=== PATIENT | female | born 1960 | race Caucasian/White ===

== ENCOUNTER 2018-09-01 21:00 | Inpatient (IN) | payer MEDICARE, OTHER ==
[~2018-09-01] VITALS: Ht 160 cm; Wt 72.0 kg
[2018-09-01 21:45] LABS: Basophils # (auto) 0.1 uL; Basophils % (auto) 0.9 % (0.0-2.0); Eosinophils # (auto) 0.1 uL; Eosinophils % (auto) 0.6 % (0.0-7.0); Hematocrit 43.8 % (36.0-46.0); Hemoglobin 14.9 g/dL (12.2-16.2); Monocytes # (auto) 0.6 uL; Nucleated Red Blood Cells % 0.1 %
[2018-09-01] MEDS ORDERED: LORazepam 2MG/ML-1ML VIAL IV ONE (21:45)
[2018-09-01 21:48] LABS: Lymphocytes # (auto) 3.3 uL; Lymphocytes % (auto) 34.6 % (10.0-50.0); Mean Corpuscular Hemoglobin 34.5 pg (28.0-32.0); Mean Corpuscular Volume 101.6 fL (80.0-100.0); Monocytes % (auto) 6.4 % (0.0-12.0); Neutrophils # (auto) 5.5 uL; Neutrophils % (auto) 57.5 % (37.0-80.0); Platelet Count (auto) 270 10^3/uL (140-450); Red Blood Cells 4.31 10^6/uL (4.0-5.20); Red Cell Distribution Width 14.1 % (11.8-14.3); White Blood Cell 9.6 10^3/uL (4.4-10.8)
[2018-09-01 22:31] LABS: Anion Gap 12 (5-15); Blood Urea Nitrogen 28 mg/dL (7-18); Calcium 9.9 mg/dL (8.5-10.1); Carbon Dioxide 22 mmol/L (21-32); Chloride 106 mmol/L (98-107); Glucose 101 mg/dL (74-106); Magnesium 2.2 mg/dL (1.6-2.6); Potassium 3.6 mmol/L (3.5-5.1); Sodium 140 mmol/L (136-145)
[2018-09-01 22:39] LABS: Alanine Aminotransferase 15 U/L (13-56); Alkaline Phosphatase 51 U/L (45-117); Aspartate Aminotransferase 20 U/L (15-37); BUN/Creatinine Ratio 14.2; Bilirubin, Total 0.6 mg/dL (0.2-1.0); Blood Alcohol < 3.0 mg/dL (0-5); GFR African American 33 mL/min; GFR Non-African American 28 mL/min; Total Protein 7.9 g/dL (6.4-8.2)
[2018-09-01 23:55] LABS: Urine Bacteria MANY /hpf (None Seen); Urine Blood Negative /uL (Negative); Urine Hyaline Cast MOD /lpf (0 - 2); Urine Mucus FEW (None Seen); Urine Specific Gravity 1.023 (1.001-1.035); Urine WBC 11 /hpf (0 - 5)
[2018-09-02 00:22] LABS: Alcohol, Urine < 3.0 mg/dL (0-5); Amphetamine Screen, Urine NEGATIVE (NEGATIVE); Barbiturate Scree,Urine NEGATIVE (NEGATIVE); Benzodiazephine Screen, Urine NEGATIVE (NEGATIVE); Cannabinoid Screen, Urine NEGATIVE (NEGATIVE); Cocaine Screen, Urine NEGATIVE (NEGATIVE); Opiate Scree,Urine POSITIVE (NEGATIVE); Phencyclidine Screen, Urine NEGATIVE (NEGATIVE)
[2018-09-02 00:31] LABS: Lactic Acid w/Reflex 2.7 mmol/L (0.4-2.0)
[2018-09-02] MEDS ORDERED: cefTRIAXone 1GM/50ML D5W 50 ML IV ONE (02:30)
[2018-09-02] MEDS ORDERED: VANCOMYCIN 1GM/250ML 250 ML IV ONE (02:30)
[2018-09-02] MEDS ORDERED: SODIUM CHLORIDE 0.9% 1,000 ML IV ONE ×2 (02:45)
[2018-09-02] MEDS ORDERED: ONDANSETRON HCL 4 MG/2 ML VIAL IV ONE ×2 (03:00→05:15)
[2018-09-02] MEDS ORDERED: MORPHINE SULFATE 4 MG/ML SYR/VIAL IV ONE (03:00)
[2018-09-02] MEDS ORDERED: HYDROcodone-ACET 5/325MG TAB PO ONE (04:30)
[2018-09-02] MEDS ORDERED: ONDANSETRON HCL 4 MG/2 ML VIAL ONE (05:05)
[2018-09-02] MEDS ORDERED: DOCUSATE SOD 100 MG CAP PO PRN (06:45)
[2018-09-02] MEDS ORDERED: TEMAZEPAM 15 MG CAP PO PRN (06:45)
[2018-09-02] MEDS ORDERED: ACETAMINOPHEN 500 MG TAB PO PRN (06:45)
[2018-09-02] MEDS ORDERED: ONDANSETRON HCL 4 MG/2 ML VIAL IV PRN (06:45)
[2018-09-02 08:21] LABS: Anion Gap 11 (5-15); BUN/Creatinine Ratio 15.7; Blood Urea Nitrogen 26 mg/dL (7-18); Carbon Dioxide 21 mmol/L (21-32); Chloride 109 mmol/L (98-107); GFR African American 41 mL/min; GFR Non-African American 34 mL/min; Glucose 106 mg/dL (74-106); Potassium 4.3 mmol/L (3.5-5.1); Sodium 141 mmol/L (136-145)
[2018-09-02 08:22] LABS: Basophils # (auto) 0.1 uL; Basophils % (auto) 0.8 % (0.0-2.0); Eosinophils # (auto) 0 uL; Eosinophils % (auto) 0.1 % (0.0-7.0); Hemoglobin 13.9 g/dL (12.2-16.2); Lymphocytes % (auto) 21.7 % (10.0-50.0); Monocytes # (auto) 0.7 uL; Nucleated Red Blood Cells % 0.1 %
[2018-09-02 08:24] LABS: Hematocrit 41.2 % (36.0-46.0); Mean Corpuscular Hemoglobin 34.4 pg (28.0-32.0); Mean Corpuscular Hgb Conc. 33.7 g/dL (32.0-36.0); Mean Corpuscular Volume 102.1 fL (80.0-100.0); Monocytes % (auto) 7.5 % (0.0-12.0); Neutrophils # (auto) 6.5 uL; Neutrophils % (auto) 69.9 % (37.0-80.0); Platelet Count (auto) 194 10^3/uL (140-450); Red Blood Cells 4.03 10^6/uL (4.0-5.20); Red Cell Distribution Width 14.2 % (11.8-14.3); White Blood Cell 9.3 10^3/uL (4.4-10.8)
[2018-09-02 09:48] LABS: Cholesterol 222 mg/dL (< 200); Triglycerides 161 mg/dL (< 150)
[2018-09-02 09:50] LABS: HDL Cholesterol 63 mg/dL (40-59); LDL Cholesterol 148 mg/dL (< 100)
[2018-09-02] MEDS: cefTRIAXone 1GM/50ML D5W 50 ML IV SCH (09:59)
[2018-09-02] MEDS: PANTOPRAZOLE 40 MG TAB PO SCH (09:59)
[2018-09-02] MEDS: ASPirin-EC 81 mg tab PO SCH (10:07)
[2018-09-02] MEDS ORDERED: LORazepam 2MG/ML-1ML VIAL IM ONE (11:00)
--- NOTE | 2018-09-02 11:45 | NUR ---
MS admit from ER JACOB WATTS admitted to Telemetry unit after SBAR received. Patient oriented to Tiffani Butler, primary RN, unit, room, bed, and unit policies regarding patient care and visiting hour. Patient placed on bedside oxygen, weighed by bedscale and encouraged to call if they need something. All questions and concerns addressed, patient verbalized understanding. Note:
[2018-09-02 12:00] VITALS: BP 128/71
[2018-09-02] MEDS ORDERED: LORazepam 2MG/ML-1ML VIAL IV PRN (12:15)
[2018-09-02 13:00] VITALS: BP 128/71
--- NOTE | 2018-09-02 16:00 | NUR ---
DAUGHTER AT BEDSIDE. BROUGHT IN PATIENT'S HOME MEDICATIONS. MED REC COMPLETED.
[2018-09-02 16:36] VITALS: BP 123/79
[2018-09-02] MEDS ORDERED: SERT-274 PO (17:00)
[2018-09-02] MEDS ORDERED: OMEP20TA PO (17:00)
[2018-09-02] MEDS ORDERED: SIMV-13 PO (17:00)
[2018-09-02] MEDS ORDERED: DOCU250C3 PO (17:00)
[2018-09-02] MEDS ORDERED: OMEG500C PO (17:00)
[2018-09-02] MEDS ORDERED: HYDR-4683 PO (17:00)
[2018-09-02] MEDS ORDERED: CYCL5TAB PO (17:00)
[2018-09-02] MEDS ORDERED: CHOL200029 PO (17:00)
[2018-09-02] MEDS ORDERED: LORA-622 PO (17:00)
[2018-09-02] MEDS ORDERED: MAGN400C4 PO (17:00)
[2018-09-02] MEDS ORDERED: ASPI81CH59 PO (17:00)
--- NOTE | 2018-09-02 17:00 | NUR ---
PT NOTES RE: HOME MEDICATOIN UPON INTERVIEWING THE PT RE: HER HOME MEDICATIONS, THE PT INFORMED ME THAT SHE TAKES 3 TABLETS OF NORCO 10/325 AT NIGHT ALONG WITH ZOLOFT TO HELP HER FALL ASLEEP. SHE SAID THAT THAT'S THE ONLY THING THAT HELPS WITH PAIN AND HELPS HER SLEEP. PT IS INSISTING THAT SHE HAS TO TAKE THEM HERE THE WAY SHE TAKES THEM AT HOME. I INFORMED THE PATIENT ABOUT THE NORCO ORDER WE HAVE FOR HER AND SHE WAS NOT HAPPY ABOUT IT. SHE DOESN'T LIKE THE IDEA OF TAKING 2 TABLETS OF NORCO 5/325 EVERY 4 HOURS NEEDED. SHE STATED THAT IT DOESN'T DO ANYTHING FOR HER. I ALSO INFORMED HER THAT SHE SHOULD NOT BE TAKING HER MEDICATION THAT WAY UNLESS HER MD PRESCRIBED IT. SHE PROCEEDED TO INFORM ME THAT SHE TAKES HER HOME MEDICATIONS DIFFERENTLY THAN WHAT SHE WAS TOLD AND THAT SHE HAD ALREADY TOLD HER PCP ABOUT IT, SO IT SHOULD BE OK FOR US TO GIVE IT TO HER HOW SHE TAKES THEM. I INFORMED THE PT THAT SHE HAS TO DISCUSS THIS WITH THE HOSPITALIST TOMORROW. DAUGHTER IS AT BEDSIDE WHO WAS IN AGREEMENT WITH ME. PT'S DAUGHTER IS INSTRUCTED TO TAKE PT'S MEDICATIONS HOME WITH HER, EXCEPT FOR HER KIDNEY TRANSPLANT MEDICATIONS WHICH SHE HAVE AT BEDSIDE. PT WILL TURN IT IN TO THE PHARMACY TOMORROW AFTER SHE SPEAK TO THE MD.
[2018-09-02] MEDS ORDERED: AZAT50TA6 PO (17:22)
[2018-09-02] MEDS ORDERED: TACR1CAP4 PO ×2 (17:22)
[2018-09-02] MEDS ORDERED: PRE5T PO (17:24)
--- NOTE | 2018-09-02 17:30 | NUR ---
PT TAKES METOPROLOL AT HOME BUT UNABLE TO PROVIDE DOSE. DAUGHTER WILL BRING IT TOMORROW.
--- NOTE | 2018-09-02 19:45 | NUR ---
OPENING NOTE REPORT RECEIVED FROM DAY SHIFT RN PATIENT IS A/OX4 RESTING IN BED. DAUGHTER IS AT BEDSIDE. PHYSICAL ASSESSMENT DONE-SEE INTERVENTIONS. POC DISCUSSED, PENDING PROCEDURES ALSO DISCUSSED. PATIENTS DAUGHTER HAS HOME MEDICATIONS AT BEDSIDE. EDUCATED PATIENT AND PATIENTS DAUGHTER THAT SHE MUST TAKE THEM HOME OR I HAVE TO SEND THEM TO THE PHARMACY. PATIENT STATES DAUGHTER WILL BE TAKING HER MEDICATIONS HOME. NO S/S OF DISTRESS AT THIS TIME. SAFETY PRECAUTIONS IN PLACE. WILL MONITOR Q1H PRN THROUGHOUT SHIFT, CALL LIGHT WITHIN REACH.
[2018-09-02 22:00] VITALS: BP 109/68
[2018-09-02] MEDS: ATORVASTATIN 20 MG TAB PO SCH (22:00)
[2018-09-02] MEDS ORDERED: ATORVASTATIN 20 MG TAB PO SCH (22:00)
[2018-09-02] MEDS: HYDROcodone-ACET 5/325MG TAB PO PRN (22:08)
[2018-09-03 05:00] VITALS: BP 118/72
--- NOTE | 2018-09-03 06:56 | NUR ---
CLOSING PATIENT IS SLEEPING AT THIS TIME. NO VISIBLE S/S OF DISTRESS NOTED CALL LIGHT WITHIN REACH WILL ENDORSE CARE TO AM SHIFT RN
--- NOTE | 2018-09-03 07:30 | NUR ---
Opening Shift Note Assumed care of patient, awake and alert. No S/S of distress/SOB or pain. Instructed on POC and to call for assist PRN, will continue to monitor for changes Q1hr and PRN.
[2018-09-03 08:00] VITALS: BP 93/55
--- NOTE | 2018-09-03 10:00 | NUR ---
HOME MEDICATION LIST REVIEWED WITH THE PATIENT. CORRECTIONS MADE.
[2018-09-03] MEDS: cefTRIAXone 1GM/50ML D5W 50 ML IV SCH (10:35)
[2018-09-03] MEDS: ASPirin-EC 81 mg tab PO SCH (10:35)
[2018-09-03] MEDS: PANTOPRAZOLE 40 MG TAB PO SCH (10:35)
[2018-09-03 12:00] VITALS: BP 117/72
[2018-09-03 17:00] VITALS: BP 116/99
--- NOTE | 2018-09-03 17:00 | NUR ---
PATIENT WANTED TO SPEAK TO SERGEY THE CHARGE NURSE. THE PATIENT EXPRESSED HER CONCERN THAT SHE HAS SOME MRI'S THAT WERE SUPPOSED TO BE COMPLETED TOMORROW. THE PATIENT WAS CONCERNED THAT THEY WOULDN'T GET DONE. THE PATIENT WANTED TO KNOW IF THERE WAS ANYTHING THAT WE COULD DO. WE INFORMED THE PATIENT THAT IT IS UP TO HER DOCTOR THAT SHE IS ASSIGNED TO HERE TO MAKE ORDERS CONCERNING HER CARE. PATIENT VERBALIZED UNDERSTANDING AND WE ENCOURAGED HER TO BRING UP HER ISSUES WITH DR. HOLLIDAY WHEN HE ROUNDS TOMORROW.
--- NOTE | 2018-09-03 19:12 | NUR ---
AT BEDSIDE AT BEDSIDE EXPLAINING POC WITH PATIENT AND PATIENTS DAUGHTER.
--- NOTE | 2018-09-03 19:30 | NUR ---
OPENING NOTE REPORT RECEIVED FROM DAY SHIFT RN. PATIENT IS A/OX4 SITTING UP IN BED. PATIENTS DAUGHTER AT BEDSIDE. PATIENT UPSET AND STATES SHE HAS NOT HAD HER ANTI REJECTION MEDICATIONS FOR TODAY. PATIENTS DAUGHTER ALSO VISIBLY UPSET STATING, "WE TOLD THE NURSE YESTERDAY ALL OF HER MEDICATIONS, WHY AREN'T THEY GIVING THEM TO HER. SHE CAN LOSE HER KIDNEY!". EXPLAINED TO PATIENT AND PATIENTS DAUGHTER THAT HER HOME MEDICATIONS ARE SCHEDULED FOR TONIGHT AT 2200 INCLUDING HER TWO ANTI REJECTION MEDICATIONS. DISCUSSED ALL NIGHT ORDERED MEDICATIONS WITH PATIENT. PATIENT STILL UPSET AND STATES, "WELL I TAKE 15 MEDICATIONS AT NIGHT. THOSE AREN'T 15". EDUCATED PATIENT THAT WE HAVE A COMPLETE MED REC OF HER LISTED HOME MEDICATIONS AND THAT WHAT WE HAVE ORDERED FOR TONIGHT IS WHAT IS LISTED IN HER MED REC. PATIENT STATES, "WELL WHO IS THE DOCTOR THAT ORDERED IT LIKE THIS? I NEED TO KNOW WHO I AM GOING TO HAVE TO FRENCH". EDUCATED PATIENT THAT SHE WILL BE GETTING HER ANTI REJECTION MEDICATIONS TONIGHT. THIS RN THOROUGHLY EXPLAINED ALL ORDERED MEDICATIONS INCLUDING THEIR USES/SIDE EFFECTS. ALL QUESTIONS ANSWERED. POC FOR TONIGHT DISCUSSED. WILL MONITOR Q1H PRN THROUGHOUT SHIFT.
[2018-09-03] MEDS: ATORVASTATIN 20 MG TAB PO SCH (21:54)
[2018-09-03] MEDS: TACROLIMUS 1 MG CAP PO SCH (21:55)
[2018-09-03] MEDS: MAGNESIUM OXIDE 400 MG TAB PO SCH (21:55)
[2018-09-03] MEDS ORDERED: azaTHIOprine 50 MG TAB PO SCH (22:00)
[2018-09-03] MEDS ORDERED: SERTRALINE HCL 50 MG TAB PO SCH (22:00)
[2018-09-03] MEDS: HYDROcodone-ACET 5/325MG TAB PO PRN (22:06)
[2018-09-03 22:20] VITALS: BP 118/65
[2018-09-04] MEDS: HYDROcodone-ACET 5/325MG TAB PO PRN (03:51)
[2018-09-04] MEDS ORDERED: METO25TA5 PO (05:28)
[2018-09-04] MEDS ORDERED: RALO60TA13 PO (05:28)
--- NOTE | 2018-09-04 05:29 | NUR ---
UPDATED MED REC PATIENT REMEMBERED TWO MORE MEDICATIONS THAT SHE TAKES AT HOME.
[2018-09-04 05:37] VITALS: BP 147/86
--- NOTE | 2018-09-04 06:47 | NUR ---
CLOSING PATIENT SLEEPING. NO S/S OF DISTRESS. CALL LIGHT WITHIN REACH WILL ENDORSE CARE TO AM SHIFT RN
[2018-09-04 08:41] VITALS: BP 94/61
[2018-09-04] MEDS: MAGNESIUM OXIDE 400 MG TAB PO SCH (09:03)
[2018-09-04] MEDS: PANTOPRAZOLE 40 MG TAB PO SCH (09:03)
[2018-09-04] MEDS: cefTRIAXone 1GM/50ML D5W 50 ML IV SCH (09:03)
[2018-09-04] MEDS: TACROLIMUS 1 MG CAP PO SCH (09:04)
[2018-09-04] MEDS: ASPirin-EC 81 mg tab PO SCH (09:05)
[2018-09-04] MEDS ORDERED: predniSONE 5 MG TAB PO SCH (10:00)
[2018-09-04] MEDS ORDERED: azaTHIOprine 50 MG TAB PO SCH ×2 (10:00)
[2018-09-04 12:42] VITALS: BP 117/74
[2018-09-04 14:45] VITALS: BP 117/74
--- NOTE | 2018-09-04 16:30 | NUR ---
Discharge instructions given as ordered. Encourage to follow up with PMD as instructed. Pt given Elizabeth teo / [facility] rep information given. All questions and concerns addressed. Patient verbalized understanding. Medication reconciliation form completed and copy given to patient. No home medications held in Pharmacy, and no needed vaccines to be given. IV removed with catheter intact, pressure dressing applied.
--- NOTE | 2018-09-04 16:50 | NUR ---
Report given to Michelle/ RN, pt waiting for his family to pick her up.
--- NOTE | 2018-09-04 18:05 | NUR ---
DISCHARGE NOTE Discharge instructions given as ordered. Encourage to follow up with PMD as instructed. All questions and concerns addressed. Patient verbalized understanding. Medication reconciliation form completed and copy given to patient. Home medications held in Pharmacy returned to patient. IV removed with catheter intact, pressure dressing applied. Telemetry unit returned to ICU. Patient taken to vehicle via wheelchair with all personal belongings, accompanied by staff and family member. No distress noted at time of departure.
== END 2018-09-04 18:10 | disposition home or self-care (01) | DRG 871 ==
LOC: ER 21:02 → OVERFLOW 21:03 → WEST WING 09-02 14:54
PROVIDERS: ADMIT Nurse Practitioner Family; ATTEND Family Medicine
DX: A41.9 Sepsis, unspecified organism (principal); G93.41 Metabolic encephalopathy; N39.0 Urinary tract infection, site not specified; G45.9 Transient cerebral ischemic attack, unspecified; Z94.0 Kidney transplant status; Z79.82 Long term (current) use of aspirin; Z79.899 Other long term (current) drug therapy; Z88.8 Allergy status to other drugs, medicaments and biological substances; E78.00 Pure hypercholesterolemia, unspecified; F41.1 Generalized anxiety disorder; F44.9 Dissociative and conversion disorder, unspecified; I11.9 Hypertensive heart disease without heart failure
CPT/HCPCS: 36415; 70450; 70551; 71045; 80048; 80053; 80061; 80307; 80320; 81001; 83605; 83735; 84484; 85025; 87040; 87086; 93005; 93306; 93886; 96361; 96365; 96368; 96375; G0378; J0696; J2405; J7507

== ENCOUNTER 2020-09-24 10:14 | Inpatient (IN) | payer OTHER, MEDICARE ==
[~2020-09-24] VITALS: Ht 160 cm; Wt 77.8 kg
[~2020-09-24 10:14] MED LIST: ASPI81CH59 PO; AZAT50TA6 PO; CHOL200029 PO; CYCL5TAB PO; DOCU250C4 PO; HYDR-4833 PO; LORA-622 PO; MAGN400C4 PO; METO25TA5 PO; OMEG500C PO; OMEP20TA PO; PRE5T PO; RALO60TA13 PO; SERT50TA19 PO; SIMV-13 PO; TACR1CAP4 PO
[2020-09-24] MEDS ORDERED: SODIUM CHLORIDE 0.9% 1,000 ML IV ONE (10:30)
[2020-09-24] MEDS ORDERED: MORPHINE SULFATE 4 MG/ML SYR/VIAL IV ONE (10:30)
[2020-09-24] MEDS ORDERED: ONDANSETRON HCL 4 MG/2 ML VIAL IV ONE (10:30)
[2020-09-24 10:59] LABS: Basophils # (auto) 0.1 10 ^3/uL (0-0.2); Eosinophils # (auto) 0 10 ^3/uL (0-0.8); Hemoglobin 12.6 g/dL (12.2-16.2)
[2020-09-24 11:02] LABS: Basophils % (auto) 1.1 % (0.0-2.0); Hematocrit 36.7 % (36.0-46.0); Lymphocytes # (auto) 1.4 10 ^3/uL (0.4-5.4); Lymphocytes % (auto) 11.9 % (10.0-50.0); Mean Corpuscular Hemoglobin 32.7 pg (28.0-32.0); Mean Corpuscular Hgb Conc. 34.2 g/dL (32.0-36.0); Mean Corpuscular Volume 95.7 fL (80.0-100.0); Monocytes # (auto) 0.6 10 ^3/uL (0-1.3); Monocytes % (auto) 4.6 % (0.0-12.0); Neutrophils # (auto) 9.9 10 ^3/uL (1.6-8.6); Neutrophils % (auto) 82.4 % (37.0-80.0); Red Blood Cells 3.84 10^6/uL (4.0-5.20)
[2020-09-24 11:13] LABS: Albumin 3.4 g/dL (3.4-5.0); Anion Gap 13 (5-15); Blood Urea Nitrogen 48 mg/dL (7-18); Calcium 9.5 mg/dL (8.5-10.1); Carbon Dioxide 17 mmol/L (21-32); Chloride 110 mmol/L (98-107); Glucose 147 mg/dL (74-106); Potassium 3.8 mmol/L (3.5-5.1); Sodium 140 mmol/L (136-145)
[2020-09-24 11:22] LABS: Alanine Aminotransferase 15 U/L (13-56); Alkaline Phosphatase 111 U/L (45-117); Aspartate Aminotransferase 19 U/L (15-37); BUN/Creatinine Ratio 18.8; Bilirubin, Total 0.7 mg/dL (0.2-1.0); GFR African American 25 mL/min; GFR Non-African American 20 mL/min; Lipase 7474 U/L (73-393)
[2020-09-24 14:13] LABS: Urine Bacteria NONE SEEN /hpf (None Seen); Urine Blood TRACE /uL (Negative); Urine Hyaline Cast FEW /lpf (0 - 2); Urine Mucus FEW (None Seen); Urine Specific Gravity 1.026 (1.001-1.035); Urine WBC 2 /hpf (0 - 5)
[2020-09-24] MEDS ORDERED: metroNIDAZOLE 500MG/100ML 100 ML IV ONE (14:15)
[2020-09-24] MEDS ORDERED: cefTRIAXone 1GM/50ML D5W 50 ML IV ONE (14:15)
[2020-09-24] MEDS ORDERED: LABETALOL HCL 5 MG/ML 4ML SYRINGE IV PRN ×3 (14:45→15:15)
[2020-09-24] MEDS ORDERED: METOPROLOL TARTRATE 50 MG TAB PO ONE (14:45)
[2020-09-24] MEDS ORDERED: NITROGLYCERIN 0.4 MG SL TAB SL PRN (14:45)
[2020-09-24] MEDS ORDERED: PANTOPRAZOLE 40 MG/10 ML VIAL INJ IV ONE (15:15)
[2020-09-24] MEDS: MORPHINE SULF INJ 2 MG/ML SYRINGE 1ML IV PRN ×2 (15:41→19:33)
[2020-09-24] MEDS: SODIUM CHLORIDE 0.9% 1,000 ML IV SCH ×2 (16:05→21:55)
[2020-09-24] MEDS ORDERED: methylPREDNISolone SOD SUCC 40 MG/ML VL IV ONE (17:15)
[2020-09-24] MEDS ORDERED: DOCUSATE SODIUM 250 MG PO SCH (17:15)
[2020-09-24] MEDS: SERTRALINE HCL 50 MG TAB PO SCH (18:16)
[2020-09-24] MEDS: PIPERACILLIN-TAZOB 2.25GM 50 ML IV SCH (18:16)
[2020-09-24] MEDS: TACROLIMUS 1 MG CAP PO SCH (18:49)
[2020-09-24] MEDS: ONDANSETRON HCL 4 MG/2 ML VIAL IV PRN (19:33)
[2020-09-24] MEDS: METOPROLOL TARTRATE 25 MG TAB PO SCH (22:00)
[2020-09-24] MEDS ORDERED: METOPROLOL TARTRATE 50 MG TAB PO SCH (22:00)
[2020-09-24] MEDS: MAGNESIUM OXIDE 420 MG PO SCH (22:00)
[2020-09-24 22:20] VITALS: BP 155/93
[2020-09-24] MEDS: ATORVASTATIN 20 MG TAB PO SCH (22:28)
[2020-09-24] MEDS: metroNIDAZOLE 500MG/100ML 100 ML IV SCH (22:29)
[2020-09-24 23:00] VITALS: BP 155/93
[2020-09-25] MEDS: PIPERACILLIN-TAZOB 2.25GM 50 ML IV SCH ×2 (00:14→06:00)
[2020-09-25] MEDS: ONDANSETRON HCL 4 MG/2 ML VIAL IV PRN ×5 (00:32→21:25)
[2020-09-25] MEDS: MORPHINE SULF INJ 2 MG/ML SYRINGE 1ML IV PRN ×5 (00:33→21:26)
[2020-09-25] MEDS: SODIUM CHLORIDE 0.9% 1,000 ML IV SCH (05:00)
[2020-09-25 05:25] VITALS: BP 130/70
[2020-09-25] MEDS: metroNIDAZOLE 500MG/100ML 100 ML IV SCH (06:00)
[2020-09-25 06:42] LABS: Basophils # (auto) 0 10 ^3/uL (0-0.2); Basophils % (auto) 0.3 % (0.0-2.0); Eosinophils # (auto) 0 10 ^3/uL (0-0.8); Monocytes # (auto) 0.5 10 ^3/uL (0-1.3); Red Cell Distribution Width 15.6 % (11.8-14.3)
[2020-09-25 06:47] LABS: Hematocrit 33.2 % (36.0-46.0); Hemoglobin 11.5 g/dL (12.2-16.2); Lymphocytes # (auto) 1.2 10 ^3/uL (0.4-5.4); Lymphocytes % (auto) 10.5 % (10.0-50.0); Mean Corpuscular Hemoglobin 33.5 pg (28.0-32.0); Mean Corpuscular Hgb Conc. 34.6 g/dL (32.0-36.0); Mean Corpuscular Volume 96.8 fL (80.0-100.0); Monocytes % (auto) 4.4 % (0.0-12.0); Neutrophils # (auto) 9.9 10 ^3/uL (1.6-8.6); Neutrophils % (auto) 84.8 % (37.0-80.0); Red Blood Cells 3.43 10^6/uL (4.0-5.20); White Blood Cell 11.7 10^3/uL (4.4-10.8)
[2020-09-25 06:55] LABS: Potassium 4.6 mmol/L (3.5-5.1)
[2020-09-25 06:59] LABS: Albumin 3.2 g/dL (3.4-5.0); BUN/Creatinine Ratio 18.7; Calcium 9.2 mg/dL (8.5-10.1); Magnesium 2.1 mg/dL (1.6-2.6)
[2020-09-25] MEDS: TACROLIMUS 1 MG CAP PO SCH ×2 (07:00→18:27)
[2020-09-25 07:12] LABS: Bilirubin, Total 0.6 mg/dL (0.2-1.0); Total Protein 7.2 g/dL (6.4-8.2)
[2020-09-25 08:00] VITALS: BP 146/99
[2020-09-25] MEDS ORDERED: cefTRIAXone 1GM/50ML D5W 50 ML IV SCH (09:00)
[2020-09-25 09:16] VITALS: BP 146/99
[2020-09-25] MEDS: MAGNESIUM OXIDE 420 MG PO SCH ×2 (10:00→21:58)
[2020-09-25] MEDS: PANTOPRAZOLE 40 MG/10 ML VIAL INJ IV SCH (10:15)
[2020-09-25] MEDS: methylPREDNISolone SOD SUCC 40 MG/ML VL IV SCH ×2 (10:15→21:58)
[2020-09-25] MEDS: azaTHIOprine 50 MG TAB PO SCH (10:16)
[2020-09-25] MEDS: METOPROLOL TARTRATE 25 MG TAB PO SCH ×2 (10:16→21:59)
[2020-09-25] MEDS: LORATADINE 10 MG TAB PO SCH (10:16)
[2020-09-25] MEDS ORDERED: LACTATED RINGER'S 1,000 ML IV SCH (11:15)
[2020-09-25] MEDS ORDERED: MEROPENEM 500MG IVPB 50 ML IV SCH (12:15)
[2020-09-25 13:00] VITALS: BP 142/86
[2020-09-25] MEDS: MEROPENEM 500MG IVPB 50 ML IV SCH (15:31)
[2020-09-25] MEDS ORDERED: KETOROLAC TROMETH 30 MG/ML 1ML VIAL IV ONE (16:00)
[2020-09-25 17:00] VITALS: BP 144/91
[2020-09-25] MEDS ORDERED: TPN PER PHARMACY 0 ML IV SCH (17:00)
[2020-09-25] MEDS: SERTRALINE HCL 50 MG TAB PO SCH (18:27)
[2020-09-25 18:41] LABS: INR 1.1 (0.9-1.15)
[2020-09-25] MEDS ORDERED: DEXTROSE (50%) 50ML SYRG IV SCH (19:15)
[2020-09-25] MEDS: LACTATED RINGER'S 1,000 ML IV SCH (21:55)
[2020-09-25] MEDS: ATORVASTATIN 20 MG TAB PO SCH (21:59)
[2020-09-25] MEDS ORDERED: MEROPENEM 1GM IVPB 100 ML IV SCH (22:00)
[2020-09-25] MEDS: AMINO ACID INFUSION IN D10W 1,000 ML IV NR (22:40)
[2020-09-25] MEDS: InsuLIN REG 1unit/0.01ml Soln (100units/ml) SC SCH (23:52)
[2020-09-25] MEDS: ACCU-CHEK COMFORT CURVE STRIP VI SCH (23:53)
[2020-09-26] VITALS (7 sets, daily range): BP systolic 135–160; BP diastolic 85–98
[2020-09-26] MEDS: ONDANSETRON HCL 4 MG/2 ML VIAL IV PRN ×4 (01:35→15:26)
[2020-09-26] MEDS: MORPHINE SULF INJ 2 MG/ML SYRINGE 1ML IV PRN ×6 (01:37→20:57)
[2020-09-26] MEDS: MEROPENEM 500MG IVPB 50 ML IV SCH ×2 (03:00→14:17)
[2020-09-26 05:22] LABS: Basophils # (auto) 0 10 ^3/uL (0-0.2); Eosinophils # (auto) 0 10 ^3/uL (0-0.8); Hemoglobin 11.1 g/dL (12.2-16.2); Lymphocytes # (auto) 0.9 10 ^3/uL (0.4-5.4); Monocytes # (auto) 0.2 10 ^3/uL (0-1.3); White Blood Cell 10.3 10^3/uL (4.4-10.8)
[2020-09-26 05:25] LABS: Hematocrit 32.8 % (36.0-46.0); Lymphocytes % (auto) 8.6 % (10.0-50.0); Mean Corpuscular Hemoglobin 33.3 pg (28.0-32.0); Mean Corpuscular Hgb Conc. 33.7 g/dL (32.0-36.0); Mean Corpuscular Volume 98.9 fL (80.0-100.0); Monocytes % (auto) 2.2 % (0.0-12.0); Neutrophils # (auto) 9.2 10 ^3/uL (1.6-8.6); Neutrophils % (auto) 89.2 % (37.0-80.0); Red Blood Cells 3.32 10^6/uL (4.0-5.20); Red Cell Distribution Width 16.4 % (11.8-14.3)
[2020-09-26 05:42] LABS: Potassium 4.8 mmol/L (3.5-5.1)
[2020-09-26 05:53] LABS: Albumin 2.8 g/dL (3.4-5.0); BUN/Creatinine Ratio 21.3; Bilirubin, Total 0.4 mg/dL (0.2-1.0); Magnesium 2.1 mg/dL (1.6-2.6); Phosphorus 3.3 mg/dL (2.5-4.90); Pre Albumin 17.1 mg/dL (20.0-40.0); Total Protein 7.2 g/dL (6.4-8.2)
[2020-09-26] MEDS: ACCU-CHEK COMFORT CURVE STRIP VI SCH ×3 (07:00→17:51)
[2020-09-26] MEDS: TACROLIMUS 1 MG CAP PO SCH ×2 (07:00→17:51)
[2020-09-26] MEDS: InsuLIN REG 1unit/0.01ml Soln (100units/ml) SC SCH ×3 (07:36→17:52)
[2020-09-26] MEDS: MAGNESIUM OXIDE 420 MG PO SCH ×2 (10:00→21:53)
[2020-09-26] MEDS: LORATADINE 10 MG TAB PO SCH (10:00)
[2020-09-26] MEDS: methylPREDNISolone SOD SUCC 40 MG/ML VL IV SCH ×2 (10:21→22:18)
[2020-09-26] MEDS: PANTOPRAZOLE 40 MG/10 ML VIAL INJ IV SCH (10:21)
[2020-09-26] MEDS: METOPROLOL TARTRATE 25 MG TAB PO SCH ×4 (11:07→22:18)
[2020-09-26] MEDS: azaTHIOprine 50 MG TAB PO SCH (11:07)
[2020-09-26] MEDS: LACTATED RINGER'S 1,000 ML IV SCH (12:40)
[2020-09-26] MEDS: SODIUM CHLORIDE 0.9% 1,000 ML IV SCH (17:28)
[2020-09-26] MEDS: ONDANSETRON HCL 4 MG/2 ML VIAL IV SCH (17:51)
[2020-09-26] MEDS: SERTRALINE HCL 50 MG TAB PO SCH (17:51)
[2020-09-26] MEDS: AMINO ACID INFUSION IN D10W 1,000 ML IV NR ×2 (19:49→20:35)
[2020-09-26] MEDS ORDERED: LIDOCAINE 1% (LOCAL ANESTH.) PF 5ml SDV ID PRN (20:15)
[2020-09-26] MEDS: SODIUM CHLOR 0.9% PF (SALINE LOCK) 10ML VIAL/SYR IV SCH (21:45)
[2020-09-26] MEDS: ATORVASTATIN 20 MG TAB PO SCH (22:00)
[2020-09-27] MEDS: ACCU-CHEK COMFORT CURVE STRIP VI SCH ×4 (00:04→17:57)
[2020-09-27] MEDS: ONDANSETRON HCL 4 MG/2 ML VIAL IV SCH ×7 (00:04→18:36)
[2020-09-27] MEDS: MORPHINE SULF INJ 2 MG/ML SYRINGE 1ML IV PRN ×8 (00:04→22:48)
[2020-09-27] MEDS: SODIUM CHLORIDE 0.9% 1,000 ML IV SCH ×4 (03:13→16:17)
[2020-09-27] MEDS: MEROPENEM 500MG IVPB 50 ML IV SCH ×2 (03:13→15:35)
[2020-09-27 05:00] VITALS: BP 143/99
[2020-09-27 05:25] LABS: Albumin 2.7 g/dL (3.4-5.0); Calcium 8.6 mg/dL (8.5-10.1); Magnesium 2.2 mg/dL (1.6-2.6); Potassium 4.8 mmol/L (3.5-5.1)
[2020-09-27 05:30] LABS: BUN/Creatinine Ratio 24.4; Bilirubin, Total 0.4 mg/dL (0.2-1.0); Phosphorus 3.4 mg/dL (2.5-4.90); Total Protein 6.7 g/dL (6.4-8.2)
[2020-09-27] MEDS: InsuLIN REG 1unit/0.01ml Soln (100units/ml) SC SCH ×4 (06:00→17:57)
[2020-09-27] MEDS: TACROLIMUS 1 MG CAP PO SCH ×2 (06:26→18:36)
[2020-09-27 09:00] VITALS: BP 153/94
[2020-09-27] MEDS: METOPROLOL TARTRATE 25 MG TAB PO SCH ×4 (09:33→22:47)
[2020-09-27] MEDS: methylPREDNISolone SOD SUCC 40 MG/ML VL IV SCH ×2 (09:33→22:45)
[2020-09-27] MEDS: SODIUM CHLOR 0.9% PF (SALINE LOCK) 10ML VIAL/SYR IV SCH ×2 (09:34→21:27)
[2020-09-27] MEDS: PANTOPRAZOLE 40 MG/10 ML VIAL INJ IV SCH (09:34)
[2020-09-27] MEDS: LORATADINE 10 MG TAB PO SCH (09:35)
[2020-09-27] MEDS: azaTHIOprine 50 MG TAB PO SCH (09:36)
[2020-09-27] MEDS: MAGNESIUM OXIDE 420 MG PO SCH ×2 (09:36→21:28)
[2020-09-27 13:00] VITALS: BP 123/71
[2020-09-27] MEDS ORDERED: TIZA4TAB9 PO ×3 (16:54)
[2020-09-27 17:00] VITALS: BP 146/92
[2020-09-27] MEDS ORDERED: MAGN400T40 PO (18:09)
[2020-09-27] MEDS: SERTRALINE HCL 50 MG TAB PO SCH (18:37)
[2020-09-27] MEDS: AMINO ACID INFUSION IN D10W 1,000 ML IV NR ×2 (19:49→20:00)
[2020-09-27] MEDS ORDERED: PREG50CA PO (21:48)
[2020-09-27] MEDS ORDERED: CYAN100056 PO (21:48)
[2020-09-27] MEDS ORDERED: TIZA2CAP7 PO (21:48)
[2020-09-27] MEDS ORDERED: TRAZ50TA2 PO (21:48)
[2020-09-27 22:00] VITALS: BP 149/86
[2020-09-27] MEDS: ATORVASTATIN 20 MG TAB PO SCH (22:00)
[2020-09-28] VITALS (8 sets, daily range): BP systolic 118–151; BP diastolic 68–95
[2020-09-28] MEDS: ONDANSETRON HCL 4 MG/2 ML VIAL IV SCH ×7 (00:19→20:01)
[2020-09-28] MEDS: MORPHINE SULF INJ 2 MG/ML SYRINGE 1ML IV PRN ×6 (01:48→23:11)
[2020-09-28] MEDS: MEROPENEM 500MG IVPB 50 ML IV SCH ×2 (03:18→15:48)
[2020-09-28 05:06] LABS: Basophils # (auto) 0 10 ^3/uL (0-0.2); Basophils % (auto) 0.3 % (0.0-2.0); Eosinophils # (auto) 0 10 ^3/uL (0-0.8); Hemoglobin 10.4 g/dL (12.2-16.2); Lymphocytes # (auto) 0.7 10 ^3/uL (0.4-5.4); Lymphocytes % (auto) 9.1 % (10.0-50.0); Mean Corpuscular Hemoglobin 33.3 pg (28.0-32.0); Mean Corpuscular Hgb Conc. 33.4 g/dL (32.0-36.0); Mean Corpuscular Volume 99.7 fL (80.0-100.0); Monocytes # (auto) 0.3 10 ^3/uL (0-1.3); Monocytes % (auto) 4.3 % (0.0-12.0); Neutrophils # (auto) 6.9 10 ^3/uL (1.6-8.6); Neutrophils % (auto) 86.3 % (37.0-80.0); Nucleated Red Blood Cells % 0.1 %; Red Blood Cells 3.11 10^6/uL (4.0-5.20); Red Cell Distribution Width 15.4 % (11.8-14.3)
[2020-09-28 05:41] LABS: Albumin 2.7 g/dL (3.4-5.0); Calcium 8.4 mg/dL (8.5-10.1); Magnesium 2.1 mg/dL (1.6-2.6)
[2020-09-28 05:45] LABS: BUN/Creatinine Ratio 27.7; Bilirubin, Total 0.6 mg/dL (0.2-1.0); Phosphorus 3.9 mg/dL (2.5-4.90); Total Protein 6.6 g/dL (6.4-8.2)
[2020-09-28] MEDS: InsuLIN REG 1unit/0.01ml Soln (100units/ml) SC SCH ×2 (06:00)
[2020-09-28] MEDS: TACROLIMUS 1 MG CAP PO SCH ×2 (06:29→17:51)
[2020-09-28] MEDS: ACCU-CHEK COMFORT CURVE STRIP VI SCH ×2 (06:30)
[2020-09-28] MEDS: SODIUM CHLORIDE 0.9% 1,000 ML IV SCH ×2 (07:47→16:45)
[2020-09-28] MEDS: SODIUM CHLOR 0.9% PF (SALINE LOCK) 10ML VIAL/SYR IV SCH ×2 (09:08→21:45)
[2020-09-28] MEDS: PANTOPRAZOLE 40 MG/10 ML VIAL INJ IV SCH (09:08)
[2020-09-28] MEDS: METOPROLOL TARTRATE 25 MG TAB PO SCH ×4 (09:09→21:48)
[2020-09-28] MEDS: LORATADINE 10 MG TAB PO SCH (09:09)
[2020-09-28] MEDS: methylPREDNISolone SOD SUCC 40 MG/ML VL IV SCH ×2 (09:09→21:45)
[2020-09-28] MEDS ORDERED: FUROSEMIDE 20 MG/2 ML VIAL IV ONE (09:30)
[2020-09-28] MEDS: azaTHIOprine 50 MG TAB PO SCH (13:35)
[2020-09-28] MEDS: MAGNESIUM OXIDE 400 MG TAB PO SCH ×2 (15:48→21:49)
[2020-09-28] MEDS: SERTRALINE HCL 50 MG TAB PO SCH (17:50)
[2020-09-28] MEDS: AMINO ACID INFUSION IN D10W 1,000 ML IV NR (20:02)
[2020-09-28] MEDS: ATORVASTATIN 20 MG TAB PO SCH (21:49)
[2020-09-29] MEDS: SODIUM CHLORIDE 0.9% 1,000 ML IV SCH ×4 (00:45→23:52)
[2020-09-29] MEDS: ONDANSETRON HCL 4 MG/2 ML VIAL IV SCH ×8 (00:46→23:48)
[2020-09-29] MEDS: MORPHINE SULF INJ 2 MG/ML SYRINGE 1ML IV PRN ×5 (03:15→21:47)
[2020-09-29] MEDS: MEROPENEM 500MG IVPB 50 ML IV SCH ×2 (03:16→16:58)
[2020-09-29 05:15] VITALS: BP 135/82
[2020-09-29] MEDS: TACROLIMUS 1 MG CAP PO SCH ×2 (06:13→18:41)
[2020-09-29 08:30] VITALS: BP 144/92
[2020-09-29 09:00] VITALS: BP 144/92
[2020-09-29] MEDS: PANTOPRAZOLE 40 MG/10 ML VIAL INJ IV SCH (10:45)
[2020-09-29] MEDS: LORATADINE 10 MG TAB PO SCH (10:46)
[2020-09-29] MEDS: methylPREDNISolone SOD SUCC 40 MG/ML VL IV SCH ×2 (10:46→21:48)
[2020-09-29] MEDS: MAGNESIUM OXIDE 400 MG TAB PO SCH ×2 (10:46→21:53)
[2020-09-29] MEDS: SODIUM CHLOR 0.9% PF (SALINE LOCK) 10ML VIAL/SYR IV SCH ×2 (10:46→21:48)
[2020-09-29] MEDS: azaTHIOprine 50 MG TAB PO SCH (10:48)
[2020-09-29] MEDS: METOPROLOL TARTRATE 25 MG TAB PO SCH ×2 (10:48→21:51)
[2020-09-29] MEDS ORDERED: TPN PER PHARMACY 0 ML IV SCH (11:00)
[2020-09-29 13:00] VITALS: BP 132/78
[2020-09-29 13:38] LABS: Albumin 2.6 g/dL (3.4-5.0); Calcium 8.5 mg/dL (8.5-10.1); Magnesium 2.2 mg/dL (1.6-2.6); Potassium 4.7 mmol/L (3.5-5.1)
[2020-09-29 13:42] LABS: BUN/Creatinine Ratio 29.7; Bilirubin, Total 0.7 mg/dL (0.2-1.0); Phosphorus 4.2 mg/dL (2.5-4.90); Total Protein 6.4 g/dL (6.4-8.2)
[2020-09-29 17:00] VITALS: BP 111/65
[2020-09-29] MEDS: SERTRALINE HCL 50 MG TAB PO SCH (18:40)
[2020-09-29] MEDS ORDERED: AMINO ACID INFUSION IN D10W 1,000 ML IV NR (20:00)
[2020-09-29] MEDS: ATORVASTATIN 20 MG TAB PO SCH (21:52)
[2020-09-29 22:11] VITALS: BP 131/76
[2020-09-29] MEDS: ACCU-CHEK COMFORT CURVE STRIP VI SCH (23:51)
[2020-09-29] MEDS: InsuLIN REG 1unit/0.01ml Soln (100units/ml) SC SCH (23:57)
[2020-09-30] MEDS ORDERED: DEXTROSE (50%) 50ML SYRG IV SCH
[2020-09-30] MEDS: ONDANSETRON HCL 4 MG/2 ML VIAL IV SCH ×6 (02:43→18:01)
[2020-09-30] MEDS: MEROPENEM 500MG IVPB 50 ML IV SCH ×2 (02:43→14:35)
[2020-09-30] MEDS: MORPHINE SULF INJ 2 MG/ML SYRINGE 1ML IV PRN ×2 (02:44→22:20)
[2020-09-30 05:23] VITALS: BP 123/79
[2020-09-30] MEDS: InsuLIN REG 1unit/0.01ml Soln (100units/ml) SC SCH ×3 (06:00→18:12)
[2020-09-30] MEDS: ACCU-CHEK COMFORT CURVE STRIP VI SCH ×3 (06:15→18:04)
[2020-09-30] MEDS: TACROLIMUS 1 MG CAP PO SCH ×2 (06:25→18:01)
[2020-09-30 07:22] LABS: Albumin 2.4 g/dL (3.4-5.0); Magnesium 2.3 mg/dL (1.6-2.6); Potassium 4.8 mmol/L (3.5-5.1)
[2020-09-30 07:25] LABS: BUN/Creatinine Ratio 33.5; Bilirubin, Total 0.6 mg/dL (0.2-1.0); Phosphorus 3.6 mg/dL (2.5-4.90); Total Protein 5.9 g/dL (6.4-8.2)
[2020-09-30 08:00] VITALS: BP 108/73
[2020-09-30 08:49] VITALS: BP 108/72
[2020-09-30] MEDS: PANTOPRAZOLE 40 MG/10 ML VIAL INJ IV SCH (09:28)
[2020-09-30] MEDS: SODIUM CHLOR 0.9% PF (SALINE LOCK) 10ML VIAL/SYR IV SCH ×2 (09:29→22:13)
[2020-09-30] MEDS: methylPREDNISolone SOD SUCC 40 MG/ML VL IV SCH ×2 (09:29→22:13)
[2020-09-30] MEDS: LORATADINE 10 MG TAB PO SCH (09:29)
[2020-09-30] MEDS: METOPROLOL TARTRATE 25 MG TAB PO SCH ×3 (09:30→22:14)
[2020-09-30] MEDS: MAGNESIUM OXIDE 400 MG TAB PO SCH ×2 (09:30→22:00)
[2020-09-30] MEDS: azaTHIOprine 50 MG TAB PO SCH (09:37)
[2020-09-30 13:00] VITALS: BP 132/79
[2020-09-30] MEDS: SODIUM CHLORIDE 0.9% 1,000 ML IV SCH (13:25)
[2020-09-30 16:47] VITALS: BP 104/54
[2020-09-30] MEDS: SERTRALINE HCL 50 MG TAB PO SCH (18:01)
[2020-09-30] MEDS ORDERED: TPN PER PHARMACY IV NR ×9 (20:00)
[2020-09-30 22:00] VITALS: BP 155/88
[2020-09-30] MEDS: ATORVASTATIN 20 MG TAB PO SCH (22:00)
[2020-10-01] MEDS: ONDANSETRON HCL 4 MG/2 ML VIAL IV SCH ×8 (00:12→18:34)
[2020-10-01] MEDS: ACCU-CHEK COMFORT CURVE STRIP VI SCH ×4 (00:12→18:00)
[2020-10-01] MEDS: MORPHINE SULF INJ 2 MG/ML SYRINGE 1ML IV PRN ×5 (02:36→18:35)
[2020-10-01] MEDS: MEROPENEM 500MG IVPB 50 ML IV SCH (03:00)
[2020-10-01] MEDS: SODIUM CHLORIDE 0.9% 1,000 ML IV SCH ×2 (03:00→15:46)
[2020-10-01 05:00] VITALS: BP 167/110
[2020-10-01] MEDS: LABETALOL HCL 5 MG/ML 4ML SYRINGE IV PRN ×2 (05:06→10:06)
[2020-10-01] MEDS: InsuLIN REG 1unit/0.01ml Soln (100units/ml) SC SCH ×4 (05:35→18:00)
[2020-10-01] MEDS: TACROLIMUS 1 MG CAP PO SCH ×2 (06:21→18:00)
[2020-10-01 09:00] VITALS: BP 157/90
[2020-10-01 09:34] LABS: Albumin 2.5 g/dL (3.4-5.0); Calcium 8.3 mg/dL (8.5-10.1); Magnesium 2.3 mg/dL (1.6-2.6); Potassium 4.1 mmol/L (3.5-5.1)
[2020-10-01 09:44] LABS: Bilirubin, Total 0.8 mg/dL (0.2-1.0); Phosphorus 2.1 mg/dL (2.5-4.90); Total Protein 6.2 g/dL (6.4-8.2)
[2020-10-01] MEDS: METOPROLOL TARTRATE 25 MG TAB PO SCH (10:00)
[2020-10-01] MEDS: MAGNESIUM OXIDE 400 MG TAB PO SCH (10:00)
[2020-10-01] MEDS: azaTHIOprine 50 MG TAB PO SCH (10:00)
[2020-10-01] MEDS: LORATADINE 10 MG TAB PO SCH (10:00)
[2020-10-01] MEDS: PANTOPRAZOLE 40 MG/10 ML VIAL INJ IV SCH (10:06)
[2020-10-01] MEDS: methylPREDNISolone SOD SUCC 40 MG/ML VL IV SCH (10:06)
[2020-10-01] MEDS: SODIUM CHLOR 0.9% PF (SALINE LOCK) 10ML VIAL/SYR IV SCH (10:07)
[2020-10-01] MEDS ORDERED: SODIUM PHOSPHATES 20 MEQ in SODIUM CHL 0.9% 100 ML IV ONE (11:30)
[2020-10-01] MEDS ORDERED: MEROPENEM 1GM IVPB 100 ML IV SCH (12:00)
[2020-10-01 13:00] VITALS: BP 156/92
[2020-10-01 16:54] VITALS: BP 154/87
[2020-10-01] MEDS: SERTRALINE HCL 50 MG TAB PO SCH (18:00)
[2020-10-01] MEDS ORDERED: AMINO ACID INFUSION IN D10W 1,000 ML IV NR (20:00)
== END 2020-10-01 19:18 | disposition short-term general hospital (02) | DRG 871 ==
LOC: ER 10:14 → EDBD 10:14 → EDUNIT# 10:14 → TELE 14:34 → TELE-EAST 21:35 → TELE-CENTR 09-25 18:36
PROVIDERS: ADMIT Internal Medicine; ATTEND Internal Medicine
PROC: 02HV33Z Insertion of Infusion Device into Superior Vena Cava, Percutaneous Approach (ICD-10-PCS; principal; 2020-09-26)
DX: A41.9 Sepsis, unspecified organism (principal); K85.90 Acute pancreatitis without necrosis or infection, unspecified; N17.9 Acute kidney failure, unspecified; K86.1 Other chronic pancreatitis; Z94.0 Kidney transplant status; K86.2 Cyst of pancreas; E86.9 Volume depletion, unspecified; K44.9 Diaphragmatic hernia without obstruction or gangrene; K57.90 Diverticulosis of intestine, part unspecified, without perforation or abscess without bleeding; K76.0 Fatty (change of) liver, not elsewhere classified; K76.89 Other specified diseases of liver; N18.32 Chronic kidney disease, stage 3b; F41.8 Other specified anxiety disorders; I12.9 Hypertensive chronic kidney disease with stage 1 through stage 4 chronic kidney disease, or unspecified chronic kidney disease; E11.22 Type 2 diabetes mellitus with diabetic chronic kidney disease; Z20.822 Contact with and (suspected) exposure to COVID-19; E87.5 Hyperkalemia; Z80.1 Family history of malignant neoplasm of trachea, bronchus and lung; Z82.49 Family history of ischemic heart disease and other diseases of the circulatory system; Z83.3 Family history of diabetes mellitus; Z83.79 Family history of other diseases of the digestive system
CPT/HCPCS: 36415; 36569; 71045; 74176; 80053; 80320; 81001; 82040; 82150; 82962; 83036; 83605; 83690; 83735; 84100; 84478; 84484; 85025; 85610; 85730; 86301; 87040; 87426; 93005; 96361; 96365; 96368; 96375; 96376; C9113; G0378; J0696; J1815; J1885; J2185; J2405; J2543; J3490; J7507

== ENCOUNTER 2022-02-13 06:55 | Inpatient (IN) | payer OTHER ==
[~2022-02-13] VITALS: Ht 167.6 cm; Wt 70.9 kg
[~2022-02-13 06:55] MED LIST changes: +CYAN100056 PO; +CYCL-837 PO; -CYCL5TAB PO; -MAGN400C4 PO; +MAGN400T40 PO; +PREG50CA PO; +TIZA2CAP7 PO; +TIZA4TAB9 PO; +TRAZ50TA2 PO
[2022-02-13] MEDS ORDERED: SODIUM CHLORIDE 0.9% 1,000 ML IV ONE (07:30)
[2022-02-13] MEDS ORDERED: CLINDAMYCIN 600MG IV 50 ML IV ONE (07:45)
[2022-02-13] MEDS ORDERED: PANTOPRAZOLE 80 MG in SODIUM CHL 0.9% 100 ML IV ONE (07:45)
[2022-02-13] MEDS ORDERED: cefTRIAXone 1GM/50ML D5W 50 ML IV ONE (07:45)
[2022-02-13 08:19] LABS: Basophils # (auto) 0 10 ^3/uL (0-0.2); Basophils % (auto) 0.3 % (0.0-2.0); Eosinophils # (auto) 0 10 ^3/uL (0-0.8); Hematocrit 44.5 % (36.0-46.0); Hemoglobin 14.3 g/dL (12.2-16.2); Lymphocytes # (auto) 1.3 10 ^3/uL (0.4-5.4); Lymphocytes % (auto) 10.2 % (10.0-50.0); Mean Corpuscular Hemoglobin 30.4 pg (28.0-32.0); Mean Corpuscular Hgb Conc. 32.2 g/dL (32.0-36.0); Mean Corpuscular Volume 94.5 fL (80.0-100.0); Monocytes # (auto) 0.9 10 ^3/uL (0-1.3); Monocytes % (auto) 7.1 % (0.0-12.0); Neutrophils # (auto) 10.4 10 ^3/uL (1.6-8.6); Neutrophils % (auto) 82.4 % (37.0-80.0); Red Blood Cells 4.71 10^6/uL (4.0-5.20); Red Cell Distribution Width 15.3 % (11.8-14.3); White Blood Cell 12.6 10^3/uL (4.4-10.8)
[2022-02-13 08:32] LABS: Albumin 4.6 g/dL (3.4-5.0); Calcium 9.6 mg/dL (8.5-10.1); Potassium 4.9 mmol/L (3.5-5.1)
[2022-02-13 08:35] LABS: Bilirubin, Total 1.3 mg/dL (0.2-1.0); Total Protein 8.4 g/dL (6.4-8.2)
[2022-02-13 08:58] LABS: INR 1.04 (0.9-1.15); Partial Thromboplastin Time 25.6 sec (24.6-33.4)
[2022-02-13 11:55] LABS: Urine Bacteria MANY /hpf (None Seen); Urine Blood 2+ /uL (Negative); Urine Specific Gravity 1.021 (1.001-1.035); Urine WBC 22 /hpf (0 - 5)
[2022-02-13] MEDS ORDERED: MORPHINE SULFATE INJ 2 MG/ml SYRG IV PRN (16:15)
[2022-02-13 17:18] LABS: Alcohol, Urine < 3.0 mg/dL (0-10); Amphetamine Screen, Urine NEGATIVE (NEGATIVE); Barbiturate Scree,Urine NEGATIVE (NEGATIVE); Benzodiazephine Screen, Urine NEGATIVE (NEGATIVE); Cannabinoid Screen, Urine NEGATIVE (NEGATIVE); Cocaine Screen, Urine NEGATIVE (NEGATIVE); Opiate Scree,Urine NEGATIVE (NEGATIVE); Phencyclidine Screen, Urine NEGATIVE (NEGATIVE)
[2022-02-13 17:34] LABS: Cholesterol 217 mg/dL (< 200); HDL Cholesterol 47 mg/dL (40-59); LDL Cholesterol 154 mg/dL (< 100); Triglycerides 228 mg/dL (< 150)
[2022-02-13] MEDS: LACTATED RINGER'S 1,000 ML IV SCH ×2 (17:43→19:56)
[2022-02-13] MEDS: SERTRALINE HCL 50 MG TAB PO SCH (18:00)
[2022-02-13 18:51] LABS: Hemoglobin 13.8 g/dL (12.2-16.2)
[2022-02-13] MEDS: ONDANSETRON HCL 4 MG/2 ML VIAL IV PRN (18:52)
[2022-02-13] MEDS ORDERED: dilTIAZem 25 MG/5 ML VIAL IV ONE (21:00)
[2022-02-13] MEDS ORDERED: ATORVASTATIN 20 MG TAB PO SCH (22:00)
[2022-02-13] MEDS: METOPROLOL TARTRATE 25 MG TAB PO SCH (22:00)
[2022-02-13] MEDS: traZODone HCL 50 MG TAB PO SCH (22:41)
[2022-02-13] MEDS: metroNIDAZOLE 500MG/100ML 100 ML IV SCH (22:41)
[2022-02-13] MEDS ORDERED: LABETALOL HCL 5 MG/ML 4ML SYRINGE IV ONE (23:45)
[2022-02-14] MEDS: ONDANSETRON HCL 4 MG/2 ML VIAL IV PRN ×2 (01:05→21:19)
[2022-02-14 01:25] LABS: Hematocrit 43.5 % (36.0-46.0); Hemoglobin 13.7 g/dL (12.2-16.2)
[2022-02-14 05:43] LABS: Basophils # (auto) 0.1 10 ^3/uL (0-0.2); Basophils % (auto) 0.5 % (0.0-2.0); Eosinophils # (auto) 0 10 ^3/uL (0-0.8); Hematocrit 39.8 % (36.0-46.0); Hemoglobin 12.8 g/dL (12.2-16.2); Lymphocytes # (auto) 1.4 10 ^3/uL (0.4-5.4); Lymphocytes % (auto) 10.9 % (10.0-50.0); Mean Corpuscular Hemoglobin 30.3 pg (28.0-32.0); Mean Corpuscular Hgb Conc. 32.2 g/dL (32.0-36.0); Mean Corpuscular Volume 94.3 fL (80.0-100.0); Monocytes # (auto) 0.9 10 ^3/uL (0-1.3); Monocytes % (auto) 7.2 % (0.0-12.0); Neutrophils # (auto) 10.7 10 ^3/uL (1.6-8.6); Neutrophils % (auto) 81.4 % (37.0-80.0); Nucleated Red Blood Cells % 0.1 %; Red Blood Cells 4.23 10^6/uL (4.0-5.20); Red Cell Distribution Width 15.4 % (11.8-14.3); White Blood Cell 13.2 10^3/uL (4.4-10.8)
[2022-02-14 05:46] LABS: Albumin 3.6 g/dL (3.4-5.0); Calcium 9.3 mg/dL (8.5-10.1); Potassium 4.4 mmol/L (3.5-5.1)
[2022-02-14 05:51] LABS: BUN/Creatinine Ratio 25.8; Bilirubin, Total 0.8 mg/dL (0.2-1.0); Total Protein 7.4 g/dL (6.4-8.2)
[2022-02-14] MEDS: metroNIDAZOLE 500MG/100ML 100 ML IV SCH ×3 (06:42→23:53)
[2022-02-14] MEDS: TACROLIMUS 1 MG CAP PO SCH (07:21)
[2022-02-14] MEDS: cefTRIAXone 1GM/50ML D5W 50 ML IV SCH (08:58)
[2022-02-14] MEDS: RALOXIFENE HCL 60 MG TAB PO SCH (10:00)
[2022-02-14] MEDS: azaTHIOprine 50 MG TAB PO SCH (10:12)
[2022-02-14] MEDS: PREGABALIN 25 MG CAP PO SCH (10:13)
[2022-02-14] MEDS: METOPROLOL TARTRATE 25 MG TAB PO SCH ×2 (10:16→21:20)
[2022-02-14] MEDS ORDERED: LORazepam 2MG/ML-1ML VIAL IV PRN (11:00)
[2022-02-14 12:30] VITALS: BP 155/106
[2022-02-14] MEDS ORDERED: methylPREDNISolone SOD SUCC 40 MG/ML VL IV ONE (12:30)
[2022-02-14] MEDS ORDERED: hydrALAZINE HCL 20 MG/ML VL IV PRN (12:30)
[2022-02-14] MEDS ORDERED: PANTOPRAZOLE 40 MG/10 ML VIAL INJ IV ONE (12:30)
[2022-02-14] MEDS: SOD CHL 0.45% 1,000 ML IV SCH ×2 (13:20→22:30)
[2022-02-14 13:41] LABS: Hemoglobin 13.3 g/dL (12.2-16.2)
[2022-02-14 15:36] VITALS: BP 155/106
[2022-02-14 17:00] VITALS: BP 168/101
[2022-02-14] MEDS: SERTRALINE HCL 50 MG TAB PO SCH (18:07)
[2022-02-14 21:10] LABS: Hematocrit 39.7 % (36.0-46.0); Hemoglobin 13.3 g/dL (12.2-16.2)
[2022-02-14 22:00] VITALS: BP 171/101
[2022-02-14] MEDS: NITROGLYCERIN 0.4 MG SL TAB SL PRN ×2 (23:14→23:19)
[2022-02-14] MEDS: ATORVASTATIN 20 MG TAB PO SCH (23:52)
[2022-02-14] MEDS: traZODone HCL 50 MG TAB PO SCH (23:52)
[2022-02-15] MEDS: ONDANSETRON HCL 4 MG/2 ML VIAL IV PRN (04:30)
[2022-02-15 05:00] VITALS: BP 157/85
[2022-02-15 05:35] LABS: Basophils # (auto) 0.2 10 ^3/uL (0-0.2); Basophils % (auto) 1.6 % (0.0-2.0); Eosinophils # (auto) 0 10 ^3/uL (0-0.8); Eosinophils % (auto) 0.2 % (0.0-7.0); Hematocrit 39.5 % (36.0-46.0); Hemoglobin 13.1 g/dL (12.2-16.2); Lymphocytes # (auto) 1.4 10 ^3/uL (0.4-5.4); Lymphocytes % (auto) 13.6 % (10.0-50.0); Mean Corpuscular Hemoglobin 31.9 pg (28.0-32.0); Mean Corpuscular Hgb Conc. 33.2 g/dL (32.0-36.0); Mean Corpuscular Volume 96.1 fL (80.0-100.0); Monocytes # (auto) 0.7 10 ^3/uL (0-1.3); Monocytes % (auto) 6.7 % (0.0-12.0); Neutrophils # (auto) 7.8 10 ^3/uL (1.6-8.6); Neutrophils % (auto) 77.9 % (37.0-80.0); Nucleated Red Blood Cells % 0.1 %; Red Blood Cells 4.12 10^6/uL (4.0-5.20); Red Cell Distribution Width 14.8 % (11.8-14.3)
[2022-02-15 05:57] LABS: BUN/Creatinine Ratio 30.9; Calcium 8.9 mg/dL (8.5-10.1); Potassium 4.8 mmol/L (3.5-5.1)
[2022-02-15] MEDS: metroNIDAZOLE 500MG/100ML 100 ML IV SCH ×2 (06:11→14:00)
[2022-02-15 08:00] VITALS: BP 97/68
[2022-02-15] MEDS: SOD CHL 0.45% 1,000 ML IV SCH ×2 (08:30→18:30)
[2022-02-15] MEDS: cefTRIAXone 1GM/50ML D5W 50 ML IV SCH (09:00)
[2022-02-15] MEDS: METOPROLOL TARTRATE 25 MG TAB PO SCH ×3 (10:00→20:42)
[2022-02-15] MEDS ORDERED: methylPREDNISolone SOD SUCC 40 MG/ML VL IV SCH (10:00)
[2022-02-15] MEDS: PANTOPRAZOLE 40 MG/10 ML VIAL INJ IV SCH (10:00)
[2022-02-15] MEDS: PREGABALIN 25 MG CAP PO SCH ×2 (10:34→10:40)
[2022-02-15] MEDS: RALOXIFENE HCL 60 MG TAB PO SCH (10:35)
[2022-02-15] MEDS: TACROLIMUS 1 MG CAP PO SCH (10:36)
[2022-02-15] MEDS: azaTHIOprine 50 MG TAB PO SCH (10:37)
[2022-02-15] MEDS: HYDROcodone-ACET 5/325MG TAB PO PRN ×2 (11:21→20:42)
[2022-02-15 12:30] VITALS: BP 145/80
[2022-02-15 17:00] VITALS: BP 151/98
[2022-02-15] MEDS: SERTRALINE HCL 50 MG TAB PO SCH (18:45)
[2022-02-15 20:19] VITALS: BP 146/86
[2022-02-15] MEDS ORDERED: ONDANSETRON ODT 4 MG TAB PO ONE (20:30)
[2022-02-15] MEDS: ATORVASTATIN 20 MG TAB PO SCH (20:41)
[2022-02-15] MEDS: traZODone HCL 50 MG TAB PO SCH (20:42)
[2022-02-15] MEDS: metroNIDAZOLE 500 MG TAB PO SCH (20:42)
[2022-02-16] MEDS: ONDANSETRON HCL 4 MG/2 ML VIAL IV PRN ×4 (03:22→21:45)
[2022-02-16] MEDS: HYDROcodone-ACET 5/325MG TAB PO PRN ×3 (04:45→21:33)
[2022-02-16 05:00] VITALS: BP 147/88
[2022-02-16] MEDS: metroNIDAZOLE 500 MG TAB PO SCH ×3 (06:00→21:33)
[2022-02-16 07:02] LABS: Basophils # (auto) 0 10 ^3/uL (0-0.2); Basophils % (auto) 0.4 % (0.0-2.0); Eosinophils # (auto) 0.1 10 ^3/uL (0-0.8); Eosinophils % (auto) 0.8 % (0.0-7.0); Hematocrit 39.9 % (36.0-46.0); Lymphocytes # (auto) 1.6 10 ^3/uL (0.4-5.4); Lymphocytes % (auto) 21.5 % (10.0-50.0); Mean Corpuscular Hgb Conc. 32.5 g/dL (32.0-36.0); Mean Corpuscular Volume 95.3 fL (80.0-100.0); Monocytes # (auto) 0.6 10 ^3/uL (0-1.3); Monocytes % (auto) 7.6 % (0.0-12.0); Neutrophils # (auto) 5.3 10 ^3/uL (1.6-8.6); Neutrophils % (auto) 69.7 % (37.0-80.0); Nucleated Red Blood Cells % 0.1 %; Red Blood Cells 4.19 10^6/uL (4.0-5.20); Red Cell Distribution Width 14.6 % (11.8-14.3); White Blood Cell 7.6 10^3/uL (4.4-10.8)
[2022-02-16 07:10] LABS: BUN/Creatinine Ratio 31.1; Calcium 8.6 mg/dL (8.5-10.1); Potassium 4.5 mmol/L (3.5-5.1)
[2022-02-16] MEDS: TACROLIMUS 1 MG CAP PO SCH (07:33)
[2022-02-16] MEDS: cefTRIAXone 1GM/50ML D5W 50 ML IV SCH (08:35)
[2022-02-16 09:00] VITALS: BP 166/89
[2022-02-16] MEDS: PANTOPRAZOLE 40 MG/10 ML VIAL INJ IV SCH (09:42)
[2022-02-16] MEDS: predniSONE 5 MG TAB PO SCH (09:43)
[2022-02-16] MEDS: RALOXIFENE HCL 60 MG TAB PO SCH (09:44)
[2022-02-16] MEDS: azaTHIOprine 50 MG TAB PO SCH (09:44)
[2022-02-16] MEDS: PREGABALIN 25 MG CAP PO SCH (09:45)
[2022-02-16] MEDS: SOD CHL 0.45% 1,000 ML IV SCH ×2 (09:51→14:30)
[2022-02-16] MEDS: METOPROLOL TARTRATE 25 MG TAB PO SCH ×2 (09:51→21:34)
[2022-02-16 13:00] VITALS: BP 139/77
[2022-02-16] MEDS ORDERED: GLYCOPYRROLATE 0.2 MG/ML 1ML VIAL ONE (14:05)
[2022-02-16] MEDS ORDERED: PROPOFOL 10 MG/ML 20 ML IV ONE (14:05)
[2022-02-16] MEDS ORDERED: LIDOCAINE 2% (LOCAL ANESTH.) PF 5ml SDV ONE (14:05)
[2022-02-16 17:00] VITALS: BP 164/89
[2022-02-16] MEDS: SUCRALFATE 1 GM/10 ML ORAL SUSP PO SCH ×4 (17:00→21:50)
[2022-02-16] MEDS: SERTRALINE HCL 50 MG TAB PO SCH (17:43)
[2022-02-16] MEDS: PANTOPRAZOLE 40 MG TAB PO SCH (21:33)
[2022-02-16] MEDS: traZODone HCL 50 MG TAB PO SCH (21:34)
[2022-02-16] MEDS: ATORVASTATIN 20 MG TAB PO SCH (21:34)
[2022-02-17] MEDS: SOD CHL 0.45% 1,000 ML IV SCH ×3 (00:30→20:30)
[2022-02-17] MEDS: HYDROcodone-ACET 5/325MG TAB PO PRN ×4 (04:53→21:46)
[2022-02-17 05:00] VITALS: BP 106/60
[2022-02-17] MEDS: metroNIDAZOLE 500 MG TAB PO SCH (06:00)
[2022-02-17] MEDS: SUCRALFATE 1 GM/10 ML ORAL SUSP PO SCH ×5 (06:03→21:50)
[2022-02-17] MEDS: TACROLIMUS 1 MG CAP PO SCH (06:15)
[2022-02-17 07:53] LABS: BUN/Creatinine Ratio 28.8; Calcium 8.5 mg/dL (8.5-10.1); Potassium 4.5 mmol/L (3.5-5.1)
[2022-02-17] MEDS: cefTRIAXone 1GM/50ML D5W 50 ML IV SCH (08:16)
[2022-02-17 08:49] VITALS: BP 128/68
[2022-02-17] MEDS: azaTHIOprine 50 MG TAB PO SCH (08:51)
[2022-02-17] MEDS: PANTOPRAZOLE 40 MG TAB PO SCH ×2 (08:52→21:46)
[2022-02-17] MEDS: PREGABALIN 25 MG CAP PO SCH ×2 (08:52→10:00)
[2022-02-17] MEDS: predniSONE 5 MG TAB PO SCH (08:52)
[2022-02-17] MEDS: METOPROLOL TARTRATE 25 MG TAB PO SCH ×2 (08:53→22:00)
[2022-02-17] MEDS: RALOXIFENE HCL 60 MG TAB PO SCH ×2 (08:54→10:00)
[2022-02-17] MEDS: ONDANSETRON HCL 4 MG/2 ML VIAL IV PRN ×3 (11:08→21:00)
[2022-02-17 13:00] VITALS: BP 151/77
[2022-02-17 17:00] VITALS: BP 136/80
[2022-02-17] MEDS: SERTRALINE HCL 50 MG TAB PO SCH (17:26)
[2022-02-17] MEDS: ATORVASTATIN 20 MG TAB PO SCH (21:46)
[2022-02-17] MEDS: traZODone HCL 50 MG TAB PO SCH (21:46)
[2022-02-17 22:00] VITALS: BP 160/77
[2022-02-18] MEDS: ONDANSETRON HCL 4 MG/2 ML VIAL IV PRN ×2 (01:04→16:29)
[2022-02-18 04:30] VITALS: BP 150/86
[2022-02-18] MEDS: SOD CHL 0.45% 1,000 ML IV SCH (06:07)
[2022-02-18] MEDS: HYDROcodone-ACET 5/325MG TAB PO PRN (06:15)
[2022-02-18] MEDS: SUCRALFATE 1 GM/10 ML ORAL SUSP PO SCH ×2 (06:16→11:30)
[2022-02-18] MEDS: TACROLIMUS 1 MG CAP PO SCH (06:16)
[2022-02-18 07:30] VITALS: BP 158/75
[2022-02-18 08:17] LABS: Calcium 8.6 mg/dL (8.5-10.1); Potassium 4.1 mmol/L (3.5-5.1)
[2022-02-18 08:20] LABS: BUN/Creatinine Ratio 27.1
[2022-02-18] MEDS: cefTRIAXone 1GM/50ML D5W 50 ML IV SCH (09:03)
[2022-02-18] MEDS: azaTHIOprine 50 MG TAB PO SCH (09:05)
[2022-02-18] MEDS: PREGABALIN 25 MG CAP PO SCH ×2 (09:06→09:25)
[2022-02-18] MEDS: METOPROLOL TARTRATE 25 MG TAB PO SCH (09:06)
[2022-02-18] MEDS: PANTOPRAZOLE 40 MG TAB PO SCH (09:07)
[2022-02-18] MEDS: RALOXIFENE HCL 60 MG TAB PO SCH (09:24)
[2022-02-18] MEDS ORDERED: predniSONE 5 MG TAB PO SCH (10:00)
[2022-02-18 13:00] VITALS: BP 95/63
[2022-02-18] MEDS ORDERED: SUCR1TAB22 PO (13:00)
[2022-02-18] MEDS ORDERED: OMEP-434 PO (13:00)
[2022-02-18] MEDS ORDERED: LEVO500T31 PO (13:00)
[2022-02-18 16:22] VITALS: BP 77/49
== END 2022-02-18 17:40 | disposition home or self-care (01) | DRG 380 ==
LOC: EDBD 06:55 → ER 07:04 → TELE 16:16 → TELE-WESTW 02-14 11:35
PROVIDERS: ADMIT Registered Nurse; ATTEND Internal Medicine
PROC: 0DB68ZX Excision of Stomach, Via Natural or Artificial Opening Endoscopic, Diagnostic (ICD-10-PCS; 2022-02-16)
PROC: 0DB38ZX Excision of Lower Esophagus, Via Natural or Artificial Opening Endoscopic, Diagnostic (ICD-10-PCS; 2022-02-16)
PROC: 0DB98ZX Excision of Duodenum, Via Natural or Artificial Opening Endoscopic, Diagnostic (ICD-10-PCS; principal; 2022-02-16 13:51)
DX: K22.11 Ulcer of esophagus with bleeding (principal); G92.8 Other toxic encephalopathy; N17.0 Acute kidney failure with tubular necrosis; N18.6 End stage renal disease; I21.A1 Myocardial infarction type 2; K86.1 Other chronic pancreatitis; N39.0 Urinary tract infection, site not specified; T86.19 Other complication of kidney transplant; I13.2 Hypertensive heart and chronic kidney disease with heart failure and with stage 5 chronic kidney disease, or end stage renal disease; E87.3 Alkalosis; E87.0 Hyperosmolality and hypernatremia; K29.91 Gastroduodenitis, unspecified, with bleeding; K29.71 Gastritis, unspecified, with bleeding; E78.5 Hyperlipidemia, unspecified; E86.9 Volume depletion, unspecified; I08.0 Rheumatic disorders of both mitral and aortic valves; I48.91 Unspecified atrial fibrillation; K44.9 Diaphragmatic hernia without obstruction or gangrene; Y83.0 Surgical operation with transplant of whole organ as the cause of abnormal reaction of the patient, or of later complication, without mention of misadventure at the time of the procedure; M10.9 Gout, unspecified; I50.9 Heart failure, unspecified; J45.909 Unspecified asthma, uncomplicated; K31.3 Pylorospasm, not elsewhere classified; Z80.1 Family history of malignant neoplasm of trachea, bronchus and lung; Z80.8 Family history of malignant neoplasm of other organs or systems; Z82.49 Family history of ischemic heart disease and other diseases of the circulatory system; Z83.3 Family history of diabetes mellitus; Z88.8 Allergy status to other drugs, medicaments and biological substances; Z83.79 Family history of other diseases of the digestive system; Z99.2 Dependence on renal dialysis
CPT/HCPCS: 36415; 36600; 70450; 70551; 71045; 74176; 80048; 80053; 80061; 80197; 80307; 81001; 82140; 82270; 82805; 82962; 83036; 83605; 83690; 84443; 84484; 85014; 85018; 85025; 85610; 85730; 86850; 86900; 86901; 87040; 87426; 93005; 93306; 93886; 95819; 96365; 96366; 96367; 96368; 96375; 97110; 97116; 97163; 97530; 99291; C9113; G0378; J0696; J2001; J2405; J2704; J3490; J7507; Q0162

== ENCOUNTER 2022-02-23 01:35 | Inpatient (IN) | payer OTHER ==
[~2022-02-23] VITALS: Ht 165.1 cm; Wt 82.0 kg
[~2022-02-23 01:35] MED LIST changes: +LEVO500T31 PO; +OMEP-434 PO; +SUCR1TAB22 PO
[2022-02-23 04:31] LABS: Basophils # (auto) 0.1 10 ^3/uL (0-0.2); Basophils % (auto) 0.8 % (0.0-2.0); Eosinophils # (auto) 0 10 ^3/uL (0-0.8); Eosinophils % (auto) 0.1 % (0.0-7.0); Hematocrit 41.7 % (36.0-46.0); Hemoglobin 14.5 g/dL (12.2-16.2); Lymphocytes # (auto) 1.2 10 ^3/uL (0.4-5.4); Lymphocytes % (auto) 13.5 % (10.0-50.0); Mean Corpuscular Hemoglobin 32.1 pg (28.0-32.0); Mean Corpuscular Hgb Conc. 34.8 g/dL (32.0-36.0); Mean Corpuscular Volume 92.1 fL (80.0-100.0); Monocytes # (auto) 0.3 10 ^3/uL (0-1.3); Monocytes % (auto) 3.7 % (0.0-12.0); Neutrophils # (auto) 7.5 10 ^3/uL (1.6-8.6); Neutrophils % (auto) 81.9 % (37.0-80.0); Nucleated Red Blood Cells % 0.1 %; Red Blood Cells 4.53 10^6/uL (4.0-5.20); Red Cell Distribution Width 14.3 % (11.8-14.3); White Blood Cell 9.2 10^3/uL (4.4-10.8)
[2022-02-23 04:46] LABS: Alanine Aminotransferase 18 U/L (13-56); Albumin 4.3 g/dL (3.4-5.0); Amylase 180 U/L (25-115); Anion Gap 16 (5-15); Aspartate Aminotransferase 21 U/L (15-37); BUN/Creatinine Ratio 18.1; Blood Urea Nitrogen 48 mg/dL (7-18); Calcium 10.3 mg/dL (8.5-10.1); Carbon Dioxide 13 mmol/L (21-32); Chloride 111 mmol/L (98-107); GFR African American 23 mL/min; GFR Non-African American 19 mL/min; Glucose 151 mg/dL (74-106); Lipase 695 U/L (73-393); Magnesium 2.1 mg/dL (1.6-2.6); Potassium 3.6 mmol/L (3.5-5.1); Sodium 140 mmol/L (136-145)
[2022-02-23 04:50] LABS: Alkaline Phosphatase 86 U/L (45-117); Bilirubin, Total 0.7 mg/dL (0.2-1.0); INR 0.97 (0.9-1.15); Partial Thromboplastin Time 24.1 sec (24.6-33.4); Total Protein 7.7 g/dL (6.4-8.2)
[2022-02-23 04:54] LABS: Blood Alcohol < 3.0 mg/dL (0-5)
[2022-02-23] MEDS ORDERED: ONDANSETRON HCL 4 MG/2 ML VIAL IV ONE ×2 (05:30→05:45)
[2022-02-23] MEDS ORDERED: HEPARIN SODIUM (PORCINE) 5000 UNITS/ML 1ML VIAL IV ONE (05:30)
[2022-02-23] MEDS ORDERED: MORPHINE SULFATE 4 MG/ML SYR/VIAL IV ONE ×2 (05:30→05:45)
[2022-02-23] MEDS ORDERED: HEPARIN DRIP/D5W 100UNITS/ML 250 ML IV SCH ×2 (05:30→10:00)
[2022-02-23] MEDS ORDERED: MORPHINE SULFATE 4 MG/ML SYR/VIAL IV PRN ×2 (05:45→09:15)
[2022-02-23] MEDS ORDERED: NITROGLYCERIN 0.4 MG SL TAB SL PRN (05:45)
[2022-02-23] MEDS ORDERED: LORazepam 0.5 MG TAB PO PRN (05:45)
[2022-02-23] MEDS ORDERED: LACTATED RINGER'S 1,000 ML IV ONE (05:45)
[2022-02-23] MEDS ORDERED: ACETAMINOPHEN 325 MG TAB PO PRN (05:45)
[2022-02-23] MEDS: SODIUM CHLORIDE 0.9% 1,000 ML IV SCH ×3 (05:45→11:11)
[2022-02-23] MEDS ORDERED: ZOLPIDEM TARTRATE 5 MG TAB PO PRN (05:45)
[2022-02-23] MEDS ORDERED: HYDROcodone-ACET 5/325MG TAB PO PRN (06:00)
[2022-02-23] MEDS ORDERED: TACROLIMUS 1 MG CAP PO SCH (07:00)
[2022-02-23 07:29] LABS: Basophils # (auto) 0.1 10 ^3/uL (0-0.2); Basophils % (auto) 0.7 % (0.0-2.0); Eosinophils # (auto) 0 10 ^3/uL (0-0.8); Hematocrit 42.4 % (36.0-46.0); Hemoglobin 14.2 g/dL (12.2-16.2); Lymphocytes # (auto) 1.2 10 ^3/uL (0.4-5.4); Lymphocytes % (auto) 9.9 % (10.0-50.0); Mean Corpuscular Hgb Conc. 33.5 g/dL (32.0-36.0); Mean Corpuscular Volume 95.4 fL (80.0-100.0); Monocytes # (auto) 0.4 10 ^3/uL (0-1.3); Monocytes % (auto) 3.5 % (0.0-12.0); Neutrophils % (auto) 85.9 % (37.0-80.0); Nucleated Red Blood Cells % 0.2 %; Red Blood Cells 4.45 10^6/uL (4.0-5.20); Red Cell Distribution Width 14.5 % (11.8-14.3); White Blood Cell 11.7 10^3/uL (4.4-10.8)
[2022-02-23 08:09] LABS: INR 1.05 (0.9-1.15)
[2022-02-23 08:39] LABS: Partial Thromboplastin Time > 139.0 sec (24.6-33.4)
[2022-02-23] MEDS ORDERED: ASPirin 81 mg TAB PO SCH (10:00)
[2022-02-23] MEDS ORDERED: LORATADINE 10 MG TAB PO SCH (10:00)
[2022-02-23] MEDS ORDERED: PANTOPRAZOLE 40 MG TAB PO SCH (10:00)
[2022-02-23] MEDS ORDERED: ENOXAPARIN SOD 80 MG/0.8ML SYRINGE SC SCH (10:00)
[2022-02-23] MEDS ORDERED: CLOPIDOGREL BISULFATE 75 MG TAB PO SCH (10:00)
[2022-02-23] MEDS ORDERED: PREGABALIN 25 MG CAP PO SCH (10:00)
[2022-02-23] MEDS ORDERED: METOPROLOL TARTRATE 25 MG TAB PO SCH (10:00)
[2022-02-23] MEDS ORDERED: DOCUSATE SOD 100 MG CAP PO SCH ×2 (10:00→18:00)
[2022-02-23] MEDS: ONDANSETRON HCL 4 MG/2 ML VIAL IV PRN ×2 (13:21→17:40)
[2022-02-23] MEDS ORDERED: FAMOTIDINE (10MG/ML) 2ML VL IV ONE (14:30)
[2022-02-23 17:02] VITALS: BP 121/78
[2022-02-23] MEDS ORDERED: traZODone HCL 50 MG TAB PO SCH (18:00)
[2022-02-23] MEDS ORDERED: SERTRALINE HCL 50 MG TAB PO SCH (18:00)
[2022-02-23] MEDS ORDERED: ATORVASTATIN 20 MG TAB PO SCH (22:00)
== END 2022-02-23 18:11 | disposition home or self-care (01) | DRG 391 ==
LOC: ER 01:35 → EDBD 01:35 → TELE 05:44
PROVIDERS: ADMIT Hospitalist; ATTEND Student in an Organized Health Care Education/Training Program
DX: K31.84 Gastroparesis (principal); I21.A1 Myocardial infarction type 2; I13.0 Hypertensive heart and chronic kidney disease with heart failure and stage 1 through stage 4 chronic kidney disease, or unspecified chronic kidney disease; N17.9 Acute kidney failure, unspecified; Z94.0 Kidney transplant status; K86.1 Other chronic pancreatitis; K44.9 Diaphragmatic hernia without obstruction or gangrene; Z20.822 Contact with and (suspected) exposure to COVID-19; K21.9 Gastro-esophageal reflux disease without esophagitis; I50.9 Heart failure, unspecified; I35.0 Nonrheumatic aortic (valve) stenosis; I48.91 Unspecified atrial fibrillation; N18.9 Chronic kidney disease, unspecified; Z80.1 Family history of malignant neoplasm of trachea, bronchus and lung; Z80.8 Family history of malignant neoplasm of other organs or systems; Z82.49 Family history of ischemic heart disease and other diseases of the circulatory system; Z83.79 Family history of other diseases of the digestive system; Z88.8 Allergy status to other drugs, medicaments and biological substances; Z90.49 Acquired absence of other specified parts of digestive tract
CPT/HCPCS: 36415; 71045; 74176; 80053; 80320; 82150; 83690; 83735; 84484; 85025; 85610; 85730; 87426; 93005; 96365; 96366; 96375; 96376; 99291; G0378; J2405; J3490; J7507

== ENCOUNTER 2022-10-20 23:00 | Inpatient (IN) | payer OTHER ==
[~2022-10-20] VITALS: Ht 170.2 cm; Wt 63.9 kg
[~2022-10-20 23:00] MED LIST changes: +DOCU250C12 PO; -DOCU250C4 PO; -RALO60TA13 PO; +RALO60TA14 PO; +SERT-206 PO; -SERT50TA19 PO; -SIMV-13 PO; +SIMV40TA18 PO; +TRAZ-227 PO; -TRAZ50TA2 PO
[2022-10-21 00:30] VITALS: PULSE 105; RESP 26; O2SAT 95
[2022-10-21] MEDS ORDERED: ONDANSETRON HCL 4 MG/2 ML VIAL IV ONE (00:45)
[2022-10-21] MEDS ORDERED: MORPHINE SULFATE 4 MG/ML SYR/VIAL IV ONE (00:45)
[2022-10-21 01:20] LABS: Alanine Aminotransferase 12 U/L (7-40); Albumin 5.1 g/dL (3.2-4.8); Alkaline Phosphatase 106 U/L (46-116); Anion Gap 12.9 (5-15); Aspartate Aminotransferase 22 U/L (13-40); BUN/Creatinine Ratio 16.4 (10.0-20.0); Bilirubin, Total 1.3 mg/dL (0.2-1.0); Blood Urea Nitrogen 35 mg/dL (9-23); Carbon Dioxide 17.1 mmol/L (20-30); Chloride 110 mmol/L (98-107); Glucose 147 mg/dL (74-106); Lipase 61 U/L (12-53); Sodium 140 mmol/L (136-145); Total Protein 8.4 g/dL (5.7-8.2)
[2022-10-21 01:23] LABS: Potassium 5.8 mmol/L (3.5-5.1)
[2022-10-21 01:31] LABS: Basophils # (auto) 0 10 ^3/uL (0-0.2); Basophils % (auto) 0.4 % (0.0-2.0); Eosinophils # (auto) 0 10 ^3/uL (0-0.8); Hemoglobin 12.7 g/dL (12.2-16.2); Lymphocytes # (auto) 0.9 10 ^3/uL (0.4-5.4); Lymphocytes % (auto) 9.7 % (10.0-50.0); Mean Corpuscular Hemoglobin 29.5 pg (28.0-32.0); Mean Corpuscular Hgb Conc. 32.5 g/dL (32.0-36.0); Mean Corpuscular Volume 90.6 fL (80.0-100.0); Monocytes # (auto) 0.2 10 ^3/uL (0-1.3); Monocytes % (auto) 2.1 % (0.0-12.0); Neutrophils % (auto) 87.8 % (37.0-80.0); Nucleated Red Blood Cells % 0.1 %; Red Blood Cells 4.31 10^6/uL (4.0-5.20); Red Cell Distribution Width 14.6 % (11.8-14.3); White Blood Cell 9.1 10^3/uL (4.4-10.8)
[2022-10-21] MEDS ORDERED: SODIUM BICARBONATE 8.4 % INJ 50ML VIAL IV ONE (01:45)
[2022-10-21] MEDS ORDERED: CALCIUM GLUC 1,000mg/50ml-NS 50 ML IV ONE (01:45)
[2022-10-21] MEDS ORDERED: LACTATED RINGER'S 1,000 ML IV ONE (01:45)
[2022-10-21] MEDS ORDERED: InsuLIN REG 1unit/0.01ml Soln (100units/ml) IV ONE (01:45)
[2022-10-21] MEDS ORDERED: DEXTROSE (50%) 50ML SYRG IV ONE (01:45)
[2022-10-21 03:13] LABS: Platelet Estimate Adequate
[2022-10-21 03:14] LABS: Large Platelets FEW
[2022-10-21] MEDS ORDERED: hydrALAZINE HCL 20 MG/ML VL IV ONE (03:30)
[2022-10-21 04:49] LABS: Urine Bacteria NONE SEEN /hpf (None Seen); Urine Blood Negative /uL (Negative); Urine Clarity Clear (Clear); Urine Color Colorless (Yellow); Urine Protein, UAD 1+ (Negative); Urine Urobilinogen Normal (Negative); Urine WBC 1 /hpf (0 - 5); Urine pH 7.5 (5.0-8.0)
[2022-10-21] MEDS ORDERED: NITROGLYCERIN 0.4 MG SL TAB SL PRN (05:45)
[2022-10-21] MEDS ORDERED: DOCUSATE SOD 100 MG CAP PO PRN (05:45)
[2022-10-21] MEDS ORDERED: ACETAMINOPHEN 325 MG TAB PO PRN (05:45)
[2022-10-21] MEDS ORDERED: hydrALAZINE HCL 20 MG/ML VL IV PRN (05:45)
[2022-10-21] MEDS ORDERED: MORPHINE SULFATE INJ 2 MG/ml SYRG IV PRN (05:45)
[2022-10-21] MEDS: SODIUM CHLOR 0.9% PF (SALINE LOCK) 10ML VIAL/SYR IV SCH ×2 (06:55→14:16)
[2022-10-21 07:14] LABS: Basophils # (auto) 0 10 ^3/uL (0-0.2); Basophils % (auto) 0.2 % (0.0-2.0); Eosinophils # (auto) 0 10 ^3/uL (0-0.8); Hematocrit 37.4 % (36.0-46.0); Hemoglobin 12.1 g/dL (12.2-16.2); Lymphocytes # (auto) 0.9 10 ^3/uL (0.4-5.4); Lymphocytes % (auto) 10.2 % (10.0-50.0); Mean Corpuscular Hemoglobin 29.6 pg (28.0-32.0); Mean Corpuscular Hgb Conc. 32.2 g/dL (32.0-36.0); Mean Corpuscular Volume 91.9 fL (80.0-100.0); Monocytes # (auto) 0.3 10 ^3/uL (0-1.3); Monocytes % (auto) 3.7 % (0.0-12.0); Neutrophils # (auto) 7.5 10 ^3/uL (1.6-8.6); Neutrophils % (auto) 85.9 % (37.0-80.0); Nucleated Red Blood Cells % 0.1 %; Red Blood Cells 4.08 10^6/uL (4.0-5.20); Red Cell Distribution Width 14.5 % (11.8-14.3); White Blood Cell 8.7 10^3/uL (4.4-10.8)
[2022-10-21 07:48] LABS: Alanine Aminotransferase 11 U/L (7-40); Albumin 4.7 g/dL (3.2-4.8); Alkaline Phosphatase 95 U/L (46-116); Anion Gap 13.6 (5-15); Aspartate Aminotransferase 20 U/L (13-40); BUN/Creatinine Ratio 17.9 (10.0-20.0); Blood Urea Nitrogen 34 mg/dL (9-23); Calcium 9.8 mg/dL (8.5-10.1); Carbon Dioxide 18.4 mmol/L (20-30); Chloride 109 mmol/L (98-107); Glucose 143 mg/dL (74-106); Potassium 4.8 mmol/L (3.5-5.1); Sodium 141 mmol/L (136-145)
[2022-10-21 07:49] LABS: Bilirubin, Total 1.3 mg/dL (0.2-1.0); Total Protein 7.6 g/dL (5.7-8.2)
[2022-10-21 07:58] VITALS: PULSE 120; RESP 18; O2SAT 96
[2022-10-21] MEDS: METOPROLOL TARTRATE 25 MG TAB PO SCH (10:10)
[2022-10-21] MEDS: FAMOTIDINE (10MG/ML) 2ML VL IV SCH (10:10)
[2022-10-21] MEDS: ONDANSETRON HCL 4 MG/2 ML VIAL IV PRN ×2 (10:10→13:50)
[2022-10-21] MEDS: amLODIPine BESYLATE 5 MG TAB PO SCH (10:11)
[2022-10-21] MEDS: ASPirin 81 mg TAB PO SCH (10:11)
[2022-10-21] MEDS: SOD CHL 0.45% 1,000 ML IV SCH (12:41)
[2022-10-21] MEDS ORDERED: METOCLOPRAMIDE HCL 5MG/ml INJ 2ml VIAL IV PRN (13:00)
[2022-10-21] MEDS ORDERED: LABETALOL HCL 5 MG/ML 4ML SYRINGE IV PRN (13:00)
[2022-10-21] MEDS: HYDROcodone-ACET 5/325MG TAB PO PRN (13:45)
[2022-10-21] MEDS: metroNIDAZOLE 500MG/100ML 100 ML IV SCH (14:16)
[2022-10-21 15:42] LABS: Protein, Urine 89.7 mg/dL (0.0-11.9)
[2022-10-21 15:44] LABS: Creatinine, Urine 32.63 mg/dL (30.0-125.0)
[2022-10-21] MEDS: SERTRALINE HCL 50 MG TAB PO SCH (18:19)
[2022-10-21] MEDS: azaTHIOprine 50 MG TAB PO SCH (22:00)
[2022-10-22] MEDS: ONDANSETRON HCL 4 MG/2 ML VIAL IV PRN (01:00)
[2022-10-22] MEDS: METOPROLOL TARTRATE 25 MG TAB PO SCH ×3 (01:01→23:28)
[2022-10-22] MEDS: metroNIDAZOLE 500MG/100ML 100 ML IV SCH ×4 (01:01→22:00)
[2022-10-22] MEDS: HYDROcodone-ACET 5/325MG TAB PO PRN ×2 (01:01→17:21)
[2022-10-22] MEDS: ATORVASTATIN 20 MG TAB PO SCH ×2 (01:01→23:28)
[2022-10-22] MEDS: SODIUM CHLOR 0.9% PF (SALINE LOCK) 10ML VIAL/SYR IV SCH ×4 (01:02→22:00)
[2022-10-22] MEDS: SOD CHL 0.45% 1,000 ML IV SCH ×3 (01:02→18:00)
[2022-10-22 02:46] VITALS: PULSE 87; RESP 20; O2SAT 97
[2022-10-22 07:32] LABS: Basophils # (auto) 0 10 ^3/uL (0-0.2); Basophils % (auto) 0.2 % (0.0-2.0); Eosinophils # (auto) 0 10 ^3/uL (0-0.8); Hematocrit 36.8 % (36.0-46.0); Hemoglobin 11.8 g/dL (12.2-16.2); Lymphocytes # (auto) 1.5 10 ^3/uL (0.4-5.4); Lymphocytes % (auto) 10.1 % (10.0-50.0); Mean Corpuscular Hemoglobin 29.1 pg (28.0-32.0); Mean Corpuscular Hgb Conc. 31.9 g/dL (32.0-36.0); Mean Corpuscular Volume 91.1 fL (80.0-100.0); Monocytes # (auto) 0.6 10 ^3/uL (0-1.3); Monocytes % (auto) 4.3 % (0.0-12.0); Neutrophils # (auto) 12.7 10 ^3/uL (1.6-8.6); Neutrophils % (auto) 85.4 % (37.0-80.0); Red Blood Cells 4.04 10^6/uL (4.0-5.20); Red Cell Distribution Width 14.5 % (11.8-14.3); White Blood Cell 14.9 10^3/uL (4.4-10.8)
[2022-10-22 08:01] LABS: Albumin 4.5 g/dL (3.2-4.8); Alkaline Phosphatase 83 U/L (46-116); Anion Gap 11.7 (5-15); Aspartate Aminotransferase 16 U/L (13-40); BUN/Creatinine Ratio 12.4 (10.0-20.0); Blood Urea Nitrogen 23 mg/dL (9-23); Calcium 9.2 mg/dL (8.7-10.4); Carbon Dioxide 17.3 mmol/L (20-30); Chloride 106 mmol/L (98-107); Creatine Kinase IFCC 90 U/L (34-145); Glucose 120 mg/dL (74-106); Phosphorus 4.6 mg/dL (2.4-5.1); Potassium 4.1 mmol/L (3.5-5.1)
[2022-10-22 08:02] LABS: Total Protein 7.6 g/dL (5.7-8.2)
[2022-10-22 08:06] LABS: Alanine Aminotransferase < 9 U/L (7-40); Sodium 135 mmol/L (136-145)
[2022-10-22] MEDS: TACROLIMUS 1 MG CAP PO SCH (08:25)
[2022-10-22] MEDS ORDERED: azaTHIOprine 50 MG TAB PO ONE (08:30)
[2022-10-22 08:38] LABS: Uric Acid 7.9 mg/dL (3.1-7.8)
[2022-10-22 10:29] VITALS: PULSE 105; RESP 18; O2SAT 98
[2022-10-22] MEDS: cefTRIAXone 1GM/50ML D5W 50 ML IV SCH (11:08)
[2022-10-22] MEDS: FAMOTIDINE (10MG/ML) 2ML VL IV SCH (11:10)
[2022-10-22] MEDS: ASPirin 81 mg TAB PO SCH (11:12)
[2022-10-22] MEDS: amLODIPine BESYLATE 5 MG TAB PO SCH (11:13)
[2022-10-22] MEDS: predniSONE 5 MG TAB PO SCH (11:15)
[2022-10-22 13:00] VITALS: BP 145/89; PULSE 96; RESP 18; TEMP 97.5; O2SAT 95
[2022-10-22 17:00] VITALS: BP 147/91; PULSE 103; RESP 18; TEMP 97.3; O2SAT 96
[2022-10-22] MEDS: SERTRALINE HCL 50 MG TAB PO SCH (18:00)
[2022-10-22 20:00] VITALS: PULSE 81; RESP 17; O2SAT 0
[2022-10-22 22:00] VITALS: BP 147/84; PULSE 99; RESP 18; TEMP 98.5; O2SAT 99
[2022-10-22] MEDS: azaTHIOprine 50 MG TAB PO SCH (22:00)
[2022-10-23] MEDS: SOD CHL 0.45% 1,000 ML IV SCH ×2 (04:00→14:00)
[2022-10-23 05:00] VITALS: BP 166/103; PULSE 89; RESP 20; TEMP 98.9; O2SAT 98
[2022-10-23] MEDS: metroNIDAZOLE 500MG/100ML 100 ML IV SCH ×2 (06:00→14:25)
[2022-10-23] MEDS: SODIUM CHLOR 0.9% PF (SALINE LOCK) 10ML VIAL/SYR IV SCH ×2 (06:00→14:25)
[2022-10-23 08:00] VITALS: PULSE 93; PULSE 97; RESP 20; O2SAT 100
[2022-10-23 09:00] VITALS: BP 157/103; PULSE 99; RESP 20; TEMP 98; O2SAT 99
[2022-10-23] MEDS: cefTRIAXone 1GM/50ML D5W 50 ML IV SCH (09:55)
[2022-10-23] MEDS: FAMOTIDINE (10MG/ML) 2ML VL IV SCH (10:01)
[2022-10-23] MEDS: METOPROLOL TARTRATE 25 MG TAB PO SCH (10:01)
[2022-10-23] MEDS: predniSONE 5 MG TAB PO SCH (10:01)
[2022-10-23] MEDS: ASPirin 81 mg TAB PO SCH (10:01)
[2022-10-23] MEDS: SUCRALFATE 1 GM/10 ML ORAL SUSP PO SCH ×3 (10:02→17:00)
[2022-10-23] MEDS: amLODIPine BESYLATE 5 MG TAB PO SCH (10:02)
[2022-10-23 10:21] LABS: Calcium 9.6 mg/dL (8.5-10.1); Chloride 105 mmol/L (98-107); Potassium 3.6 mmol/L (3.5-5.1); Sodium 137 mmol/L (136-145)
[2022-10-23 10:22] LABS: Anion Gap 13.2 (5-15); Carbon Dioxide 18.8 mmol/L (20-30)
[2022-10-23 10:24] LABS: Basophils # (auto) 0 10 ^3/uL (0-0.2); Basophils % (auto) 0.4 % (0.0-2.0); Eosinophils # (auto) 0 10 ^3/uL (0-0.8); Eosinophils % (auto) 0.1 % (0.0-7.0); Hematocrit 38.2 % (36.0-46.0); Hemoglobin 12.5 g/dL (12.2-16.2); Lymphocytes # (auto) 1.4 10 ^3/uL (0.4-5.4); Lymphocytes % (auto) 12.3 % (10.0-50.0); Mean Corpuscular Hemoglobin 29.4 pg (28.0-32.0); Mean Corpuscular Hgb Conc. 32.8 g/dL (32.0-36.0); Mean Corpuscular Volume 89.5 fL (80.0-100.0); Monocytes # (auto) 0.9 10 ^3/uL (0-1.3); Monocytes % (auto) 7.8 % (0.0-12.0); Neutrophils # (auto) 8.8 10 ^3/uL (1.6-8.6); Neutrophils % (auto) 79.4 % (37.0-80.0); Nucleated Red Blood Cells % 0.1 %; Red Blood Cells 4.26 10^6/uL (4.0-5.20); Red Cell Distribution Width 14.2 % (11.8-14.3); White Blood Cell 11.1 10^3/uL (4.4-10.8)
[2022-10-23 10:27] LABS: BUN/Creatinine Ratio 17.2 (10.0-20.0); Blood Urea Nitrogen 32 mg/dL (9-23); Glucose 111 mg/dL (74-106)
[2022-10-23] MEDS: TACROLIMUS 1 MG CAP PO SCH (12:46)
[2022-10-23] MEDS: HYDROcodone-ACET 5/325MG TAB PO PRN (12:53)
[2022-10-23 13:09] VITALS: BP 150/99; PULSE 97; RESP 20; TEMP 98.5; O2SAT 98
[2022-10-23] MEDS ORDERED: AML5T PO (15:53)
[2022-10-23] MEDS ORDERED: MET500T PO (15:53)
[2022-10-23 16:43] VITALS: BP 148/91; PULSE 94; RESP 20; TEMP 98.8; O2SAT 97
[2022-10-23] MEDS: SERTRALINE HCL 50 MG TAB PO SCH (18:00)
== END 2022-10-23 19:25 | disposition left against medical advice (07) | DRG 698 ==
LOC: EDBD 23:00 → ER 23:04 → TELE 10-21 05:45 → TELE-CENTR 10-22 10:26 → TELE-E-ADS 10-22 11:37
PROVIDERS: ADMIT Nurse Practitioner Family; ATTEND Nurse Practitioner Acute Care
PROC: 05HB33Z Insertion of Infusion Device into Right Basilic Vein, Percutaneous Approach (ICD-10-PCS; principal; 2022-10-23)
PROC: B54MZZA Ultrasonography of Right Upper Extremity Veins, Guidance (ICD-10-PCS; 2022-10-23)
DX: T86.19 Other complication of kidney transplant (principal); G92.8 Other toxic encephalopathy; N17.0 Acute kidney failure with tubular necrosis; E87.20 Acidosis, unspecified; N39.0 Urinary tract infection, site not specified; I13.0 Hypertensive heart and chronic kidney disease with heart failure and stage 1 through stage 4 chronic kidney disease, or unspecified chronic kidney disease; I16.0 Hypertensive urgency; K52.9 Noninfective gastroenteritis and colitis, unspecified; E87.5 Hyperkalemia; E86.0 Dehydration; I50.9 Heart failure, unspecified; N18.32 Chronic kidney disease, stage 3b; Y83.0 Surgical operation with transplant of whole organ as the cause of abnormal reaction of the patient, or of later complication, without mention of misadventure at the time of the procedure; K21.9 Gastro-esophageal reflux disease without esophagitis; I48.91 Unspecified atrial fibrillation; Z80.1 Family history of malignant neoplasm of trachea, bronchus and lung; Z80.8 Family history of malignant neoplasm of other organs or systems; Z82.49 Family history of ischemic heart disease and other diseases of the circulatory system; Z83.3 Family history of diabetes mellitus; Z83.79 Family history of other diseases of the digestive system; Z90.49 Acquired absence of other specified parts of digestive tract; Z88.8 Allergy status to other drugs, medicaments and biological substances; Y92.89 Other specified places as the place of occurrence of the external cause
CPT/HCPCS: 36415; 74176; 76705; 80048; 80053; 80197; 81001; 82550; 82570; 83690; 84100; 84156; 84300; 84484; 84550; 85025; 87081; 87086; 96365; 96375; G0378; J0696; J1815; J2405; J3490; J7507

== ENCOUNTER 2023-02-01 16:39 | Inpatient (IN) | payer OTHER ==
[~2023-02-01] VITALS: Ht 170.2 cm; Wt 77.2 kg
[~2023-02-01 16:39] MED LIST changes: +AML5T PO; +MET500T PO
[2023-02-01 17:38] VITALS: PULSE 114; RESP 24; O2SAT 98
[2023-02-01] MEDS ORDERED: SODIUM CHLORIDE 0.9% 1,000 ML IVB ONE (18:00)
[2023-02-01] MEDS ORDERED: MORPHINE SULFATE 4 MG/ML SYR/VIAL IV ONE (18:00)
[2023-02-01] MEDS ORDERED: METOCLOPRAMIDE HCL 5MG/ml INJ 2ml VIAL IV ONE ×2 (18:00→21:00)
[2023-02-01] MEDS ORDERED: ONDANSETRON ODT 4 MG TAB PO ONE (20:30)
[2023-02-01] MEDS ORDERED: cloNIDine HCL 0.1 MG TAB PO ONE (20:30)
[2023-02-01] MEDS ORDERED: HYDROmorphone HCL 2 MG/ML VL/or syr IV ONE (21:00)
[2023-02-01 21:49] VITALS: PULSE 96; RESP 96; O2SAT 97
[2023-02-01 22:23] LABS: Basophils # (auto) 0 10 ^3/uL (0-0.2); Basophils % (auto) 0.7 % (0.0-2.0); Eosinophils # (auto) 0 10 ^3/uL (0-0.8); Hematocrit 32.1 % (36.0-46.0); Hemoglobin 10.3 g/dL (12.2-16.2); Lymphocytes # (auto) 0.3 10 ^3/uL (0.4-5.4); Lymphocytes % (auto) 9.7 % (10.0-50.0); Mean Corpuscular Hemoglobin 28.8 pg (28.0-32.0); Mean Corpuscular Hgb Conc. 32.1 g/dL (32.0-36.0); Mean Corpuscular Volume 89.9 fL (80.0-100.0); Monocytes # (auto) 0.3 10 ^3/uL (0-1.3); Monocytes % (auto) 7.7 % (0.0-12.0); Neutrophils # (auto) 2.9 10 ^3/uL (1.6-8.6); Neutrophils % (auto) 81.9 % (37.0-80.0); Nucleated Red Blood Cells % 0.1 %; Red Blood Cells 3.57 10^6/uL (4.0-5.20); Red Cell Distribution Width 16.5 % (11.8-14.3); White Blood Cell 3.5 10^3/uL (4.4-10.8)
[2023-02-01 22:41] LABS: Alanine Aminotransferase 10 U/L (7-40); Albumin 4.2 g/dL (3.2-4.8); Alkaline Phosphatase 72 U/L (46-116); Anion Gap 16 (5-15); Aspartate Aminotransferase 27 U/L (13-40); BUN/Creatinine Ratio 13.4 (10.0-20.0); Bilirubin, Total 0.4 mg/dL (0.2-1.0); Blood Urea Nitrogen 24 mg/dL (9-23); Calcium 8.1 mg/dL (8.7-10.4); Carbon Dioxide 18 mmol/L (20-30); Chloride 105 mmol/L (98-107); Glucose 113 mg/dL (74-106); Lipase 46 U/L (12-53); Magnesium 1.4 mg/dL (1.6-2.6); Potassium 3.7 mmol/L (3.5-5.1); Sodium 139 mmol/L (136-145)
[2023-02-01 22:42] LABS: Total Protein 6.9 g/dL (5.7-8.2)
[2023-02-01 22:46] LABS: INR 1.06 (0.9-1.15); Partial Thromboplastin Time 29.2 SEC (24.5-34.5); Prothrombin Time 11.1 sec (9.3-11.8)
[2023-02-02] VITALS (7 sets, daily range): BP systolic 127; BP diastolic 82; PULSE 98–119; RESP 16–18; TEMP 98.6; O2SAT 97–98
[2023-02-02 00:11] LABS: Urine Bacteria FEW /hpf (None Seen); Urine Blood 1+ /uL (Negative); Urine Clarity Clear (Clear); Urine Color Colorless (Yellow); Urine Protein, UAD 2+ (Negative); Urine Specific Gravity 1.012 (1.001-1.035); Urine Urobilinogen Normal (Negative); Urine WBC <1 /hpf (0 - 5)
[2023-02-02 00:48] LABS: Rapid Influenza A Negative (Negative); Rapid Influenza B Negative (Negative)
[2023-02-02 00:49] LABS: COVID19 ANTIGEN SOFIA FIA POSITIVE (NEGATIVE)
[2023-02-02 01:40] LABS: Basophils # (auto) 0 10 ^3/uL (0-0.2); Basophils % (auto) 0.4 % (0.0-2.0); Eosinophils # (auto) 0 10 ^3/uL (0-0.8); Hematocrit 26.7 % (36.0-46.0); Hemoglobin 8.8 g/dL (12.2-16.2); Lymphocytes # (auto) 0.4 10 ^3/uL (0.4-5.4); Lymphocytes % (auto) 12.9 % (10.0-50.0); Mean Corpuscular Hemoglobin 29.6 pg (28.0-32.0); Mean Corpuscular Volume 89.8 fL (80.0-100.0); Monocytes # (auto) 0.2 10 ^3/uL (0-1.3); Monocytes % (auto) 9.2 % (0.0-12.0); Neutrophils # (auto) 2.1 10 ^3/uL (1.6-8.6); Neutrophils % (auto) 77.5 % (37.0-80.0); Nucleated Red Blood Cells % 0.1 %; Red Blood Cells 2.97 10^6/uL (4.0-5.20); Red Cell Distribution Width 16.4 % (11.8-14.3); White Blood Cell 2.7 10^3/uL (4.4-10.8)
[2023-02-02] MEDS ORDERED: ASPirin 81 mg TAB PO ONE (01:45)
[2023-02-02] MEDS ORDERED: ASPirin 325 MG TAB PO ONE (01:45)
[2023-02-02 01:57] LABS: INR 1.08 (0.9-1.15); Partial Thromboplastin Time 30.6 SEC (24.5-34.5); Prothrombin Time 11.3 sec (9.3-11.8)
[2023-02-02] MEDS ORDERED: HEPARIN SODIUM (PORCINE) 5000 UNITS/ML 1ML VIAL IV ONE (02:00)
[2023-02-02] MEDS ORDERED: HEPARIN DRIP/D5W 100UNITS/ML 250 ML IV SCH (02:00)
[2023-02-02] MEDS ORDERED: hydrALAZINE HCL 20 MG/ML VL IV PRN (02:45)
[2023-02-02] MEDS ORDERED: MORPHINE SULFATE INJ 2 MG/ml SYRG IV PRN (03:00)
[2023-02-02] MEDS ORDERED: NITROGLYCERIN 0.4 MG SL TAB SL PRN (03:00)
[2023-02-02] MEDS ORDERED: ONDANSETRON HCL 4 MG/2 ML VIAL IV PRN (03:00)
[2023-02-02] MEDS ORDERED: ACETAMINOPHEN 325 MG TAB PO PRN (03:00)
[2023-02-02] MEDS ORDERED: ALBUTEROL SULF HFA 90MCG INH 200DOSE IN PRN (03:30)
[2023-02-02] MEDS: MAGNESIUM SULFATE 1GM/100ML 100 ML IV SCH ×2 (03:33→04:25)
[2023-02-02] MEDS: HYDROcodone-ACET 5/325MG TAB PO PRN ×3 (03:36→21:02)
[2023-02-02 03:55] LABS: Chloride 106 mmol/L (98-107); Potassium 4.4 mmol/L (3.5-5.1); Sodium 139 mmol/L (136-145)
[2023-02-02 03:56] LABS: Anion Gap 15 (5-15); Carbon Dioxide 18 mmol/L (20-30)
[2023-02-02 04:01] LABS: BUN/Creatinine Ratio 10.8 (10.0-20.0); Blood Urea Nitrogen 17 mg/dL (9-23); Glucose 98 mg/dL (74-106)
[2023-02-02] MEDS: ZINC SULFATE 220mg CAP or TAB PO SCH (09:11)
[2023-02-02] MEDS: CHOLECALCIFEROL (VITD3) 2,000 UNIT CAP/TAB PO SCH (09:15)
[2023-02-02] MEDS ORDERED: ASPirin 81 mg TAB PO SCH (10:00)
[2023-02-02] MEDS: amLODIPine BESYLATE 5 MG TAB PO SCH (10:01)
[2023-02-02] MEDS: METOPROLOL TARTRATE 25 MG TAB PO SCH ×2 (10:01→21:00)
[2023-02-02] MEDS ORDERED: CALCIUM GLUC 1,000mg/50ml-NS 50 ML IV ONE (10:15)
[2023-02-02] MEDS ORDERED: ENOXAPARIN SOD 40 MG/0.4 ML SYRINGE SC ONE (11:15)
[2023-02-02] MEDS ORDERED: predniSONE 5 MG TAB PO ONE (12:00)
[2023-02-02] MEDS ORDERED: PANTOPRAZOLE 40 MG TAB PO ONE (17:00)
[2023-02-02] MEDS ORDERED: TACROLIMUS 0.5 MG CAP PO SCH (18:00)
[2023-02-02] MEDS: SODIUM BICARBONATE 650 MG TAB PO SCH (20:47)
[2023-02-02] MEDS ORDERED: ATORVASTATIN 20 MG TAB PO SCH (22:00)
[2023-02-03] MEDS: HYDROcodone-ACET 5/325MG TAB PO PRN ×2 (01:11→06:32)
[2023-02-03 01:21] VITALS: BP 120/71; PULSE 88; RESP 18; TEMP 98.6; O2SAT 97
[2023-02-03 05:09] VITALS: BP 128/69; PULSE 68; RESP 18; TEMP 97.8; O2SAT 98
[2023-02-03] MEDS: TACROLIMUS 0.5 MG CAP PO SCH ×2 (06:31→09:06)
[2023-02-03 08:10] VITALS: O2SAT 97
[2023-02-03 09:00] VITALS: BP 138/75; PULSE 76; RESP 18; TEMP 98.1; O2SAT 97
[2023-02-03] MEDS: SODIUM BICARBONATE 650 MG TAB PO SCH (09:08)
[2023-02-03] MEDS: amLODIPine BESYLATE 5 MG TAB PO SCH (09:09)
[2023-02-03] MEDS: METOPROLOL TARTRATE 25 MG TAB PO SCH (09:09)
[2023-02-03] MEDS: ZINC SULFATE 220mg CAP or TAB PO SCH (09:09)
[2023-02-03] MEDS: CHOLECALCIFEROL (VITD3) 2,000 UNIT CAP/TAB PO SCH (09:10)
[2023-02-03] MEDS ORDERED: ASPirin 81 mg TAB PO SCH (10:00)
[2023-02-03] MEDS ORDERED: azaTHIOprine 50 MG TAB PO SCH ×2 (10:00)
[2023-02-03] MEDS ORDERED: PANTOPRAZOLE 40 MG TAB PO SCH (10:00)
[2023-02-03] MEDS ORDERED: predniSONE 5 MG TAB PO SCH (10:00)
[2023-02-03] MEDS ORDERED: ENOXAPARIN SOD 40 MG/0.4 ML SYRINGE SC SCH (10:00)
[2023-02-03 10:35] VITALS: O2SAT 98
[2023-02-03 12:00] VITALS: BP 139/80; PULSE 78; RESP 18; TEMP 98.4; O2SAT 96
== END 2023-02-03 12:20 | disposition home or self-care (01) | DRG 177 ==
LOC: ER 16:39 → EDBD 16:39 → TELE 02-02 03:07 → TELE-CENTR 02-02 08:51
PROVIDERS: ADMIT Internal Medicine; ATTEND Internal Medicine
DX: U07.1 COVID-19 (principal); I21.A1 Myocardial infarction type 2; E87.20 Acidosis, unspecified; I13.2 Hypertensive heart and chronic kidney disease with heart failure and with stage 5 chronic kidney disease, or end stage renal disease; T86.19 Other complication of kidney transplant; N17.9 Acute kidney failure, unspecified; D84.9 Immunodeficiency, unspecified; D68.69 Other thrombophilia; I50.9 Heart failure, unspecified; D64.9 Anemia, unspecified; E78.5 Hyperlipidemia, unspecified; I35.0 Nonrheumatic aortic (valve) stenosis; J45.909 Unspecified asthma, uncomplicated; N18.32 Chronic kidney disease, stage 3b; Y83.0 Surgical operation with transplant of whole organ as the cause of abnormal reaction of the patient, or of later complication, without mention of misadventure at the time of the procedure; A08.4 Viral intestinal infection, unspecified; I48.0 Paroxysmal atrial fibrillation; Z88.8 Allergy status to other drugs, medicaments and biological substances; Z80.1 Family history of malignant neoplasm of trachea, bronchus and lung; Z80.8 Family history of malignant neoplasm of other organs or systems; Z82.49 Family history of ischemic heart disease and other diseases of the circulatory system; Z83.3 Family history of diabetes mellitus; Z83.79 Family history of other diseases of the digestive system; Z99.2 Dependence on renal dialysis; Z90.49 Acquired absence of other specified parts of digestive tract
CPT/HCPCS: 36415; 71045; 80048; 80053; 81001; 83605; 83690; 83735; 83880; 84443; 84484; 85025; 85379; 85610; 85730; 86141; 87040; 87426; 87804; 93005; G0378; Q0162

== ENCOUNTER 2024-01-26 06:43 | Inpatient (IN) | payer OTHER ==
[2024-01-26] VITALS (7 sets, daily range): BP systolic 145–169; BP diastolic 71–115; PULSE 83–121; RESP 12–19; TEMP 97.5–98; O2SAT 96–98
[~2024-01-26] VITALS: Ht 162.6 cm; Wt 65.5 kg
[~2024-01-26 06:43] MED LIST changes: +AZAT50TA35 PO; -AZAT50TA6 PO; -SUCR1TAB22 PO; +SUCR1TAB31 PO
--- NOTE | 2024-01-26 07:15 | ED.PDOC ---
Altered Mental Status HPI Comments A 63 year old female presents to the ED with a chief complaint of altered mental status. Daughter states the patient has been altered, confused, hallucination and has not been able to sleep. Patient was taken to a hospital yesterday and was discharged, daughter does not know what hospital. Patient lives on her own and last known well is unknown. She experienced similar symptoms October 2023. Patient has a past medical history of CHF, HTN, Afib, frequent UTI's. No other symptoms or modifying factors present at this time. Time Seen by MD: 07:01 Primary Care Provider: Unknown Reviewed Notes: Medications, Allergies Allergies: Coded Allergies: Lisinopril (Verified Allergy, Unknown, 02/13/22) Home Meds Active Scripts Metronidazole (Metronidazole) 500 Mg Tab, 500 MG PO BID for 5 Days, #10 TAB Prov:LYNNETTE DALTON DO 10/23/22 Amlodipine Besylate (NORVASC TABLET) 5 Mg Tb, 5 MG PO DAILY for 30 Days, #30 TAB 11 Refills Prov:LYNNETTE DALTON DO 10/23/22 Omeprazole Magnesium (Omeprazole) 20 Mg Tab, 20 MG PO BID for 30 Days, #60 TAB Prov:BLANCA BELLO MD 02/18/22 Levofloxacin (Levaquin) 500 Mg Tab, 500 MG PO EOD for 7 Days, #7 TAB Prov:BLANCA BELLO MD 02/18/22 Sucralfate (CARAFATE) 1 Gm Tab, 1 GM PO QID for 30 Days, #120 TAB Prov:BLANCA BELLO MD 02/18/22 Reported Medications Pregabalin (Lyrica) 50 Mg Cap, 50 MG PO DAILY, CAP 09/27/20 Trazodone Hcl (Trazodone Hcl) 50 Mg Tab, 50 MG PO HS, MG 09/27/20 Cyanocobalamin (B-12) 1,000 Mcg Cap, 1000 MCG PO, CAP 09/27/20 Tizanidine Hydrochloride (TIZANIDINE HCL) 2 Mg Cap, 2.5 MG PO, CAP 09/27/20 Magnesium Oxide (MAGNESIUM OXIDE) 400 Mg Tab, 1 TAB PO BID, #60 TAB 5 Refills 09/27/20 Tizanidine Hydrochloride (Zanaflex) 4 Mg Tab, 0.5 TAB PO HS, #60 TAB 09/27/20 Metoprolol Tartrate (Metoprolol Tartrate) 25 Mg Tab, 1 TAB PO BID, #180 TAB 1 Refill 09/04/18 Raloxifene Hydrochloride (EVISTA TABLET) 60 Mg Tb, 1 TAB PO DAILY, #30 TAB 11 Refills 09/04/18 Prednisone (PREDNISONE) 5 Mg Tb, 5 MG PO DAILY 09/02/18 Azathioprine (Imuran) 50 Mg Tab, 3 TAB PO BEDTIME, #180 TAB 3 Refills 09/02/18 Tacrolimus (Tacrolimus) 1 Mg Cap, 3 MG PO QAM, CAP 09/02/18 Fish Oil (Fish Oil) 500 Mg Cap, 500 MG PO BID, CAP 09/02/18 Omeprazole (Gnp Omeprazole) 20 Mg Tab, 1 CAP PO BID, #90 TAB 1 Refill 09/02/18 Docusate Sodium (Docusate Sodium) 250 Mg Cap, 250 MG PO QHS, CAP 09/02/18 Cholecalciferol (VITAMIN D3) 2,000 Unit Chw, 2000 UNIT PO DAILY, CHW 09/02/18 Loratadine (Claritin) 10 Mg Tab, 1 TAB PO DAILY, #30 TAB 5 Refills 09/02/18 Aspirin (Aspirin Low Dose) 81 Mg Chw, 1 TAB PO DAILY, #30 TAB 3 Refills 09/02/18 Cyclobenzaprine Hcl (Cyclobenzaprine Hcl) 5 Mg Tab, 2 TAB PO QPM PRN for prn, #30 TAB 09/02/18 Hydrocodone-Acetaminophen ([place] 5/325MG) 1 Tab Tb, 1 TAB PO Q6HP PRN for pain, #90 TAB 09/02/18 Sertraline Hcl (Sertraline Hcl) 50 Mg Tab, 3 TAB PO QPM for depression, #30 TAB 5 Refills 09/02/18 Simvastatin (Simvastatin) 40 Mg Tab, 1 TAB PO QPM, #30 TAB 5 Refills 09/02/18 Information Source: Relative (Child) Mode of Arrival: Ambulatory Severity: Moderate Timing: Days Duration: Since onset Prehospital treatment: None Quality: Change in Behavior, Confusion Recent: Urinary Symptoms Past Medical History PAST MEDICAL HISTORY: AFIB, CHF, HTN, Liver, UTI'S Surgical History: Cholecystectomy, , Hernia Repair Surgical History (Other): Kidney trasnplant - 2012 HOOP CUTTER History: No Pertinent HOOP CUTTER History Family History Family History: Unknown Social History Smoker: Non-Smoker Alcohol: Denies ETOH Use Drugs: Denies Drug Use Lives In: Home Constitutional: denies: chills, diaphoresis, fatigue, fever, malaise, sweats, weakness, others EENTM: denies: blurred vision, double vision, ear bleeding, ear discharge, ear drainage, ear pain, ear ringing, eye pain, eye redness, hearing loss, mouth pain, mouth swelling, nasal discharge, nose bleeding, nose congestion, nose pain, photophobia, tearing, throat pain, throat swelling, voice changes, others Respiratory: denies: cough, hemoptysis, orthopnea, SOB at rest, shortness of breath, SOB with excertion, stridor, wheezing, others Cardiovascular: denies: chest pain, dizzy spells, diaphoresis, Dyspnea on exertion, edema, irregular heart beat, left arm pain, lightheadedness, palpitations, PND, syncope, others Gastrointestinal: denies: abdomen distended, abdominal pain, blood streaked bowels, constipated, diarrhea, dysphagia, difficulty swallowing, hematemesis, melena, nausea, poor appetite, poor fluid intake, rectal bleeding, rectal pain, vomiting, others Genitourinary: denies: abnormal vagina bleeding, burning, dyspareunia, dysuria, flank pain, frequency, hematuria, incontinence, pain, , vagina discharge, urgency, others Neurological: denies: dizziness, fainting, headache, left sided numbness, left sided weakness, numbness, paresthesia, pre-existing deficit, right sided numbness, right sided weakness, seizure, speech problems, tingling, tremors, we akness, others Musculoskeletal: denies: back pain, gout, joint pain, joint swelling, muscle pain, muscle stiffness, neck pain, others Integumetry: denies: bruises, change in color, change in hair/nails, dryness, laceration, lesions, lumps, rash, wounds, others Allergic/Immunocompromised: denies: Difficulty Healing, Frequent Infections, Hives, Itching, others Hematologic/Lymphatic: denies: anemia, blood clots, easy bleeding, easy bruising, swollen glands, others Endocrine: denies: excessive hunger, excessive sweating, excessive thirst, excessive urination, flushing, intolerance to cold, intolerance to heat, unexplained weight gain, unexplained weight loss, others Psychiatric: denies: anxiety, bipolar disorder, depression, hopeless, panic disorder, schizophrenia, sleepless, suicidal, others Unable to Obtain due to: Altered Mental Status All Other Systems: Reviewed and Negative Physical Exam General Appearance: Cachectic HEENT: Normal ENT Inspection, Pharynx Normal, TMs Normal Neck: Full Range of Motion, Non-Tender, Normal, Normal Inspection Respiratory: Chest Non-Tender, Lungs Clear, No Accessory Muscle Use, No Respi ratory Distress, Normal Breath Sounds Cardiovascular: No Edema, No JVD, No Murmur, No Gallop, Tachycardia Breast Exam: Deferred Gastrointestinal: No Organomegaly, Non Tender, No Pulsatile Mass, Normal Bowel Sounds, Soft Genitalia: Deferred Pelvic: Deferred Rectal: Deferred Extremities: No calf tenderness, Normal capillary refill, Normal inspection, Normal range of motion, Non-tender, No pedal edema Musculoskeletal : Apperance: Normal Neurologic: Alert, systems auditor II-XII nml as Tested, No Motor Deficits, Normal Affect, Normal Mood, No Sensory Deficits Cerebellar Function: Normal Reflexes: Normal Skin: Dry, Normal Color, Warm Lymphatic: No Adenopathy Was a procedure done? Was a procedure done?: No Differential Diagnosis (ALOC) Differential Diagnosis: Dehydration, DKA, Encephalopathy, Sepsis, Mass Lesion, SAH, Drug Overdose, ETOH Intoxication X-Ray, Labs, Meds, VS Vital Signs Date Time Temp Pulse Resp B/P (MAP) Pulse Ox O2 Delivery O2 Flow Rate FiO2 01/26/24 09:00 124 13 139/100 (113) 99 01/26/24 08:40 100.4 100.4 01/26/24 07:11 97.6 151 20 112/74 (87) 99 Lab Test 01/26/24 08:31 01/26/24 07:38 Range/Units Influenza Type A Antigen Negative Negative Influenza Type B Antigen Negative Negative SARS-CoV-2 Antigen (Rapid) Negative NEGATIVE White Blood Count 13.5 H 4.4-10.8 10^3/uL Red Blood Count 4.68 4.0-5.20 10^6/uL Hemoglobin 13.8 12.2-16.2 g/dL Hematocrit 41.7 36.0-46.0 % Mean Corpuscular Volume 89.1 80.0-100.0 fL Mean Corpuscular Hemoglobin 29.5 28.0-32.0 pg Mean Corpuscular Hemoglobin Concent 33.1 32.0-36.0 g/dL Red Cell Distribution Width 16.1 H 11.8-14.3 % Platelet Count 342 140-450 10^3/uL Mean Platelet Volume 8.2 6.9-10.8 fL Neutrophils (%) (Auto) 83.4 H 37.0-80.0 % Lymphocytes (%) (Auto) 10.0 10.0-50.0 % Monocytes (%) (Auto) 6.0 0.0-12.0 % Eosinophils (%) (Auto) 0.1 0.0-7.0 % Basophils (%) (Auto) 0.5 0.0-2.0 % Neutrophils # (Auto) 11.3 H 1.6-8.6 10 ^3/uL Lymphocytes # (Auto) 1.4 0.4-5.4 10 ^3/uL Monocytes # (Auto) 0.8 0-1.3 10 ^3/uL Eosinophils # (Auto) 0 0-0.8 10 ^3/uL Basophils # (Auto) 0.1 0-0.2 10 ^3/uL Nucleated Red Blood Cells 0.3 % Sodium Level 145 136-145 mmol/L Potassium Level 3.9 3.5-5.1 mmol/L Chloride Level 109 H 98-107 mmol/L Carbon Dioxide Level 13 L 20-31 mmol/L Anion Gap 23 H 5-15 Blood Urea Nitrogen 70 H 9-23 mg/dL Creatinine 3.85 H 0.550-1.02 mg/dL Glomerular Filtration Rate Calc 12 >90 mL/min BUN/Creatinine Ratio 18.2 10.0-20.0 Serum Glucose 144 H 74-106 mg/dL Lactic Acid Level 2.4 *H 0.4-2.0 mmol/L Calcium Level 10.7 H 8.7-10.4 mg/dL Total Bilirubin 0.9 0.2-1.0 mg/dL Aspartate Amino Transferase (AST) 16 13-40 U/L Alanine Aminotransferase (ALT) < 9 7-40 U/L Alkaline Phosphatase 83 46-116 U/L Troponin I High Sensitivity 227 *H </=34 ng/L B-Type Natriuretic Peptide 538.92 0-100 pg/mL Total Protein 8.4 H 5.7-8.2 g/dL Albumin 4.9 H 3.2-4.8 g/dL Current Medications Medications (Trade) Dose Ordered Sig/Srikanth Route Start Time Stop Time Status Last Admin Sodium Chloride 1,000 ml @ 1,000 mls/hr Q1H ONCE IV 01/26/24 07:15 01/26/24 08:14 DC 01/26/24 08:41 Ondansetron HCl (Zofran) 4 mg ONCE ONCE IV 01/26/24 07:15 01/26/24 07:23 DC 01/26/24 08:41 Sodium Chloride 1,000 ml @ 1,000 mls/hr Q1H ONCE IV 01/26/24 08:45 01/26/24 09:44 DC 01/26/24 08:42 Cefepime HCl 50 ml @ 50 mls/hr ONCE ONCE IV 01/26/24 08:45 01/26/24 09:44 DC 01/26/24 09:11 Vancomycin HCl 200 ml @ 200 mls/hr ONCE ONCE IV 01/26/24 08:45 01/26/24 09:44 DC 01/26/24 09:02 Acetaminophen (Ofirmev) 1,000 mg DAILY STAT IV 01/26/24 08:38 01/26/24 08:41 DC 01/26/24 08:44 Time of 1ST Reevaluation: 07:31 Reevaluation 1ST: Unchanged Patient Education/Counseling: Diagnosis, Treatment, Prognosis Family Education/Counseling: Diagnosis, Treatment, Prognosis Departure 1 Departure Time of Disposition: 09:57 (Patient is likely septic from a urinary tract infection. Tonight the patient's CBC and BNP. CBC concerning for infection. BNP with BRANDON. Patient with an elevated lactic. I I personally reviewed the [facility] x-ray which appears benign on my read. We will empirically cover patient with antibiotics. We will give patient 3 L of fluid to cover for her ideal body weight 30cc/kg of fluid bolus. Admit patient to the hospital for further workup.) Impression: Primary Impression: Sepsis Qualified Codes: A41.9 - Sepsis, unspecified organism; R65.20 - Severe sepsis without septic shock; N17.8 - Other acute kidney failure Additional Impression: Metabolic encephalopathy Disposition: 09 ADMITTED INPATIENT Admit to: Tele Condition: Guarded Critical Care Note Critical Care Time?: Yes Critical care comment: Metabolic encephalopathy and sepsis Authorized and Performed by: Arash Sunshine MD Total critical care time: Approximately 36 minutes Due to a high probability of clinically significant, life threatening deterioration, the patient required my highest level of preparedness to intervene emergently and I personally spent this critical care time directly and personally managing the patient. This critical care time included obtaining a history; examining the patient; pulse oximetry; ordering and review of studies; arranging urgent treatment with development of a management plan; evaluation of patient's response to treatment; frequent reassessment; and, discussions with other providers. This critical care time was performed to assess and manage the high probability of imminent, life-threatening deterioration that could result in multi-organ failure. It was exclusive of separately billable procedures and treating other patients and teaching time. Please see my other sections and the rest of the note for further information on patient assessment and treatment. Stability Stability form required: No I personally scribed for ARASH SUNSHINE MD ([email or web address]) on 01/26/24 at 07:15. Electronically submitted by Valery Elam ([email or web address]). ARASH SUNSHINE MD Jan 26, 2024 07:15
[2024-01-26 08:12] LABS: Basophils # (auto) 0.1 10 ^3/uL (0-0.2); Basophils % (auto) 0.5 % (0.0-2.0); Eosinophils # (auto) 0 10 ^3/uL (0-0.8); Eosinophils % (auto) 0.1 % (0.0-7.0); Hematocrit 41.7 % (36.0-46.0); Hemoglobin 13.8 g/dL (12.2-16.2); Lymphocytes # (auto) 1.4 10 ^3/uL (0.4-5.4); Mean Corpuscular Hemoglobin 29.5 pg (28.0-32.0); Mean Corpuscular Hgb Conc. 33.1 g/dL (32.0-36.0); Mean Corpuscular Volume 89.1 fL (80.0-100.0); Monocytes # (auto) 0.8 10 ^3/uL (0-1.3); Neutrophils # (auto) 11.3 10 ^3/uL (1.6-8.6); Neutrophils % (auto) 83.4 % (37.0-80.0); Nucleated Red Blood Cells % 0.3 %; Platelet Count (auto) 342 10^3/uL (140-450); Red Blood Cells 4.68 10^6/uL (4.0-5.20); Red Cell Distribution Width 16.1 % (11.8-14.3); White Blood Cell 13.5 10^3/uL (4.4-10.8)
[2024-01-26 08:20] LABS: Alkaline Phosphatase 83 U/L (46-116); Anion Gap 23 (5-15); Aspartate Aminotransferase 16 U/L (13-40); BUN/Creatinine Ratio 18.2 (10.0-20.0); Potassium 3.9 mmol/L (3.5-5.1); Sodium 145 mmol/L (136-145)
[2024-01-26 08:21] LABS: Bilirubin, Total 0.9 mg/dL (0.2-1.0)
[2024-01-26 08:33] LABS: Alanine Aminotransferase < 9 U/L (7-40); Albumin 4.9 g/dL (3.2-4.8); Blood Urea Nitrogen 70 mg/dL (9-23); Calcium 10.7 mg/dL (8.7-10.4); Carbon Dioxide 13 mmol/L (20-31); Chloride 109 mmol/L (98-107); Glucose 144 mg/dL (74-106); Total Protein 8.4 g/dL (5.7-8.2)
[2024-01-26] MEDS: SODIUM CHLORIDE 0.9% 1,000 ML IV ONE ×3 (08:41→10:20)
[2024-01-26] MEDS: ONDANSETRON HCL 4 MG/2 ML VIAL IV ONE (08:41)
[2024-01-26 08:42] LABS: Lactic Acid w/Reflex 2.4 mmol/L (0.4-2.0)
[2024-01-26] MEDS: ACETAMINOPHEN IV 1000 MG/100ML (10MG/ML) IV STA (08:44)
[2024-01-26] MEDS: VANCOMYCIN 1GM/200ML PREMIX 200 ML IV ONE (09:02)
--- NOTE | 2024-01-26 09:04 | DVH ---
CLINICAL INFORMATION: 63 years old, Female; altered mental status. TECHNIQUE: Single AP portable chest radiograph was obtained. COMPARISON: XY CHEST PORTABLE on DOS: 02/01/23, CHEST XRAY 1 VIEW on DOS: 02/23/22, CXR1 on DOS: 02/23 FINDINGS: Lungs: Atelectasis in the lung bases. No focal consolidation. Cardiac: Heart size is within normal limits. Pulmonary vasculature: Unremarkable. Mediastinum/thea: Unremarkable. Bones: No acute osseous abnormality identified. Other: Moderate hiatal hernia projecting over the retrocardiac region, similar to prior exams. IMPRESSION: 1. No evidence of acute disease in the chest. 2. Moderate hiatal hernia.
[2024-01-26] MEDS: CEFEPIME 2GM/50ML NS 50 ML IV ONE (09:11)
[2024-01-26 09:49] LABS: COVID19 ANTIGEN SOFIA FIA NEGATIVE (NEGATIVE)
[2024-01-26 09:50] LABS: Rapid Influenza A Negative (Negative); Rapid Influenza B Negative (Negative)
[2024-01-26 10:09] LABS: Urine Bacteria MANY /hpf (None Seen); Urine Blood 2+ /uL (Negative); Urine Budding Yeast OCCASIONAL /hpf (None Seen); Urine Hyaline Cast FEW /lpf (0 - 2); Urine Protein, UAD 2+ (Negative); Urine Specific Gravity 1.018 (1.001-1.035); Urine Urobilinogen Normal (Negative); Urine WBC 464 /hpf (0 - 5); Urine WBC Clumps PRESENT /hpf (None Seen); Urine pH 5.5 (5.0-9.0)
[2024-01-26 10:12] LABS: Urine Clarity Cloudy (Clear); Urine Color Light-Yellow (Yellow)
[2024-01-26] MEDS ORDERED: ONDANSETRON HCL 4 MG/2 ML VIAL IV PRN (11:15)
--- NOTE | 2024-01-26 11:30 | DVH ---
EXAM: CT HEAD WITHOUT CONTRAST HISTORY: ams COMPARISON: CT ABD PELVIS WO CONTRAST on DOS: 02/23/22, BRAIN HEAD WO CONTRAST on DOS: 02/14/22 TECHNIQUE: Axial images of the head were obtained and reformatted in coronal and sagittal planes. All CT scans at this medical facility are performed using dose modulation techniques as appropriate t o a performed exam including the following: Automated exposure control was utilized; adjustment of th e MA and/or KV according to patient size; and use of iterative reconstruction technique. CT Dose: CTDI volume is 51 mGy. Dose-length product is 827 mGy*cm FINDINGS: There is no evidence of acute intracranial hemorrhage, mass, mass effect midline shift. There is no h ydrocephalus or extra-axial fluid collection. Ida-white matter differentiation is maintained.. The visualized paranasal sinuses and mastoid air cells are clear. The calvarium is intact. IMPRESSION: 1. No acute intracranial process. HS:Y
--- NOTE | 2024-01-26 12:03 | DVHHP2 ---
History of Present Illness History of Present Illness A 63 year old female w pmhx CHF, HTN, Afib, frequent UTI's p/w CC of AMS. daughter concerned for patients wellness as she has been altered, confused, hallucination and has not been able to sleep. per ED interview: Daughter states the patient has been Patient was taken to a hospital yesterday and was discharged, daughter does not know what hospital. Patient lives on her own and last known well is unknown. did collateral with daughter bi over the phone which matched ED history. the prior hospital visit (dc from ED?) is consistent with what ED is told. daughter does endorse that the last time patient was A&O, she called her daughter and endorsed that she was out of her norco which she takes for ?restless leg and she has been out of it which has been causing insomnia. daughter denisse pathak is confused from lack of sleep. next day daughter went to check up on the patient and the pt was altered even more, resulting in this visit. Review of Systems Review of Systems unable to obtain, patient altered Allergies: Coded Allergies: Lisinopril (Verified Allergy, Unknown, 02/13/22) Medications Current Medications Medications Dose Ordered Sig/Srikanth Route Start Time Stop Time Status Last Admin Dose Admin Ondansetron HCl 4 mg Q4HP PRN IV 01/26/24 11:15 Enoxaparin Sodium 40 mg DAILY SC 01/27/24 10:00 UNV Cefepime HCl 50 ml @ 12.5 mls/hr DAILY IV 01/27/24 10:00 Exam Vital Signs Vital Signs Date Time Temp Pulse Resp B/P (MAP) Pulse Ox O2 Delivery O2 Flow Rate FiO2 01/26/24 10:41 121 19 98 Room Air* 0 21 01/26/24 10:22 99.5 168/96 (120) 99.5 Exam GEN: appears in mild distress. AOx1 to person/self only HEENT: NC/AT; MMM. CV: systolic murmur (likely from flow murmur from AV fistula) LUNGS: CTAB, no w/r/c. ABD: discomfort on abdomen palpation EXT: skin Warm, well perfused. no rashes. No clubbing, cyanosis, or edema. fistula left arm NEURO: AOx1 to person/self only. No focal deficits., moving all extremities. Labs/Xrays Labs Test 01/26/24 09:58 01/26/24 09:40 01/26/24 08:31 01/26/24 07:38 Range/Units Lactic Acid Level 2.0 0.4-2.0 mmol/L Urine Color Light-yellow Yellow Urine Clarity Cloudy H Clear Urine pH 5.5 5.0-9.0 Urine Specific [place] 1.018 1.001-1.035 Urine Protein 2+ H Negative Urine Ketones 1+ H Negative Urine Blood 2+ H Negative /uL Urine Nitrite Negative Negative Urine Bilirubin Negative Negative Urine Urobilinogen Normal Negative mg/dL Urine Leukocyte Esterase 3+ Negative /uL Urine RBC 16 0 - 4 /hpf Urine WBC 464 0 - 5 /hpf Urine WBC Clumps Present None Seen /hpf Urine Squamous Epithelial Cells Few <5 /hpf Urine Bacteria Many H None Seen /hpf Urine Hyaline Casts Few 0 - 2 /lpf Urine Yeast (Budding) Occasional None Seen /hpf Urine Glucose Normal Normal mg/dL Influenza Type A Antigen Negative Negative Influenza Type B Antigen Negative Negative SARS-CoV-2 Antigen (Rapid) Negative NEGATIVE White Blood Count 13.5 H 4.4-10.8 10^3/uL Red Blood Count 4.68 4.0-5.20 10^6/uL Hemoglobin 13.8 12.2-16.2 g/dL Hematocrit 41.7 36.0-46.0 % Mean Corpuscular Volume 89.1 80.0-100.0 fL Mean Corpuscular Hemoglobin 29.5 28.0-32.0 pg Mean Corpuscular Hemoglobin Concent 33.1 32.0-36.0 g/dL Red Cell Distribution Width 16.1 H 11.8-14.3 % Platelet Count 342 140-450 10^3/uL Mean Platelet Volume 8.2 6.9-10.8 fL Neutrophils (%) (Auto) 83.4 H 37.0-80.0 % Lymphocytes (%) (Auto) 10.0 10.0-50.0 % Monocytes (%) (Auto) 6.0 0.0-12.0 % Eosinophils (%) (Auto) 0.1 0.0-7.0 % Basophils (%) (Auto) 0.5 0.0-2.0 % Neutrophils # (Auto) 11.3 H 1.6-8.6 10 ^3/uL Lymphocytes # (Auto) 1.4 0.4-5.4 10 ^3/uL Monocytes # (Auto) 0.8 0-1.3 10 ^3/uL Eosinophils # (Auto) 0 0-0.8 10 ^3/uL Basophils # (Auto) 0.1 0-0.2 10 ^3/uL Nucleated Red Blood Cells 0.3 % Sodium Level 145 136-145 mmol/L Potassium Level 3.9 3.5-5.1 mmol/L Chloride Level 109 H 98-107 mmol/L Carbon Dioxide Level 13 L 20-31 mmol/L Anion Gap 23 H 5-15 Blood Urea Nitrogen 70 H 9-23 mg/dL Creatinine 3.85 H 0.550-1.02 mg/dL Glomerular Filtration Rate Calc 12 >90 mL/min BUN/Creatinine Ratio 18.2 10.0-20.0 Serum Glucose 144 H 74-106 mg/dL Calcium Level 10.7 H 8.7-10.4 mg/dL Total Bilirubin 0.9 0.2-1.0 mg/dL Aspartate Amino Transferase (AST) 16 13-40 U/L Alanine Aminotransferase (ALT) < 9 7-40 U/L Alkaline Phosphatase 83 46-116 U/L Troponin I High Sensitivity 227 *H </=34 ng/L B-Type Natriuretic Peptide 538.92 0-100 pg/mL Total Protein 8.4 H 5.7-8.2 g/dL Albumin 4.9 H 3.2-4.8 g/dL Assessment/Plan Assessment/Plan #Metabolic encephalopathy #Acute complicated cystitis #Urosepsis # Lactic acidosis #Leukocytosis #Neutrophilia - patient presented from home after daughter got concerned with patient's sympt oms and worsening mentation - UA concerning for UTI - CT head negative for acute findings - flu COVID negative - CT abdomen given patient has discomfort on abdominal palpation - pending - NPO as patient is altered - one-to-one sitter, fall precaution - Continue IV antibiotics cefepime - Lactic acidosis- resolving after 30 cc per kg fluids - pending ammonia, TSH, blood culture, urine culture #Troponinemia- likely type 2 NSTEMI. We will trend troponin #BRANDON on CKD #ESRD left fistula, status post renal transplant - worsening BRANDON with creatinine rising from 1s to3s. we will consult Nephrology. Past knows to not indicate that patient is on dialysis (no schedule found). Consult nephrology #Hypertension-we will use p.r.n. until patient can tolerate p.o., then start p .o. home meds #history with history of CHF. Diet NPO DVT prophylaxis Lovenox GI prophylaxis Protonix IV Med surge Plan discussed with: Other My Orders Orders - EUGENE ALBERT MD Procedure Category Date Status Time Admit ADMIT 01/26/24 Transmitted 11:10 Code Status CODE 01/26/24 Transmitted 11:10 Ondansetron Hcl PHA 01/26/24 In Process (Zofran) 11:15 Fall Risk Precautions DONN 01/26/[address] 11:10 Complete Blood Count LAB 01/27/24 Verified 04:00 Comprehensive LAB 01/27/24 Verified Metabolic Panel 04:00 Npo (Nothing By DIET 01/26/24 Transmitted Mouth) Diet Lunch Ct Ab Pel Wo Con-No CT 01/26/24 Logged Oral Or Iv 11:30 Cefepime 1gm/ 50ml PHA 01/27/24 In Process (Maxipime 1gm/50ml) 10:00 Drug Screen LAB 01/26/24 In Process 11:37 *Dr. [facility] CONS 01/26/24 Transmitted -[place] 11:38 Enoxaparin Sodium PHA 01/27/24 In Process (Lovenox) 10:00 Date of Service: Jan 26, 2024 Billing Provider: EUGENE ALBERT MD Common Visit Codes: [id number] INP/OBS CARE (HIGH) EUGENE ALBERT MD Jan 26, 2024 12:03
[2024-01-26 12:25] LABS: Anion Gap 17 (5-15)
[2024-01-26 12:26] LABS: Calcium 9.1 mg/dL (8.7-10.4)
[2024-01-26 12:30] LABS: BUN/Creatinine Ratio 18.8 (10.0-20.0)
[2024-01-26 12:35] LABS: Blood Urea Nitrogen 60 mg/dL (9-23); Carbon Dioxide 14 mmol/L (20-31); Chloride 116 mmol/L (98-107); Glucose 111 mg/dL (74-106); Sodium 147 mmol/L (136-145)
--- NOTE | 2024-01-26 12:54 | DVH ---
Exam: CT CT AB PEL WO CON-NO ORAL OR IV History: abd pain on exam Comparison Study: CT CT AB PEL WO CON-NO ORAL OR IV on DOS: 10/20/22, CT ABD PELVIS WO CONTRAST on DO S: 02/23/22, MBHL on DOS: 02/14/22 Technique: Multidetector spiral CT of the abdomen and pelvis was performed from lung bases to pubic symphysis. Imaging was performed without IV contrast. Axial, coronal and sagittal multiplanar reform ats were obtained from the axial data set by the technologist. Radiation dose : Abdomen/Pelvis: CTDIvol 8 mGy, DLP 414.39 mGy*cm. Findings: Evaluation of solid organs is limited due to lack of intravenous contrast use. Lung Bases: No acute or significant lung base finding. Normal heart size. No pleural or pericardial effusion. Liver: The liver is normal in size. No focal lesions. Gallbladder and biliary Tree: Gallbladder is surgically absent. Spleen: Unremarkable Pancreas: Coarse calcifications in the pancreas. Adrenal Glands: Unremarkable Kidneys: Atrophic [place] kidneys with bilateral renal cortical thinning. Right lower quadrant renal t ransplant. No hydronephrosis. Bladder: Bladder is decompressed with a Chávez catheter and cannot be adequately assessed. Bowel: Large hiatal hernia. Wall thickening of the duodenum and proximal jejunum. No evidence of obst ruction. Normal appendix is visualized in the right lower quadrant without findings of appendicitis. A duodenal diverticulum is noted. Ascites: Absent Lymphadenopathy: No mesenteric, retroperitoneal or periportal lymphadenopathy. Abdominal wall and Mesentery: Fat containing umbilical hernia. Vasculature: The visualized abdominal aorta is normal in size and caliber. Evaluation of abdominal a nd pelvic vessels is limited due to lack of intravenous contrast. Pelvic Organs: Unremarkable Musculoskeletal: Moderate to advanced degenerative changes in the lumbar spine. IMPRESSION: 1. [place] kidneys are atrophic. Coarse calcifications in the pancreas could be due to chronic pancrea titis. Large hiatal hernia. Fat containing umbilical hernia. 2. Wall thickening of the duodenum and proximal jejunum is nonspecific. Consider gastroenteritis. If concern persists, small-bowel follow-through could be performed for further evaluation. Radiation optimization: All CT scans at this facility use at least one of these dose optimization martha hniques: Automated exposure control mA and/or kV adjustment per patient size (includes targeted exams where dose is matched to clinical indication) or iterative reconstruction. HS:Y
[2024-01-26 13:03] LABS: Opiate Scree,Urine Neg (NEGATIVE)
[2024-01-26 13:10] LABS: Amphetamine Screen, Urine Neg (NEGATIVE); Barbiturate Scree,Urine Neg (NEGATIVE); Benzodiazephine Screen, Urine Neg (NEGATIVE); Cannabinoid Screen, Urine Neg (NEGATIVE); Cocaine Screen, Urine Neg (NEGATIVE); Phencyclidine Screen, Urine Neg (NEGATIVE)
[2024-01-26] MEDS ORDERED: LABETALOL HCL 20 MG/4 ML VL IV PRN (16:15)
[2024-01-26] MEDS: LABETALOL HCL 20 MG/4 ML VL IV ONE (16:58)
[2024-01-26] MEDS: LACTATED RINGER'S 1,000 ML IV SCH (19:00)
--- NOTE | 2024-01-26 19:00 | DVHINCON2 ---
Date of service: Jan 26, 2024 Reason for Consultation BRANDON History of Present Illness 63 years old female with past medical history of donor kidney transplant, hypertension, dyslipidemia, gout, CHF, aortic valve stenosis presented with chief complaints of Altered mental status, on my evaluation patient was altered in emergency room, unable to obtain HPI, patient does have left upper arm fistula however is not on dialysis Past Medical History As per HPI Past Surgical History Kidney transplant Allergies: Coded Allergies: Lisinopril (Verified Allergy, Unknown, 02/13/22) Home Meds Active Scripts Metronidazole (Metronidazole) 500 Mg Tab, 500 MG PO BID for 5 Days, #10 TAB Prov:LYNNETTE DALTON DO 10/23/22 Amlodipine Besylate (NORVASC TABLET) 5 Mg Tb, 5 MG PO DAILY for 30 Days, #30 TAB 11 Refills Prov:LYNNETTE DALTON DO 10/23/22 Omeprazole Magnesium (Omeprazole) 20 Mg Tab, 20 MG PO BID for 30 Days, #60 TAB Prov:BLANCA BELLO MD 02/18/22 Levofloxacin (Levaquin) 500 Mg Tab, 500 MG PO EOD for 7 Days, #7 TAB Prov:BLANCA BELLO MD 02/18/22 Sucralfate (CARAFATE) 1 Gm Tab, 1 GM PO QID for 30 Days, #120 TAB Prov:BLANCA BELLO MD 02/18/22 Reported Medications Pregabalin (Lyrica) 50 Mg Cap, 50 MG PO DAILY, CAP 09/27/20 Trazodone Hcl (Trazodone Hcl) 50 Mg Tab, 50 MG PO HS, MG 09/27/20 Cyanocobalamin (B-12) 1,000 Mcg Cap, 1000 MCG PO, CAP 09/27/20 Tizanidine Hydrochloride (TIZANIDINE HCL) 2 Mg Cap, 2.5 MG PO, CAP 09/27/20 Magnesium Oxide (MAGNESIUM OXIDE) 400 Mg Tab, 1 TAB PO BID, #60 TAB 5 Refills 09/27/20 Tizanidine Hydrochloride (Zanaflex) 4 Mg Tab, 0.5 TAB PO HS, #60 TAB 09/27/20 Metoprolol Tartrate (Metoprolol Tartrate) 25 Mg Tab, 1 TAB PO BID, #180 TAB 1 Refill 09/04/18 Raloxifene Hydrochloride (EVISTA TABLET) 60 Mg Tb, 1 TAB PO DAILY, #30 TAB 11 Refills 09/04/18 Prednisone (PREDNISONE) 5 Mg Tb, 5 MG PO DAILY 09/02/18 Azathioprine (Imuran) 50 Mg Tab, 3 TAB PO BEDTIME, #180 TAB 3 Refills 09/02/18 Tacrolimus (Tacrolimus) 1 Mg Cap, 3 MG PO QAM, CAP 09/02/18 Fish Oil (Fish Oil) 500 Mg Cap, 500 MG PO BID, CAP 09/02/18 Omeprazole (Gnp Omeprazole) 20 Mg Tab, 1 CAP PO BID, #90 TAB 1 Refill 09/02/18 Docusate Sodium (Docusate Sodium) 250 Mg Cap, 250 MG PO QHS, CAP 09/02/18 Cholecalciferol (VITAMIN D3) 2,000 Unit Chw, 2000 UNIT PO DAILY, CHW 09/02/18 Loratadine (Claritin) 10 Mg Tab, 1 TAB PO DAILY, #30 TAB 5 Refills 09/02/18 Aspirin (Aspirin Low Dose) 81 Mg Chw, 1 TAB PO DAILY, #30 TAB 3 Refills 09/02/18 Cyclobenzaprine Hcl (Cyclobenzaprine Hcl) 5 Mg Tab, 2 TAB PO QPM PRN for prn, #30 TAB 09/02/18 Hydrocodone-Acetaminophen ([place] 5/325MG) 1 Tab Tb, 1 TAB PO Q6HP PRN for pain, #90 TAB 09/02/18 Sertraline Hcl (Sertraline Hcl) 50 Mg Tab, 3 TAB PO QPM for depression, #30 TAB 5 Refills 09/02/18 Simvastatin (Simvastatin) 40 Mg Tab, 1 TAB PO QPM, #30 TAB 5 Refills 09/02/18 Current Medications Current Medications Medications (Trade) Dose Ordered Sig/Srikanth Route PRN Reason Start Time Stop Time Status Last Admin Enoxaparin Sodium (Lovenox) 30 mg DAILY SC 01/27/24 10:00 01/27/24 09:26 Cefepime HCl 50 ml @ 12.5 mls/hr DAILY IV 01/27/24 10:00 01/27/24 09:29 Labetalol HCl (Labetalol HCl) 10 mg Q2HPRN PRN IV SBP>170 01/26/24 16:15 Lactated Ringer's 1,000 ml @ 75 mls/hr [id number] IV 01/26/24 19:00 01/27/24 13:20 DC 01/27/24 08:12 Tacrolimus (Prograf) 3 mg QAM PO 01/27/24 07:00 01/27/24 08:10 Metoprolol Tartrate (Lopressor Tablet) 25 mg BID PO 01/27/24 13:00 01/27/24 13:34 Amlodipine Besylate (Norvasc Tablet) 5 mg DAILY PO 01/27/24 13:00 01/27/24 13:19 DC Aspirin 81 mg DAILY PO 01/27/24 13:00 01/27/24 13:34 Cholecalciferol (Vitamin D3 Tablet) 2,000 unit DAILY PO 01/28/24 10:00 Magnesium Oxide (Mag-Ox Tablet) 400 mg BID PO 01/27/24 13:00 01/27/24 13:34 Sertraline HCl (Zoloft) 50 mg QPM PO 01/27/24 20:00 Amlodipine Besylate (Norvasc Tablet) 10 mg DAILY PO 01/27/24 13:30 01/27/24 13:34 Lactated Ringer's 1,000 ml @ 50 mls/hr Q20H IV 01/27/24 13:30 01/27/24 13:36 Family History: Diabetes mellitus G8 FATHER FH: CHF (congestive heart failure) G8 FATHER G8 SISTER FH: celiac disease FH: dementia G8 MOTHER FH: heart attack G8 FATHER FH: lung cancer G8 FATHER FH: pneumonia G8 SISTER FH: skin cancer G8 MOTHER G8 SISTER Pleural effusion G8 BROTHER Psychiatric disorder G8 SISTER Review of Systems Unable to obtain H&P Exam Vital Signs/I&O Vital Sign Date Time Temp Pulse Resp B/P (MAP) Pulse Ox O2 Delivery O2 Flow Rate FiO2 01/27/24 13:34 151/74 01/27/24 13:34 65 01/27/24 12:44 98.1 19 96 98.1 01/27/24 08:00 Room Air* 0 21 l Intake and Output 01/26/24 01/27/24 19:00 07:00 Intake Total 3250 ml 0 ml Output Total 640 ml 700 ml Balance 2610 ml -700 ml Intake Oral 0 ml 0 ml IV Total 3250 ml Output Urine Total 640 ml 700 ml Physical Exam General-not in any distress HEENT-normocephalic, no icterus, no pallor, neck supple Respiratory-fair air entry bilateral, no rhonchi, no wheeze Odriwtqghlytyv-R0-H1 heard, Abdominal-soft, nontender, nondistended Musculoskeletal-no pedal edema, no calf tenderness Genitourinary-deferred Neuro-awake not alert or oriented Labs/Diagnostic Data Labs/Diagnostic Data Laboratory Tests Test 01/27/24 06:19 01/26/24 12:44 01/26/24 11:50 01/26/24 09:58 Range/Units White Blood Count 10.8 4.4-10.8 10^3/uL Red Blood Count 4.03 4.0-5.20 10^6/uL Hemoglobin 12.1 L 12.2-16.2 g/dL Hematocrit 37.0 # 36.0-46.0 % Mean Corpuscular Volume 91.9 80.0-100.0 fL Mean Corpuscular Hemoglobin 30.0 28.0-32.0 pg Mean Corpuscular Hemoglobin Concent 32.6 32.0-36.0 g/dL Red Cell Distribution Width 17.4 H 11.8-14.3 % Platelet Count 230 140-450 10^3/uL Mean Platelet Volume 8.2 6.9-10.8 fL Neutrophils (%) (Auto) 74.6 37.0-80.0 % Lymphocytes (%) (Auto) 15.6 10.0-50.0 % Monocytes (%) (Auto) 9.0 0.0-12.0 % Eosinophils (%) (Auto) 0.1 0.0-7.0 % Basophils (%) (Auto) 0.7 0.0-2.0 % Neutrophils # (Auto) 8.1 1.6-8.6 10 ^3/uL Lymphocytes # (Auto) 1.7 0.4-5.4 10 ^3/uL Monocytes # (Auto) 1.0 0-1.3 10 ^3/uL Eosinophils # (Auto) 0 0-0.8 10 ^3/uL Basophils # (Auto) 0.1 0-0.2 10 ^3/uL Nucleated Red Blood Cells 0.1 % Sodium Level 151 H 147 H 136-145 mmol/L Potassium Level 3.8 4.0 3.5-5.1 mmol/L Chloride Level 116 H 116 H 98-107 mmol/L Carbon Dioxide Level 17 L 14 L 20-31 mmol/L Anion Gap 18 H 17 H 5-15 Blood Urea Nitrogen 53 H 60 #H 9-23 mg/dL Creatinine 2.79 H 3.19 H 0.550-1.02 mg/dL Glomerular Filtration Rate Calc 18 16 >90 mL/min BUN/Creatinine Ratio 19.0 18.8 10.0-20.0 Serum Glucose 92 111 H 74-106 mg/dL Calcium Level 9.7 9.1 8.7-10.4 mg/dL Total Bilirubin 0.6 0.2-1.0 mg/dL Aspartate Amino Transferase (AST) 15 13-40 U/L Alanine Aminotransferase (ALT) < 9 7-40 U/L Alkaline Phosphatase 63 46-116 U/L Total Protein 6.9 5.7-8.2 g/dL Albumin 4.1 3.2-4.8 g/dL Ammonia < 10 L 11-32 umol/L Thyroid Stimulating Hormone (TSH) 0.15 L 0.55-4.78 uIU/mL Lactic Acid Level 2.0 0.4-2.0 mmol/L Test 01/26/24 09:40 01/26/24 08:31 01/26/24 07:38 Range/Units Urine Color Light-yellow Yellow Urine Clarity Cloudy H Clear Urine pH 5.5 5.0-9.0 Urine Specific [place] 1.018 1.001-1.035 Urine Protein 2+ H Negative Urine Ketones 1+ H Negative Urine Blood 2+ H Negative /uL Urine Nitrite Negative Negative Urine Bilirubin Negative Negative Urine Urobilinogen Normal Negative mg/dL Urine Leukocyte Esterase 3+ Negative /uL Urine RBC 16 0 - 4 /hpf Urine WBC 464 0 - 5 /hpf Urine WBC Clumps Present None Seen /hpf Urine Squamous Epithelial Cells Few <5 /hpf Urine Bacteria Many H None Seen /hpf Urine Hyaline Casts Few 0 - 2 /lpf Urine Yeast (Budding) Occasional None Seen /hpf Urine Glucose Normal Normal mg/dL Urine Opiates Screen Neg NEGATIVE Urine Fentanyl Screen Neg NEGATIVE Urine Barbiturates Screen Neg NEGATIVE Urine Phencyclidine Screen Neg NEGATIVE Urine Amphetamines Screen Neg NEGATIVE Urine Benzodiazepines Screen Neg NEGATIVE Urine Cocaine Screen Neg NEGATIVE Urine Cannabinoids Screen Neg NEGATIVE Influenza Type A Antigen Negative Negative Influenza Type B Antigen Negative Negative SARS-CoV-2 Antigen (Rapid) Negative NEGATIVE White Blood Count 13.5 H 4.4-10.8 10^3/uL Red Blood Count 4.68 4.0-5.20 10^6/uL Hemoglobin 13.8 12.2-16.2 g/dL Hematocrit 41.7 36.0-46.0 % Mean Corpuscular Volume 89.1 80.0-100.0 fL Mean Corpuscular Hemoglobin 29.5 28.0-32.0 pg Mean Corpuscular Hemoglobin Concent 33.1 32.0-36.0 g/dL Red Cell Distribution Width 16.1 H 11.8-14.3 % Platelet Count 342 140-450 10^3/uL Mean Platelet Volume 8.2 6.9-10.8 fL Neutrophils (%) (Auto) 83.4 H 37.0-80.0 % Lymphocytes (%) (Auto) 10.0 10.0-50.0 % Monocytes (%) (Auto) 6.0 0.0-12.0 % Eosinophils (%) (Auto) 0.1 0.0-7.0 % Basophils (%) (Auto) 0.5 0.0-2.0 % Neutrophils # (Auto) 11.3 H 1.6-8.6 10 ^3/uL Lymphocytes # (Auto) 1.4 0.4-5.4 10 ^3/uL Monocytes # (Auto) 0.8 0-1.3 10 ^3/uL Eosinophils # (Auto) 0 0-0.8 10 ^3/uL Basophils # (Auto) 0.1 0-0.2 10 ^3/uL Nucleated Red Blood Cells 0.3 % Sodium Level 145 136-145 mmol/L Potassium Level 3.9 3.5-5.1 mmol/L Chloride Level 109 H 98-107 mmol/L Carbon Dioxide Level 13 L 20-31 mmol/L Anion Gap 23 H 5-15 Blood Urea Nitrogen 70 H 9-23 mg/dL Creatinine 3.85 H 0.550-1.02 mg/dL Glomerular Filtration Rate Calc 12 >90 mL/min BUN/Creatinine Ratio 18.2 10.0-20.0 Serum Glucose 144 H 74-106 mg/dL Lactic Acid Level 2.4 *H 0.4-2.0 mmol/L Calcium Level 10.7 H 8.7-10.4 mg/dL Total Bilirubin 0.9 0.2-1.0 mg/dL Aspartate Amino Transferase (AST) 16 13-40 U/L Alanine Aminotransferase (ALT) < 9 7-40 U/L Alkaline Phosphatase 83 46-116 U/L Troponin I High Sensitivity 227 *H </=34 ng/L B-Type Natriuretic Peptide 538.92 0-100 pg/mL Total Protein 8.4 H 5.7-8.2 g/dL Albumin 4.9 H 3.2-4.8 g/dL Assessment Acute kidney injury hemodynamic mediated etiology on Chronic kidney disease IIIb in the setting of sepsis Severe sepsis Hypertension donor transplant on immunosuppression Status post left AV fistula Encephalopathy Recommendations Continue IV fluids Transplant kidney ultrasound Check Prograf trough level Obtain patient's transplant medications she takes at home and start home meds Urine cultures and urine workup We will follow patient has Chávez catheter Reviewed vital signs, lab work, imaging studies, medications, microbiology, other physician recommendations Total time spent 70 minutes More than 50% of the time spent providing direct bden-ug-flsy care . Thank you for allowing me to participate in the care of your patient. Plan discussed with: Patient, Other RALF BAXTER MD Jan 26, 2024 19:00
[2024-01-26] MEDS: SODIUM BICARB 8.4% 50Meq/50ml SYR Vial IV ONE (23:29)
--- NOTE | 2024-01-26 23:52 | DVH ---
INDICATION: Elevated creatinine TECHNIQUE: Multiple real-time sonographic images of the transplant kidney were obtained. Duplex Doppler evaluation including color Doppler and spectral/pulsed waveform analysis of the bilate ral renal arteries was performed. COMPARISON: None FINDINGS: The transplant kidney in the right lower quadrant measures 9.2 cm in length. The right renal echogen icity, contour and cortical thickness are within normal limits. No hydronephrosis or large masses/madison culi are seen. Right transplant renal artery peak systolic velocity, 18.2 cm/s (< 180 cm/s = normal). Right RI: 0.74 (< 0.75, normal) IMPRESSION: 1. Unremarkable right lower quadrant transplant kidney. No evidence of renal artery stenosis. No hydr onephrosis. *Katia Briones Techniques in Noninvasive Vascular Diagnosis 2001
[2024-01-27] VITALS (8 sets, daily range): BP systolic 135–167; BP diastolic 74–96; PULSE 63–120; RESP 18–19; TEMP 97.7–99.2; O2SAT 96–99
[2024-01-27 07:47] LABS: Basophils # (auto) 0.1 10 ^3/uL (0-0.2); Basophils % (auto) 0.7 % (0.0-2.0); Eosinophils # (auto) 0 10 ^3/uL (0-0.8); Eosinophils % (auto) 0.1 % (0.0-7.0); Hemoglobin 12.1 g/dL (12.2-16.2); Lymphocytes # (auto) 1.7 10 ^3/uL (0.4-5.4); Lymphocytes % (auto) 15.6 % (10.0-50.0); Mean Corpuscular Hgb Conc. 32.6 g/dL (32.0-36.0); Mean Corpuscular Volume 91.9 fL (80.0-100.0); Neutrophils # (auto) 8.1 10 ^3/uL (1.6-8.6); Neutrophils % (auto) 74.6 % (37.0-80.0); Nucleated Red Blood Cells % 0.1 %; Platelet Count (auto) 230 10^3/uL (140-450); Red Blood Cells 4.03 10^6/uL (4.0-5.20); Red Cell Distribution Width 17.4 % (11.8-14.3); White Blood Cell 10.8 10^3/uL (4.4-10.8)
[2024-01-27 08:06] LABS: Alkaline Phosphatase 63 U/L (46-116); Anion Gap 18 (5-15); Calcium 9.7 mg/dL (8.7-10.4); Glucose 92 mg/dL (74-106); Potassium 3.8 mmol/L (3.5-5.1)
[2024-01-27 08:07] LABS: Albumin 4.1 g/dL (3.2-4.8); Aspartate Aminotransferase 15 U/L (13-40); Bilirubin, Total 0.6 mg/dL (0.2-1.0); Total Protein 6.9 g/dL (5.7-8.2)
[2024-01-27] MEDS: TACROLIMUS 1 MG CAP PO SCH (08:10)
[2024-01-27 08:13] LABS: Alanine Aminotransferase < 9 U/L (7-40); Blood Urea Nitrogen 53 mg/dL (9-23); Carbon Dioxide 17 mmol/L (20-31); Chloride 116 mmol/L (98-107); Sodium 151 mmol/L (136-145)
[2024-01-27] MEDS: ENOXAPARIN SOD 30 MG/0.3 ML SYRINGE SC SCH (09:26)
[2024-01-27] MEDS: CEFEPIME 1GM/ 50ML 50 ML IV SCH (09:29)
[2024-01-27] MEDS ORDERED: amLODIPine BESYLATE 5 MG TAB PO SCH (13:00)
--- NOTE | 2024-01-27 13:09 | DVHPN2 ---
Reviewed: Care Plan, H&P, Labs, Medications, Previous Orders, Radiology Changes from previous H/P or p: No Changes Objective Vitals Vital Signs Date Time Temp Pulse Resp B/P (MAP) Pulse Ox O2 Delivery O2 Flow Rate FiO2 01/27/24 08:30 99.2 63 19 164/88 (113) 96 99.2 01/27/24 08:00 Room Air* 0 21 Intake/Output Intake and Output 01/27/24 07:00 Intake Total 3250 ml Output Total 1340 ml Balance 1910 ml Intake Oral 0 ml IV Total 3250 ml Output Urine Total 1340 ml Medications Current Medications Medications Dose Ordered Sig/Srikanth Route Start Time Stop Time Status Last Admin Dose Admin Ondansetron HCl 4 mg Q4HP PRN IV 01/26/24 11:15 Enoxaparin Sodium 30 mg DAILY SC 01/27/24 10:00 01/27/24 09:26 30 MG Cefepime HCl 50 ml @ 12.5 mls/hr DAILY IV 01/27/24 10:00 01/27/24 09:29 12.5 MLS/HR Labetalol HCl 10 mg Q2HPRN PRN IV 01/26/24 16:15 Lactated Ringer's 1,000 ml @ 75 mls/hr [id number] IV 01/26/24 19:00 01/27/24 08:12 75 MLS/HR Tacrolimus 3 mg QAM PO 01/27/24 07:00 01/27/24 08:10 3 MG Metoprolol Tartrate 25 mg BID PO 01/27/24 13:00 UNV Amlodipine Besylate 5 mg DAILY PO 01/27/24 13:00 UNV Aspirin 81 mg DAILY PO 01/27/24 13:00 UNV Cholecalciferol 2,000 unit DAILY PO 01/28/24 10:00 UNV Magnesium Oxide 400 mg BID PO 01/27/24 13:00 UNV Sertraline HCl 50 mg QPM PO 01/27/24 20:00 UNV Laboratory Results Laboratory Tests 01/27/24 06:19 Chemistry Test 01/27/24 06:19 Albumin 4.1 g/dL (3.2-4.8) Calcium Level 9.7 mg/dL (8.7-10.4) Total Protein 6.9 g/dL (5.7-8.2) LFT Test 01/27/24 06:19 Alanine Aminotransferase (ALT) < 9 U/L (7-40) Alkaline Phosphatase 63 U/L (46-116) Aspartate Amino Transferase (AST) 15 U/L (13-40) Total Bilirubin 0.6 mg/dL (0.2-1.0) Urinalysis Test 01/26/24 09:40 Urine Color Light-yellow (Yellow) Urine Clarity Cloudy (Clear) H Urine pH 5.5 (5.0-9.0) Urine Specific [place] 1.018 (1.001-1.035) Urine Protein 2+ (Negative) H Urine Ketones 1+ (Negative) H Urine Blood 2+ /uL (Negative) H Urine Nitrite Negative (Negative) Urine Bilirubin Negative (Negative) Urine Urobilinogen Normal mg/dL (Negative) Urine Leukocyte Esterase 3+ /uL (Negative) Urine RBC 16 /hpf (0 - 4) Urine WBC 464 /hpf (0 - 5) Urine WBC Clumps Present /hpf (None Seen) Urine Squamous Epithelial Cells Few /hpf (<5) Urine Bacteria Many /hpf (None Seen) H Urine Hyaline Casts Few /lpf (0 - 2) Urine Yeast (Budding) Occasional /hpf (None Urine Glucose Normal mg/dL (Normal) Microbiology Microbiology Date/Time Source Procedure Growth Status 01/26/24 12:00 Blood Blood Culture - Preliminary NO GROWTH AFTER 24 HOURS OF INCUBATION. Resulted 01/26/24 09:40 Voided Urine Urine Culture - Preliminary Resulted Labs and/or images reviewed: Labs reviewed by me, Image(s) reviewed by me Assessment/Plan Assessment/Plan Septic shock secondary to acute urinary tract infection Acute metabolic encephalopathy Acute complicated cystitis cefepime Leukocytosis BRANDON on CKD ESRD ,not on hemodialysis nephrology consult appreciated History of renal transplant recipient: Continue home medication tacrolimus Hypertension History of aortic stenosis Acute on chronic CHF exacerbation X-ray negative CT head negative Time Spent 65 minutes Patient is full code Advanced care planning time 20 minutes Plan discussed with: Patient Date of Service: Jan 27, 2024 Billing Provider: DINA HOLLIDAY MD Common Visit Codes: [id number] CARE 30-74 MIN DINA HOLLIDAY MD Jan 27, 2024 13:09
[2024-01-27] MEDS: amLODIPine BESYLATE 5 MG TAB PO SCH (13:34)
[2024-01-27] MEDS: MAGNESIUM OXIDE 400 MG TAB PO SCH (13:34)
[2024-01-27] MEDS: ASPirin 81 mg TAB PO SCH (13:34)
[2024-01-27] MEDS: METOPROLOL TARTRATE 25 MG TAB PO SCH (13:34)
[2024-01-27] MEDS: LACTATED RINGER'S 1,000 ML IV SCH (13:36)
--- NOTE | 2024-01-27 15:56 | DVHPN2 ---
Progress Note Date Seen: Jan 27, 2024 Medical Necessity Reason Pt with a Central, PICC or Fol: Yes Subjective Patient reports: No new complaints, Feels better (more awake) Review of Systems: Deferred Objective vital signs Vital Sign Date Time Temp Pulse Resp B/P (MAP) Pulse Ox O2 Delivery O2 Flow Rate FiO2 01/27/24 13:34 151/74 01/27/24 13:34 65 01/27/24 12:44 98.1 19 96 98.1 01/27/24 08:00 Room Air* 0 21 Total Intake and Output 01/26/24 01/26/24 01/27/24 15:00 23:00 07:00 Intake Total 3250 ml 0 ml 0 ml Output Total 490 ml 150 ml 700 ml Balance 2760 ml -150 ml -700 ml medications Current Medications Medications Dose Ordered Sig/Srikanth Route Start Time Stop Time Status Last Admin Dose Admin Ondansetron HCl 4 mg Q4HP PRN IV 01/26/24 11:15 Enoxaparin Sodium 30 mg DAILY SC 01/27/24 10:00 01/27/24 09:26 Cefepime HCl 50 ml @ 12.5 mls/hr DAILY IV 01/27/24 10:00 01/27/24 09:29 Labetalol HCl 10 mg Q2HPRN PRN IV 01/26/24 16:15 Tacrolimus 3 mg QAM PO 01/27/24 07:00 01/27/24 08:10 Metoprolol Tartrate 25 mg BID PO 01/27/24 13:00 01/27/24 13:34 Aspirin 81 mg DAILY PO 01/27/24 13:00 01/27/24 13:34 Cholecalciferol 2,000 unit DAILY PO 01/28/24 10:00 Magnesium Oxide 400 mg BID PO 01/27/24 13:00 01/27/24 13:34 Sertraline HCl 50 mg QPM PO 01/27/24 20:00 Amlodipine Besylate 10 mg DAILY PO 01/27/24 13:30 01/27/24 13:34 Lactated Ringer's 1,000 ml @ 50 mls/hr Q20H IV 01/27/24 13:30 01/27/24 13:36 Examination: GENERAL:Normal, HEENT:Normal, NECK:Normal, LUNGS:Normal, CVS:Normal, ABDOMEN:Normal, MSK:Normal, SKIN:Normal, NEURO:Normal, :Normal laboratory and microbiology Laboratory Tests 01/27/24 06:19 Test 01/27/24 06:19 Range/Units Serum Glucose 92 74-106 mg/dL Microbiology Date/Time Source Procedure Growth Status 01/26/24 12:00 Blood Blood Culture - Preliminary NO GROWTH AFTER 24 HOURS OF INCUBATION. 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 Status post left AV fistula Encephalopathy Recommendations Continue IV fluids--switch to LR Transplant kidney ultrasound noted Check Prograf trough level Obtain patient's transplant medications she takes at home and start home meds--notified RN twice--daughter and caregiver is not picking up phone Urine cultures and urine workup We will follow patient has Chávez catheter Plan discussed with: Patient My Orders My Orders Orders - RALF BAXTER MD Procedure Category Date Status Time Communication Order ORDERS 01/26/24 Transmitted 18:52 Tacrolimus (Fk506) LAB 01/27/24 In Process 04:00 Tacrolimus (Prograf) PHA 01/27/24 In Process 07:00 Renal Transplant US 01/26/24 Resulted 22:22 Communication Order ORDERS 01/27/24 Transmitted 12:43 Metoprolol Tartrate PHA 01/27/24 In Process Tablet (Lopressor Ta 13:00 Aspirin Tablet PHA 01/27/24 In Process 13:00 Cholecalciferol PHA 01/28/24 In Process Tablet (Vitamin D3 10:00 Magnesium Oxide PHA 01/27/24 In Process Tablet (Mag-Ox Tablet) 13:00 Sertraline Hcl PHA 01/27/24 In Process (Zoloft) 20:00 Amlodipine Tablet PHA 01/27/24 In Process (Norvasc Tablet) 13:30 Lactated Ringer's PHA 01/27/24 In Process 13:30 Renal DIET 01/27/24 Transmitted Standard(2gna,3gk,Lopho) Lunch Prednisone Tablet PHA 01/27/24 Logged 16:00 Prednisone Tablet PHA 01/28/24 Logged 10:00 RALF BAXTER MD Jan 27, 2024 15:56
[2024-01-27] MEDS: predniSONE 5 MG TAB PO ONE (16:38)
[2024-01-27] MEDS ORDERED: LANS30CA57 PO (17:03)
[2024-01-27] MEDS ORDERED: TACR1CAP19 PO (17:11)
[2024-01-27] MEDS: TACROLIMUS 0.5 MG CAP PO SCH (20:15)
[2024-01-27] MEDS: SERTRALINE HCL 50 MG TAB PO SCH (21:37)
[2024-01-28] VITALS (7 sets, daily range): BP systolic 119–167; BP diastolic 66–93; PULSE 79–101; RESP 17–20; TEMP 97–98.7; O2SAT 97–99
[2024-01-28] MEDS: predniSONE 5 MG TAB PO SCH (10:00)
[2024-01-28] MEDS: CHOLECALCIFEROL (VITD3) 1,000UNIT=25mCg TAB PO SCH (10:00)
--- NOTE | 2024-01-28 11:11 | DVHPN2 ---
Reviewed: Care Plan, H&P, Labs, Medications, Previous Orders, Radiology Changes from previous H/P or p: No Changes Objective Vitals Vital Signs Date Time Temp Pulse Resp B/P (MAP) Pulse Ox O2 Delivery O2 Flow Rate FiO2 01/28/24 05:00 98.0 87 18 139/76 (97) 99 98.0 01/27/24 20:00 Room Air* 0 21 Intake/Output Intake and Output 01/28/24 07:00 Intake Total 2343 ml Output Total 1150 ml Balance 1193 ml Intake Oral 1918 ml IV Total 425 ml Output Urine Total 1150 ml # Bowel Movements 1 Medications Current Medications Medications Dose Ordered Sig/Srikanth Route Start Time Stop Time Status Last Admin Dose Admin Ondansetron HCl 4 mg Q4HP PRN IV 01/26/24 11:15 Enoxaparin Sodium 30 mg DAILY SC 01/27/24 10:00 01/27/24 09:26 30 MG Cefepime HCl 50 ml @ 12.5 mls/hr DAILY IV 01/27/24 10:00 01/28/24 08:35 12.5 MLS/HR Labetalol HCl 10 mg Q2HPRN PRN IV 01/26/24 16:15 Tacrolimus 3 mg QAM PO 01/27/24 07:00 01/27/24 08:10 3 MG Metoprolol Tartrate 25 mg BID PO 01/27/24 13:00 01/27/24 21:37 25 MG Aspirin 81 mg DAILY PO 01/27/24 13:00 01/27/24 13:34 81 MG Cholecalciferol 2,000 unit DAILY PO 01/28/24 10:00 Magnesium Oxide 400 mg BID PO 01/27/24 13:00 01/27/24 21:37 400 MG Sertraline HCl 50 mg QPM PO 01/27/24 20:00 01/27/24 21:37 50 MG Amlodipine Besylate 10 mg DAILY PO 01/27/24 13:30 01/27/24 13:34 10 MG Lactated Ringer's 1,000 ml @ 50 mls/hr Q20H IV 01/27/24 13:30 01/27/24 13:36 50 MLS/HR Prednisone 5 mg DAILY PO 01/28/24 10:00 Tacrolimus 3 mg QPM PO 01/27/24 20:15 01/27/24 20:15 3 MG Laboratory Results Laboratory Tests 01/27/24 06:19 Urinalysis Test 01/26/24 09:40 Urine Color Light-yellow (Yellow) Urine Clarity Cloudy (Clear) H Urine pH 5.5 (5.0-9.0) Urine Specific [place] 1.018 (1.001-1.035) Urine Protein 2+ (Negative) H Urine Ketones 1+ (Negative) H Urine Blood 2+ /uL (Negative) H Urine Nitrite Negative (Negative) Urine Bilirubin Negative (Negative) Urine Urobilinogen Normal mg/dL (Negative) Urine Leukocyte Esterase 3+ /uL (Negative) Urine RBC 16 /hpf (0 - 4) Urine WBC 464 /hpf (0 - 5) Urine WBC Clumps Present /hpf (None Seen) Urine Squamous Epithelial Cells Few /hpf (<5) Urine Bacteria Many /hpf (None Seen) H Urine Hyaline Casts Few /lpf (0 - 2) Urine Yeast (Budding) Occasional /hpf (None Urine Glucose Normal mg/dL (Normal) Microbiology Microbiology Date/Time Source Procedure Growth Status 01/26/24 12:00 Blood Blood Culture - Preliminary NO GROWTH AFTER 24 HOURS OF INCUBATION. Resulted 01/26/24 09:40 Voided Urine Urine Culture - Final Escherichia coli Complete Labs and/or images reviewed: Labs reviewed by me, Image(s) reviewed by me Assessment/Plan Assessment/Plan Septic shock secondary to acute urinary tract infection Acute metabolic encephalopathy Acute complicated cystitis : Urine cultures growing E coli, stop cefepime, start Rocephin Acute Leukocytosis BRANDON on CKD ESRD ,not on hemodialysis nephrology consult appreciated History of renal transplant recipient: Continue home medication tacrolimus Hypertension History of aortic stenosis Acute on chronic CHF exacerbation X-ray negative CT head negative Time Spent 55 minutes Patient is full code No family member available on phone Plan discussed with: Patient Date of Service: Jan 28, 2024 Billing Provider: DINA HOLLIDAY MD Common Visit Codes: [id number] CARE 30-74 MIN DINA HOLLIDAY MD Jan 28, 2024 11:11
[2024-01-28] MEDS: cefTRIAXone 1GM/50ML D5W 50 ML IV ONE (11:15)
[2024-01-28] MEDS: azaTHIOprine 50 MG TAB PO SCH (12:45)
[2024-01-28 13:52] LABS: Potassium 3.8 mmol/L (3.5-5.1); Sodium 140 mmol/L (136-145)
[2024-01-28 13:53] LABS: Anion Gap 14 (5-15)
[2024-01-28 13:54] LABS: Calcium 9.5 mg/dL (8.7-10.4)
[2024-01-28 13:58] LABS: BUN/Creatinine Ratio 19.4 (10.0-20.0); Glucose 101 mg/dL (74-106)
[2024-01-28 14:00] LABS: Blood Urea Nitrogen 42 mg/dL (9-23); Carbon Dioxide 18 mmol/L (20-31); Chloride 108 mmol/L (98-107)
--- NOTE | 2024-01-28 16:29 | DVHPN2 ---
Progress Note Date Seen: Jan 28, 2024 Medical Necessity Reason Pt with a Central, PICC or Fol: Yes Subjective Patient reports: Other (pt is forgertful, per rn refused meds this AM and wants to sign out AMA) Review of Systems: HEENT:Normal, CVS:Normal, RESPIRATORY:Normal, GI:Normal, :Normal, MSK:Normal, NEURO:Normal Objective vital signs Vital Sign Date Time Temp Pulse Resp B/P (MAP) Pulse Ox O2 Delivery O2 Flow Rate FiO2 01/28/24 13:06 97 167/93 01/28/24 13:00 98.5 18 99 98.5 01/28/24 08:00 Room Air* 0 21 Total Intake and Output 01/27/24 01/27/24 01/28/24 15:00 23:00 07:00 Intake Total 425 ml 918 ml 1000 ml Output Total 550 ml 600 ml Balance 425 ml 368 ml 400 ml medications Current Medications Medications Dose Ordered Sig/Srikanth Route Start Time Stop Time Status Last Admin Dose Admin Ondansetron HCl 4 mg Q4HP PRN IV 01/26/24 11:15 Enoxaparin Sodium 30 mg DAILY SC 01/27/24 10:00 01/28/24 13:04 30 MG Labetalol HCl 10 mg Q2HPRN PRN IV 01/26/24 16:15 Tacrolimus 3 mg QAM PO 01/27/24 07:00 01/28/24 13:19 3 MG Metoprolol Tartrate 25 mg BID PO 01/27/24 13:00 01/28/24 13:06 25 MG Aspirin 81 mg DAILY PO 01/27/24 13:00 01/28/24 13:05 81 MG Cholecalciferol 2,000 unit DAILY PO 01/28/24 10:00 Magnesium Oxide 400 mg BID PO 01/27/24 13:00 01/28/24 13:05 400 MG Sertraline HCl 50 mg QPM PO 01/27/24 20:00 01/27/24 21:37 50 MG Amlodipine Besylate 10 mg DAILY PO 01/27/24 13:30 01/28/24 13:05 10 MG Lactated Ringer's 1,000 ml @ 50 mls/hr Q20H IV 01/27/24 13:30 01/28/24 09:30 50 MLS/HR Prednisone 5 mg DAILY PO 01/28/24 10:00 01/28/24 13:06 5 MG Ceftriaxone Sodium 50 ml @ 100 mls/hr DAILY@09 IV 01/29/24 09:00 Azathioprine 100 mg DAILY PO 01/28/24 12:45 Tacrolimus 3 mg QPM PO 01/28/24 18:00 Examination: GENERAL:Normal, HEENT:Normal, NECK:Normal, LUNGS:Normal, CVS:Normal, ABDOMEN:Normal, MSK:Normal, SKIN:Normal, NEURO:Abnormal (confused at times), :Normal laboratory and microbiology Laboratory Tests 01/28/24 13:30 01/27/24 06:19 Test 01/28/24 13:30 Range/Units Serum Glucose 101 74-106 mg/dL Microbiology Date/Time Source Procedure Growth Status 01/26/24 12:00 Blood Blood Culture - Preliminary NO GROWTH AFTER 48 HOURS OF INCUBATION. 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 Status post left AV fistula Encephalopathy Recommendations dc ivf //bp control Transplant kidney ultrasound noted Check Prograf trough level better renal function Plan discussed with: Patient My Orders My Orders Orders - RALF BAXTER MD Procedure Category Date Status Time Basic Metabolic Panel LAB 01/29/24 Verified 05:00 Basic Metabolic Panel LAB 01/30/24 Verified 05:00 Basic Metabolic Panel LAB 01/31/24 Verified 05:00 Basic Metabolic Panel LAB 02/01/24 Verified 05:00 Basic Metabolic Panel LAB 02/02/24 Verified 05:00 Basic Metabolic Panel LAB 02/03/24 Verified 05:00 Basic Metabolic Panel LAB 02/04/24 Verified 05:00 Azathioprine Tablet PHA 01/28/24 In Process (Imuran Tablet) 12:45 Tacrolimus (Prograf) PHA 01/28/24 In Process 18:00 RALF BAXTER MD Jan 28, 2024 16:29
[2024-01-28] MEDS: hydrALAZINE HCL 25 MG TAB PO SCH (17:18)
[2024-01-28] MEDS: TACROLIMUS 1 MG CAP PO SCH (17:19)
[2024-01-28] MEDS: PANTOPRAZOLE 40 MG TAB PO ONE (22:51)
[2024-01-28 23:23] LABS: Protein, Urine 103.4 mg/dL (1-14)
[2024-01-28 23:26] LABS: Creatinine, Urine 77.87 mg/dL (30.0-125.0)
[2024-01-29 01:00] VITALS: BP 120/67; PULSE 80; RESP 19; TEMP 97.9; O2SAT 98
[2024-01-29 06:54] LABS: Anion Gap 12 (5-15); Calcium 9.1 mg/dL (8.7-10.4); Potassium 3.5 mmol/L (3.5-5.1); Sodium 141 mmol/L (136-145)
[2024-01-29 06:59] LABS: BUN/Creatinine Ratio 19.1 (10.0-20.0)
[2024-01-29 07:00] LABS: Blood Urea Nitrogen 42 mg/dL (9-23); Carbon Dioxide 19 mmol/L (20-31); Chloride 110 mmol/L (98-107); Glucose 117 mg/dL (74-106)
[2024-01-29 08:00] VITALS: PULSE 80; RESP 16; O2SAT 98
[2024-01-29 08:54] VITALS: BP 90/48; PULSE 69; RESP 15; TEMP 98.1; O2SAT 98
[2024-01-29] MEDS: cefTRIAXone 1GM/50ML D5W 50 ML IV SCH (11:17)
[2024-01-29] MEDS ORDERED: LEVO500T91 PO (12:01)
--- NOTE | 2024-01-29 12:02 | DVHPN2 ---
Reviewed: Care Plan, H&P, Labs, Medications, Previous Orders, Radiology Changes from previous H/P or p: No Changes Objective Vitals Vital Signs Date Time Temp Pulse Resp B/P (MAP) Pulse Ox O2 Delivery O2 Flow Rate FiO2 01/29/24 10:00 90/48 01/29/24 10:00 69 01/29/24 08:54 98.1 15 98 98.1 01/28/24 20:00 Room Air* 0 21 Intake/Output Intake and Output 01/29/24 07:00 Intake Total 700 ml Output Total 601 ml Balance 99 ml Intake Oral 700 ml Output Urine Total 601 ml # Bowel Movements 1 Medications Current Medications Medications Dose Ordered Sig/Srikanth Route Start Time Stop Time Status Last Admin Dose Admin Ondansetron HCl 4 mg Q4HP PRN IV 01/26/24 11:15 Enoxaparin Sodium 30 mg DAILY SC 01/27/24 10:00 01/28/24 13:04 30 MG Labetalol HCl 10 mg Q2HPRN PRN IV 01/26/24 16:15 Tacrolimus 3 mg QAM PO 01/27/24 07:00 01/29/24 06:35 3 MG Metoprolol Tartrate 25 mg BID PO 01/27/24 13:00 01/28/24 21:47 25 MG Aspirin 81 mg DAILY PO 01/27/24 13:00 01/28/24 13:05 81 MG Cholecalciferol 2,000 unit DAILY PO 01/28/24 10:00 01/29/24 11:17 2,000 UNIT Magnesium Oxide 400 mg BID PO 01/27/24 13:00 01/29/24 11:17 400 MG Sertraline HCl 50 mg QPM PO 01/27/24 20:00 01/28/24 17:20 50 MG Amlodipine Besylate 10 mg DAILY PO 01/27/24 13:30 01/28/24 13:05 10 MG Prednisone 5 mg DAILY PO 01/28/24 10:00 01/28/24 13:06 5 MG Ceftriaxone Sodium 50 ml @ 100 mls/hr DAILY@09 IV 01/29/24 09:00 01/29/24 11:17 100 MLS/HR Azathioprine 100 mg DAILY PO 01/28/24 12:45 01/29/24 11:35 100 MG Tacrolimus 3 mg QPM PO 01/28/24 18:00 01/28/24 17:19 3 MG Hydralazine HCl 25 mg Q12HR PO 01/28/24 16:45 01/28/24 21:47 25 MG Laboratory Results Laboratory Tests 01/27/24 06:19 01/29/24 05:20 Chemistry Test 01/28/24 13:30 01/29/24 05:20 Calcium Level 9.5 mg/dL (8.7-10.4) 9.1 mg/dL (8.7-10.4) Urinalysis Test 01/26/24 09:40 01/28/24 22:48 Urine Color Light-yellow (Yellow) Urine Clarity Cloudy (Clear) H Urine pH 5.5 (5.0-9.0) Urine Specific [place] 1.018 (1.001-1.035) Urine Protein 2+ (Negative) H Urine Ketones 1+ (Negative) H Urine Blood 2+ /uL (Negative) H Urine Nitrite Negative (Negative) Urine Bilirubin Negative (Negative) Urine Urobilinogen Normal mg/dL (Negative) Urine Leukocyte Esterase 3+ /uL (Negative) Urine RBC 16 /hpf (0 - 4) Urine WBC 464 /hpf (0 - 5) Urine WBC Clumps Present /hpf (None Seen) Urine Squamous Epithelial Cells Few /hpf (<5) Urine Bacteria Many /hpf (None Seen) H Urine Hyaline Casts Few /lpf (0 - 2) Urine Yeast (Budding) Occasional /hpf (None Urine Glucose Normal mg/dL (Normal) Urine Creatinine 77.87 mg/dL (30.0-125.0) Urine Sodium 101 mmol/L (40-220) Urine Total Protein 103.4 mg/dL (1-14) H Microbiology Microbiology Date/Time Source Procedure Growth Status 01/26/24 12:00 Blood Blood Culture - Preliminary NO GROWTH AFTER 72 HOURS OF INCUBATION. Resulted 01/26/24 09:40 Voided Urine Urine Culture - Final Escherichia coli Complete Labs and/or images reviewed: Labs reviewed by me, Image(s) reviewed by me Assessment/Plan Assessment/Plan Septic shock secondary to acute urinary tract infection resolved Acute metabolic encephalopathy Acute complicated cystitis : Urine cultures growing E coli, treated with Rocephin Acute Leukocytosis BRANDON on CKD ESRD ,not on hemodialysis nephrology consult appreciated History of renal transplant recipient: Continue home medication tacrolimus Hypertension History of aortic stenosis Acute on chronic CHF exacerbation X-ray negative CT head negative Time Spent 55 minutes Patient is full code No family member available on phone Plan discussed with: Patient Date of Service: Jan 29, 2024 Billing Provider: DINA HOLLIDAY MD Common Visit Codes: [id number] INP/OBS CARE(HIGH) DINA HOLLIDAY MD Jan 29, 2024 12:02
--- NOTE | 2024-01-29 12:07 | DVHDS2 ---
Discharge Summary Date of Admission Jan 26, 2024 at 11:10 Date of Discharge: Jan 29, 2024 Admitting Diagnosis Altered mental status Wounds: None Labs/Diagnostic Data: Laboratory Results Test 01/29/24 05:20 01/28/24 22:48 01/27/24 06:19 01/26/24 12:44 Sodium Level 141 mmol/L (136-145) Potassium Level 3.5 mmol/L (3.5-5.1) Chloride Level 110 mmol/L (98-107) Carbon Dioxide Level 19 mmol/L (20-31) Anion Gap 12 (5-15) Blood Urea Nitrogen 42 mg/dL (9-23) Creatinine 2.20 mg/dL (0.550-1.02) Glomerular Filtration Rate Calc 24 mL/min (>90) BUN/Creatinine Ratio 19.1 (10.0-20.0) Serum Glucose 117 mg/dL (74-106) Calcium Level 9.1 mg/dL (8.7-10.4) Urine Creatinine 77.87 mg/dL (30.0-125.0) Urine Sodium 101 mmol/L (40-220) Urine Total Protein 103.4 mg/dL (1-14) White Blood Count 10.8 10^3/uL (4.4-10.8) Red Blood Count 4.03 10^6/uL (4.0-5.20) Hemoglobin 12.1 g/dL (12.2-16.2) Hematocrit 37.0 % (36.0-46.0) Mean Corpuscular Volume 91.9 fL (80.0-100.0) Mean Corpuscular Hemoglobin 30.0 pg (28.0-32.0) Mean Corpuscular Hemoglobin Concent 32.6 g/dL (32.0-36.0) Red Cell Distribution Width 17.4 % (11.8-14.3) Platelet Count 230 10^3/uL (140-450) Mean Platelet Volume 8.2 fL (6.9-10.8) Neutrophils (%) (Auto) 74.6 % (37.0-80.0) Lymphocytes (%) (Auto) 15.6 % (10.0-50.0) Monocytes (%) (Auto) 9.0 % (0.0-12.0) Eosinophils (%) (Auto) 0.1 % (0.0-7.0) Basophils (%) (Auto) 0.7 % (0.0-2.0) Neutrophils # (Auto) 8.1 10 ^3/uL (1.6-8.6) Lymphocytes # (Auto) 1.7 10 ^3/uL (0.4-5.4) Monocytes # (Auto) 1.0 10 ^3/uL (0-1.3) Eosinophils # (Auto) 0 10 ^3/uL (0-0.8) Basophils # (Auto) 0.1 10 ^3/uL (0-0.2) Nucleated Red Blood Cells 0.1 % Total Bilirubin 0.6 mg/dL (0.2-1.0) Aspartate Amino Transferase (AST) 15 U/L (13-40) Alanine Aminotransferase (ALT) < 9 U/L (7-40) Alkaline Phosphatase 63 U/L (46-116) Total Protein 6.9 g/dL (5.7-8.2) Albumin 4.1 g/dL (3.2-4.8) Ammonia < 10 umol/L (11-32) Test 01/26/24 11:50 01/26/24 09:58 01/26/24 09:40 01/26/24 08:31 Thyroid Stimulating Hormone (TSH) 0.15 uIU/mL (0.55-4.78) Lactic Acid Level 2.0 mmol/L (0.4-2.0) Urine Color Light-yellow (Yellow) Urine Clarity Cloudy (Clear) Urine pH 5.5 (5.0-9.0) Urine Specific [place] 1.018 (1.001-1.035) Urine Protein 2+ (Negative) Urine Ketones 1+ (Negative) Urine Blood 2+ /uL (Negative) Urine Nitrite Negative (Negative) Urine Bilirubin Negative (Negative) Urine Urobilinogen Normal mg/dL (Negative) Urine Leukocyte Esterase 3+ /uL (Negative) Urine RBC 16 /hpf (0 - 4) Urine WBC 464 /hpf (0 - 5) Urine WBC Clumps Present /hpf (None Seen) Urine Squamous Epithelial Cells Few /hpf (<5) Urine Bacteria Many /hpf (None Seen) Urine Hyaline Casts Few /lpf (0 - 2) Urine Yeast (Budding) Occasional /hpf (None Urine Glucose Normal mg/dL (Normal) Urine Opiates Screen Neg (NEGATIVE) Urine Fentanyl Screen Neg (NEGATIVE) Urine Barbiturates Screen Neg (NEGATIVE) Urine Phencyclidine Screen Neg (NEGATIVE) Urine Amphetamines Screen Neg (NEGATIVE) Urine Benzodiazepines Screen Neg (NEGATIVE) Urine Cocaine Screen Neg (NEGATIVE) Urine Cannabinoids Screen Neg (NEGATIVE) Influenza Type A Antigen Negative (Negative) Influenza Type B Antigen Negative (Negative) SARS-CoV-2 Antigen (Rapid) Negative (NEGATIVE) Test 01/26/24 07:38 Troponin I High Sensitivity 227 ng/L (</=34) B-Type Natriuretic Peptide 538.92 pg/mL (0-100) Other Laboratory Tests 01/29/24 05:20 01/27/24 06:19 Brief Hx & Hospital Course: 63-year-old female with a history of recurrent urinary tract infections ESRD not on hemodialysis history of renal transplant recipient hypertension aortic stenosis acute on chronic congestive heart failure came in for altered mental status and confusion. Found to have acute urinary tract infection with septic shock patient was given IV fluids and treated with Rocephin urine cultures growing E coli sensitive to Rocephin and Levaquin patient was seen by [employer] net developer for kidney problems. Patient feels better alert awake oriented x3 being discharged home on Levaquin for UTI. She will follow up with the Dr at the [facility] Consults/Reason for consult Nephrology Operations or Procedures CT head Renal ultrasound Condition at Discharge: Fair Final Diagnosis/Problems List Septic shock secondary to acute urinary tract infection resolved Acute metabolic encephalopathy Acute complicated cystitis : Urine cultures growing E coli, treated with Rocephin Acute Leukocytosis BRANDON on CKD ESRD ,not on hemodialysis nephrology consult appreciated History of renal transplant recipient: Continue home medication tacrolimus Hypertension History of aortic stenosis Acute on chronic CHF exacerbation X-ray negative CT head negative Discharge Disposition: Home Discharge Instruct/Medications Diet: Cardiac 2g Na,low cholest, Renal Activity: Light activity Follow Up/Referral: Continue all your previous home medications follow up with your primary Dr at the [facility] Medications: Levaquin 500 mg p.o. daily 10. Transmitted to the [facility] pharmacy at [place] per patient's request 39 (Time taken for Discharge summary 39 minutes) Discharge Statement: "Patient was advised to return to the ER or call 911 if any headaches, dizziness, shortness of breath, chest pain, abdominal pain, bleeding, fevers, or worsening of medical condition. Patient was counseled about treatment plan, medications, possible side effects, patientverbalized understanding. All questions were answered to the best of my ability. This discharge took greater then 30 minutes in planning, reviewing documentation, counseling the patient, and discussing with other team members." ASSESSMENT ASSESSMENT Hospital Course Improved Assessment Septic shock secondary to acute urinary tract infection resolved Acute metabolic encephalopathy Acute complicated cystitis : Urine cultures growing E coli, treated with Rocephin Acute Leukocytosis BRANDON on CKD ESRD ,not on hemodialysis nephrology consult appreciated History of renal transplant recipient: Continue home medication tacrolimus Hypertension History of aortic stenosis Acute on chronic CHF exacerbation X-ray negative CT head negative Date of Service: Jan 29, 2024 Billing Provider: DINA HOLLIDAY MD Common Visit Codes: [id number] DISCH DAY >30min DINA HOLLIDAY MD Jan 29, 2024 12:07
[2024-01-29 13:00] VITALS: BP 148/51; PULSE 67; RESP 19; TEMP 98.1; O2SAT 100
[2024-01-29 14:09] VITALS: BP 148/51; PULSE 67; RESP 19; TEMP 98.1; O2SAT 100
--- NOTE | 2024-01-29 14:29 | DVHPN2 ---
Progress Note - Dictate Date Seen: Jan 29, 2024 Medical Necessity Reason Pt with a Central, PICC or Fol: Yes vital signs Vital Sign Date Time Temp Pulse Resp B/P (MAP) Pulse Ox O2 Delivery O2 Flow Rate FiO2 01/29/24 13:00 98.1 67 19 148/51 (83) 100 98.1 01/29/24 08:00 Room Air* 0 21 Total Intake and Output 01/28/24 01/28/24 01/29/24 15:00 23:00 07:00 Intake Total 400 ml 300 ml Output Total 600 ml 1 ml Balance -200 ml 299 ml medications Current Medications Medications Dose Ordered Sig/Srikanth Route Start Time Stop Time Status Last Admin Dose Admin Ondansetron HCl 4 mg Q4HP PRN IV 01/26/24 11:15 Enoxaparin Sodium 30 mg DAILY SC 01/27/24 10:00 01/28/24 13:04 30 MG Labetalol HCl 10 mg Q2HPRN PRN IV 01/26/24 16:15 Tacrolimus 3 mg QAM PO 01/27/24 07:00 01/29/24 06:35 3 MG Metoprolol Tartrate 25 mg BID PO 01/27/24 13:00 01/28/24 21:47 25 MG Aspirin 81 mg DAILY PO 01/27/24 13:00 01/28/24 13:05 81 MG Cholecalciferol 2,000 unit DAILY PO 01/28/24 10:00 01/29/24 11:17 2,000 UNIT Magnesium Oxide 400 mg BID PO 01/27/24 13:00 01/29/24 11:17 400 MG Sertraline HCl 50 mg QPM PO 01/27/24 20:00 01/28/24 17:20 50 MG Amlodipine Besylate 10 mg DAILY PO 01/27/24 13:30 01/28/24 13:05 10 MG Prednisone 5 mg DAILY PO 01/28/24 10:00 01/28/24 13:06 5 MG Ceftriaxone Sodium 50 ml @ 100 mls/hr DAILY@09 IV 01/29/24 09:00 01/29/24 11:17 100 MLS/HR Azathioprine 100 mg DAILY PO 01/28/24 12:45 01/29/24 11:35 100 MG Tacrolimus 3 mg QPM PO 01/28/24 18:00 01/28/24 17:19 3 MG Hydralazine HCl 25 mg Q12HR PO 01/28/24 16:45 01/28/24 21:47 25 MG laboratory and microbiology Laboratory Tests 01/29/24 05:20 01/27/24 06:19 Test 01/29/24 05:20 Range/Units Serum Glucose 117 H 74-106 mg/dL Assessment/Plan Acute kidney injury hemodynamic mediated etiology on Chronic kidney disease IIIb in the setting of sepsis Severe sepsis Hypertension 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
== END 2024-01-29 14:20 | disposition home or self-care (01) | DRG 871 ==
LOC: ER 06:43 → OVERFLOW 11:10 → TELE-WESTW 15:40
PROVIDERS: ADMIT Student in an Organized Health Care Education/Training Program; ATTEND Family Medicine
DX: A41.9 Sepsis, unspecified organism (principal); G93.41 Metabolic encephalopathy; I21.A1 Myocardial infarction type 2; R65.21 Severe sepsis with septic shock; E87.20 Acidosis, unspecified; N17.9 Acute kidney failure, unspecified; N30.00 Acute cystitis without hematuria; T86.19 Other complication of kidney transplant; I13.0 Hypertensive heart and chronic kidney disease with heart failure and stage 1 through stage 4 chronic kidney disease, or unspecified chronic kidney disease; D84.821 Immunodeficiency due to drugs; Z20.822 Contact with and (suspected) exposure to COVID-19; I50.9 Heart failure, unspecified; B96.20 Unspecified Escherichia coli [E. coli] as the cause of diseases classified elsewhere; I48.91 Unspecified atrial fibrillation; I35.0 Nonrheumatic aortic (valve) stenosis; G47.00 Insomnia, unspecified; N18.32 Chronic kidney disease, stage 3b; Y83.0 Surgical operation with transplant of whole organ as the cause of abnormal reaction of the patient, or of later complication, without mention of misadventure at the time of the procedure; Z87.440 Personal history of urinary (tract) infections; Z83.79 Family history of other diseases of the digestive system; Z82.49 Family history of ischemic heart disease and other diseases of the circulatory system; Z80.8 Family history of malignant neoplasm of other organs or systems; Z79.60 Long term (current) use of unspecified immunomodulators and immunosuppressants; Z99.2 Dependence on renal dialysis; Z80.1 Family history of malignant neoplasm of trachea, bronchus and lung; Z83.3 Family history of diabetes mellitus; Z79.82 Long term (current) use of aspirin; Z79.899 Other long term (current) drug therapy; Z88.8 Allergy status to other drugs, medicaments and biological substances
CPT/HCPCS: 36415; 80048; 80053; 80197; 82570; 84156; 84300; 85025; 87088; 87186; 96365; 96375; 99291; G0378; J0692; J7507

== ENCOUNTER 2024-02-15 11:03 | Inpatient (IN) | payer OTHER ==
[~2024-02-15] VITALS: Ht 162.6 cm; Wt 66.2 kg
[~2024-02-15 11:03] MED LIST changes: +LANS30CA57 PO; +LEVO500T91 PO; +TACR1CAP19 PO; -TACR1CAP4 PO
--- NOTE | 2024-02-15 11:18 | ED.PDOC ---
Altered Mental Status HPI Comments 63 year old female NEGIN presents to the ED with chief complaint of ALOC. EMS reports patient had called 911 for herself due to urinary symptoms, however, upon arrival patient was unable to answer questions and appears confused. EMS relays that family was contacted and they were informed patient had been treated for a UTI a week ago with antibiotics sent home, which she finished. EMS states patient had a HR of 133, blood pressure increasing up to 209/122 and a blood glucose of 139. Patient unable to answer questions at this time and appears confused. 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 Operator Notes, Medications, Allergies Allergies: Coded Allergies: Lisinopril (Verified Allergy, Unknown, 02/13/22) Home Meds Active Scripts Levofloxacin Hemihydrate (LEVAQUIN 500 MG) 500 Mg Tab, 1 TAB PO DAILY, #10 TAB Prov:DINA HOLLIDAY MD 01/29/24 Metronidazole (Metronidazole) 500 Mg Tab, 500 MG PO BID for 5 Days, #10 TAB Prov:LYNNETTE DALTON DO 10/23/22 Amlodipine Besylate (NORVASC TABLET) 5 Mg Tb, 5 MG PO DAILY for 30 Days, #30 TAB 11 Refills Prov:LYNNETTE DALTON DO 10/23/22 Omeprazole Magnesium (Omeprazole) 20 Mg Tab, 20 MG PO BID for 30 Days, #60 TAB Prov:BLANCA BELLO MD 02/18/22 Levofloxacin (Levaquin) 500 Mg Tab, 500 MG PO EOD for 7 Days, #7 TAB Prov:BLANCA BELLO MD 02/18/22 Sucralfate (CARAFATE) 1 Gm Tab, 1 GM PO QID for 30 Days, #120 TAB Prov:BLANCA BELLO MD 02/18/22 Reported Medications Tacrolimus (ASTAGRAF XL) 1 Mg Cap, 3 MG PO Q12HR, CAP 01/27/24 Lansoprazole (Lansoprazole) 30 Mg Cap, 1 CAP PO DAILY, #30 CAP 5 Refills 01/27/24 Pregabalin (Lyrica) 50 Mg Cap, 50 MG PO DAILY, CAP 09/27/20 Trazodone Hcl (Trazodone Hcl) 50 Mg Tab, 50 MG PO HS, MG 09/27/20 Cyanocobalamin (B-12) 1,000 Mcg Cap, 1000 MCG PO, CAP 09/27/20 Tizanidine Hydrochloride (TIZANIDINE HCL) 2 Mg Cap, 2.5 MG PO, CAP 09/27/20 Magnesium Oxide (MAGNESIUM OXIDE) 400 Mg Tab, 1 TAB PO BID, #60 TAB 5 Refills 09/27/20 Tizanidine Hydrochloride (Zanaflex) 4 Mg Tab, 0.5 TAB PO HS, #60 TAB 09/27/20 Metoprolol Tartrate (Metoprolol Tartrate) 25 Mg Tab, 1 TAB PO BID, #180 TAB 1 Refill 09/04/18 Raloxifene Hydrochloride (EVISTA TABLET) 60 Mg Tb, 1 TAB PO DAILY, #30 TAB 11 Refills 09/04/18 Prednisone (PREDNISONE) 5 Mg Tb, 5 MG PO DAILY 09/02/18 Azathioprine (Imuran) 50 Mg Tab, 3 TAB PO BEDTIME, #180 TAB 3 Refills 09/02/18 Fish Oil (Fish Oil) 500 Mg Cap, 500 MG PO BID, CAP 09/02/18 Omeprazole (Gnp Omeprazole) 20 Mg Tab, 1 CAP PO BID, #90 TAB 1 Refill 09/02/18 Docusate Sodium (Docusate Sodium) 250 Mg Cap, 250 MG PO QHS, CAP 09/02/18 Cholecalciferol (VITAMIN D3) 2,000 Unit Chw, 2000 UNIT PO DAILY, CHW 09/02/18 Loratadine (Claritin) 10 Mg Tab, 1 TAB PO DAILY, #30 TAB 5 Refills 09/02/18 Aspirin (Aspirin Low Dose) 81 Mg Chw, 1 TAB PO DAILY, #30 TAB 3 Refills 09/02/18 Cyclobenzaprine Hcl (Cyclobenzaprine Hcl) 5 Mg Tab, 2 TAB PO QPM PRN for prn, # 30 TAB 09/02/18 Hydrocodone-Acetaminophen ([place] 5/325MG) 1 Tab Tb, 1 TAB PO Q6HP PRN for pain, #90 TAB 09/02/18 Sertraline Hcl (Sertraline Hcl) 50 Mg Tab, 3 TAB PO QPM for depression, #30 TAB 5 Refills 09/02/18 Simvastatin (Simvastatin) 40 Mg Tab, 1 TAB PO QPM, #30 TAB 5 Refills 7/7/19 Information Source: Emergency Med Personnel Mode of Arrival: EMS Severity: Severe, Unresponsive Timing: Hours Duration: Since onset Prehospital treatment: None Quality: Decreased Alertness, Change in Behavior, Confusion Recent: Urinary Symptoms Associated Signs and Symptoms: None Past Medical History PAST MEDICAL HISTORY: AFIB, CHF, HTN, Liver, UTI'S Surgical History: Cholecystectomy, , Hernia Repair Surgical History (Other): Kidney transplant LOT PORTER History: No Pertinent LOT PORTER History Family History Family History: Reviewed,noncontributory to illness, Unknown Social History Smoker: Non-Smoker Alcohol: Denies ETOH Use Drugs: Denies Drug Use Lives In: Home Unable to Obtain due to: Altered Mental Status All Other Systems: Reviewed and Negative Physical Exam General Appearance: Moderate Distress, Normal HEENT: Normal ENT Inspection, PERRL/EOMI Neck: Full Range of Motion, Non-Tender, Normal, Normal Inspection Respiratory: Chest Non-Tender, Lungs Clear, No Accessory Muscle Use, No Respiratory Distress, Normal Breath Sounds Cardiovascular: No Edema, No JVD, No Murmur, No Gallop, Normal Peripheral Pulses, Tachycardia Breast Exam: Deferred Gastrointestinal: No Organomegaly, Non Tender, No Pulsatile Mass, Normal Bowel Sounds, Soft Genitalia: Deferred Pelvic: Deferred Rectal: Deferred Extremities: No calf tenderness, Normal capillary refill, Normal inspection, Normal range of motion, Non-tender, No pedal edema Musculoskeletal : Apperance: Normal Neurologic: door closer II-XII nml as Tested, Disoriented, No Motor Deficits, No Sensory Deficits Cerebellar Function: NOT DONE Reflexes: NOT DONE Skin: Dry, Normal Color, Warm Peripheral Pulses: 3+ Radial (R), 3+ Radial (L) Lymphatic: No Adenopathy Was a procedure done? Was a procedure done?: No Differential Diagnosis (ALOC) Differential Diagnosis: Hypoglycemia, Encephalopathy, Sepsis, Renal Failure X-Ray, Labs, Meds, VS Vital Signs Date Time Temp Pulse Resp B/P (MAP) Pulse Ox O2 Delivery O2 Flow Rate FiO2 02/15/24 11:19 98.0 130 24 204/122 (149) 100 98.0 02/15/24 11:19 98.0 130 24 204/122 (149) 100 02/15/24 11:08 134 Lab Test 02/15/24 11:29 Range/Units POC Glucose 155 H 70-106 mg/dl Patient altered. Unable to get any answers from the patient. Tachycardia. Blood pressure elevated. Blood sugar elevated. Saturation pristine on room air. Abdomen is soft. Possible urosepsis. Establish intravenous access. Was given fluids. Possible pneumonia. Was given Levaquin. Reviewed her previous visit. Waiting for family. Continue cardiac monitoring. Time of 1ST Reevaluation: 12:11 Reevaluation 1ST: Unchanged Patient Education/Counseling: Pt Unresponsive Family Education/Counseling: No Family Present Departure 1 Departure Time of Disposition: 12:03 Impression: Primary Impression: Metabolic encephalopathy Additional Impressions: Uncontrolled diabetes mellitus Qualified Codes: E13.65 - Other specified diabetes mellitus with hy perglycemia Hypertensive emergency Disposition: ADMITTED INPATIENT Admit to: Med Surg Condition: Guarded Critical Care Note Critical Care Time?: Yes (90 min-critical care time only) Stability Stability form required: No Heart Score Heart Score: Heart Score Response (Comments) Value History N/A 0 EKG N/A 0 Age N/A 0 Risk Factors N/A 0 Troponin N/A 0 Total 0 I personally scribed for XIOMY BENITES MD ([email or web address]) on 02/15/24 at 11:18. Electronically submitted by Robert Matamoros ([email or web address]). XIOMY BENITES MD Feb 15, 2024 11:18
--- NOTE | 2024-02-15 12:13 | DVH ---
CHEST RADIOGRAPH Indication: sob Technique: Single frontal view of the chest was obtained Comparison: XY CHEST PORTABLE on DOS: 01/26/24, XY CHEST PORTABLE on DOS: 02/01/23 FINDINGS: Lines and Tubes: None Lungs: No focal consolidation. Pleura: No effusion.No pneumothorax. Cardiomediastinal contours: Within normal limits. There is moderate size hiatal hernia. Pulmonary vasculature: Within normal limits. Bones: No acute osseous abnormality. IMPRESSION: 1. No acute cardiopulmonary disease. HS:Y
--- NOTE | 2024-02-15 12:35 | DVH ---
EXAM: CT HEAD WITHOUT CONTRAST INDICATION: altered TECHNIQUE: CT of the head without intravenous contrast. Radiation Dose Information: CT Dose: CTDI volume is 48.21 mGy. Dose-length product is 836.3 mGy*cm The dose indicators for CT are the volume Computed Tomography (CT) Dose Index (CTDIvol) and the Dose Length Product (DLP), and are measured in units of mGy and mGy-cm, respectively. These indicators are not patient dose, but values generated from the CT scanner acquisition factors. The report includes radiation exposure data for exposures received during this examination. COMPARISON: CT HEAD WITHOUT CONTRAST on DOS: 01/26/24, CT ABD PELVIS WO CONTRAST on DOS: 02/23/22 FINDINGS: There is no evidence of acute intracranial hemorrhage, extra-axial collection, mass effect, midline s hift, herniation or hydrocephalus. The ventricles, sulci and cisterns are age appropriate. Punctate left basal ganglia calcifications. The weston-white differentiation is intact. Patchy periventricular and subcortical white matter hypoattenuation is nonspecific but may be related to small vessel ischemic disease. The visualized paranasal sinuses and mastoid air cells are clear. The surrounding soft tissues and osseous structures are unremarkable. IMPRESSION: 1. No CT evidence of acute intracranial abnormality. HS:Y
[2024-02-15 12:45] VITALS: PULSE 130; RESP 22; O2SAT 98
[2024-02-15] MEDS: LABETALOL HCL 20 MG/4 ML VL IV ONE ×2 (12:48→20:22)
[2024-02-15 13:30] LABS: Basophils # (auto) 0 10 ^3/uL (0-0.2); Basophils % (auto) 0.4 % (0.0-2.0); Eosinophils # (auto) 0 10 ^3/uL (0-0.8); Hematocrit 35.6 % (36.0-46.0); Hemoglobin 11.7 g/dL (12.2-16.2); Lymphocytes # (auto) 0.9 10 ^3/uL (0.4-5.4); Mean Corpuscular Hemoglobin 29.5 pg (28.0-32.0); Mean Corpuscular Hgb Conc. 32.9 g/dL (32.0-36.0); Mean Corpuscular Volume 89.7 fL (80.0-100.0); Monocytes # (auto) 0.6 10 ^3/uL (0-1.3); Monocytes % (auto) 5.6 % (0.0-12.0); Neutrophils # (auto) 8.9 10 ^3/uL (1.6-8.6); Nucleated Red Blood Cells % 0.1 %; Platelet Count (auto) 281 10^3/uL (140-450); Red Blood Cells 3.97 10^6/uL (4.0-5.20); Red Cell Distribution Width 16.9 % (11.8-14.3); White Blood Cell 10.5 10^3/uL (4.4-10.8)
[2024-02-15 13:38] LABS: Anion Gap 16 (5-15); Potassium 4.8 mmol/L (3.5-5.1)
[2024-02-15 13:44] LABS: BUN/Creatinine Ratio 12.4 (10.0-20.0)
[2024-02-15 13:52] LABS: Blood Urea Nitrogen 31 mg/dL (9-23); Carbon Dioxide 20 mmol/L (20-31); Chloride 110 mmol/L (98-107); Glucose 144 mg/dL (74-106); Sodium 146 mmol/L (136-145)
[2024-02-15] MEDS: ONDANSETRON HCL 4 MG/2 ML VIAL IV PRN (15:17)
--- NOTE | 2024-02-15 15:19 | DVHHP2 ---
History of Present Illness Reason for Visit: ALOC History of Present Illness Doretha Frey is a 63-year-old female with past medical history of kidney transplant, hypertension, CHF, and frequent UTI's who came in due to ALOC. Patient was brought in by EMS. According to EMS the patient called for help due to urinary problems. On their arrival they found the patient confused and unable to answer any questions. On my assessment the patient can not answer any questions including what is her name or date of . She will just answer yes when asked questions. History obtained from chart. Cardiovascular: AFIB, CHF, HTN Renal/: Other (kidney transplant) Past Surgical History: Cholecystectomy, , Hernia Repair Review of Systems Neurological: Confusion Other Unable to obtain Allergies: Coded Allergies: Lisinopril (Verified Allergy, Unknown, 02/13/22) Exam Vital Signs Vital Signs Date Time Temp Pulse Resp B/P (MAP) Pulse Ox O2 Delivery O2 Flow Rate FiO2 02/15/24 14:00 115 165/103 02/15/24 13:36 24 100 02/15/24 12:45 Room Air* 0 21 02/15/24 11:19 98.0 98.0 General Appearance: Alert, Other (Oriented x 0) HEENT: Atraumatic, PERRLA Respiratory: Clear to auscultation, Normal air movement Cardiovascular: Normal S1, Normal S2, Other (tachycardia) Abdominal: Normal bowel sounds, Soft, No tenderness Extremities: No clubbing, No cyanosis, No edema Skin: No rashes, No breakdown, No significant lesion Neuro: Other (unable to determine, can not asnwer any questions, will follow simple comands) Labs/Xrays Labs Test 02/15/24 14:28 02/15/24 12:55 02/15/24 11:29 Range/Units White Blood Count 10.5 4.4-10.8 10^3/uL Red Blood Count 3.97 L 4.0-5.20 10^6/uL Hemoglobin 11.7 L 12.2-16.2 g/dL Hematocrit 35.6 L 36.0-46.0 % Mean Corpuscular Volume 89.7 80.0-100.0 fL Mean Corpuscular Hemoglobin 29.5 28.0-32.0 pg Mean Corpuscular Hemoglobin Concent 32.9 32.0-36.0 g/dL Red Cell Distribution Width 16.9 H 11.8-14.3 % Platelet Count 281 140-450 10^3/uL Mean Platelet Volume 7.9 6.9-10.8 fL Neutrophils (%) (Auto) 85.0 H 37.0-80.0 % Lymphocytes (%) (Auto) 9.0 L 10.0-50.0 % Monocytes (%) (Auto) 5.6 0.0-12.0 % Eosinophils (%) (Auto) 0.0 0.0-7.0 % Basophils (%) (Auto) 0.4 0.0-2.0 % Neutrophils # (Auto) 8.9 H 1.6-8.6 10 ^3/uL Lymphocytes # (Auto) 0.9 0.4-5.4 10 ^3/uL Monocytes # (Auto) 0.6 0-1.3 10 ^3/uL Eosinophils # (Auto) 0 0-0.8 10 ^3/uL Basophils # (Auto) 0 0-0.2 10 ^3/uL Nucleated Red Blood Cells 0.1 % Sodium Level 146 H 136-145 mmol/L Potassium Level 4.8 3.5-5.1 mmol/L Chloride Level 110 H 98-107 mmol/L Carbon Dioxide Level 20 20-31 mmol/L Anion Gap 16 H 5-15 Blood Urea Nitrogen 31 H 9-23 mg/dL Creatinine 2.50 H 0.550-1.02 mg/dL Glomerular Filtration Rate Calc 21 >90 mL/min BUN/Creatinine Ratio 12.4 10.0-20.0 Serum Glucose 144 H 74-106 mg/dL Calcium Level 11.0 H 8.7-10.4 mg/dL POC Glucose 155 H 70-106 mg/dl CHEST RADIOGRAPH FINDINGS: Lines and Tubes: None Lungs: No focal consolidation. Pleura: No effusion.No pneumothorax. Cardiomediastinal contours: Within normal limits. There is moderate size hiatal hernia. Pulmonary vasculature: Within normal limits. Bones: No acute osseous abnormality. IMPRESSION: 1. No acute cardiopulmonary disease. EXAM: CT HEAD WITHOUT CONTRAST FINDINGS: There is no evidence of acute intracranial hemorrhage, extra-axial collection, mass effect, midline shift, herniation or hydrocephalus. The ventricles, sulci and cisterns are age appropriate. Punctate left basal ganglia calcifications. The weston-white differentiation is intact. Patchy periventricular and subcortical white matter hypoattenuation is nonspecific but may be related to small vessel ischemic disease. The visualized paranasal sinuses and mastoid air cells are clear. The surrounding soft tissues and osseous structures are unremarkable. IMPRESSION: 1. No CT evidence of acute intracranial abnormality. Assessment/Plan Assessment/Plan Assessment: Metabolic encephalopathy, Hypertensive urgency, Elevated troponin, Plan: Admit to [facility], Neurology consult, MRI of brain, UA/Urine culture, Blood cultures, IV hydration, Fall risk, NPO, TSH, B12, Vit D, Home medications reconciled, Plan discussed with: Patient My Orders Orders - MARTHA DA SILVA [employer]INTENANCE Procedure Category Date Status Time Admit ADMIT 02/15/24 Transmitted 14:58 Code Status CODE 02/15/24 Transmitted 14:58 0.9% Ns 1000 Ml [facility] 02/15/24 Transmitted 15:00 Hydrocodone-Acet [facility] 02/15/24 Transmitted 5/325mg Tab ([place] 15:00 Ondansetron Hcl [facility] 02/15/24 Transmitted (Zofran) 15:00 Fall Risk Precautions [facility] 02/15/[address] 14:58 Complete Blood Count LAB 02/16/24 Verified 04:00 Comprehensive LAB 02/16/24 Verified Metabolic Panel 04:00 Npo (Nothing By DIET 02/15/24 Transmitted Mouth) Diet Dinner Condition: Serious [facility] 02/15/24 Transmitted 14:58 Acetaminophen Tablet [facility] 02/15/24 Transmitted (Tylenol Tablet) 15:00 Nitroglycerin [facility] 02/15/24 Transmitted Sublingual (Ntrostat 15:00 Morphine Sulfate [facility] 02/15/24 Transmitted Injection 15:00 Stat Ekg For Chest [facility] 02/15/24 Transmitted Pain 14:58 Notify Md Of Changes [facility] 02/15/24 Transmitted From Base 14:58 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 Manager For [facility] 02/15/24 Transmitted 24 Hours 14:58 Emergency Dysrhythmia [facility] 02/15/24 Transmitted Protocol 14:58 Rhythm Strips Once [facility] 02/15/24 Transmitted Every Shift 14:58 Oxygen By Nasal 02/15/24 Transmitted Cannula 14:58 Azathioprine Tablet [facility] 02/15/24 Transmitted (Imuran Tablet) 22:00 Loratadine Tablet [facility] 02/16/24 Transmitted (Claritin Tablet) 10:00 Metoprolol Tartrate [facility] 02/15/24 Transmitted Tablet (Lopressor Ta 22:00 Prednisone Tablet [facility] 02/16/24 Transmitted 10:00 Sertraline Hcl [facility] 02/15/24 Transmitted (Zoloft) 18:00 Trazodone Hcl [facility] 02/15/24 Transmitted (Desyrel) 22:00 (Nf) Aspirin (Aspirin [facility] 02/16/24 Transmitted Low Dose) 10:00 (Nf) Cholecalciferol [facility] 02/16/24 Transmitted (Vitamin D3) 10:00 (Nf) Docusate Sodium [facility] 02/15/24 Transmitted 15:00 (Nf) Pregabalin [facility] 02/16/24 Transmitted (Lyrica) 10:00 (Nf) Simvastatin [facility] 02/15/24 Transmitted 18:00 (Nf) Tacrolimus [facility] 02/15/24 Transmitted (Astagraf Xl) 22:00 (Nf) Tizanidine [facility] 02/15/24 Transmitted Hydrochloride 22:00 Date of Service: Feb 15, 2024 Billing Provider: MARTHA DA SILVA Common Visit Codes: [id number] INP/OBS CARE (MOD) MARTHA DA SILVA Feb 15, 2024 15:19
[2024-02-15] MEDS: MORPHINE SULFATE INJ 2 MG/ml SYRG IV PRN (15:21)
[2024-02-15] MEDS: SODIUM CHLORIDE 0.9% 1,000 ML IV SCH (15:31)
[2024-02-15 15:41] LABS: Urine Bacteria None Seen /hpf (None Seen)
[2024-02-15 15:48] LABS: Urine Blood 3+ /uL (Negative); Urine Clarity Clear (Clear); Urine Color Light-Yellow (Yellow); Urine Protein, UAD 3+ (Negative); Urine Specific Gravity 1.016 (1.001-1.035); Urine Squamous Epithelial Cell FEW /hpf (<5); Urine Urobilinogen Normal (Negative); Urine WBC 1 /hpf (0 - 5)
[2024-02-15] MEDS: LORazepam 2MG/ML-1ML VIAL IV ONE (16:58)
--- NOTE | 2024-02-15 17:34 | DVH ---
EXAMINATION: MRI BRAIN HEAD WO CONTRAST INDICATION: ALOC, R/O Stroke COMPARISON: CT HEAD WITHOUT CONTRAST on DOS: 02/15/24, CT HEAD WITHOUT CONTRAST on DOS: 01/26/24 TECHNIQUE: Multiplanar, multisequence magnetic resonance imaging of the brain was performed without the use of i ntravenous contrast. FINDINGS: There is no restricted diffusion. There are mild scattered chronic small-vessel ischemic changes in t he supratentorial white matter. There is no evidence of hemorrhage, mass, mass effect or midline shif t. There is no hydrocephalus or extra-axial fluid collection. The visualized intracranial vasculature demonstrates appropriate flow-voids. The sagittal midline structures appear unremarkable. The cranio cervical junction is within normal limits. The calvarium demonstrates normal marrow signal. The paran stephanie sinuses and mastoid air cells are clear. IMPRESSION: 1. There is no acute intracranial process. 2. Mild chronic small-vessel supratentorial white matter ischemic changes. HS:Y
[2024-02-15] MEDS: cefTRIAXone 1GM/50ML D5W 50 ML IV ONE (18:42)
[2024-02-15] MEDS: SERTRALINE HCL 50 MG TAB PO SCH (18:42)
--- NOTE | 2024-02-15 18:56 | ECG ---
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
[2024-02-15 21:42] LABS: Opiate Scree,Urine Pos (NEGATIVE)
[2024-02-15 22:00] LABS: Amphetamine Screen, Urine Neg (NEGATIVE); Barbiturate Scree,Urine Neg (NEGATIVE); Benzodiazephine Screen, Urine Neg (NEGATIVE); Cannabinoid Screen, Urine Neg (NEGATIVE); Cocaine Screen, Urine Neg (NEGATIVE); Phencyclidine Screen, Urine Neg (NEGATIVE)
[2024-02-15] MEDS: DOCUSATE ORAL LIQUID 100 MG/10 ML UD PO SCH (22:00)
[2024-02-15] MEDS: TIZANIDINE HYDROCHLORIDE 4 MG PO SCH (22:00)
[2024-02-15] MEDS: traZODone HCL 50 MG TAB PO SCH (22:23)
[2024-02-15] MEDS: TACROLIMUS 1 MG CAP PO SCH (22:24)
[2024-02-15] MEDS: METOPROLOL TARTRATE 25 MG TAB PO SCH (22:25)
[2024-02-15] MEDS: ATORVASTATIN 20 MG TAB PO SCH (22:25)
[2024-02-15] MEDS: azaTHIOprine 50 MG TAB PO SCH (22:25)
[2024-02-16] MEDS: TEMAZEPAM 15 MG CAP PO ONE (01:44)
[2024-02-16 04:25] LABS: Basophils # (auto) 0.1 10 ^3/uL (0-0.2); Basophils % (auto) 0.7 % (0.0-2.0); Eosinophils # (auto) 0 10 ^3/uL (0-0.8); Hematocrit 31.3 % (36.0-46.0); Hemoglobin 10.5 g/dL (12.2-16.2); Lymphocytes # (auto) 0.7 10 ^3/uL (0.4-5.4); Lymphocytes % (auto) 7.7 % (10.0-50.0); Mean Corpuscular Hgb Conc. 33.7 g/dL (32.0-36.0); Monocytes # (auto) 0.6 10 ^3/uL (0-1.3); Monocytes % (auto) 6.2 % (0.0-12.0); Neutrophils # (auto) 7.9 10 ^3/uL (1.6-8.6); Neutrophils % (auto) 85.4 % (37.0-80.0); Platelet Count (auto) 213 10^3/uL (140-450); Red Blood Cells 3.51 10^6/uL (4.0-5.20); Red Cell Distribution Width 16.6 % (11.8-14.3); White Blood Cell 9.3 10^3/uL (4.4-10.8)
[2024-02-16 04:35] LABS: Alanine Aminotransferase 14 U/L (7-40); Albumin 4.2 g/dL (3.2-4.8); Alkaline Phosphatase 89 U/L (46-116); Anion Gap 11 (5-15); BUN/Creatinine Ratio 12.8 (10.0-20.0); Calcium 9.4 mg/dL (8.7-10.4); Carbon Dioxide 21 mmol/L (20-31); Potassium 3.8 mmol/L (3.5-5.1); Total Protein 6.8 g/dL (5.7-8.2)
[2024-02-16] MEDS: HYDROcodone-ACET 5/325MG TAB PO PRN (04:37)
[2024-02-16 04:42] LABS: Aspartate Aminotransferase 53 U/L (13-40); Blood Urea Nitrogen 31 mg/dL (9-23); Chloride 113 mmol/L (98-107); Glucose 122 mg/dL (74-106); Sodium 145 mmol/L (136-145)
[2024-02-16 04:47] LABS: Bilirubin, Total 0.9 mg/dL (0.2-1.0)
[2024-02-16 07:30] VITALS: PULSE 109; RESP 29; O2SAT 99
[2024-02-16 09:00] VITALS: PULSE 117; RESP 20; O2SAT 98
--- NOTE | 2024-02-16 10:57 | DVHINCON2 ---
Date of service: Feb 16, [address] Menendez Reason for Consultation ALOC, rule out stroke History of Present Illness Ms. العراقي is a 63 years old right-handed female with a history of hypertension, A fib, kidney transplantation, the patient came to the hospital with a chief complaint of altered mental status. At this time, she was awake, she was oriented to person, place, she knows year and the month, she joked that she came to the hospital because she was invited by the [facility], she is not a good historian, the history is obtained from her daughter I saw her on 09/02/2018 for TIA, 02/14/2022 for ALOC (UTI) She has been a long, in the evening on 02/14/2024, she was mentally fine when her daughter saw her, but in the morning on 02/15/2024, the patient was was confused, repeating herself, was not able to express herself. In the last one month, the patient was been hospitalized 3 times for altered mental status, she had evolution and hallucination into of the admission, she was found to have UTI in the last admission Urinalysis, 02/15/2024: WBC: 1, urine leukocyte esterase: Negative UDS, 02/15/2024: Opiates, fentanyl WBC/HB/PLT/MCV, 02/16/2024: 9.3/10.5/213/89 BUN/CR, 02/16/2024: 31/2.43 TBI/AST/ALT/AP, 02/16/2024: 0.9/23/14/89 Vitamin B12, 01/2024: 526 Vitamin-D, 02/15/2024:10 EKG, 02/13/2022: A. fib Chest x-ray, 02/15/2024: No acute cardiopulmonary disease CT head, 02/15/2024: No CT evidence of acute intracranial abnormality MRI head, 09/03/2018: 1. No evidence of acute intracranial pathology. 2. Mild chronic small vessel ischemic changes MRI head, 02/15/2024: 1. There is no acute intracranial process. 2. Mild chronic small-vessel supratentorial white matter ischemic changes Past Medical History Hypertension, A. fib since 2012, cataract Past Surgical History Kidney transplantation, cataract surgery, right foot surgery, hernia repair, C- section Family History Diabetes, congestive heart failure, dementia, cancer Social History She is a non-smoker, she denies a history of alcohol or recreational substances abuse Allergies: Coded Allergies: Lisinopril (Verified Allergy, Unknown, 02/13/22) Home Meds Active Scripts Levofloxacin Hemihydrate (LEVAQUIN 500 MG) 500 Mg Tab, 1 TAB PO DAILY, #10 TAB Prov:DINA HOLLIDAY MD 01/29/24 Amlodipine Besylate (NORVASC TABLET) 5 Mg Tb, 5 MG PO DAILY for 30 Days, #30 TAB 11 Refills Prov:LYNNETTE DALTON DO 10/23/22 Omeprazole Magnesium (Omeprazole) 20 Mg Tab, 20 MG PO BID for 30 Days, #60 TAB Prov:BLANCA BELLO MD 02/18/22 Levofloxacin (Levaquin) 500 Mg Tab, 500 MG PO EOD for 7 Days, #7 TAB Prov:BLANCA BELLO MD 02/18/22 Sucralfate (CARAFATE) 1 Gm Tab, 1 GM PO QID for 30 Days, #120 TAB Prov:BLANCA BELLO MD 02/18/22 Reported Medications Tacrolimus (ASTAGRAF XL) 1 Mg Cap, 3 MG PO Q12HR, CAP 01/27/24 Lansoprazole (Lansoprazole) 30 Mg Cap, 1 CAP PO DAILY, #30 CAP 5 Refills 01/27/24 Pregabalin (Lyrica) 50 Mg Cap, 50 MG PO DAILY, CAP 09/27/20 Trazodone Hcl (Trazodone Hcl) 50 Mg Tab, 50 MG PO HS, MG 09/27/20 Cyanocobalamin (B-12) 1,000 Mcg Cap, 1000 MCG PO, CAP 09/27/20 Tizanidine Hydrochloride (TIZANIDINE HCL) 2 Mg Cap, 2.5 MG PO, CAP 09/27/20 Magnesium Oxide (MAGNESIUM OXIDE) 400 Mg Tab, 1 TAB PO BID, #60 TAB 5 Refills 09/27/20 Tizanidine Hydrochloride (Zanaflex) 4 Mg Tab, 0.5 TAB PO HS, #60 TAB 09/27/20 Metoprolol Tartrate (Metoprolol Tartrate) 25 Mg Tab, 1 TAB PO BID, #180 TAB 1 Refill 09/04/18 Raloxifene Hydrochloride (EVISTA TABLET) 60 Mg Tb, 1 TAB PO DAILY, #30 TAB 11 Refills 09/04/18 Prednisone (PREDNISONE) 5 Mg Tb, 5 MG PO DAILY 09/02/18 Azathioprine (Imuran) 50 Mg Tab, 3 TAB PO BEDTIME, #180 TAB 3 Refills 09/02/18 Fish Oil (Fish Oil) 500 Mg Cap, 500 MG PO BID, CAP 09/02/18 Omeprazole (Gnp Omeprazole) 20 Mg Tab, 1 CAP PO BID, #90 TAB 1 Refill 09/02/18 Docusate Sodium (Docusate Sodium) 250 Mg Cap, 250 MG PO QHS, CAP 09/02/18 Cholecalciferol (VITAMIN D3) 2,000 Unit Chw, 2000 UNIT PO DAILY, CHW 09/02/18 Loratadine (Claritin) 10 Mg Tab, 1 TAB PO DAILY, #30 TAB 5 Refills 09/02/18 Aspirin (Aspirin Low Dose) 81 Mg Chw, 1 TAB PO DAILY, #30 TAB 3 Refills 09/02/18 Cyclobenzaprine Hcl (Cyclobenzaprine Hcl) 5 Mg Tab, 2 TAB PO QPM PRN for prn, #30 TAB 09/02/18 Hydrocodone-Acetaminophen ([place] 5/325MG) 1 Tab Tb, 1 TAB PO Q6HP PRN for pain, #90 TAB 09/02/18 Sertraline Hcl (Sertraline Hcl) 50 Mg Tab, 3 TAB PO QPM for depression, #30 TAB 5 Refills 09/02/18 Simvastatin (Simvastatin) 40 Mg Tab, 1 TAB PO QPM, #30 TAB 5 Refills 09/02/18 Discontinued Scripts Metronidazole (Metronidazole) 500 Mg Tab, 500 MG PO BID for 5 Days, #10 TAB Prov:DALTONLYNNETTE Lazar Jose DO 10/23/22 Current Medications Current Medications Medications (Trade) Dose Ordered Sig/Srikanth Route PRN Reason Start Time Stop Time Status Last Admin Sodium Chloride 1,000 ml @ 60 mls/hr [id number] IV 02/15/24 15:00 02/16/24 08:08 Acetaminophen/ Hydrocodone Bitart ([place] 5/325MG Tab) 1 tab Q4HP PRN PO MODERATE PAIN (4-6 PAIN SCALE) 02/15/24 15:00 02/16/24 04:37 Ondansetron HCl (Zofran) 4 mg Q4HP PRN IV NAUSEA / VOMITING 02/15/24 15:00 02/15/24 15:17 Acetaminophen (Tylenol Tablet) 650 mg Q6HP PRN PO PAIN SCALE 1-3 OR TEMP>100.4 02/15/24 15:00 Nitroglycerin (Ntrostat Sublingual) 0.4 mg Q5MINP PRN SL FOR CHEST PAIN 02/15/24 15:00 Morphine Sulfate 2 mg Q30M PRN IV FOR CHEST PAIN 02/15/24 15:00 02/15/24 15:21 Azathioprine (Imuran Tablet) 150 mg HS PO 02/15/24 22:00 02/15/24 22:25 Loratadine (Claritin Tablet) 10 mg DAILY PO 02/16/24 10:00 Metoprolol Tartrate (Lopressor Tablet) 25 mg BID PO 02/15/24 22:00 02/15/24 22:25 Prednisone 5 mg DAILY PO 02/16/24 10:00 Sertraline HCl (Zoloft) 150 mg QPM PO 02/15/24 18:00 02/15/24 18:42 Trazodone HCl (Desyrel) 50 mg HS PO 02/15/24 22:00 02/15/24 22:23 Aspirin 81 mg DAILY PO 02/16/24 10:00 Cholecalciferol (Vitamin D3 Tablet) 2,000 unit DAILY PO 02/16/24 10:00 Docusate Sodium (Colace Liquid) 250 mg HS PO 02/15/24 22:00 Pregabalin (Lyrica Capsule) 50 mg DAILY PO 02/16/24 10:00 Atorvastatin Calcium (Lipitor) 20 mg HS PO 02/15/24 22:00 02/15/24 22:25 Tacrolimus (Prograf) 3 mg Q12HR PO 02/15/24 22:00 02/15/24 22:24 Patient Own Medication 0.5 tab HS PO 02/15/24 22:00 Ceftriaxone Sodium 50 ml @ 100 mls/hr DAILY@09 IV 02/16/24 09:00 Review of Systems As above, the other systems are negative Vital Signs Vital Signs Date Time Temp Pulse Resp B/P (MAP) Pulse Ox O2 Delivery O2 Flow Rate FiO2 02/16/24 07:58 103 18 162/103 (122) 98 12/20/24 07:30 Room Air* 0 21 02/16/24 07:30 99.2 99.2 Physical Exam GENERAL EXAM: General: the patient is well developed and nourished. No acute distress. HEENT: Normocephalic, neck is supple, no carotid bruits. No mass. RESPIRATORY: Normal respiratory effort with symmetrical lung expansion. Lungs clear to auscultation. CARDIOVASCULAR: Regular rate and rhythm with no murmurs. S1, S2. ABDOMEN: Soft, nontender, normal bowel sound NEUROLOGICAL: MENTAL STATUS: HPI SPEECH, LANGUAGE, HIGHER CORTICAL FUNCTION: no aphasia or dysathria. CRANIAL NERVES: #2: Intact visual jessica to confrontation. The optic discs were sharp #3,4,6: Pupils are equal, round and reactive. EOMs full and conjugate. #5: Facial sensation intact in all three divisions bilaterally. Mandibular strength intact. #7: Facial muscles symmetrical and strength intact. #8: Hearing grossly normal to voice. #9,10: Uvula and soft palate rise in the midline. Swallow and voice are normal. #11: Trapezius and sternomastoid strength intact bilaterally. #12: Tongue midline. No fasciculations or atrophy. SENSATION: Sensation to touch and pinprick is normal. MOTOR: Normal tone in the upper and lower extremity. Normal muscle bulk. No fasciculations. No abnormal movements or posturing. She moves the arms and legs, muscle power is 4/5 REFLEXES: Deep tendon reflexes are symmetrical. No pathological reflexes. CEREBELLAR/COORDINATION: Finger to nose is normal bilaterally. GAIT/STATION: deferred Labs/Diagnostic Data Labs Test 02/16/24 03:39 02/15/24 16:36 02/15/24 14:49 02/15/24 12:55 Range/Units White Blood Count 9.3 4.4-10.8 10^3/uL Red Blood Count 3.51 L 4.0-5.20 10^6/uL Hemoglobin 10.5 L 12.2-16.2 g/dL Hematocrit 31.3 #L 36.0-46.0 % Mean Corpuscular Volume 89.0 80.0-100.0 fL Mean Corpuscular Hemoglobin 30.0 28.0-32.0 pg Mean Corpuscular Hemoglobin Concent 33.7 32.0-36.0 g/dL Red Cell Distribution Width 16.6 H 11.8-14.3 % Platelet Count 213 140-450 10^3/uL Mean Platelet Volume 7.8 6.9-10.8 fL Neutrophils (%) (Auto) 85.4 H 37.0-80.0 % Lymphocytes (%) (Auto) 7.7 L 10.0-50.0 % Monocytes (%) (Auto) 6.2 0.0-12.0 % Eosinophils (%) (Auto) 0.0 0.0-7.0 % Basophils (%) (Auto) 0.7 0.0-2.0 % Neutrophils # (Auto) 7.9 1.6-8.6 10 ^3/uL Lymphocytes # (Auto) 0.7 0.4-5.4 10 ^3/uL Monocytes # (Auto) 0.6 0-1.3 10 ^3/uL Eosinophils # (Auto) 0 0-0.8 10 ^3/uL Basophils # (Auto) 0.1 0-0.2 10 ^3/uL Nucleated Red Blood Cells 0.0 % Sodium Level 145 136-145 mmol/L Potassium Level 3.8 3.5-5.1 mmol/L Chloride Level 113 H 98-107 mmol/L Carbon Dioxide Level 21 20-31 mmol/L Anion Gap 11 5-15 Blood Urea Nitrogen 31 H 9-23 mg/dL Creatinine 2.43 H 0.550-1.02 mg/dL Glomerular Filtration Rate Calc 22 >90 mL/min BUN/Creatinine Ratio 12.8 10.0-20.0 Serum Glucose 122 H 74-106 mg/dL Calcium Level 9.4 8.7-10.4 mg/dL Total Bilirubin 0.9 0.2-1.0 mg/dL Aspartate Amino Transferase (AST) 53 H 13-40 U/L Alanine Aminotransferase (ALT) 14 7-40 U/L Alkaline Phosphatase 89 46-116 U/L Total Protein 6.8 5.7-8.2 g/dL Albumin 4.2 3.2-4.8 g/dL Troponin I High Sensitivity 176 *H </=34 ng/L Urine Color Light-yellow Yellow Urine Clarity Clear Clear Urine pH 8.0 5.0-9.0 Urine Specific [place] 1.016 1.001-1.035 Urine Protein 3+ H Negative Urine Ketones 1+ H Negative Urine Blood 3+ H Negative /uL Urine Nitrite Negative Negative Urine Bilirubin Negative Negative Urine Urobilinogen Normal Negative mg/dL Urine Leukocyte Esterase Negative Negative /uL Urine RBC 2 0 - 4 /hpf Urine WBC 1 0 - 5 /hpf Urine Squamous Epithelial Cells Few <5 /hpf Urine Bacteria None seen None Seen /hpf Urine Glucose Normal Normal mg/dL Urine Opiates Screen Pos NEGATIVE Urine Fentanyl Screen Pos NEGATIVE Urine Barbiturates Screen Neg NEGATIVE Urine Phencyclidine Screen Neg NEGATIVE Urine Amphetamines Screen Neg NEGATIVE Urine Benzodiazepines Screen Neg NEGATIVE Urine Cocaine Screen Neg NEGATIVE Urine Cannabinoids Screen Neg NEGATIVE Vitamin B12 Level 526 211-911 pg/mL Vitamin D 25-Hydroxy 10.0 L 30.0-100 ng/mL Thyroid Stimulating Hormone (TSH) 1.20 0.55-4.78 uIU/mL Test 02/15/24 11:29 Range/Units POC Glucose 155 H 70-106 mg/dl Assessment Altered mental status, Metabolic cephalopathy Recent urinary tract infection Atrial fibrillation Plan/Recommendation Monitoring Supportive treatment Telemetry IV antibiotics Room bright during the daytime Up to chair Physical therapy Cardiology consultation Re: AFib This medical document was created using an electronic medical record system with [employer] dictation system. Although this document has been carefully reviewed, there may still be some phonetic and typographical errors. These areas are purely typographical due to imperfections of the software programs, and do not reflect any compromise in the patient's medical care. Plan discussed with: Daughter, Other PAOLO ALVARADO MD Feb 16, 2024 10:57
[2024-02-16] MEDS: CHOLECALCIFEROL (VITD3) 1,000UNIT=25mCg TAB PO SCH (11:10)
[2024-02-16] MEDS: predniSONE 5 MG TAB PO SCH (11:11)
[2024-02-16] MEDS: ASPirin 81 mg TAB PO SCH (11:12)
[2024-02-16] MEDS: LORATADINE 10 MG TAB PO SCH (11:13)
[2024-02-16] MEDS: cefTRIAXone 1GM/50ML D5W 50 ML IV SCH (11:15)
[2024-02-16] MEDS: PREGABALIN 25 MG CAP PO SCH (11:15)
--- NOTE | 2024-02-16 13:43 | DVHPN2 ---
Reviewed: Care Plan, H&P, Labs, Medications, Previous Orders, Radiology Changes from previous H/P or p: No Changes Objective Vitals Vital Signs Date Time Temp Pulse Resp B/P (MAP) Pulse Ox O2 Delivery O2 Flow Rate FiO2 02/16/24 12:10 110 165/97 02/16/24 07:58 18 98 02/16/24 07:30 Room Air* 0 21 02/16/24 07:30 99.2 99.2 Intake/Output Intake and Output 02/16/24 07:00 Intake Total 979 ml Output Total 500 ml Balance 479 ml Intake IV Total 979 ml Output Urine Total 500 ml Medications Current Medications Medications Dose Ordered Sig/Srikanth Route Start Time Stop Time Status Last Admin Dose Admin Sodium Chloride 1,000 ml @ 60 mls/hr [id number] IV 02/15/24 15:00 02/16/24 08:08 60 MLS/HR Acetaminophen/ Hydrocodone Bitart 1 tab Q4HP PRN PO 02/15/24 15:00 02/16/24 04:37 1 TAB Ondansetron HCl 4 mg Q4HP PRN IV 02/15/24 15:00 02/15/24 15:17 4 MG Acetaminophen 650 mg Q6HP PRN PO 02/15/24 15:00 Nitroglycerin 0.4 mg Q5MINP PRN SL 02/15/24 15:00 Morphine Sulfate 2 mg Q30M PRN IV 02/15/24 15:00 02/15/24 15:21 2 MG Azathioprine 150 mg HS PO 02/15/24 22:00 02/15/24 22:25 150 MG Loratadine 10 mg DAILY PO 02/16/24 10:00 02/16/24 11:13 10 MG Metoprolol Tartrate 25 mg BID PO 02/15/24 22:00 02/16/24 11:10 25 MG Prednisone 5 mg DAILY PO 02/16/24 10:00 02/16/24 11:11 5 MG Sertraline HCl 150 mg QPM PO 02/15/24 18:00 02/15/24 18:42 150 MG Trazodone HCl 50 mg HS PO 02/15/24 22:00 02/15/24 22:23 50 MG Aspirin 81 mg DAILY PO 02/16/24 10:00 02/16/24 11:12 81 MG Cholecalciferol 2,000 unit DAILY PO 02/16/24 10:00 02/16/24 11:10 2,000 UNIT Docusate Sodium 250 mg HS PO 02/15/24 22:00 Pregabalin 50 mg DAILY PO 02/16/24 10:00 02/16/24 11:15 50 MG Atorvastatin Calcium 20 mg HS PO 02/15/24 22:00 02/15/24 22:25 20 MG Tacrolimus 3 mg Q12HR PO 02/15/24 22:00 02/16/24 11:22 3 MG Patient Own Medication 0.5 tab HS PO 02/15/24 22:00 Ceftriaxone Sodium 50 ml @ 100 mls/hr DAILY@09 IV 02/16/24 09:00 02/16/24 11:15 100 MLS/HR Laboratory Results Laboratory Tests 02/16/24 03:39 Chemistry Test 02/16/24 03:39 Albumin 4.2 g/dL (3.2-4.8) Calcium Level 9.4 mg/dL (8.7-10.4) Total Protein 6.8 g/dL (5.7-8.2) LFT Test 02/16/24 03:39 Alanine Aminotransferase (ALT) 14 U/L (7-40) Alkaline Phosphatase 89 U/L (46-116) Aspartate Amino Transferase (AST) 53 U/L (13-40) H Total Bilirubin 0.9 mg/dL (0.2-1.0) Urinalysis Test 02/15/24 14:49 Urine Color Light-yellow (Yellow) Urine Clarity Clear (Clear) Urine pH 8.0 (5.0-9.0) Urine Specific [place] 1.016 (1.001-1.035) Urine Protein 3+ (Negative) H Urine Ketones 1+ (Negative) H Urine Blood 3+ /uL (Negative) H Urine Nitrite Negative (Negative) Urine Bilirubin Negative (Negative) Urine Urobilinogen Normal mg/dL (Negative) Urine Leukocyte Esterase Negative /uL (Negative) Urine RBC 2 /hpf (0 - 4) Urine WBC 1 /hpf (0 - 5) Urine Squamous Epithelial Cells Few /hpf (<5) Urine Bacteria None seen /hpf (None Seen) Urine Glucose Normal mg/dL (Normal) Labs and/or images reviewed: Labs reviewed by me, Image(s) reviewed by me Assessment/Plan Assessment/Plan Acute metabolic encephalopathy Acute urinary tract infection Rocephin Elevated troponin 236: Consult for Dr. Souza Acute urinary tract infection Acute kidney injury: Consult for Dr. Marcelo group History of renal transplant recipient Hypertension History of aortic stenosis Acute CHF x-ray sedation Chest x-ray negative CT head negative History of recurrent urinary tract infection BRANDON on CKD Time Spent 65 minutes Patient is full code Advanced care planning time 20 minutes Plan discussed with: Patient Date of Service: Feb 16, 2024 Billing Provider: DINA HOLLIDAY MD Common Visit Codes: [id number] CARE 30-74 MIN DINA HOLLIDAY MD Feb 16, 2024 13:43
[2024-02-16] MEDS: ACETAMINOPHEN 325 MG TAB PO PRN (16:31)
--- NOTE | 2024-02-16 17:29 | DVHINCON2 ---
Date of service: Feb 16, [address] Holliday Reason for Consultation Acute kidney injury History of Present Illness Patient is 63 y/o female with PMH of ESRD s/p kidney transplant on immunosuppressive medication, AFIB, CHF, HTN, and recurrent UTI'S is admitted for ALOC. On admission patient found to have elevated BUN and creatinine Nephrology is consulted for BRANDON. Past Medical History PAST MEDICAL HISTORY: AFIB, CHF, HTN, Liver, UTI'S Past Surgical History Surgical History: Cholecystectomy, , Hernia Repair Kidney transplant Allergies: Coded Allergies: Lisinopril (Verified Allergy, Unknown, 02/13/22) Home Meds Active Scripts Levofloxacin Hemihydrate (LEVAQUIN 500 MG) 500 Mg Tab, 1 TAB PO DAILY, #10 TAB Prov:DINA HOLLIDAY MD 01/29/24 Amlodipine Besylate (NORVASC TABLET) 5 Mg Tb, 5 MG PO DAILY for 30 Days, #30 TAB 11 Refills Prov:LYNNETTE DALTON DO 10/23/22 Omeprazole Magnesium (Omeprazole) 20 Mg Tab, 20 MG PO BID for 30 Days, #60 TAB Prov:BLANCA BELLO MD 02/18/22 Levofloxacin (Levaquin) 500 Mg Tab, 500 MG PO EOD for 7 Days, #7 TAB Prov:BLANCA BELLO MD 02/18/22 Sucralfate (CARAFATE) 1 Gm Tab, 1 GM PO QID for 30 Days, #120 TAB Prov:BLANCA BELLO MD 02/18/22 Reported Medications Tacrolimus (ASTAGRAF XL) 1 Mg Cap, 3 MG PO Q12HR, CAP 01/27/24 Lansoprazole (Lansoprazole) 30 Mg Cap, 1 CAP PO DAILY, #30 CAP 5 Refills 01/27/24 Pregabalin (Lyrica) 50 Mg Cap, 50 MG PO DAILY, CAP 09/27/20 Trazodone Hcl (Trazodone Hcl) 50 Mg Tab, 50 MG PO HS, MG 09/27/20 Cyanocobalamin (B-12) 1,000 Mcg Cap, 1000 MCG PO, CAP 09/27/20 Tizanidine Hydrochloride (TIZANIDINE HCL) 2 Mg Cap, 2.5 MG PO, CAP 09/27/20 Magnesium Oxide (MAGNESIUM OXIDE) 400 Mg Tab, 1 TAB PO BID, #60 TAB 5 Refills 09/27/20 Tizanidine Hydrochloride (Zanaflex) 4 Mg Tab, 0.5 TAB PO HS, #60 TAB 09/27/20 Metoprolol Tartrate (Metoprolol Tartrate) 25 Mg Tab, 1 TAB PO BID, #180 TAB 1 Refill 09/04/18 Raloxifene Hydrochloride (EVISTA TABLET) 60 Mg Tb, 1 TAB PO DAILY, #30 TAB 11 Refills 09/04/18 Prednisone (PREDNISONE) 5 Mg Tb, 5 MG PO DAILY 09/02/18 Azathioprine (Imuran) 50 Mg Tab, 3 TAB PO BEDTIME, #180 TAB 3 Refills 09/02/18 Fish Oil (Fish Oil) 500 Mg Cap, 500 MG PO BID, CAP 09/02/18 Omeprazole (Gnp Omeprazole) 20 Mg Tab, 1 CAP PO BID, #90 TAB 1 Refill 09/02/18 Docusate Sodium (Docusate Sodium) 250 Mg Cap, 250 MG PO QHS, CAP 09/02/18 Cholecalciferol (VITAMIN D3) 2,000 Unit Chw, 2000 UNIT PO DAILY, CHW 09/02/18 Loratadine (Claritin) 10 Mg Tab, 1 TAB PO DAILY, #30 TAB 5 Refills 09/02/18 Aspirin (Aspirin Low Dose) 81 Mg Chw, 1 TAB PO DAILY, #30 TAB 3 Refills 09/02/18 Cyclobenzaprine Hcl (Cyclobenzaprine Hcl) 5 Mg Tab, 2 TAB PO QPM PRN for prn, #30 TAB 09/02/18 Hydrocodone-Acetaminophen ([place] 5/325MG) 1 Tab Tb, 1 TAB PO Q6HP PRN for pain, #90 TAB 09/02/18 Sertraline Hcl (Sertraline Hcl) 50 Mg Tab, 3 TAB PO QPM for depression, #30 TAB 5 Refills 09/02/18 Simvastatin (Simvastatin) 40 Mg Tab, 1 TAB PO QPM, #30 TAB 5 Refills 09/02/18 Discontinued Scripts Metronidazole (Metronidazole) 500 Mg Tab, 500 MG PO BID for 5 Days, #10 TAB Prov:DALTON,LYNNETTE T DO 10/23/22 Current Medications Current Medications Medications (Trade) Dose Ordered Sig/Srikanth Route PRN Reason Start Time Stop Time Status Last Admin Sodium Bicarbonate 50 ml/ Sodium Chloride 1,050 ml @ 75 mls/hr Q14H IV 02/16/24 17:45 02/16/24 17:41 DC Sodium Bicarbonate 50 ml/ Dextrose 1,050 ml @ 100 mls/hr [id number] IV 02/16/24 17:45 02/16/24 17:43 DC Sodium Bicarbonate 50 ml/ Dextrose 1,050 ml @ 70 mls/hr Q15H IV 02/16/24 17:45 02/17/24 09:07 Pantoprazole Sodium (Protonix Tablet) 40 mg DAILY PO 02/18/24 10:00 Family History: Diabetes mellitus G8 FATHER FH: CHF (congestive heart failure) G8 FATHER G8 SISTER FH: celiac disease FH: dementia G8 MOTHER FH: heart attack G8 FATHER FH: lung cancer G8 FATHER FH: pneumonia G8 SISTER FH: skin cancer G8 MOTHER G8 SISTER Pleural effusion G8 BROTHER Psychiatric disorder G8 SISTER Review of Systems All 12 item review of systems reviewed with the patient nonsignificant except what is mentioned in the history of present illness H&P Exam Vital Signs/I&O Vital Sign Date Time Temp Pulse Resp B/P (MAP) Pulse Ox O2 Delivery O2 Flow Rate FiO2 02/17/24 07:57 95 16 94 Room Air* 0 21 02/17/24 07:56 144/70 (94) 02/16/24 19:29 98.5 98.5 Intake and Output 02/16/24 02/17/24 19:00 07:00 Intake Total 650 ml 770 ml Output Total 380 ml Balance 650 ml 390 ml Intake IV Total 650 ml 770 ml Output Urine Total 380 ml Physical Exam Patient is awake alert Lungs clear To auscultation Bilaterally Cardiac exam regular rate and rhythm GI Soft nontender was normal extremity Trace edema neuro nonfocal Labs/Diagnostic Data Labs/Diagnostic Data Laboratory Tests Test 02/17/24 05:23 02/16/24 17:46 02/16/24 03:39 02/15/24 16:36 Range/Units Urine Color Yellow Yellow Urine Clarity Clear Clear Urine pH 6.5 5.0-9.0 Urine Specific [place] 1.018 1.001-1.035 Urine Protein 2+ H Negative Urine Ketones Negative Negative Urine Blood 3+ H Negative /uL Urine Nitrite Negative Negative Urine Bilirubin Negative Negative Urine Urobilinogen Normal Negative mg/dL Urine Leukocyte Esterase 2+ Negative /uL Urine RBC 88 0 - 4 /hpf Urine WBC 6 0 - 5 /hpf Urine Squamous Epithelial Cells Few <5 /hpf Urine Bacteria None seen None Seen /hpf Urine Mucus Few None Seen Urine Creatinine 150.21 H 30.0-125.0 mg/dL Urine Protein/Creatinine Ratio 1.87 Urine Sodium 101 40-220 mmol/L Urine Glucose Normal Normal mg/dL Urine Total Protein 280.3 H 1-14 mg/dL White Blood Count 9.3 4.4-10.8 10^3/uL Red Blood Count 3.51 L 4.0-5.20 10^6/uL Hemoglobin 10.5 L 12.2-16.2 g/dL Hematocrit 31.3 #L 36.0-46.0 % Mean Corpuscular Volume 89.0 80.0-100.0 fL Mean Corpuscular Hemoglobin 30.0 28.0-32.0 pg Mean Corpuscular Hemoglobin Concent 33.7 32.0-36.0 g/dL Red Cell Distribution Width 16.6 H 11.8-14.3 % Platelet Count 213 140-450 10^3/uL Mean Platelet Volume 7.8 6.9-10.8 fL Neutrophils (%) (Auto) 85.4 H 37.0-80.0 % Lymphocytes (%) (Auto) 7.7 L 10.0-50.0 % Monocytes (%) (Auto) 6.2 0.0-12.0 % Eosinophils (%) (Auto) 0.0 0.0-7.0 % Basophils (%) (Auto) 0.7 0.0-2.0 % Neutrophils # (Auto) 7.9 1.6-8.6 10 ^3/uL Lymphocytes # (Auto) 0.7 0.4-5.4 10 ^3/uL Monocytes # (Auto) 0.6 0-1.3 10 ^3/uL Eosinophils # (Auto) 0 0-0.8 10 ^3/uL Basophils # (Auto) 0.1 0-0.2 10 ^3/uL Nucleated Red Blood Cells 0.0 % Sodium Level 145 136-145 mmol/L Potassium Level 3.8 3.5-5.1 mmol/L Chloride Level 113 H 98-107 mmol/L Carbon Dioxide Level 21 20-31 mmol/L Anion Gap 11 5-15 Blood Urea Nitrogen 31 H 9-23 mg/dL Creatinine 2.43 H 0.550-1.02 mg/dL Glomerular Filtration Rate Calc 22 >90 mL/min BUN/Creatinine Ratio 12.8 10.0-20.0 Serum Glucose 122 H 74-106 mg/dL Hemoglobin A1c 5.8 H <5.7 % A1C Uric Acid 9.0 H 3.1-7.8 mg/dL Calcium Level 9.4 8.7-10.4 mg/dL Phosphorus Level 3.5 2.4-5.1 mg/dL Magnesium Level 1.8 1.6-2.6 mg/dL Total Bilirubin 0.9 0.2-1.0 mg/dL Aspartate Amino Transferase (AST) 53 H 13-40 U/L Alanine Aminotransferase (ALT) 14 7-40 U/L Alkaline Phosphatase 89 46-116 U/L B-Type Natriuretic Peptide 2024.56 0-100 pg/mL Total Protein 6.8 5.7-8.2 g/dL Albumin 4.2 3.2-4.8 g/dL Vitamin D 25-Hydroxy 9.7 L 30.0-100 ng/mL Parathyroid Hormone (Intact) 262.7 H 18.4-80.1 pg/mL Troponin I High Sensitivity 176 *H </=34 ng/L Test 02/15/24 14:49 02/15/24 14:28 02/15/24 12:55 02/15/24 11:29 Range/Units Urine Color Light-yellow Yellow Urine Clarity Clear Clear Urine pH 8.0 5.0-9.0 Urine Specific [place] 1.016 1.001-1.035 Urine Protein 3+ H Negative Urine Ketones 1+ H Negative Urine Blood 3+ H Negative /uL Urine Nitrite Negative Negative Urine Bilirubin Negative Negative Urine Urobilinogen Normal Negative mg/dL Urine Leukocyte Esterase Negative Negative /uL Urine RBC 2 0 - 4 /hpf Urine WBC 1 0 - 5 /hpf Urine Squamous Epithelial Cells Few <5 /hpf Urine Bacteria None seen None Seen /hpf Urine Glucose Normal Normal mg/dL Urine Opiates Screen Pos NEGATIVE Urine Fentanyl Screen Pos NEGATIVE Urine Barbiturates Screen Neg NEGATIVE Urine Phencyclidine Screen Neg NEGATIVE Urine Amphetamines Screen Neg NEGATIVE Urine Benzodiazepines Screen Neg NEGATIVE Urine Cocaine Screen Neg NEGATIVE Urine Cannabinoids Screen Neg NEGATIVE Troponin I High Sensitivity 149 *H 122 *H </=34 ng/L White Blood Count 10.5 4.4-10.8 10^3/uL Red Blood Count 3.97 L 4.0-5.20 10^6/uL Hemoglobin 11.7 L 12.2-16.2 g/dL Hematocrit 35.6 L 36.0-46.0 % Mean Corpuscular Volume 89.7 80.0-100.0 fL Mean Corpuscular Hemoglobin 29.5 28.0-32.0 pg Mean Corpuscular Hemoglobin Concent 32.9 32.0-36.0 g/dL Red Cell Distribution Width 16.9 H 11.8-14.3 % Platelet Count 281 140-450 10^3/uL Mean Platelet Volume 7.9 6.9-10.8 fL Neutrophils (%) (Auto) 85.0 H 37.0-80.0 % Lymphocytes (%) (Auto) 9.0 L 10.0-50.0 % Monocytes (%) (Auto) 5.6 0.0-12.0 % Eosinophils (%) (Auto) 0.0 0.0-7.0 % Basophils (%) (Auto) 0.4 0.0-2.0 % Neutrophils # (Auto) 8.9 H 1.6-8.6 10 ^3/uL Lymphocytes # (Auto) 0.9 0.4-5.4 10 ^3/uL Monocytes # (Auto) 0.6 0-1.3 10 ^3/uL Eosinophils # (Auto) 0 0-0.8 10 ^3/uL Basophils # (Auto) 0 0-0.2 10 ^3/uL Nucleated Red Blood Cells 0.1 % Sodium Level 146 H 136-145 mmol/L Potassium Level 4.8 3.5-5.1 mmol/L Chloride Level 110 H 98-107 mmol/L Carbon Dioxide Level 20 20-31 mmol/L Anion Gap 16 H 5-15 Blood Urea Nitrogen 31 H 9-23 mg/dL Creatinine 2.50 H 0.550-1.02 mg/dL Glomerular Filtration Rate Calc 21 >90 mL/min BUN/Creatinine Ratio 12.4 10.0-20.0 Serum Glucose 144 H 74-106 mg/dL Calcium Level 11.0 H 8.7-10.4 mg/dL Vitamin B12 Level 526 211-911 pg/mL Vitamin D 25-Hydroxy 10.0 L 30.0-100 ng/mL Thyroid Stimulating Hormone (TSH) 1.20 0.55-4.78 uIU/mL POC Glucose 155 H 70-106 mg/dl Assessment BRANDON superimposed on CKD secondary to hemodynamic mediated NSTEMI UTI Sepsis Dehydration Encephalopathy Kidney transplant A fib with RvR hypercalcemia due to dehydration Anemia of CKD REC: Closely monitor fluids and lytes Avoid nephrotoxins Strict I&O's IV Abx Resume home meds IVF D5w with sodium bicarb 50 mEq/L @ 100 cc/hr Check Uirine lytes and protlein Check P, vitamin D and PTH Check kidney transplant US Check tacrolimus level cardiology consult ID consult Will continue to follow Patient seen and examined by myself in the ER. I discussed my plan of care with the patient and primary nurse at the bedside I would like to thank Dr. Holliday for the consult, will follow up Plan discussed with: Patient IRMA LARKIN MD Feb 16, 2024 17:29
[2024-02-16] MEDS ORDERED: SODIUM BICARB 50mEq/50ml Vial 50 ML in SOD CHL 0.45% 1,000 ML IV SCH (17:45)
[2024-02-16] MEDS ORDERED: SODIUM BICARB 50mEq/50ml Vial 50 ML in D5W 5% 1,000 ML IV SCH (17:45)
[2024-02-16 17:52] LABS: Urine Bacteria None Seen /hpf (None Seen)
[2024-02-16 17:58] LABS: Magnesium 1.8 mg/dL (1.6-2.6)
[2024-02-16 18:00] LABS: Phosphorus 3.5 mg/dL (2.4-5.1)
[2024-02-16 18:03] LABS: Urine Blood 3+ /uL (Negative); Urine Clarity Clear (Clear); Urine Color Yellow (Yellow); Urine Mucus FEW (None Seen); Urine Protein, UAD 2+ (Negative); Urine Specific Gravity 1.018 (1.001-1.035); Urine Squamous Epithelial Cell FEW /hpf (<5); Urine Urobilinogen Normal (Negative); Urine WBC 6 /hpf (0 - 5); Urine pH 6.5 (5.0-9.0)
[2024-02-16 18:15] LABS: Creatinine, Urine 150.21 mg/dL (30.0-125.0)
[2024-02-16 18:17] LABS: Urine Protein/Creatinine Ratio 1.87
[2024-02-16 18:22] LABS: Protein, Urine 280.3 mg/dL (1-14)
[2024-02-16] MEDS: SODIUM BICARB 50mEq/50ml Vial 50 ML in D5W 5% 1,000 ML IV SCH (18:40)
[2024-02-16 19:29] VITALS: PULSE 100; RESP 20; O2SAT 98
--- NOTE | 2024-02-16 20:02 | DVH ---
INDICATION: Renal transplant TECHNIQUE: Multiple real-time, duplex, and color Doppler sonographic images of the kidney and renal v asculature were obtained. COMPARISON: US RENAL TRANSPLANT on DOS: 01/26/24 FINDINGS: The transplant kidney is located in the right lower quadrant iliac fossa. It measures 8.9 c m cm in length. The renal contour, cortical thickness, and echogenicity are normal. There no masses, calcifications, hydronephrosis, or perinephric fluid identified. The vessels were interrogated with color and duplex Doppler. Resistive indices were measured in sever al locations and ranged from 0.81 to 0.65. Right renal PSV 4/aorta PSV ratio (RAR ) 1.0 ) 3.0 or above equals stenosis) IMPRESSION: 1. No stenosis visualized. HS:Y
--- NOTE | 2024-02-16 23:59 | DVHINCON2 ---
Date of service: Feb 16, 2024 Referring Physician Nomi Reason for Consultation Elevated troponin History of Present Illness This is a 63 year old female with a PMH of AFIB, CHF, HTN, Liver, UTI'S who was brought in by EMS due to ALOC. EMS reports patient had called 911 for herself due to urinary symptoms, however, upon arrival patient was unable to answer any medical questions and appears confused. EMS relays that family was contacted and they were informed patient had been treated for a UTI a week ago with antibiotics sent home, which she finished. EMS states patient had a HR of 133, blood pressure increasing up to 209/122 and a blood glucose of 139. Troponin 122 > 149 > 176. BUN 31, BOW STRING MAKER 2.43. Chest x-ray shows NAD. CT brain shows no CT evidence of acute intracranial abnormality. MRI brain: no acute intracranial process. Mild chronic small-vessel supratentorial white matter ischemic changes. Patient was admitted to the hospital. I am asked to consult on this patient. Family History: Diabetes mellitus G8 FATHER FH: CHF (congestive heart failure) G8 FATHER G8 SISTER FH: celiac disease FH: dementia G8 MOTHER FH: heart attack G8 FATHER FH: lung cancer G8 FATHER FH: pneumonia G8 SISTER FH: skin cancer G8 MOTHER G8 SISTER Pleural effusion G8 BROTHER Psychiatric disorder G8 SISTER Allergies: Coded Allergies: Lisinopril (Verified Allergy, Unknown, 02/13/22) Home Meds Active Scripts Levofloxacin Hemihydrate (LEVAQUIN 500 MG) 500 Mg Tab, 1 TAB PO DAILY, #10 TAB Prov:DINA HOLLIDAY MD 01/29/24 Amlodipine Besylate (NORVASC TABLET) 5 Mg Tb, 5 MG PO DAILY for 30 Days, #30 TAB 11 Refills Prov:LYNNETTE DALTON DO 10/23/22 Omeprazole Magnesium (Omeprazole) 20 Mg Tab, 20 MG PO BID for 30 Days, #60 TAB Prov:BLANCA BELLO MD 02/18/22 Levofloxacin (Levaquin) 500 Mg Tab, 500 MG PO EOD for 7 Days, #7 TAB Prov:BLANCA BELLO MD 02/18/22 Sucralfate (CARAFATE) 1 Gm Tab, 1 GM PO QID for 30 Days, #120 TAB Prov:BLANCA BELLO MD 02/18/22 Reported Medications Tacrolimus (ASTAGRAF XL) 1 Mg Cap, 3 MG PO Q12HR, CAP 01/27/24 Lansoprazole (Lansoprazole) 30 Mg Cap, 1 CAP PO DAILY, #30 CAP 5 Refills 01/27/24 Pregabalin (Lyrica) 50 Mg Cap, 50 MG PO DAILY, CAP 09/27/20 Trazodone Hcl (Trazodone Hcl) 50 Mg Tab, 50 MG PO HS, MG 09/27/20 Cyanocobalamin (B-12) 1,000 Mcg Cap, 1000 MCG PO, CAP 09/27/20 Tizanidine Hydrochloride (TIZANIDINE HCL) 2 Mg Cap, 2.5 MG PO, CAP 09/27/20 Magnesium Oxide (MAGNESIUM OXIDE) 400 Mg Tab, 1 TAB PO BID, #60 TAB 5 Refills 09/27/20 Tizanidine Hydrochloride (Zanaflex) 4 Mg Tab, 0.5 TAB PO HS, #60 TAB 09/27/20 Metoprolol Tartrate (Metoprolol Tartrate) 25 Mg Tab, 1 TAB PO BID, #180 TAB 1 Refill 09/04/18 Raloxifene Hydrochloride (EVISTA TABLET) 60 Mg Tb, 1 TAB PO DAILY, #30 TAB 11 Refills 09/04/18 Prednisone (PREDNISONE) 5 Mg Tb, 5 MG PO DAILY 09/02/18 Azathioprine (Imuran) 50 Mg Tab, 3 TAB PO BEDTIME, #180 TAB 3 Refills 09/02/18 Fish Oil (Fish Oil) 500 Mg Cap, 500 MG PO BID, CAP 09/02/18 Omeprazole (Gnp Omeprazole) 20 Mg Tab, 1 CAP PO BID, #90 TAB 1 Refill 09/02/18 Docusate Sodium (Docusate Sodium) 250 Mg Cap, 250 MG PO QHS, CAP 09/02/18 Cholecalciferol (VITAMIN D3) 2,000 Unit Chw, 2000 UNIT PO DAILY, CHW 09/02/18 Loratadine (Claritin) 10 Mg Tab, 1 TAB PO DAILY, #30 TAB 5 Refills 09/02/18 Aspirin (Aspirin Low Dose) 81 Mg Chw, 1 TAB PO DAILY, #30 TAB 3 Refills 09/02/18 Cyclobenzaprine Hcl (Cyclobenzaprine Hcl) 5 Mg Tab, 2 TAB PO QPM PRN for prn, #30 TAB 09/02/18 Hydrocodone-Acetaminophen (Viola 5/325MG) 1 Tab Tb, 1 TAB PO Q6HP PRN for pain, #90 TAB 09/02/18 Sertraline Hcl (Sertraline Hcl) 50 Mg Tab, 3 TAB PO QPM for depression, #30 TAB 5 Refills 09/02/18 Simvastatin (Simvastatin) 40 Mg Tab, 1 TAB PO QPM, #30 TAB 5 Refills 09/02/18 Discontinued Scripts Metronidazole (Metronidazole) 500 Mg Tab, 500 MG PO BID for 5 Days, #10 TAB Prov:LYNNETTE DALTON DO 10/23/22 Current Medications Current Medications Medications (Trade) Dose Ordered Sig/Srikanth Route PRN Reason Start Time Stop Time Status Last Admin Azathioprine (Imuran Tablet) 150 mg HS PO 02/15/24 22:00 02/15/24 22:25 Loratadine (Claritin Tablet) 10 mg DAILY PO 02/16/24 10:00 02/16/24 11:13 Metoprolol Tartrate (Lopressor Tablet) 25 mg BID PO 02/15/24 22:00 02/16/24 11:10 Prednisone 5 mg DAILY PO 02/16/24 10:00 02/16/24 11:11 Sertraline HCl (Zoloft) 150 mg QPM PO 02/15/24 18:00 02/15/24 18:42 Trazodone HCl (Desyrel) 50 mg HS PO 02/15/24 22:00 02/15/24 22:23 Aspirin 81 mg DAILY PO 02/16/24 10:00 02/16/24 11:12 Cholecalciferol (Vitamin D3 Tablet) 2,000 unit DAILY PO 02/16/24 10:00 02/16/24 11:10 Docusate Sodium (Colace Liquid) 250 mg HS PO 02/15/24 22:00 Pregabalin (Lyrica Capsule) 50 mg DAILY PO 02/16/24 10:00 02/16/24 11:15 Atorvastatin Calcium (Lipitor) 20 mg HS PO 02/15/24 22:00 02/15/24 22:25 Tacrolimus (Prograf) 3 mg Q12HR PO 02/15/24 22:00 02/16/24 11:22 Patient Own Medication 0.5 tab HS PO 02/15/24 22:00 Ceftriaxone Sodium 50 ml @ 100 mls/hr DAILY@09 IV 02/16/24 09:00 02/16/24 11:15 Review of Systems Unable to Obtain due to: Altered Mental Status Vital Signs Vital Signs Date Time Temp Pulse Resp B/P (MAP) Pulse Ox O2 Delivery O2 Flow Rate FiO2 02/16/24 14:00 95 20 177/93 (121) 94 02/16/24 09:00 Room Air* 0 21 02/16/24 07:30 99.2 99.2 Physical Exam GENERAL: Awake, altered. LUNGS: Clear. CARDIOVASCULAR: Heart sounds are good. ABDOMEN: Soft. Labs/Diagnostic Data Labs Test 02/16/24 03:39 02/15/24 16:36 02/15/24 14:49 02/15/24 12:55 Range/Units White Blood Count 9.3 4.4-10.8 10^3/uL Red Blood Count 3.51 L 4.0-5.20 10^6/uL Hemoglobin 10.5 L 12.2-16.2 g/dL Hematocrit 31.3 #L 36.0-46.0 % Mean Corpuscular Volume 89.0 80.0-100.0 fL Mean Corpuscular Hemoglobin 30.0 28.0-32.0 pg Mean Corpuscular Hemoglobin Concent 33.7 32.0-36.0 g/dL Red Cell Distribution Width 16.6 H 11.8-14.3 % Platelet Count 213 140-450 10^3/uL Mean Platelet Volume 7.8 6.9-10.8 fL Neutrophils (%) (Auto) 85.4 H 37.0-80.0 % Lymphocytes (%) (Auto) 7.7 L 10.0-50.0 % Monocytes (%) (Auto) 6.2 0.0-12.0 % Eosinophils (%) (Auto) 0.0 0.0-7.0 % Basophils (%) (Auto) 0.7 0.0-2.0 % Neutrophils # (Auto) 7.9 1.6-8.6 10 ^3/uL Lymphocytes # (Auto) 0.7 0.4-5.4 10 ^3/uL Monocytes # (Auto) 0.6 0-1.3 10 ^3/uL Eosinophils # (Auto) 0 0-0.8 10 ^3/uL Basophils # (Auto) 0.1 0-0.2 10 ^3/uL Nucleated Red Blood Cells 0.0 % Sodium Level 145 136-145 mmol/L Potassium Level 3.8 3.5-5.1 mmol/L Chloride Level 113 H 98-107 mmol/L Carbon Dioxide Level 21 20-31 mmol/L Anion Gap 11 5-15 Blood Urea Nitrogen 31 H 9-23 mg/dL Creatinine 2.43 H 0.550-1.02 mg/dL Glomerular Filtration Rate Calc 22 >90 mL/min BUN/Creatinine Ratio 12.8 10.0-20.0 Serum Glucose 122 H 74-106 mg/dL Calcium Level 9.4 8.7-10.4 mg/dL Total Bilirubin 0.9 0.2-1.0 mg/dL Aspartate Amino Transferase (AST) 53 H 13-40 U/L Alanine Aminotransferase (ALT) 14 7-40 U/L Alkaline Phosphatase 89 46-116 U/L Total Protein 6.8 5.7-8.2 g/dL Albumin 4.2 3.2-4.8 g/dL Troponin I High Sensitivity 176 *H </=34 ng/L Urine Color Light-yellow Yellow Urine Clarity Clear Clear Urine pH 8.0 5.0-9.0 Urine Specific [place] 1.016 1.001-1.035 Urine Protein 3+ H Negative Urine Ketones 1+ H Negative Urine Blood 3+ H Negative /uL Urine Nitrite Negative Negative Urine Bilirubin Negative Negative Urine Urobilinogen Normal Negative mg/dL Urine Leukocyte Esterase Negative Negative /uL Urine RBC 2 0 - 4 /hpf Urine WBC 1 0 - 5 /hpf Urine Squamous Epithelial Cells Few <5 /hpf Urine Bacteria None seen None Seen /hpf Urine Glucose Normal Normal mg/dL Urine Opiates Screen Pos NEGATIVE Urine Fentanyl Screen Pos NEGATIVE Urine Barbiturates Screen Neg NEGATIVE Urine Phencyclidine Screen Neg NEGATIVE Urine Amphetamines Screen Neg NEGATIVE Urine Benzodiazepines Screen Neg NEGATIVE Urine Cocaine Screen Neg NEGATIVE Urine Cannabinoids Screen Neg NEGATIVE Vitamin B12 Level 526 211-911 pg/mL Vitamin D 25-Hydroxy 10.0 L 30.0-100 ng/mL Thyroid Stimulating Hormone (TSH) 1.20 0.55-4.78 uIU/mL Test 02/15/24 11:29 Range/Units POC Glucose 155 H 70-106 mg/dl Microbiology Date/Time Source Procedure Growth Status 02/15/24 14:49 Urine - Catheterized Urine Culture - Preliminary Resulted Assessment Acute metabolic encephalopathy. Acute urinary tract infection. Elevated troponin. History of renal transplant recipient. Hypertension . History of aortic stenosis. BRANDON on CKD. Plan/Recommendation I agree with your ongoing assessment and care of plan. Morphine and Viola for pain management. Aspirin, Lipitor, Metoprolol. IV antibiotics as ordered. Nitro SL. Additional plan as per the hospital course. A total of 45 minutes was spent reviewing the patient record, examining the patient, making a diagnostic and therapeutic plan, discussing this plan with medical personnel, following up on diagnostic studies and following the patient for clinical stability excluding any and all procedures. At least 50% of this time was spent in direct, [id number] contact. Plan discussed with: Patient NELSY REES MD Feb 16, 2024 15:37
[2024-02-17] MEDS: PANTOPRAZOLE 40 MG TAB PO ONE (05:03)
[2024-02-17 07:57] VITALS: PULSE 95; RESP 16; O2SAT 94
--- NOTE | 2024-02-17 09:02 | DVHPN2 ---
Progress Note - Dictate Date Seen: Feb 17, 2024 Medical Necessity Reason Pt with a Central, PICC or Fol: Yes The following are medically ne: Chávez Catheter Subjective Ms. العراقي is a 63 years old right-handed female with a history of hypertension, A fib, kidney transplantation, the patient came to the hospital with a chief complaint of altered mental status. I saw her on 09/02/2018 for TIA, 02/14/2022 for ALOC (UTI) I have seen and examined the patient, I have discussed with her nurse, she was awake, oriented x3, but physically weak, no new complaints She has normal language function, her voice clear Urinalysis, 02/15/2024: WBC: 1, urine leukocyte esterase: Negative UDS, 02/15/2024: Opiates, fentanyl WBC/HB/PLT/MCV, 02/16/2024: 9.3/10.5// BUN/CR, 02/16/2024: 31/2.43 TBI/AST/ALT/AP, 02/16/2024: 0.9// Vitamin B12, 01/2024: 526 Vitamin-D, 02/15/2024:10 EKG, 02/13/2022: A. fib Chest x-ray, 02/15/2024: No acute cardiopulmonary disease CT head, 02/15/2024: No CT evidence of acute intracranial abnormality MRI head, 09/03/2018: 1. No evidence of acute intracranial pathology. 2. Mild chronic small vessel ischemic changes MRI head, 02/15/2024: 1. There is no acute intracranial process. 2. Mild chronic small-vessel supratentorial white matter ischemic changes vital signs Vital Sign Date Time Temp Pulse Resp B/P (MAP) Pulse Ox O2 Delivery O2 Flow Rate FiO2 02/17/24 07:57 95 16 94 Room Air* 0 21 02/17/24 07:56 144/70 (94) 02/16/24 19:29 98.5 98.5 Total Intake and Output 02/16/24 02/16/24 02/17/24 15:00 23:00 07:00 Intake Total 470 ml 390 ml 560 ml Output Total 380 ml Balance 470 ml 390 ml 180 ml medications Current Medications Medications Dose Ordered Sig/Srikanth Route Start Time Stop Time Status Last Admin Dose Admin Acetaminophen/ Hydrocodone Bitart 1 tab Q4HP PRN PO 02/15/24 15:00 02/17/24 08:40 1 TAB Ondansetron HCl 4 mg Q4HP PRN IV 02/15/24 15:00 02/17/24 04:32 4 MG Acetaminophen 650 mg Q6HP PRN PO 02/15/24 15:00 02/16/24 16:31 650 MG Nitroglycerin 0.4 mg Q5MINP PRN SL 02/15/24 15:00 Morphine Sulfate 2 mg Q30M PRN IV 02/15/24 15:00 02/15/24 15:21 2 MG Azathioprine 150 mg HS PO 02/15/24 22:00 02/16/24 22:07 150 MG Loratadine 10 mg DAILY PO 02/16/24 10:00 02/16/24 11:13 10 MG Metoprolol Tartrate 25 mg BID PO 02/15/24 22:00 02/16/24 22:06 25 MG Prednisone 5 mg DAILY PO 02/16/24 10:00 02/16/24 11:11 5 MG Sertraline HCl 150 mg QPM PO 02/15/24 18:00 02/16/24 17:44 150 MG Trazodone HCl 50 mg HS PO 02/15/24 22:00 02/16/24 22:06 50 MG Aspirin 81 mg DAILY PO 02/16/24 10:00 02/16/24 11:12 81 MG Cholecalciferol 2,000 unit DAILY PO 02/16/24 10:00 02/16/24 11:10 2,000 UNIT Docusate Sodium 250 mg HS PO 02/15/24 22:00 02/16/24 22:45 250 MG Pregabalin 50 mg DAILY PO 02/16/24 10:00 02/16/24 11:15 50 MG Atorvastatin Calcium 20 mg HS PO 02/15/24 22:00 02/16/24 22:05 20 MG Tacrolimus 3 mg Q12HR PO 02/15/24 22:00 02/16/24 22:06 3 MG Patient Own Medication 0.5 tab HS PO 02/15/24 22:00 Ceftriaxone Sodium 50 ml @ 100 mls/hr DAILY@09 IV 02/16/24 09:00 02/16/24 11:15 100 MLS/HR Sodium Bicarbonate 50 ml/ Dextrose 1,050 ml @ 70 mls/hr Q15H IV 02/16/24 17:45 02/16/24 18:40 70 MLS/HR Pantoprazole Sodium 40 mg DAILY PO 02/18/24 10:00 objective General: the patient is well developed and nourished. No acute distress. MENTAL STATUS: Objective SPEECH, LANGUAGE, HIGHER CORTICAL FUNCTION: no aphasia or dysathria. CRANIAL NERVES: Pupils are equal, round and reactive. EOMs full and conjugate. Facial sensation intact in all three divisions bilaterally. Mandibular strength intact. Facial muscles symmetrical and strength intact. SENSATION: Sensation to touch and pinprick is normal. MOTOR: Normal tone in the upper and lower extremity. Normal muscle bulk. No fasciculations. No abnormal movements or posturing. She moves the arms and legs, muscle power is 4/5 REFLEXES: Deep tendon reflexes are symmetrical. No pathological reflexes. CEREBELLAR/COORDINATION: Finger to nose is normal bilaterally. GAIT/STATION: deferred laboratory and microbiology Laboratory Tests 02/16/24 03:39 Test 02/16/24 03:39 Range/Units Serum Glucose 122 H 74-106 mg/dL Problem List Altered mental status, Metabolic cephalopathy Recent urinary tract infection Atrial fibrillation Assessment/Plan Monitoring Supportive treatment Telemetry IV antibiotics Room bright during the daytime Up to chair Physical therapy Cardiology on case She was NPO, but she can eat from neurologic point of view This medical document was created using an electronic medical record system with Sift dictation system. Although this document has been carefully reviewed, there may still be some phonetic and typographical errors. These areas are purely typographical due to imperfections of the software programs, and do not reflect any compromise in the patient's medical care Prognosis poor Plan discussed with: Other PAOLO ALVARADO MD Feb 17, 2024 09:02
--- NOTE | 2024-02-17 10:10 | DVHPN2 ---
Progress Note Date Seen: Feb 17, 2024 Medical Necessity Reason Pt with a Central, PICC or Fol: No Subjective Patient reports: No new complaints Other Systems: Patient seen and examined by myself on follow-up today Objective vital signs Vital Sign Date Time Temp Pulse Resp B/P (MAP) Pulse Ox O2 Delivery O2 Flow Rate FiO2 02/17/24 07:57 95 16 94 Room Air* 0 21 02/17/24 07:56 144/70 (94) 02/16/24 19:29 98.5 98.5 Total Intake and Output 02/16/24 02/16/24 02/17/24 15:00 23:00 07:00 Intake Total 470 ml 390 ml 560 ml Output Total 380 ml Balance 470 ml 390 ml 180 ml medications Current Medications Medications Dose Ordered Sig/Srikanth Route Start Time Stop Time Status Last Admin Dose Admin Acetaminophen/ Hydrocodone Bitart 1 tab Q4HP PRN PO 02/15/24 15:00 02/17/24 08:40 Ondansetron HCl 4 mg Q4HP PRN IV 02/15/24 15:00 02/17/24 04:32 Acetaminophen 650 mg Q6HP PRN PO 02/15/24 15:00 02/16/24 16:31 Nitroglycerin 0.4 mg Q5MINP PRN SL 02/15/24 15:00 Morphine Sulfate 2 mg Q30M PRN IV 02/15/24 15:00 02/15/24 15:21 Azathioprine 150 mg HS PO 02/15/24 22:00 02/16/24 22:07 Loratadine 10 mg DAILY PO 02/16/24 10:00 02/16/24 11:13 Metoprolol Tartrate 25 mg BID PO 02/15/24 22:00 02/16/24 22:06 Prednisone 5 mg DAILY PO 02/16/24 10:00 02/16/24 11:11 Sertraline HCl 150 mg QPM PO 02/15/24 18:00 02/16/24 17:44 Trazodone HCl 50 mg HS PO 02/15/24 22:00 02/16/24 22:06 Aspirin 81 mg DAILY PO 02/16/24 10:00 02/16/24 11:12 Cholecalciferol 2,000 unit DAILY PO 02/16/24 10:00 02/16/24 11:10 Docusate Sodium 250 mg HS PO 02/15/24 22:00 02/16/24 22:45 Pregabalin 50 mg DAILY PO 02/16/24 10:00 02/16/24 11:15 Atorvastatin Calcium 20 mg HS PO 02/15/24 22:00 02/16/24 22:05 Tacrolimus 3 mg Q12HR PO 02/15/24 22:00 02/16/24 22:06 Patient Own Medication 0.5 tab HS PO 02/15/24 22:00 Ceftriaxone Sodium 50 ml @ 100 mls/hr DAILY@09 IV 02/16/24 09:00 02/17/24 09:07 Sodium Bicarbonate 50 ml/ Dextrose 1,050 ml @ 70 mls/hr Q15H IV 02/16/24 17:45 02/17/24 09:07 Pantoprazole Sodium 40 mg DAILY PO 02/18/24 10:00 laboratory and microbiology Laboratory Tests 02/16/24 03:39 Test 02/16/24 03:39 Range/Units Serum Glucose 122 H 74-106 mg/dL Microbiology Date/Time Source Procedure Growth Status 02/15/24 18:50 Blood Blood Culture - Preliminary NO GROWTH AFTER 24 HOURS OF INCUBATION. 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 q.week Check tacrolimus level cardiology consult ID consult Will continue to follow Plan discussed with: Patient My Orders My Orders Orders - IRMA LARKIN MD Procedure Category Date Status Time Hepatitis C Antibody LAB 02/16/24 In Process 17:32 Hepatitis B Surface LAB 02/16/24 In Process Antigen 17:32 Renal Transplant US 02/16/24 Resulted 17:32 Tacrolimus ([id number]) LAB 02/17/24 In Process 04:00 D5w 5% (Dextrose 5%) PHA 02/16/24 In Process W/Sodium Bicarb 50m 17:45 IRMA LARKIN MD Feb 17, 2024 10:10
[2024-02-17] MEDS: ERGOCALCIFEROL 50,000 UNIT(1.25MG) CAP PO SCH (10:27)
[2024-02-17 11:13] VITALS: BP 172/84; PULSE 94; RESP 16; TEMP 98.2; O2SAT 95
--- NOTE | 2024-02-17 12:20 | DVHPN2 ---
Reviewed: Care Plan, H&P, Labs, Medications, Previous Orders, Radiology Changes from previous H/P or p: No Changes Objective Vitals Vital Signs Date Time Temp Pulse Resp B/P (MAP) Pulse Ox O2 Delivery O2 Flow Rate FiO2 02/17/24 10:29 94 16 172/84 (113) 95 02/17/24 07:57 Room Air* 0 21 02/16/24 19:29 98.5 98.5 Intake/Output Intake and Output 02/17/24 07:00 Intake Total 1420 ml Output Total 380 ml Balance 1040 ml Intake IV Total 1420 ml Output Urine Total 380 ml Medications Current Medications Medications Dose Ordered Sig/Srikanth Route Start Time Stop Time Status Last Admin Dose Admin Acetaminophen/ Hydrocodone Bitart 1 tab Q4HP PRN PO 02/15/24 15:00 02/17/24 08:40 1 TAB Ondansetron HCl 4 mg Q4HP PRN IV 02/15/24 15:00 02/17/24 04:32 4 MG Acetaminophen 650 mg Q6HP PRN PO 02/15/24 15:00 02/16/24 16:31 650 MG Nitroglycerin 0.4 mg Q5MINP PRN SL 02/15/24 15:00 Morphine Sulfate 2 mg Q30M PRN IV 02/15/24 15:00 02/15/24 15:21 2 MG Azathioprine 150 mg HS PO 02/15/24 22:00 02/16/24 22:07 150 MG Loratadine 10 mg DAILY PO 02/16/24 10:00 02/17/24 10:24 10 MG Metoprolol Tartrate 25 mg BID PO 02/15/24 22:00 02/17/24 10:24 25 MG Prednisone 5 mg DAILY PO 02/16/24 10:00 02/17/24 10:24 5 MG Sertraline HCl 150 mg QPM PO 02/15/24 18:00 02/16/24 17:44 150 MG Trazodone HCl 50 mg HS PO 02/15/24 22:00 02/16/24 22:06 50 MG Aspirin 81 mg DAILY PO 02/16/24 10:00 02/17/24 10:24 81 MG Cholecalciferol 2,000 unit DAILY PO 02/16/24 10:00 02/17/24 10:23 2,000 UNIT Docusate Sodium 250 mg HS PO 02/15/24 22:00 02/16/24 22:45 250 MG Pregabalin 50 mg DAILY PO 02/16/24 10:00 02/17/24 10:27 50 MG Atorvastatin Calcium 20 mg HS PO 02/15/24 22:00 02/16/24 22:05 20 MG Tacrolimus 3 mg Q12HR PO 02/15/24 22:00 02/17/24 10:33 3 MG Patient Own Medication 0.5 tab HS PO 02/15/24 22:00 Ceftriaxone Sodium 50 ml @ 100 mls/hr DAILY@09 IV 02/16/24 09:00 02/17/24 09:07 100 MLS/HR Sodium Bicarbonate 50 ml/ Dextrose 1,050 ml @ 70 mls/hr Q15H IV 02/16/24 17:45 02/17/24 09:07 70 MLS/HR Pantoprazole Sodium 40 mg DAILY PO 02/18/24 10:00 Ergocalciferol 50,000 unit Q7D PO 02/17/24 10:15 02/17/24 10:27 50,000 UNIT Laboratory Results Laboratory Tests 02/16/24 03:39 Urinalysis Test 02/16/24 17:46 Urine Color Yellow (Yellow) Urine Clarity Clear (Clear) Urine pH 6.5 (5.0-9.0) Urine Specific [place] 1.018 (1.001-1.035) Urine Protein 2+ (Negative) H Urine Ketones Negative (Negative) Urine Blood 3+ /uL (Negative) H Urine Nitrite Negative (Negative) Urine Bilirubin Negative (Negative) Urine Urobilinogen Normal mg/dL (Negative) Urine Leukocyte Esterase 2+ /uL (Negative) Urine RBC 88 /hpf (0 - 4) Urine WBC 6 /hpf (0 - 5) Urine Squamous Epithelial Cells Few /hpf (<5) Urine Bacteria None seen /hpf (None Seen) Urine Mucus Few (None Seen) Urine Creatinine 150.21 mg/dL (30.0-125.0) H Urine Protein/Creatinine Ratio 1.87 Urine Sodium 101 mmol/L (40-220) Urine Glucose Normal mg/dL (Normal) Urine Total Protein 280.3 mg/dL (1-14) H Microbiology Microbiology Date/Time Source Procedure Growth Status 02/15/24 18:50 Blood Blood Culture - Preliminary NO GROWTH AFTER 24 HOURS OF INCUBATION. Resulted 02/15/24 14:49 Urine - Catheterized Urine Culture - Preliminary Resulted Labs and/or images reviewed: Labs reviewed by me, Image(s) reviewed by me Assessment/Plan Assessment/Plan Acute metabolic encephalopathy Acute urinary tract infection Rocephin , blood cultures negative urine cultures pending Elevated troponin 236: Consult for Dr. Souza appreciated Acute urinary tract infection Acute kidney injury: Consult by DR Wang appreciated, placed on bicarb drip History of renal transplant recipient, kidney transplant ultrasound negative Hypertension History of aortic stenosis Acute CHF x-ray sedation Chest x-ray negative CT head negative History of recurrent urinary tract infection BRANDON on CKD Time Spent 65 minutes Patient is full code Advanced care planning time 20 minutes Plan discussed with: Patient My Orders Orders - DINA HOLLIDAY MD Procedure Category Date Status Time * Cardiology Consult CONS 02/16/24 Transmitted 13:43 *[facility] CONS 02/16/24 Transmitted -[place] 13:48 Date of Service: Feb 17, 2024 Billing Provider: DINA HOLLIDAY MD Common Visit Codes: [id number] INP/OBS CARE(HIGH) DINA HOLLIDAY MD Feb 17, 2024 12:20
[2024-02-17 13:00] VITALS: BP 157/65; PULSE 87; RESP 16; TEMP 98.2; O2SAT 92
[2024-02-17 16:54] VITALS: BP 157/90; PULSE 82; RESP 16; TEMP 98.3; O2SAT 96
[2024-02-17 20:00] VITALS: PULSE 79
--- NOTE | 2024-02-17 20:04 | DVHPN2 ---
Progress Note - Dictate Date Seen: Feb 17, 2024 Medical Necessity Reason Pt with a Central, PICC or Fol: Yes The following are medically ne: Chávez Catheter Subjective Patient was seen and evaluated in follow up. Patient is currently A&O x3 but appears physically weak. Patient is complaining of generalized weakness. Hepatitis panel is pending. Echocardiogram is ordered. vital signs Vital Sign Date Time Temp Pulse Resp B/P (MAP) Pulse Ox O2 Delivery O2 Flow Rate FiO2 02/17/24 10:29 94 16 172/84 (113) 95 02/17/24 07:57 Room Air* 0 02/16/24 19:29 98.5 98.5 Total Intake and Output 02/16/24 02/16/24 02/17/24 15:00 23:00 07:00 Intake Total 470 ml 390 ml 560 ml Output Total 380 ml Balance 470 ml 390 ml 180 ml medications Current Medications Medications Dose Ordered Sig/Srikanth Route Start Time Stop Time Status Last Admin Dose Admin Acetaminophen/ Hydrocodone Bitart 1 tab Q4HP PRN PO 02/15/24 15:00 02/17/24 08:40 1 TAB Ondansetron HCl 4 mg Q4HP PRN IV 02/15/24 15:00 02/17/24 04:32 4 MG Acetaminophen 650 mg Q6HP PRN PO 02/15/24 15:00 02/16/24 16:31 650 MG Nitroglycerin 0.4 mg Q5MINP PRN SL 02/15/24 15:00 Morphine Sulfate 2 mg Q30M PRN IV 02/15/24 15:00 02/15/24 15:21 2 MG Azathioprine 150 mg HS PO 02/15/24 22:00 02/16/24 22:07 150 MG Loratadine 10 mg DAILY PO 02/16/24 10:00 02/17/24 10:24 10 MG Metoprolol Tartrate 25 mg BID PO 02/15/24 22:00 02/17/24 10:24 25 MG Prednisone 5 mg DAILY PO 02/16/24 10:00 02/17/24 10:24 5 MG Sertraline HCl 150 mg QPM PO 02/15/24 18:00 02/16/24 17:44 150 MG Trazodone HCl 50 mg HS PO 02/15/24 22:00 02/16/24 22:06 50 MG Aspirin 81 mg DAILY PO 02/16/24 10:00 02/17/24 10:24 81 MG Cholecalciferol 2,000 unit DAILY PO 02/16/24 10:00 02/17/24 10:23 2,000 UNIT Docusate Sodium 250 mg HS PO 02/15/24 22:00 02/16/24 22:45 250 MG Pregabalin 50 mg DAILY PO 02/16/24 10:00 02/17/24 10:27 50 MG Atorvastatin Calcium 20 mg HS PO 02/15/24 22:00 02/16/24 22:05 20 MG Tacrolimus 3 mg Q12HR PO 02/15/24 22:00 02/17/24 10:33 3 MG Patient Own Medication 0.5 tab HS PO 02/15/24 22:00 Ceftriaxone Sodium 50 ml @ 100 mls/hr DAILY@09 IV 02/16/24 09:00 02/17/24 09:07 100 MLS/HR Sodium Bicarbonate 50 ml/ Dextrose 1,050 ml @ 70 mls/hr Q15H IV 02/16/24 17:45 02/17/24 09:07 70 MLS/HR Pantoprazole Sodium 40 mg DAILY PO 02/18/24 10:00 Ergocalciferol 50,000 unit Q7D PO 02/17/24 10:15 02/17/24 10:27 50,000 UNIT objective GENERAL: Awake, altered. LUNGS: Clear. CARDIOVASCULAR: Heart sounds are good. ABDOMEN: Soft. laboratory and microbiology Laboratory Tests 02/16/24 03:39 Test 02/16/24 03:39 Range/Units Serum Glucose 122 H 74-106 mg/dL Problem List Acute metabolic encephalopathy. Acute urinary tract infection. Elevated troponin. History of renal transplant recipient. Hypertension . History of aortic stenosis. BRANDON on CKD. Assessment/Plan Continued all current supportive medical care. Echocardiogram. Morphine and [place] for pain management. Aspirin, Lipitor, Metoprolol. IV antibiotics as ordered. Nitro SL. GI prophylactics. Additional plan as per the hospital course. Plan discussed with: Patient NELSY REES MD Feb 17, 2024 11:48
[2024-02-17 21:00] VITALS: BP 151/87; PULSE 88; RESP 19; TEMP 98; O2SAT 95
[2024-02-18] VITALS (8 sets, daily range): BP systolic 138–177; BP diastolic 78–82; PULSE 81–94; RESP 17–20; TEMP 98.1–99.1; O2SAT 92–97
[2024-02-18] MEDS: PANTOPRAZOLE 40 MG TAB PO SCH (09:19)
[2024-02-18] MEDS: NITROGLYCERIN 0.4 MG SL TAB SL PRN (11:24)
--- NOTE | 2024-02-18 12:11 | DVHSR ---
APPROVED REPORT EXAM: Two-dimensional and M-mode echocardiogram with Doppler and color Doppler. Blood Pressure: 157/65 mmHg INDICATION AORTIC STENOSIS RISK FACTORS Obesity: Height: 5'5, Weight: 169 DIMENSIONS LVDd4.3 (3.8-5.7cm)LA (2D)3.4 (1.9-4.0cm)Aortic Root3.2 (2.0-3.7cm) LVDs3.0 (2.5-4.0cm)LA (MM) (1.9-4.0cm)Aortic Cusp Exc0.5 (1.5-2.0cm) EF (%) 55.0 (55-70%)Rt. Atrium2.4 (1.9-4.0cm)Asc. Aorta3.4 cm IVSd1.1 (0.7-1.1cm)RV (D) (1.8-2.4cm) PWd1.1 (0.7-1.1cm) Mitral Valve MitralMitral Stenosis E wave1.17m/sMV Mean GR.mmHg A wave1.26m/sMV Peak GR.106mmHg E/A ratio0.92D MVAcm2 DECEL [id number] 1/2 [place] Aortic Valve Aortic ValveAortic Stenosis V11.03m/[place] Mean GR.26mmHg V23.46m/[place] Peak GR.45mmHg LVOT Diameter2.1 (1.8-2.4cm)Doppler AVA1.03cm2 AI P 1/2 Gmoz071.13ms Tricuspid Valve TR Velocity2.53m/s [id number] Conclusion MODERATE DEGREE LVH AND MODERATE DEGREE LV DIASTOLIC DYSFUNCTION LV EJECTION FRACTION IS 65% CRITICAL AORTIC STENOSIS AORTIC VALVE AREA IS 1.0 CM SQUARE PEAK GRADIENT ACROSS AORTIC VALVE IS 45 MM OF HG AND MEAN GRADIENT IS 26 MM OF HG MODERATE DEGREE AORTIC REGURGITATION NORMAL MV,TV AND PV NO EFFUSION NORMAL RV FUNCTION NORMAL RVSP IS 29 MM OF HG
--- NOTE | 2024-02-18 12:28 | DVHPN2 ---
Progress Note Date Seen: Feb 18, 2024 Medical Necessity Reason Pt with a Central, PICC or Fol: Yes The following are medically ne: Chávez Catheter Subjective Patient reports: No new complaints Other Systems: Patient seen and examined by myself today in follow-up Objective vital signs Vital Sign Date Time Temp Pulse Resp B/P (MAP) Pulse Ox O2 Delivery O2 Flow Rate FiO2 02/18/24 11:24 167/90 02/18/24 10:00 84 02/18/24 09:00 98.9 20 97 98.9 02/17/24 20:00 Room Air* 0 21 Total Intake and Output 02/17/24 02/17/24 02/18/24 15:00 23:00 07:00 Intake Total 190 ml 606 ml Output Total 175 ml 200 ml Balance 190 ml 431 ml -200 ml medications Current Medications Medications Dose Ordered Sig/Srikanth Route Start Time Stop Time Status Last Admin Dose Admin Acetaminophen/ Hydrocodone Bitart 1 tab Q4HP PRN PO 02/15/24 15:00 02/17/24 23:48 1 TAB Ondansetron HCl 4 mg Q4HP PRN IV 02/15/24 15:00 02/17/24 23:10 4 MG Acetaminophen 650 mg Q6HP PRN PO 02/15/24 15:00 02/16/24 16:31 650 MG Nitroglycerin 0.4 mg Q5MINP PRN SL 02/15/24 15:00 02/18/24 11:24 0.4 MG Morphine Sulfate 2 mg Q30M PRN IV 02/15/24 15:00 02/15/24 15:21 2 MG Azathioprine 150 mg HS PO 02/15/24 22:00 02/17/24 21:31 150 MG Loratadine 10 mg DAILY PO 02/16/24 10:00 02/17/24 10:24 10 MG Metoprolol Tartrate 25 mg BID PO 02/15/24 22:00 02/17/24 21:30 25 MG Prednisone 5 mg DAILY PO 02/16/24 10:00 02/17/24 10:24 5 MG Sertraline HCl 150 mg QPM PO 02/15/24 18:00 02/17/24 17:51 150 MG Trazodone HCl 50 mg HS PO 02/15/24 22:00 02/17/24 21:30 50 MG Aspirin 81 mg DAILY PO 02/16/24 10:00 02/17/24 10:24 81 MG Cholecalciferol 2,000 unit DAILY PO 02/16/24 10:00 02/17/24 10:23 2,000 UNIT Docusate Sodium 250 mg HS PO 02/15/24 22:00 02/17/24 21:31 250 MG Pregabalin 50 mg DAILY PO 02/16/24 10:00 02/17/24 10:27 50 MG Atorvastatin Calcium 20 mg HS PO 02/15/24 22:00 02/17/24 21:29 20 MG Tacrolimus 3 mg Q12HR PO 02/15/24 22:00 02/17/24 21:29 3 MG Patient Own Medication 0.5 tab HS PO 02/15/24 22:00 Ceftriaxone Sodium 50 ml @ 100 mls/hr DAILY@09 IV 02/16/24 09:00 02/18/24 09:17 100 MLS/HR Sodium Bicarbonate 50 ml/ Dextrose 1,050 ml @ 70 mls/hr Q15H IV 02/16/24 17:45 02/17/24 21:31 70 MLS/HR Pantoprazole Sodium 40 mg DAILY PO 02/18/24 10:00 02/18/24 09:19 40 MG Ergocalciferol 50,000 unit Q7D PO 02/17/24 10:15 02/17/24 10:27 50,000 UNIT Examination: LUNGS:Normal, CVS:Normal, MSK:Normal laboratory and microbiology Laboratory Tests 02/16/24 03:39 Test 02/16/24 03:39 Range/Units Serum Glucose 122 H 74-106 mg/dL Microbiology Date/Time Source Procedure Growth Status 02/15/24 18:50 Blood Blood Culture - Preliminary NO GROWTH AFTER 48 HOURS OF INCUBATION. 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 q.week Check tacrolimus level, pending cardiology consult ID consult Will continue to follow Plan discussed with: Patient IRMA LARKIN MD Feb 18, 2024 12:28
--- NOTE | 2024-02-18 13:09 | DVHPN2 ---
Reviewed: Care Plan, H&P, Labs, Medications, Previous Orders, Radiology Changes from previous H/P or p: No Changes Objective Vitals Vital Signs Date Time Temp Pulse Resp B/P (MAP) Pulse Ox O2 Delivery O2 Flow Rate FiO2 02/18/24 11:24 167/90 02/18/24 10:00 84 02/18/24 09:00 98.9 20 97 98.9 02/18/24 08:15 Room Air* 0 21 Intake/Output Intake and Output 02/18/24 07:00 Intake Total 796 ml Output Total 375 ml Balance 421 ml Intake IV Total 796 ml Output Urine Total 375 ml Medications Current Medications Medications Dose Ordered Sig/Srikanth Route Start Time Stop Time Status Last Admin Dose Admin Acetaminophen/ Hydrocodone Bitart 1 tab Q4HP PRN PO 02/15/24 15:00 02/17/24 23:48 1 TAB Ondansetron HCl 4 mg Q4HP PRN IV 02/15/24 15:00 02/17/24 23:10 4 MG Acetaminophen 650 mg Q6HP PRN PO 02/15/24 15:00 02/16/24 16:31 650 MG Nitroglycerin 0.4 mg Q5MINP PRN SL 02/15/24 15:00 02/18/24 11:24 0.4 MG Morphine Sulfate 2 mg Q30M PRN IV 02/15/24 15:00 02/15/24 15:21 2 MG Azathioprine 150 mg HS PO 02/15/24 22:00 02/17/24 21:31 150 MG Loratadine 10 mg DAILY PO 02/16/24 10:00 02/17/24 10:24 10 MG Metoprolol Tartrate 25 mg BID PO 02/15/24 22:00 02/17/24 21:30 25 MG Prednisone 5 mg DAILY PO 02/16/24 10:00 02/17/24 10:24 5 MG Sertraline HCl 150 mg QPM PO 02/15/24 18:00 02/17/24 17:51 150 MG Trazodone HCl 50 mg HS PO 02/15/24 22:00 02/17/24 21:30 50 MG Aspirin 81 mg DAILY PO 02/16/24 10:00 02/17/24 10:24 81 MG Cholecalciferol 2,000 unit DAILY PO 02/16/24 10:00 02/17/24 10:23 2,000 UNIT Docusate Sodium 250 mg HS PO 02/15/24 22:00 02/17/24 21:31 250 MG Pregabalin 50 mg DAILY PO 02/16/24 10:00 02/17/24 10:27 50 MG Atorvastatin Calcium 20 mg HS PO 02/15/24 22:00 02/17/24 21:29 20 MG Tacrolimus 3 mg Q12HR PO 02/15/24 22:00 02/17/24 21:29 3 MG Patient Own Medication 0.5 tab HS PO 02/15/24 22:00 Ceftriaxone Sodium 50 ml @ 100 mls/hr DAILY@09 IV 02/16/24 09:00 02/18/24 09:17 100 MLS/HR Sodium Bicarbonate 50 ml/ Dextrose 1,050 ml @ 70 mls/hr Q15H IV 02/16/24 17:45 02/17/24 21:31 70 MLS/HR Pantoprazole Sodium 40 mg DAILY PO 02/18/24 10:00 02/18/24 09:19 40 MG Ergocalciferol 50,000 unit Q7D PO 02/17/24 10:15 02/17/24 10:27 50,000 UNIT Laboratory Results Laboratory Tests 02/16/24 03:39 Urinalysis Test 02/16/24 17:46 Urine Color Yellow (Yellow) Urine Clarity Clear (Clear) Urine pH 6.5 (5.0-9.0) Urine Specific [place] 1.018 (1.001-1.035) Urine Protein 2+ (Negative) H Urine Ketones Negative (Negative) Urine Blood 3+ /uL (Negative) H Urine Nitrite Negative (Negative) Urine Bilirubin Negative (Negative) Urine Urobilinogen Normal mg/dL (Negative) Urine Leukocyte Esterase 2+ /uL (Negative) Urine RBC 88 /hpf (0 - 4) Urine WBC 6 /hpf (0 - 5) Urine Squamous Epithelial Cells Few /hpf (<5) Urine Bacteria None seen /hpf (None Seen) Urine Mucus Few (None Seen) Urine Creatinine 150.21 mg/dL (30.0-125.0) H Urine Protein/Creatinine Ratio 1.87 Urine Sodium 101 mmol/L (40-220) Urine Glucose Normal mg/dL (Normal) Urine Total Protein 280.3 mg/dL (1-14) H Microbiology Microbiology Date/Time Source Procedure Growth Status 02/15/24 18:50 Blood Blood Culture - Preliminary NO GROWTH AFTER 48 HOURS OF INCUBATION. Resulted 02/15/24 14:49 Urine - Catheterized Urine Culture - Preliminary Resulted Labs and/or images reviewed: Labs reviewed by me, Image(s) reviewed by me Assessment/Plan Assessment/Plan Acute metabolic encephalopathy Acute urinary tract infection Rocephin , blood cultures negative urine cultures pending Elevated troponin 236: Consult for Dr. Souza appreciated Acute urinary tract infection Acute kidney injury: Consult by DR Wang appreciated, placed on bicarb drip History of renal transplant recipient, kidney transplant ultrasound negative Hypertension History of aortic stenosis Acute CHF x-ray sedation Chest x-ray negative CT head negative History of recurrent urinary tract infection, blood cultures negative, urine cultures pending BRANDON on CKD Time Spent 65 minutes Patient is full code Advanced care planning time 20 minutes Plan discussed with: Patient My Orders Orders - DINA HOLLIDAY MD Procedure Category Date Status Time Mrsa Screen EFRAIN 02/17/24 In Process 17:16 Date of Service: Feb 18, 2024 Billing Provider: DINA HOLLIDAY MD Common Visit Codes: [id number] INP/OBS CARE(HIGH) DINA HOLLIDAY MD Feb 18, 2024 13:09
--- NOTE | 2024-02-18 16:10 | DVHPN2 ---
Progress Note - Dictate Date Seen: Feb 18, 2024 Medical Necessity Reason Pt with a Central, PICC or Fol: Yes The following are medically ne: Chávez Catheter Subjective Patient was seen and evaluated in follow up. Patient is complaining of generalized weakness. Echocardiogram showed an EF of 65%. She was started on a cardiac diet. vital signs Vital Sign Date Time Temp Pulse Resp B/P (MAP) Pulse Ox O2 Delivery O2 Flow Rate FiO2 02/18/24 11:24 167/90 02/18/24 10:00 84 02/18/24 09:00 98.9 20 97 98.9 02/18/24 08:15 Room Air* 0 21 Total Intake and Output 02/17/24 02/17/24 02/18/24 15:00 23:00 07:00 Intake Total 190 ml 606 ml Output Total 175 ml 200 ml Balance 190 ml 431 ml -200 ml medications Current Medications Medications Dose Ordered Sig/Srikanth Route Start Time Stop Time Status Last Admin Dose Admin Acetaminophen/ Hydrocodone Bitart 1 tab Q4HP PRN PO 02/15/24 15:00 02/17/24 23:48 1 TAB Ondansetron HCl 4 mg Q4HP PRN IV 02/15/24 15:00 02/17/24 23:10 4 MG Acetaminophen 650 mg Q6HP PRN PO 02/15/24 15:00 02/16/24 16:31 650 MG Nitroglycerin 0.4 mg Q5MINP PRN SL 02/15/24 15:00 02/18/24 11:24 0.4 MG Morphine Sulfate 2 mg Q30M PRN IV 02/15/24 15:00 02/15/24 15:21 2 MG Azathioprine 150 mg HS PO 02/15/24 22:00 02/17/24 21:31 150 MG Loratadine 10 mg DAILY PO 02/16/24 10:00 02/17/24 10:24 10 MG Metoprolol Tartrate 25 mg BID PO 02/15/24 22:00 02/17/24 21:30 25 MG Prednisone 5 mg DAILY PO 02/16/24 10:00 02/17/24 10:24 5 MG Sertraline HCl 150 mg QPM PO 02/15/24 18:00 02/17/24 17:51 150 MG Trazodone HCl 50 mg HS PO 02/15/24 22:00 02/17/24 21:30 50 MG Aspirin 81 mg DAILY PO 02/16/24 10:00 02/17/24 10:24 81 MG Cholecalciferol 2,000 unit DAILY PO 02/16/24 10:00 02/17/24 10:23 2,000 UNIT Docusate Sodium 250 mg HS PO 02/15/24 22:00 02/17/24 21:31 250 MG Pregabalin 50 mg DAILY PO 02/16/24 10:00 02/17/24 10:27 50 MG Atorvastatin Calcium 20 mg HS PO 02/15/24 22:00 02/17/24 21:29 20 MG Tacrolimus 3 mg Q12HR PO 02/15/24 22:00 02/17/24 21:29 3 MG Patient Own Medication 0.5 tab HS PO 02/15/24 22:00 Ceftriaxone Sodium 50 ml @ 100 mls/hr DAILY@09 IV 02/16/24 09:00 02/18/24 09:17 100 MLS/HR Sodium Bicarbonate 50 ml/ Dextrose 1,050 ml @ 70 mls/hr Q15H IV 02/16/24 17:45 02/17/24 21:31 70 MLS/HR Pantoprazole Sodium 40 mg DAILY PO 02/18/24 10:00 02/18/24 09:19 40 MG Ergocalciferol 50,000 unit Q7D PO 02/17/24 10:15 02/17/24 10:27 50,000 UNIT objective GENERAL: Awake, altered. LUNGS: Clear. CARDIOVASCULAR: Heart sounds are good. ABDOMEN: Soft. laboratory and microbiology Laboratory Tests 02/16/24 03:39 Test 02/16/24 03:39 Range/Units Serum Glucose 122 H 74-106 mg/dL Problem List Acute metabolic encephalopathy. Acute urinary tract infection. Elevated troponin. History of renal transplant recipient. Hypertension . History of aortic stenosis. BRANDON on CKD. Assessment/Plan Continued all current supportive medical care. Echocardiogram. Morphine and [place] for pain management. Aspirin, Lipitor, Metoprolol. IV antibiotics as ordered. Nitro SL. GI prophylactics. Additional plan as per the hospital course. Plan discussed with: Patient NELSY REES MD Feb 18, 2024 14:19
[2024-02-19 01:00] VITALS: BP 136/79; PULSE 84; RESP 17; TEMP 97.9; O2SAT 93
[2024-02-19 05:00] VITALS: BP 134/62; PULSE 73; RESP 17; TEMP 98.7; O2SAT 94
[2024-02-19 08:00] VITALS: PULSE 80
[2024-02-19 09:00] VITALS: BP 169/61; PULSE 84; RESP 18; TEMP 98.5; O2SAT 97
[2024-02-19 09:12] LABS: Hepatitis B Surface Antigen Negative (Negative); Hepatitis C Antibody Negative (Negative)
[2024-02-19] MEDS ORDERED: CIPR-173 PO (12:09)
--- NOTE | 2024-02-19 12:12 | DVHPN2 ---
Reviewed: Care Plan, H&P, Labs, Medications, Previous Orders, Radiology Changes from previous H/P or p: No Changes Objective Vitals Vital Signs Date Time Temp Pulse Resp B/P (MAP) Pulse Ox O2 Delivery O2 Flow Rate FiO2 02/19/24 09:16 84 169/61 02/19/24 09:00 98.5 18 97 98.5 02/19/24 08:00 Room Air* 0 21 Intake/Output Intake and Output 02/19/24 07:00 Intake Total 770 ml Output Total 675 ml Balance 95 ml Intake Oral 720 ml IV Total 50 ml Output Urine Total 675 ml Medications Current Medications Medications Dose Ordered Sig/Srikanth Route Start Time Stop Time Status Last Admin Dose Admin Acetaminophen/ Hydrocodone Bitart 1 tab Q4HP PRN PO 02/15/24 15:00 02/19/24 00:27 1 TAB Ondansetron HCl 4 mg Q4HP PRN IV 02/15/24 15:00 02/17/24 23:10 4 MG Acetaminophen 650 mg Q6HP PRN PO 02/15/24 15:00 02/16/24 16:31 650 MG Nitroglycerin 0.4 mg Q5MINP PRN SL 02/15/24 15:00 02/18/24 11:24 0.4 MG Morphine Sulfate 2 mg Q30M PRN IV 02/15/24 15:00 02/15/24 15:21 2 MG Azathioprine 150 mg HS PO 02/15/24 22:00 02/18/24 22:28 150 MG Loratadine 10 mg DAILY PO 02/16/24 10:00 02/19/24 09:16 10 MG Metoprolol Tartrate 25 mg BID PO 02/15/24 22:00 02/19/24 09:16 25 MG Prednisone 5 mg DAILY PO 02/16/24 10:00 02/19/24 09:15 5 MG Sertraline HCl 150 mg QPM PO 02/15/24 18:00 02/18/24 17:56 150 MG Trazodone HCl 50 mg HS PO 02/15/24 22:00 02/18/24 22:19 50 MG Aspirin 81 mg DAILY PO 02/16/24 10:00 02/19/24 09:15 81 MG Cholecalciferol 2,000 unit DAILY PO 02/16/24 10:00 02/19/24 09:15 2,000 UNIT Docusate Sodium 250 mg HS PO 02/15/24 22:00 02/17/24 21:31 250 MG Pregabalin 50 mg DAILY PO 02/16/24 10:00 02/19/24 09:15 50 MG Atorvastatin Calcium 20 mg HS PO 02/15/24 22:00 02/18/24 22:19 20 MG Tacrolimus 3 mg Q12HR PO 02/15/24 22:00 02/19/24 09:16 3 MG Patient Own Medication 0.5 tab HS PO 02/15/24 22:00 Ceftriaxone Sodium 50 ml @ 100 mls/hr DAILY@09 IV 02/16/24 09:00 02/19/24 09:14 100 MLS/HR Sodium Bicarbonate 50 ml/ Dextrose 1,050 ml @ 70 mls/hr Q15H IV 02/16/24 17:45 02/19/24 05:15 70 MLS/HR Pantoprazole Sodium 40 mg DAILY PO 02/18/24 10:00 02/19/24 09:16 40 MG Ergocalciferol 50,000 unit Q7D PO 02/17/24 10:15 02/17/24 10:27 50,000 UNIT Laboratory Results Laboratory Tests 02/16/24 03:39 Urinalysis Test 02/16/24 17:46 Urine Color Yellow (Yellow) Urine Clarity Clear (Clear) Urine pH 6.5 (5.0-9.0) Urine Specific [place] 1.018 (1.001-1.035) Urine Protein 2+ (Negative) H Urine Ketones Negative (Negative) Urine Blood 3+ /uL (Negative) H Urine Nitrite Negative (Negative) Urine Bilirubin Negative (Negative) Urine Urobilinogen Normal mg/dL (Negative) Urine Leukocyte Esterase 2+ /uL (Negative) Urine RBC 88 /hpf (0 - 4) Urine WBC 6 /hpf (0 - 5) Urine Squamous Epithelial Cells Few /hpf (<5) Urine Bacteria None seen /hpf (None Seen) Urine Mucus Few (None Seen) Urine Creatinine 150.21 mg/dL (30.0-125.0) H Urine Protein/Creatinine Ratio 1.87 Urine Sodium 101 mmol/L (40-220) Urine Glucose Normal mg/dL (Normal) Urine Total Protein 280.3 mg/dL (1-14) H Microbiology Microbiology Date/Time Source Procedure Growth Status 02/18/24 09:20 Nose MRSA Screen - Final Complete 02/15/24 18:50 Blood Blood Culture - Preliminary NO GROWTH AFTER 72 HOURS OF INCUBATION. Resulted 02/15/24 14:49 Urine - Catheterized Urine Culture - Preliminary Resulted Labs and/or images reviewed: Labs reviewed by me, Image(s) reviewed by me Assessment/Plan Assessment/Plan Acute metabolic encephalopathy Acute urinary tract infection Rocephin , blood cultures negative urine cultures coagulase-negative Staph Elevated troponin 236: Consult for Dr. Souza appreciated, no further cardiac workup Acute urinary tract infection Acute kidney injury: Consult by DR Wang appreciated, placed on bicarb drip History of renal transplant recipient, kidney transplant ultrasound negative Hypertension History of aortic stenosis Acute CHF x-ray sedation Chest x-ray negative CT head negative History of recurrent urinary tract infection, blood cultures negative, urine cultures growing coagulase-negative staph BRANDON on CKD Time Spent 65 minutes Patient is full code Advanced care planning time 20 minutes Plan discussed with: Patient My Orders Orders - DINA HOLLIDAY MD Procedure Category Date Status Time Cardiac DIET 02/18/24 Transmitted Diet-2gna,Lofat,Lochol Dinner Date of Service: Feb 19, 2024 Billing Provider: DINA HOLLIDAY MD Common Visit Codes: [id number] INP/OBS CARE(HIGH) DINA HOLLIDAY MD Feb 19, 2024 12:12
--- NOTE | 2024-02-19 12:16 | DVHDS2 ---
Discharge Summary Date of Admission Feb 15, 2024 at 14:58 Date of Discharge: Feb 19, 2024 Admitting Diagnosis Generalized weakness Wounds: None Labs/Diagnostic Data: Laboratory Results Test 02/17/24 05:23 02/16/24 17:46 02/16/24 03:39 02/15/24 16:36 Urine Color Yellow (Yellow) Urine Clarity Clear (Clear) Urine pH 6.5 (5.0-9.0) Urine Specific [place] 1.018 (1.001-1.035) Urine Protein 2+ (Negative) Urine Ketones Negative (Negative) Urine Blood 3+ /uL (Negative) Urine Nitrite Negative (Negative) Urine Bilirubin Negative (Negative) Urine Urobilinogen Normal mg/dL (Negative) Urine Leukocyte Esterase 2+ /uL (Negative) Urine RBC 88 /hpf (0 - 4) Urine WBC 6 /hpf (0 - 5) Urine Squamous Epithelial Cells Few /hpf (<5) Urine Bacteria None seen /hpf (None Seen) Urine Mucus Few (None Seen) Urine Creatinine 150.21 mg/dL (30.0-125.0) Urine Protein/Creatinine Ratio 1.87 Urine Sodium 101 mmol/L (40-220) Urine Glucose Normal mg/dL (Normal) Urine Total Protein 280.3 mg/dL (1-14) White Blood Count 9.3 10^3/uL (4.4-10.8) Red Blood Count 3.51 10^6/uL (4.0-5.20) Hemoglobin 10.5 g/dL (12.2-16.2) Hematocrit 31.3 % (36.0-46.0) Mean Corpuscular Volume 89.0 fL (80.0-100.0) Mean Corpuscular Hemoglobin 30.0 pg (28.0-32.0) Mean Corpuscular Hemoglobin Concent 33.7 g/dL (32.0-36.0) Red Cell Distribution Width 16.6 % (11.8-14.3) Platelet Count 213 10^3/uL (140-450) Mean Platelet Volume 7.8 fL (6.9-10.8) Neutrophils (%) (Auto) 85.4 % (37.0-80.0) Lymphocytes (%) (Auto) 7.7 % (10.0-50.0) Monocytes (%) (Auto) 6.2 % (0.0-12.0) Eosinophils (%) (Auto) 0.0 % (0.0-7.0) Basophils (%) (Auto) 0.7 % (0.0-2.0) Neutrophils # (Auto) 7.9 10 ^3/uL (1.6-8.6) Lymphocytes # (Auto) 0.7 10 ^3/uL (0.4-5.4) Monocytes # (Auto) 0.6 10 ^3/uL (0-1.3) Eosinophils # (Auto) 0 10 ^3/uL (0-0.8) Basophils # (Auto) 0.1 10 ^3/uL (0-0.2) Nucleated Red Blood Cells 0.0 % Sodium Level 145 mmol/L (136-145) Potassium Level 3.8 mmol/L (3.5-5.1) Chloride Level 113 mmol/L (98-107) Carbon Dioxide Level 21 mmol/L (20-31) Anion Gap 11 (5-15) Blood Urea Nitrogen 31 mg/dL (9-23) Creatinine 2.43 mg/dL (0.550-1.02) Glomerular Filtration Rate Calc 22 mL/min (>90) BUN/Creatinine Ratio 12.8 (10.0-20.0) Serum Glucose 122 mg/dL (74-106) Hemoglobin A1c 5.8 % A1C (<5.7) Uric Acid 9.0 mg/dL (3.1-7.8) Calcium Level 9.4 mg/dL (8.7-10.4) Phosphorus Level 3.5 mg/dL (2.4-5.1) Magnesium Level 1.8 mg/dL (1.6-2.6) Total Bilirubin 0.9 mg/dL (0.2-1.0) Aspartate Amino Transferase (AST) 53 U/L (13-40) Alanine Aminotransferase (ALT) 14 U/L (7-40) Alkaline Phosphatase 89 U/L (46-116) B-Type Natriuretic Peptide 2024.56 pg/mL (0-100) Total Protein 6.8 g/dL (5.7-8.2) Albumin 4.2 g/dL (3.2-4.8) Vitamin D 25-Hydroxy 9.7 ng/mL (30.0-100) Parathyroid Hormone (Intact) 262.7 pg/mL (18.4-80.1) Hepatitis B Surface Antigen Negative (Negative) Hepatitis C Antibody Negative (Negative) Troponin I High Sensitivity 176 ng/L (</=34) Test 02/15/24 14:49 02/15/24 12:55 02/15/24 11:29 Urine Opiates Screen Pos (NEGATIVE) Urine Fentanyl Screen Pos (NEGATIVE) Urine Barbiturates Screen Neg (NEGATIVE) Urine Phencyclidine Screen Neg (NEGATIVE) Urine Amphetamines Screen Neg (NEGATIVE) Urine Benzodiazepines Screen Neg (NEGATIVE) Urine Cocaine Screen Neg (NEGATIVE) Urine Cannabinoids Screen Neg (NEGATIVE) Vitamin B12 Level 526 pg/mL (211-911) Thyroid Stimulating Hormone (TSH) 1.20 uIU/mL (0.55-4.78) POC Glucose 155 mg/dl (70-106) Other Laboratory Tests 02/16/24 03:39 Brief Hx & Hospital Course: Female with a history of hypertension aortic stenosis CHF status post renal transplant on immunosuppressive therapy came in complaining of generalized weakness found to have urinary tract infection treated with Rocephin blood cultures negative urine cultures growing coagulase-negative staph patient has a history of recurrent urinary tract infection chest x-ray negative CT head negative. seen by Nephrology Dr. Wang for acute kidney injury which resolving Kidney ultrasound negative patient being discharged home on Cipro for UTI [facility] continue all previous home medications which I have reviewed personally. Consults/Reason for consult Cardiology Dr. Souza Nephrology Dr. Wang Operations or Procedures None Condition at Discharge: Fair Final Diagnosis/Problems List Acute metabolic encephalopathy Acute urinary tract infection Rocephin , blood cultures negative urine cultures coagulase-negative Staph Elevated troponin 236: Consult for Dr. Souza appreciated, no further cardiac workup Acute urinary tract infection Acute kidney injury: Consult by DR Wang appreciated, placed on bicarb drip History of renal transplant recipient, kidney transplant ultrasound negative Hypertension History of aortic stenosis Acute CHF x-ray sedation Chest x-ray negative CT head negative History of recurrent urinary tract infection, blood cultures negative, urine cultures growing coagulase-negative staph BRANDON on CKD Discharge Disposition: Home Discharge Instruct/Medications Diet: Cardiac 2g Na,low cholest Activity: Light activity Follow Up/Referral: [facility] Resume all previous home medications Medications: Cipro Transmitted to via pharmacy Reviewed all previous home meds 35 (Time Taken for discharge summary 35 minutes) Discharge Statement: "Patient was advised to return to the ER or call 911 if any headaches, dizziness, shortness of breath, chest pain, abdominal pain, bleeding, fevers, or worsening of medical condition. Patient was counseled about treatment plan, medications, possible side effects, patientverbalized understanding. All questions were answered to the best of my ability. This discharge took greater then 30 minutes in planning, reviewing documentation, counseling the patient, and discussing with other team members." ASSESSMENT ASSESSMENT Hospital Course Improved Assessment Acute metabolic encephalopathy Acute urinary tract infection Rocephin , blood cultures negative urine cultures coagulase-negative Staph Elevated troponin 236: Consult for Dr. Souza appreciated, no further cardiac workup Acute urinary tract infection Acute kidney injury: Consult by DR Wang appreciated, placed on bicarb drip History of renal transplant recipient, kidney transplant ultrasound negative Hypertension History of aortic stenosis Acute CHF x-ray sedation Chest x-ray negative CT head negative History of recurrent urinary tract infection, blood cultures negative, urine cultures growing coagulase-negative staph BRANDON on CKD Date of Service: Feb 19, 2024 Billing Provider: DIAN HOLLIDAY MD Common Visit Codes: [id number] DISCH DAY >30min DINA HOLLIDAY MD Feb 19, 2024 12:16
[2024-02-19 13:00] VITALS: BP 129/50; PULSE 71; RESP 17; TEMP 98.4; O2SAT 98
--- NOTE | 2024-02-19 16:59 | DVHPN2 ---
Progress Note - Dictate Date Seen: Feb 19, 2024 Medical Necessity Reason Pt with a Central, PICC or Fol: Yes The following are medically ne: Chávez Catheter Subjective Patient was seen and evaluated in follow up. Patient has no new complaints at this time. Patient denies any cardiac symptoms. Patient is cardiac stable for discharge. vital signs Vital Sign Date Time Temp Pulse Resp B/P (MAP) Pulse Ox O2 Delivery O2 Flow Rate FiO2 02/19/24 13:00 98.4 71 17 129/50 (76) 98 98.4 02/19/24 08:00 Room Air* 0 21 Total Intake and Output 02/18/24 02/18/24 02/19/24 15:00 23:00 07:00 Intake Total 50 ml 720 ml 0 ml Output Total 675 ml Balance 50 ml 45 ml 0 ml objective GENERAL: Awake, altered. LUNGS: Clear. CARDIOVASCULAR: Heart sounds are good. ABDOMEN: Soft. laboratory and microbiology Laboratory Tests 02/16/24 03:39 Test 02/16/24 03:39 Range/Units Serum Glucose 122 H 74-106 mg/dL Problem List Acute metabolic encephalopathy. Acute urinary tract infection. Elevated troponin. History of renal transplant recipient. Hypertension . History of aortic stenosis. BRANDON on CKD. Assessment/Plan Continued all current supportive medical care. Echocardiogram. Morphine and [place] for pain management. Aspirin, Lipitor, Metoprolol. IV antibiotics as ordered. Nitro SL. GI prophylactics. Additional plan as per the hospital course. Plan discussed with: Patient NELSY REES MD Feb 19, 2024 16:59
== END 2024-02-19 16:15 | disposition home or self-care (01) | DRG 871 ==
LOC: EDBD 11:03 → ER 11:03 → TELE 14:58 → TELE-WESTW 02-17 10:43
PROVIDERS: ADMIT Nurse Practitioner Family; ATTEND Family Medicine
PROC: 05HB33Z Insertion of Infusion Device into Right Basilic Vein, Percutaneous Approach (ICD-10-PCS; principal; 2024-02-15)
PROC: B54MZZA Ultrasonography of Right Upper Extremity Veins, Guidance (ICD-10-PCS; 2024-02-15)
DX: A41.9 Sepsis, unspecified organism (principal); G93.41 Metabolic encephalopathy; I21.4 Non-ST elevation (NSTEMI) myocardial infarction; N18.6 End stage renal disease; I16.1 Hypertensive emergency; T86.19 Other complication of kidney transplant; N39.0 Urinary tract infection, site not specified; I13.2 Hypertensive heart and chronic kidney disease with heart failure and with stage 5 chronic kidney disease, or end stage renal disease; N17.9 Acute kidney failure, unspecified; E11.22 Type 2 diabetes mellitus with diabetic chronic kidney disease; I48.91 Unspecified atrial fibrillation; E86.0 Dehydration; D63.1 Anemia in chronic kidney disease; I50.9 Heart failure, unspecified; E55.9 Vitamin D deficiency, unspecified; Z90.49 Acquired absence of other specified parts of digestive tract; Z83.79 Family history of other diseases of the digestive system; Z82.49 Family history of ischemic heart disease and other diseases of the circulatory system; Z83.3 Family history of diabetes mellitus; Z79.60 Long term (current) use of unspecified immunomodulators and immunosuppressants; Z80.8 Family history of malignant neoplasm of other organs or systems; Z80.1 Family history of malignant neoplasm of trachea, bronchus and lung; Y84.8 Other medical procedures as the cause of abnormal reaction of the patient, or of later complication, without mention of misadventure at the time of the procedure
CPT/HCPCS: 36415; 70450; 70551; 71045; 80048; 80053; 80197; 80307; 81001; 82306; 82570; 82607; 82962; 83036; 83735; 83880; 83970; 84100; 84156; 84300; 84443; 84484; 84550; 85025; 86803; 87040; 87081; 87086; 87088; 87186; 87340; 93005; 93306; 97110; 97116; 97163; 97530; 99291; G0378; J2405; J7507

== ENCOUNTER 2024-03-11 15:02 | Inpatient (IN) | payer OTHER, MEDICARE ==
[~2024-03-11] VITALS: Ht 170.2 cm; Wt 63.7 kg
[~2024-03-11 15:02] MED LIST changes: +CIPR-173 PO; -MET500T PO
--- NOTE | 2024-03-11 16:16 | ED.PDOC ---
Altered Mental Status HPI Comments 63 y.o female with PMHx of reoccurring UTI's, AFIB, CHF, HTN, liver disease, presents to the ED for an evaluation of altered mental status. EMS reports patient's caregiver went to her house today and noticed patient was altered and called 911. Patient has history of AMS due to UTI's diagnoses, with last admission at this ED being on 02/15/2024. At bedside, patient is unable to follow commands or answer any questions and is only saying " oh my God". No further information obtained as no family members or caregiver is at bedside. Chief Complaint: ALOC Time Seen by MD: 15:54 Primary Care Provider: unknown Reviewed Notes: Nurses Notes, Funeral Counselor Notes, Medications, Allergies Allergies: Coded Allergies: Lisinopril (Verified Allergy, Unknown, 02/13/22) Home Meds Active Scripts Ciprofloxacin Hcl (Cipro) 500 Mg Tab, 1 TAB PO BID, #14 TAB Prov:DINA HOLLIDAY MD 02/19/24 Levofloxacin Hemihydrate (LEVAQUIN 500 MG) 500 Mg Tab, 1 TAB PO DAILY, #10 TAB Prov:DINA HOLLIDAY MD 01/29/24 Amlodipine Besylate (NORVASC TABLET) 5 Mg Tb, 5 MG PO DAILY for 30 Days, #30 TAB 11 Refills Prov:LYNNETTE DALTON DO 10/23/22 Omeprazole Magnesium (Omeprazole) 20 Mg Tab, 20 MG PO BID for 30 Days, #60 TAB Prov:BLANCA BELLO MD 02/18/22 Levofloxacin (Levaquin) 500 Mg Tab, 500 MG PO EOD for 7 Days, #7 TAB Prov:BLANCA BELLO MD 02/18/22 Sucralfate (CARAFATE) 1 Gm Tab, 1 GM PO QID for 30 Days, #120 TAB Prov:BLANCA BELLO MD 02/18/22 Reported Medications Tacrolimus (ASTAGRAF XL) 1 Mg Cap, 3 MG PO Q12HR, CAP 01/27/24 Lansoprazole (Lansoprazole) 30 Mg Cap, 1 CAP PO DAILY, #30 CAP 5 Refills 01/27/24 Pregabalin (Lyrica) 50 Mg Cap, 50 MG PO DAILY, CAP 09/27/20 Trazodone Hcl (Trazodone Hcl) 50 Mg Tab, 50 MG PO HS, MG 09/27/20 Cyanocobalamin (B-12) 1,000 Mcg Cap, 1000 MCG PO, CAP 09/27/20 Tizanidine Hydrochloride (TIZANIDINE HCL) 2 Mg Cap, 2.5 MG PO, CAP 09/27/20 Magnesium Oxide (MAGNESIUM OXIDE) 400 Mg Tab, 1 TAB PO BID, #60 TAB 5 Refills 09/27/20 Tizanidine Hydrochloride (Zanaflex) 4 Mg Tab, 0.5 TAB PO HS, #60 TAB 09/27/20 Metoprolol Tartrate (Metoprolol Tartrate) 25 Mg Tab, 1 TAB PO BID, #180 TAB 1 Refill 09/04/18 Raloxifene Hydrochloride (EVISTA TABLET) 60 Mg Tb, 1 TAB PO DAILY, #30 TAB 11 Refills 09/04/18 Prednisone (PREDNISONE) 5 Mg Tb, 5 MG PO DAILY 09/02/18 Azathioprine (Imuran) 50 Mg Tab, 3 TAB PO BEDTIME, #180 TAB 3 Refills 09/02/18 Fish Oil (Fish Oil) 500 Mg Cap, 500 MG PO BID, CAP 09/02/18 Omeprazole (Gnp Omeprazole) 20 Mg Tab, 1 CAP PO BID, #90 TAB 1 Refill 09/02/18 Docusate Sodium (Docusate Sodium) 250 Mg Cap, 250 MG PO QHS, CAP 09/02/18 Cholecalciferol (VITAMIN D3) 2,000 Unit Chw, 2000 UNIT PO DAILY, CHW 09/02/18 Loratadine (Claritin) 10 Mg Tab, 1 TAB PO DAILY, #30 TAB 5 Refills 09/02/18 Aspirin (Aspirin Low Dose) 81 Mg Chw, 1 TAB PO DAILY, #30 TAB 3 Refills 09/02/18 Cyclobenzaprine Hcl (Cyclobenzaprine Hcl) 5 Mg Tab, 2 TAB PO QPM PRN for prn, #30 TAB 09/02/18 Hydrocodone-Acetaminophen ([place] 5/325MG) 1 Tab Tb, 1 TAB PO Q6HP PRN for pain, #90 TAB 09/02/18 Sertraline Hcl (Sertraline Hcl) 50 Mg Tab, 3 TAB PO QPM for depression, #30 TAB 5 Refills 09/02/18 Simvastatin (Simvastatin) 40 Mg Tab, 1 TAB PO QPM, #30 TAB 5 Refills 09/02/18 Information Source: Emergency Med Personnel Mode of Arrival: EMS Severity: Moderate Timing: Hours Duration: Since onset Quality: Decreased Alertness, Change in Behavior Recent: Other Associated Signs and Symptoms: Other Past Medical History PAST MEDICAL HISTORY: AFIB, CHF, HTN, Liver, UTI'S Surgical History: Cholecystectomy, , Hernia Repair 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 History Family History Family History: Reviewed,noncontributory to illness, Unknown Social History Smoker: Non-Smoker Alcohol: Denies ETOH Use Drugs: Denies Drug Use Lives In: Home Unable to Obtain due to: Altered Mental Status Physical Exam General Appearance: Moderate Distress, Normal, Thin HEENT: Normal ENT Inspection, Pharynx Normal, TMs Normal Neck: Full Range of Motion, Non-Tender, Normal, Normal Inspection Respiratory: Chest Non-Tender, Lungs Clear, No Accessory Muscle Use, No Respiratory Distress, Normal Breath Sounds Cardiovascular: No Edema, No JVD, No Murmur, No Gallop, Tachycardia Breast Exam: Deferred Gastrointestinal: No Organomegaly, Non Tender, Soft Genitalia: Deferred Pelvic: Deferred Rectal: Deferred Extremities: NOT DONE Musculoskeletal : Apperance: Normal Neurologic: Disoriented, NOT DONE Cerebellar Function: NOT DONE Reflexes: NOT DONE Skin: Dry, Normal Color, Warm Lymphatic: No Adenopathy Was a procedure done? Was a procedure done?: No Differential Diagnosis (ALOC) Differential Diagnosis: Dehydration, Hypoglycemia X-Ray, Labs, Meds, VS Vital Signs Date Time Temp Pulse Resp B/P (MAP) Pulse Ox O2 Delivery O2 Flow Rate FiO2 03/11/24 21:41 111 178/103 03/11/24 20:41 127 184/106 03/11/24 20:00 134 03/11/24 18:30 122 22 154/83 (106) 98 03/11/24 17:30 123 17 202/107 (138) 96 03/11/24 17:09 198/166 03/11/24 17:02 116 03/11/24 16:35 Room Air* 0 21 03/11/24 16:34 115 03/11/24 15:30 98.3 115 19 196/115 (142) 100 98.3 03/11/24 15:23 98.4 123 18 165/111 (129) 98 Lab Test 03/11/24 20:21 03/11/24 17:12 Range/Units Urine Color Colorless Yellow Urine Clarity Clear Clear Urine pH 8.5 5.0-9.0 Urine Specific [place] 1.011 1.001-1.035 Urine Protein 1+ H Negative Urine Ketones 1+ H Negative Urine Blood Trace H Negative /uL Urine Nitrite Negative Negative Urine Bilirubin Negative Negative Urine Urobilinogen Normal Negative mg/dL Urine Leukocyte Esterase Negative Negative /uL Urine RBC 1 0 - 4 /hpf Urine WBC 1 0 - 5 /hpf Urine Squamous Epithelial Cells None seen <5 /hpf Urine Bacteria None seen None Seen /hpf Urine Hyaline Casts Few 0 - 2 /lpf Urine Glucose 1+ H Normal mg/dL Urine Opiates Screen Neg NEGATIVE Urine Fentanyl Screen Neg NEGATIVE Urine Barbiturates Screen Neg NEGATIVE Urine Phencyclidine Screen Neg NEGATIVE Urine Amphetamines Screen Neg NEGATIVE Urine Benzodiazepines Screen Neg NEGATIVE Urine Cocaine Screen Neg NEGATIVE Urine Cannabinoids Screen Neg NEGATIVE White Blood Count 9.1 4.4-10.8 10^3/uL Red Blood Count 3.75 L 4.0-5.20 10^6/uL Hemoglobin 11.2 L 12.2-16.2 g/dL Hematocrit 33.6 L 36.0-46.0 % Mean Corpuscular Volume 89.7 80.0-100.0 fL Mean Corpuscular Hemoglobin 29.8 28.0-32.0 pg Mean Corpuscular Hemoglobin Concent 33.2 32.0-36.0 g/dL Red Cell Distribution Width 16.1 H 11.8-14.3 % Platelet Count 278 140-450 10^3/uL Mean Platelet Volume 8.4 6.9-10.8 fL Neutrophils (%) (Auto) 85.7 H 37.0-80.0 % Lymphocytes (%) (Auto) 10.2 10.0-50.0 % Monocytes (%) (Auto) 3.6 0.0-12.0 % Eosinophils (%) (Auto) 0.0 0.0-7.0 % Basophils (%) (Auto) 0.5 0.0-2.0 % Neutrophils # (Auto) 7.8 1.6-8.6 10 ^3/uL Lymphocytes # (Auto) 0.9 0.4-5.4 10 ^3/uL Monocytes # (Auto) 0.3 0-1.3 10 ^3/uL Eosinophils # (Auto) 0 0-0.8 10 ^3/uL Basophils # (Auto) 0 0-0.2 10 ^3/uL Nucleated Red Blood Cells 0.3 % Sodium Level 142 136-145 mmol/L Potassium Level 5.3 H 3.5-5.1 mmol/L Chloride Level 109 H 98-107 mmol/L Carbon Dioxide Level 18 L 20-31 mmol/L Anion Gap 15 5-15 Blood Urea Nitrogen 26 H 9-23 mg/dL Creatinine 2.61 H 0.550-1.02 mg/dL Glomerular Filtration Rate Calc 20 >90 mL/min BUN/Creatinine Ratio 10.0 10.0-20.0 Serum Glucose 162 H 74-106 mg/dL Calcium Level 10.5 H 8.7-10.4 mg/dL Total Bilirubin 1.0 0.2-1.0 mg/dL Aspartate Amino Transferase (AST) 25 13-40 U/L Alanine Aminotransferase (ALT) < 9 7-40 U/L Alkaline Phosphatase 98 46-116 U/L Ammonia < 10 L 11-32 umol/L Total Protein 7.6 5.7-8.2 g/dL Albumin 4.6 3.2-4.8 g/dL Lipase 52 12-53 U/L Plasma/Serum Blood Alcohol 3.5 <10 mg/dL Current Medications Medications (Trade) Dose Ordered Sig/Srikanth Route Start Time Stop Time Status Last Admin Hydralazine HCl (Apresoline Injection) 10 mg ONCE ONCE IV 03/11/24 15:45 03/11/24 15:46 DC 03/11/24 17:09 Ondansetron HCl (Zofran) 4 mg ONCE ONCE IV 03/11/24 15:45 03/11/24 15:46 DC 03/11/24 17:09 Prochlorperazine Edisylate (Compazine Inj) 5 mg ONCE ONCE IM 03/11/24 17:00 03/11/24 17:14 DC 03/11/24 17:19 Haloperidol Lactate (Haldol) 5 mg ONCE ONCE IM 03/11/24 18:00 03/11/24 18:01 DC 03/11/24 18:09 Labetalol HCl (Labetalol HCl) 10 mg ONCE ONCE IV 03/11/24 20:30 03/11/24 20:31 DC 03/11/24 20:41 EXAM: CT HEAD WITHOUT CONTRAST HISTORY: aloc COMPARISON: CT HEAD WITHOUT CONTRAST on DOS: 02/15/24, CT HEAD WITHOUT CONTRAST on DOS: 01/26/24, HEAD WITHOUT CONTRAST on DOS: 02/13/22 TECHNIQUE: Axial images were obtained and reformatted in coronal and sagittal planes. All CT scans at this medical facility are performed using dose modulation techniques as appropriate to a performed exam including the following: Automated exposure control was utilized; adjustment of the MA and/or KV according to patient size; and use of iterative reconstruction technique. CT Dose: CTDI volume is 55.48 mGy. Dose-length product is 1093.39 mGy*cm FINDINGS: Supratentorial Region: No evidence for large acute territorial ischemia. No intracranial hemorrhage is noted. Posterior Fossa: No acute abnormality. Brainstem: Unremarkable. Sellar/Suprasellar Region: Unremarkable. Ventricles, Cisterns, Sulci: Age-appropriate. Orbits: Unremarkable. Paranasal Sinuses: Unremarkable. Mastoid Air Cells: Unremarkable. Vasculature: Unremarkable. Bones/Soft Tissues: No acute abnormality. Other: None. IMPRESSION: 1. No acute intracranial process. CHEST RADIOGRAPH Indication: cp Technique: Single frontal view of the chest was obtained COMPARISON: XY CHEST PORTABLE on DOS: 02/15/24, XY CHEST PORTABLE on DOS: , XY CHEST PORTABLE on DOS: 02/01/23, CHEST XRAY 1 VIEW on DOS: 02/23/22, CXR1 on DOS: 02/23/22 FINDINGS: Lines and Tubes: None Lungs: Clear Pleura: No effusion. No pneumothorax. Cardiomediastinal contours: Unremarkable Bones: Unremarkable IMPRESSION: 1. No acute disease. X-Ray, Labs, Meds, VS Comment Per daughter, patient had kidney transplant in 2017. Patient was not requiring dialysis since then. Last dialysis was in 2012. Patient will be admitted for acute on chronic kidney injury Recommend dialysis Time of 1ST Reevaluation: 16:06 Reevaluation 1ST: Unchanged Patient Education/Counseling: Diagnosis, Treatment, Other (patient is altered ) Family Education/Counseling: Diagnosis, No Family Present Departure 1 Departure Time of Disposition: 22:11 Impression: Primary Impression: [id number] kidney injury Qualified Codes: N17.9 - Acute kidney failure, unspecified; N18.4 - Chronic kidney disease, stage 4 (severe) Additional Impressions: Metabolic encephalopathy Hyperkalemia Hypercalcemia Disposition: ADMITTED INPATIENT Condition: Fair Discharged With: Self Critical Care Note Critical Care Time?: No Stability Stability form required: No I personally scribed for AMI ALCALA ([facility]) on 03/11/24 at 16:16. Electronically submitted by Karie Ervin ([facility]). I personally scribed for AMI ALCALAP ([facility]) on 03/11/24 at 19:55. Electronically submitted by Karie Ervin ([facility]). I personally scribed for AMI ALCALA AUTOMOTIVE SERVICE ASSISTANT ([facility]) on 03/11/24 at 21:37. Electronically submitted by Karie Ervin ([facility]). AMI ALCALA Mar 11, 2024 16:16
[2024-03-11] MEDS: PROCHLORPERAZINE EDISYLATE 5 MG/ML 2ML VIAL ONE (16:20)
[2024-03-11] MEDS: hydrALAZINE HCL 20 MG/ML VL IV ONE (17:09)
[2024-03-11] MEDS: ONDANSETRON HCL 4 MG/2 ML VIAL IV ONE (17:09)
[2024-03-11] MEDS: PROCHLORPERAZINE EDISYLATE 5 MG/ML 2ML VIAL IM ONE (17:19)
[2024-03-11 17:32] LABS: Basophils # (auto) 0 10 ^3/uL (0-0.2); Basophils % (auto) 0.5 % (0.0-2.0); Eosinophils # (auto) 0 10 ^3/uL (0-0.8); Hematocrit 33.6 % (36.0-46.0); Hemoglobin 11.2 g/dL (12.2-16.2); Lymphocytes # (auto) 0.9 10 ^3/uL (0.4-5.4); Lymphocytes % (auto) 10.2 % (10.0-50.0); Mean Corpuscular Hemoglobin 29.8 pg (28.0-32.0); Mean Corpuscular Hgb Conc. 33.2 g/dL (32.0-36.0); Mean Corpuscular Volume 89.7 fL (80.0-100.0); Monocytes # (auto) 0.3 10 ^3/uL (0-1.3); Monocytes % (auto) 3.6 % (0.0-12.0); Neutrophils # (auto) 7.8 10 ^3/uL (1.6-8.6); Neutrophils % (auto) 85.7 % (37.0-80.0); Nucleated Red Blood Cells % 0.3 %; Platelet Count (auto) 278 10^3/uL (140-450); Red Blood Cells 3.75 10^6/uL (4.0-5.20); Red Cell Distribution Width 16.1 % (11.8-14.3); White Blood Cell 9.1 10^3/uL (4.4-10.8)
[2024-03-11 17:49] LABS: Albumin 4.6 g/dL (3.2-4.8); Alkaline Phosphatase 98 U/L (46-116); Anion Gap 15 (5-15); Aspartate Aminotransferase 25 U/L (13-40); Blood Alcohol 3.5 mg/dL (<10); Sodium 142 mmol/L (136-145); Total Protein 7.6 g/dL (5.7-8.2)
[2024-03-11 17:53] LABS: Alanine Aminotransferase < 9 U/L (7-40); Blood Urea Nitrogen 26 mg/dL (9-23); Calcium 10.5 mg/dL (8.7-10.4); Carbon Dioxide 18 mmol/L (20-31); Chloride 109 mmol/L (98-107); Glucose 162 mg/dL (74-106); Potassium 5.3 mmol/L (3.5-5.1)
[2024-03-11 18:06] LABS: Lipase 52 U/L (12-53)
[2024-03-11] MEDS: HALOPERIDOL LACTATE 5 MG/ML INJ VIAL IM ONE ×2 (18:09→22:41)
--- NOTE | 2024-03-11 19:06 | DVH ---
CHEST RADIOGRAPH Indication: cp Technique: Single frontal view of the chest was obtained COMPARISON: XY CHEST PORTABLE on DOS: 02/15/24, XY CHEST PORTABLE on DOS: 01/26/24, XY CHEST PORTABLE on DOS: 02/01/23, CHEST XRAY 1 VIEW on DOS: 02/23/22, CXR1 on DOS: 02/23/22 FINDINGS: Lines and Tubes: None Lungs: Clear Pleura: No effusion. No pneumothorax. Cardiomediastinal contours: Unremarkable Bones: Unremarkable IMPRESSION: 1. No acute disease.
--- NOTE | 2024-03-11 19:11 | DVH ---
EXAM: CT HEAD WITHOUT CONTRAST HISTORY: aloc COMPARISON: CT HEAD WITHOUT CONTRAST on DOS: 02/15/24, CT HEAD WITHOUT CONTRAST on DOS: 01/26/24, HEA D WITHOUT CONTRAST on DOS: 02/13/22 TECHNIQUE: Axial images were obtained and reformatted in coronal and sagittal planes. All CT scans at this medical facility are performed using dose modulation techniques as appropriate t o a performed exam including the following: Automated exposure control was utilized; adjustment of th e MA and/or KV according to patient size; and use of iterative reconstruction technique. CT Dose: CTDI volume is 55.48 mGy. Dose-length product is 1093.39 mGy*cm FINDINGS: Supratentorial Region: No evidence for large acute territorial ischemia. No intracranial hemorrhage is noted. Posterior Fossa: No acute abnormality. Brainstem: Unremarkable. Sellar/Suprasellar Region: Unremarkable. Ventricles, Cisterns, Sulci: Age-appropriate. Orbits: Unremarkable. Paranasal Sinuses: Unremarkable. Mastoid Air Cells: Unremarkable. Vasculature: Unremarkable. Bones/Soft Tissues: No acute abnormality. Other: None. IMPRESSION: 1. No acute intracranial process.
[2024-03-11 20:30] VITALS: O2SAT 99
[2024-03-11] MEDS ORDERED: hydrALAZINE HCL 20 MG/ML VL IV ONE (20:30)
[2024-03-11] MEDS: LABETALOL HCL 20 MG/4 ML VL IV ONE (20:41)
[2024-03-11 21:09] LABS: Urine Bacteria None Seen /hpf (None Seen)
[2024-03-11 21:22] LABS: Urine Blood TRACE /uL (Negative); Urine Clarity Clear (Clear); Urine Color Colorless (Yellow); Urine Hyaline Cast FEW /lpf (0 - 2); Urine Protein, UAD 1+ (Negative); Urine Specific Gravity 1.011 (1.001-1.035); Urine Squamous Epithelial Cell None Seen /hpf (<5); Urine Urobilinogen Normal (Negative); Urine WBC 1 /hpf (0 - 5); Urine pH 8.5 (5.0-9.0)
[2024-03-11 21:52] LABS: Opiate Scree,Urine Neg (NEGATIVE)
[2024-03-11 22:04] LABS: Amphetamine Screen, Urine Neg (NEGATIVE); Barbiturate Scree,Urine Neg (NEGATIVE); Benzodiazephine Screen, Urine Neg (NEGATIVE); Cannabinoid Screen, Urine Neg (NEGATIVE); Cocaine Screen, Urine Neg (NEGATIVE); Phencyclidine Screen, Urine Neg (NEGATIVE)
--- NOTE | 2024-03-11 23:49 | ECG ---
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 : 1960 Requested By: AMI ALCALA Order Number: [id number] Reading MD: Jeremy Moore Measurements Intervals [place] Rate: 126 P: 75 PA: 143 QRS: -47 QRSD: 102 T: 66 QT: 335 QTc: 486 Interpretive Statements Sinus tachycardia Atrial premature complexes LAD, consider left anterior fascicular block Abnormal R-wave progression, early transition Left ventricular hypertrophy ST depression, consider ischemia, lateral lds ST elevation, consider inferior injury Artifact in lead(s) I,II,aVR Electronically Signed On 03-17-2024 15:11:50 PST by Jeremy Moore Please click the below link to view image of tracing.
[2024-03-12] MEDS: LABETALOL HCL 20 MG/4 ML VL IV ONE ×3 (00:37→20:33)
[2024-03-12 01:13] LABS: Base Excess -1.8 mmol/L (-2.0-3.0)
[2024-03-12] MEDS: LORazepam 2MG/ML-1ML VIAL IV ONE (01:14)
[2024-03-12] MEDS: SODIUM ZIRCONIUM CYCL 10 GM PAK PO ONE (01:15)
[2024-03-12] MEDS ORDERED: LORazepam 2MG/ML-1ML VIAL IV ONE (01:15)
[2024-03-12] MEDS ORDERED: NITROGLYCERIN 0.4 MG SL TAB SL PRN (01:15)
--- NOTE | 2024-03-12 01:47 | DVH ---
Exam: CT CT AB PEL WO CON-NO ORAL OR IV History: abd pain Comparison Study: CT CT AB PEL WO CON-NO ORAL OR IV on DOS: 01/26/24, CT CT AB PEL WO CON-NO ORAL OR IV on DOS: 10/20/22, CT ABD PELVIS WO CONTRAST on DOS: 02/23/22, MBHL on DOS: 02/14/22, ECIDC on DOS: 02/13/22 Technique: Multidetector spiral CT of the abdomen was performed from lung bases to pubic symphysis. Imaging was performed without IV contrast. Axial, coronal and sagittal multiplanar reformats were ob tained from the axial data set by the technologist. Radiation Dose : 1. Abdomen/Pelvis: CTDIvol 14 mGy, DLP 722 mGy*cm. Findings: Evaluation of solid organs is limited due to lack of intravenous contrast use. Lung Bases: No acute or significant lung base finding. Normal heart size. No pleural or pericardial effusion. Liver: The liver is normal in size. No focal lesions. Gallbladder and Biliary Tree: Status post cholecystectomy. Spleen: Unremarkable Pancreas: The pancreas is grossly normal in appearance. Adrenal Glands: Unremarkable Kidneys: Kidneys are grossly normal without calculi or hydronephrosis. Atrophic bilateral kidneys Bladder: Collapsed surrounding Chávez catheter Bowel: Moderate hiatal hernia. Concentric wall thickening throughout the colon which may reflect mild infectious or inflammatory colitis. The appendix is not visualized; however, no secondary findings o f acute appendicitis identified. Ascites: Absent Lymphadenopathy: No mesenteric, retroperitoneal or periportal lymphadenopathy. Abdominal Wall and Mesentery: Unremarkable. Vasculature: The visualized abdominal aorta is normal in size and caliber. Evaluation of abdominal a nd pelvic vessels is limited due to lack of intravenous contrast. Pelvic Organs: Unremarkable Musculoskeletal: No aggressive focal bony lesions, acute fractures or dislocation. IMPRESSION: 1. Mild wall thickening throughout the colon may reflect mild infectious / inflammatory colitis. 2. Moderate hiatal hernia Radiation optimization: All CT scans at this facility use at least one of these dose optimization martha hniques: automated exposure control mA and/or kV adjustment per patient size (includes targeted exam s where dose is matched to clinical indication) or iterative reconstruction.
[2024-03-12] MEDS ORDERED: ACETAMINOPHEN IV 1000 MG/100ML (10MG/ML) IV PRN (02:00)
--- NOTE | 2024-03-12 02:04 | DVHHP2 ---
History of Present Illness Reason for Visit: Altered mental status History of Present Illness 63-year-old female presents for evaluation of altered mental status. Per the patient's caregiver patient was noted to be progressively more confused over the past two days. Patient is not answering questions at the moment. Past Medical History Hypertension, congestive heart failure, liver disease Past Surgical History Cholecystectomy, hernia repair and Family History Noncontributory Smoke: No ALCOHOL: none Drugs: None Lives: with Family Review of Systems Review of Systems Review of systems are currently negative otherwise addressed HPI. Allergies: Coded Allergies: Lisinopril (Verified Allergy, Unknown, 02/13/22) Medications Current Medications Medications Dose Ordered Sig/Srikanth Route Start Time Stop Time Status Last Admin Dose Admin Tacrolimus 2 mg BID PO 03/12/24 10:00 Metoprolol Tartrate 25 mg BID PO 03/12/24 10:00 Ondansetron HCl 4 mg Q4HP PRN IV 03/12/24 01:15 Nitroglycerin 0.4 mg Q5MINP PRN SL 03/12/24 01:15 Morphine Sulfate 2 mg Q30M PRN IV 03/12/24 01:15 Exam Vital Signs Vital Signs Date Time Temp Pulse Resp B/P (MAP) Pulse Ox O2 Delivery O2 Flow Rate FiO2 03/12/24 00:37 135 180/75 03/12/24 00:00 34 100 03/11/24 20:30 Room Air* 0 21 03/11/24 20:00 98.7 98.7 Exam Gen: 63-year-old female in mild distress Skin: Warm, dry, normal color and texture, no rash. HEENT: Normocephalic atraumatic, mucous membranes moist and pink. Neck: Cervical and supraclavicular nodes normal without enlargement, trachea is midline, thyroid gland is normal without masses. Pulmonary: Clear to auscultation and percussion bilaterally. Cardiac: Regular rate and rhythm. No murmur Abdomen: Soft, diffuse pseudo the, nondistended, bowel sounds present all 4 quadrants, no guarding, no rigidity, no organomegaly. Extremities: No cyanosis, clubbing, no edema Neuro: Lethargic Labs/Xrays ORDERING PHYSICIAN: AMI ALCALA PROCEDURE(s): HWOCT - HEAD WITHOUT CONTRAST REASON: aloc ORDER NUMBER(s): [id number], ACCESSION NUMBER(s): [id number] EXAM: CT HEAD WITHOUT CONTRAST HISTORY: aloc COMPARISON: CT HEAD WITHOUT CONTRAST on DOS: 02/15/24, CT HEAD WITHOUT CONTRAST on DOS: 01/26/24, HEAD WITHOUT CONTRAST on DOS: 02/13/22 TECHNIQUE: Axial images were obtained and reformatted in coronal and sagittal planes. All CT scans at this medical facility are performed using dose modulation techniques as appropriate to a performed exam including the following: Automated exposure control was utilized; adjustment of the MA and/or KV according to patient size; and use of iterative reconstruction technique. CT Dose: CTDI volume is 55.48 mGy. Dose-length product is 1093.39 mGy*cm FINDINGS: Supratentorial Region: No evidence for large acute territorial ischemia. No intracranial hemorrhage is noted. Posterior Fossa: No acute abnormality. Brainstem: Unremarkable. Sellar/Suprasellar Region: Unremarkable. Ventricles, Cisterns, Sulci: Age-appropriate. Orbits: Unremarkable. Paranasal Sinuses: Unremarkable. Mastoid Air Cells: Unremarkable. Vasculature: Unremarkable. Bones/Soft Tissues: No acute abnormality. Other: None. IMPRESSION: 1. No acute intracranial process. RING PHYSICIAN: AMI ALCALA PROCEDURE(s): HWOCT - HEAD WITHOUT CONTRAST REASON: aloc ORDER NUMBER(s): [id number], ACCESSION NUMBER(s): [id number] EXAM: CT HEAD WITHOUT CONTRAST HISTORY: aloc COMPARISON: CT HEAD WITHOUT CONTRAST on DOS: 02/15/24, CT HEAD WITHOUT CONTRAST on DOS: 01/26/24, HEAD WITHOUT CONTRAST on DOS: 02/13/22 TECHNIQUE: Axial images were obtained and reformatted in coronal and sagittal planes. All CT scans at this medical facility are performed using dose modulation techniques as appropriate to a performed exam including the following: Automated exposure control was utilized; adjustment of the MA and/or KV according to patient size; and use of iterative reconstruction technique. CT Dose: CTDI volume is 55.48 mGy. Dose-length product is 1093.39 mGy*cm FINDINGS: Supratentorial Region: No evidence for large acute territorial ischemia. No intracranial hemorrhage is noted. Posterior Fossa: No acute abnormality. Brainstem: Unremarkable. Sellar/Suprasellar Region: Unremarkable. Ventricles, Cisterns, Sulci: Age-appropriate. Orbits: Unremarkable. Paranasal Sinuses: Unremarkable. Mastoid Air Cells: Unremarkable. Vasculature: Unremarkable. Bones/Soft Tissues: No acute abnormality. Other: None. IMPRESSION: 1. No acute intracranial process. RING PHYSICIAN: AMI ALCALA PROCEDURE(s): ABPL - CT AB PEL WO CON-NO ORAL OR IV REASON: abd pain ORDER NUMBER(s): [id number], ACCESSION NUMBER(s): [id number] Exam: CT CT AB PEL WO CON-NO ORAL OR IV History: abd pain Comparison Study: CT CT AB PEL WO CON-NO ORAL OR IV on DOS: 01/26/24, CT CT AB PEL WO CON-NO ORAL OR IV on DOS: 10/20/22, CT ABD PELVIS WO CONTRAST on DOS: 02/23/22, MBHL on DOS: 02/14/22, ECIDC on DOS: 02/13/22 Technique: Multidetector spiral CT of the abdomen was performed from lung bases to pubic symphysis. Imaging was performed without IV contrast. Axial, coronal and sagittal multiplanar reformats were obtained from the axial data set by the technologist. Radiation Dose : 1. Abdomen/Pelvis: CTDIvol 14 mGy, DLP 722 mGy*cm. Findings: Evaluation of solid organs is limited due to lack of intravenous contrast use. Lung Bases: No acute or significant lung base finding. Normal heart size. No pleural or pericardial effusion. Liver: The liver is normal in size. No focal lesions. Gallbladder and Biliary Tree: Status post cholecystectomy. Spleen: Unremarkable Pancreas: The pancreas is grossly normal in appearance. Adrenal Glands: Unremarkable Kidneys: Kidneys are grossly normal without calculi or hydronephrosis. Atrophic bilateral kidneys Bladder: Collapsed surrounding Chávez catheter Bowel: Moderate hiatal hernia. Concentric wall thickening throughout the colon which may reflect mild infectious or inflammatory colitis. The appendix is not visualized; however, no secondary findings of acute appendicitis identified. Ascites: Absent Lymphadenopathy: No mesenteric, retroperitoneal or periportal lymphadenopathy. Abdominal Wall and Mesentery: Unremarkable. Vasculature: The visualized abdominal aorta is normal in size and caliber. Evaluation of abdominal and pelvic vessels is limited due to lack of intravenous contrast. Pelvic Organs: Unremarkable Musculoskeletal: No aggressive focal bony lesions, acute fractures or dislocation. IMPRESSION: 1. Mild wall thickening throughout the colon may reflect mild infectious / inflammatory colitis. 2. Moderate hiatal hernia Radiation optimization: All CT scans at this facility use at least one of these dose optimization techniques: automated exposure control mA and/or kV adjustment per patient size (includes targeted exams where dose is matched to clinical indication) or iterative reconstruction. Labs Test 03/12/24 01:04 03/11/24 20:21 03/11/24 17:12 Range/Units Blood Gas Specimen Type Arterial Blood Gas Sample Site Left radial Blood Gas Patient Temperature 37.0 Arterial Blood Date Drawn [id number] Arterial Blood pH 7.694 *H 7.350-7.450 Arterial Blood Partial Pressure CO2 12.9 *L 32.0-45.0 mmHg Arterial Blood Partial Pressure O2 104.8 83.0-108.0 mmHg Arterial Blood HCO3 15.4 L 21.0-28.0 mmol/L Arterial Blood Oxygen Saturation 98.6 H 94.0-98.0 % Arterial Blood Base Excess -1.8 -2.0-3.0 mmol/L Arterial Blood Oxyhemoglobin 98.1 H 94.0-98.0 % Arterial Blood Carboxyhemoglobin 0.1 L 0.5-1.5 % Arterial Blood Methemoglobin 0.4 0.0-1.5 % Tulio Test Modified Blood Gas Total Hemoglobin 11.80 L 12.0-16.0 g/dL Blood Gas Liter Flow 0.00 Blood Gas Modality Room air Blood Gas Spontaneous Rate 48 FiO2 % 21.0 Specimen Drawn By Ashlyn armendariz rt Blood Gas Critical Value Read Back Yes Blood Gas Notified Whom juan pablo Alcala np Blood Gas Notified Time [id number] Blood Gas Notified By Ashlyn armendariz rt Urine Color Colorless Yellow Urine Clarity Clear Clear Urine pH 8.5 5.0-9.0 Urine Specific Equality 1.011 1.001-1.035 Urine Protein 1+ H Negative Urine Ketones 1+ H Negative Urine Blood Trace H Negative /uL Urine Nitrite Negative Negative Urine Bilirubin Negative Negative Urine Urobilinogen Normal Negative mg/dL Urine Leukocyte Esterase Negative Negative /uL Urine RBC 1 0 - 4 /hpf Urine WBC 1 0 - 5 /hpf Urine Squamous Epithelial Cells None seen <5 /hpf Urine Bacteria None seen None Seen /hpf Urine Hyaline Casts Few 0 - 2 /lpf Urine Glucose 1+ H Normal mg/dL Urine Opiates Screen Neg NEGATIVE Urine Fentanyl Screen Neg NEGATIVE Urine Barbiturates Screen Neg NEGATIVE Urine Phencyclidine Screen Neg NEGATIVE Urine Amphetamines Screen Neg NEGATIVE Urine Benzodiazepines Screen Neg NEGATIVE Urine Cocaine Screen Neg NEGATIVE Urine Cannabinoids Screen Neg NEGATIVE White Blood Count 9.1 4.4-10.8 10^3/uL Red Blood Count 3.75 L 4.0-5.20 10^6/uL Hemoglobin 11.2 L 12.2-16.2 g/dL Hematocrit 33.6 L 36.0-46.0 % Mean Corpuscular Volume 89.7 80.0-100.0 fL Mean Corpuscular Hemoglobin 29.8 28.0-32.0 pg Mean Corpuscular Hemoglobin Concent 33.2 32.0-36.0 g/dL Red Cell Distribution Width 16.1 H 11.8-14.3 % Platelet Count 278 140-450 10^3/uL Mean Platelet Volume 8.4 6.9-10.8 fL Neutrophils (%) (Auto) 85.7 H 37.0-80.0 % Lymphocytes (%) (Auto) 10.2 10.0-50.0 % Monocytes (%) (Auto) 3.6 0.0-12.0 % Eosinophils (%) (Auto) 0.0 0.0-7.0 % Basophils (%) (Auto) 0.5 0.0-2.0 % Neutrophils # (Auto) 7.8 1.6-8.6 10 ^3/uL Lymphocytes # (Auto) 0.9 0.4-5.4 10 ^3/uL Monocytes # (Auto) 0.3 0-1.3 10 ^3/uL Eosinophils # (Auto) 0 0-0.8 10 ^3/uL Basophils # (Auto) 0 0-0.2 10 ^3/uL Nucleated Red Blood Cells 0.3 % Sodium Level 142 136-145 mmol/L Potassium Level 5.3 H 3.5-5.1 mmol/L Chloride Level 109 H 98-107 mmol/L Carbon Dioxide Level 18 L 20-31 mmol/L Anion Gap 15 5-15 Blood Urea Nitrogen 26 H 9-23 mg/dL Creatinine 2.61 H 0.550-1.02 mg/dL Glomerular Filtration Rate Calc 20 >90 mL/min BUN/Creatinine Ratio 10.0 10.0-20.0 Serum Glucose 162 H 74-106 mg/dL Calcium Level 10.5 H 8.7-10.4 mg/dL Total Bilirubin 1.0 0.2-1.0 mg/dL Aspartate Amino Transferase (AST) 25 13-40 U/L Alanine Aminotransferase (ALT) < 9 7-40 U/L Alkaline Phosphatase 98 46-116 U/L Ammonia < 10 L 11-32 umol/L B-Type Natriuretic Peptide 278.76 0-100 pg/mL Total Protein 7.6 5.7-8.2 g/dL Albumin 4.6 3.2-4.8 g/dL Lipase 52 12-53 U/L Plasma/Serum Blood Alcohol 3.5 <10 mg/dL Assessment/Plan Assessment/Plan Assessment Acute encephalitis Chronic kidney disease, status post kidney transplant 2017 Colitis Accelerated hypertension ? Prograf toxicity Plan Admit the patient to telemetry to the hospitalist Jannette/Alicia Nephrology consultation Prograf level pending Continue treatment per orders. Plan discussed with: Other My Orders Orders - [facility] Procedure Category Date Status Time Lactic Acid W/ Reflex LAB 03/12/24 Logged Order 00:48 D-Dimer LAB 03/12/24 Logged 01:08 Tacrolimus (Prograf) PHA 03/12/24 In Process 10:00 Tacrolimus ([id number]) LAB 03/12/24 Logged 01:08 Metoprolol Tartrate PHA 03/12/24 In Process Tablet (Lopressor Ta 10:00 Admit ADMIT 03/12/24 Transmitted 01:08 Ondansetron Hcl PHA 03/12/24 In Process (Zofran) 01:15 Complete Blood Count LAB 03/12/24 Logged 01:08 Comprehensive LAB 03/12/24 Logged Metabolic Panel 01:08 Cardiac DIET 03/12/24 Transmitted Diet-2gna,Lofat,Lochol Breakfast Condition: Fair DONN 03/12/24 In Process 01:08 Bedrest With Bathroom DONN 03/12/24 In Process Privileg 01:08 Nitroglycerin PHA 03/12/24 In Process Sublingual (Ntrostat 01:15 Morphine Sulfate PHA 03/12/24 In Process Injection 01:15 Stat Ekg For Chest [facility] 03/12/24 In Process Pain 01:08 Notify Of Changes [facility] 03/12/24 In Process From Base 01:08 Repairer [employer] For [facility] 03/12/24 In Process 24 Hours 01:08 Emergency Dysrhythmia [facility] 03/12/24 In Process Protocol 01:08 Rhythm Strips Once [facility] 03/12/24 In Process Every Shift 01:08 Oxygen By Nasal RT 03/12/24 Transmitted Cannula 01:08 Date of Service: Mar 12, 2024 Billing Provider: ZACK GARDNER Common Visit Codes: [id number] INP/OBS CARE (HIGH) [facility] Mar 12, 2024 02:04
[2024-03-12 02:50] LABS: Basophils # (auto) 0 10 ^3/uL (0-0.2); Basophils % (auto) 0.2 % (0.0-2.0); Eosinophils # (auto) 0 10 ^3/uL (0-0.8); Hematocrit 33.8 % (36.0-46.0); Hemoglobin 11.2 g/dL (12.2-16.2); Lymphocytes # (auto) 1.7 10 ^3/uL (0.4-5.4); Lymphocytes % (auto) 15.6 % (10.0-50.0); Mean Corpuscular Hemoglobin 29.4 pg (28.0-32.0); Mean Corpuscular Hgb Conc. 33.2 g/dL (32.0-36.0); Mean Corpuscular Volume 88.6 fL (80.0-100.0); Monocytes # (auto) 0.7 10 ^3/uL (0-1.3); Monocytes % (auto) 6.4 % (0.0-12.0); Neutrophils # (auto) 8.3 10 ^3/uL (1.6-8.6); Neutrophils % (auto) 77.8 % (37.0-80.0); Nucleated Red Blood Cells % 0.1 %; Platelet Count (auto) 246 10^3/uL (140-450); Red Blood Cells 3.81 10^6/uL (4.0-5.20); Red Cell Distribution Width 16.4 % (11.8-14.3); White Blood Cell 10.6 10^3/uL (4.4-10.8)
[2024-03-12] MEDS: SODIUM CHLORIDE 0.9% 1,000 ML IV ONE (03:45)
[2024-03-12] MEDS: SODIUM CHLORIDE 0.9% 500 ML IV ONE (03:45)
[2024-03-12] MEDS: cefTRIAXone 1GM/50ML D5W 50 ML IV SCH (03:45)
[2024-03-12] MEDS: ACETAMINOPHEN IV 1000 MG/100ML (10MG/ML) IV ONE ×2 (04:00→08:43)
[2024-03-12 04:16] LABS: Albumin 4.7 g/dL (3.2-4.8); Alkaline Phosphatase 94 U/L (46-116); Anion Gap 16 (5-15); Aspartate Aminotransferase 21 U/L (13-40); BUN/Creatinine Ratio 12.4 (10.0-20.0); Bilirubin, Total 1.2 mg/dL (0.2-1.0); Sodium 144 mmol/L (136-145); Total Protein 7.7 g/dL (5.7-8.2)
[2024-03-12 04:18] LABS: Alanine Aminotransferase < 9 U/L (7-40); Blood Urea Nitrogen 32 mg/dL (9-23); Calcium 10.6 mg/dL (8.7-10.4); Carbon Dioxide 17 mmol/L (20-31); Chloride 111 mmol/L (98-107); Glucose 154 mg/dL (74-106); Potassium 5.4 mmol/L (3.5-5.1)
[2024-03-12] MEDS: metroNIDAZOLE 500MG/100ML 100 ML IV SCH (06:54)
[2024-03-12 08:00] VITALS: RESP 29; O2SAT 95
[2024-03-12] MEDS: METOPROLOL TARTRATE 25 MG TAB PO SCH (10:00)
[2024-03-12] MEDS: TACROLIMUS 1 MG CAP PO SCH (10:00)
--- NOTE | 2024-03-12 14:30 | DVHPN2 ---
Subjective Patient with altered mental status Reviewed: Care Plan, H&P, Labs, Medications, Previous Orders Changes from previous H/P or p: No Changes General: Per HPI Objective Vitals Vital Signs Date Time Temp Pulse Resp B/P (MAP) Pulse Ox O2 Delivery O2 Flow Rate FiO2 03/12/24 13:00 123 26 177/112 (133) 98 03/12/24 09:47 99.1 99.1 03/12/24 08:00 Room Air* 0 21 Intake/Output Intake and Output 03/12/24 07:00 Intake Total 350 ml Balance 350 ml Intake IV Total 350 ml General Appearance: Alert, Oriented X3, Cooperative, No acute distress, mild distress HEENT: Atraumatic, PERRLA Lungs: Clear to auscultation, Normal air movement Cardiovascular: Normal S1, Normal S2 Abdomen: Normal bowel sounds, Soft, No tenderness Musculoskeletal: Normal sensory function, Normal motor function Extremities: No clubbing, No cyanosis, No edema, Normal pulses Neuro: Normal gait, Normal speech Psych/Mental Status: Mental status NL, Mood NL Medications Current Medications Medications Dose Ordered Sig/Srikanth Route Start Time Stop Time Status Last Admin Dose Admin Tacrolimus 2 mg BID PO 03/12/24 10:00 Metoprolol Tartrate 25 mg BID PO 03/12/24 10:00 Ondansetron HCl 4 mg Q4HP PRN IV 03/12/24 01:15 Nitroglycerin 0.4 mg Q5MINP PRN SL 03/12/24 01:15 Morphine Sulfate 2 mg Q30M PRN IV 03/12/24 01:15 Ceftriaxone Sodium 50 ml @ 100 mls/hr DAILY@09 IV 03/12/24 02:00 03/12/24 09:06 100 MLS/HR Metronidazole 100 ml @ 100 mls/hr Q8HR IV 03/12/24 06:00 03/12/24 06:54 100 MLS/HR Laboratory Results Laboratory Tests 03/12/24 02:30 Chemistry Test 03/11/24 17:12 03/12/24 02:30 Albumin 4.6 g/dL (3.2-4.8) 4.7 g/dL (3.2-4.8) Calcium Level 10.5 mg/dL (8.7-10.4) H 10.6 mg/dL (8.7-10.4) H Total Protein 7.6 g/dL (5.7-8.2) 7.7 g/dL (5.7-8.2) Coagulation Test 03/12/24 02:53 D-Dimer, Quantitative 3.22 mg/L FEU (0.0-0.49) H Lipid panel Test 03/11/24 17:12 Lipase 52 U/L (12-53) Cardiac Markers Test 03/11/24 17:12 B-Type Natriuretic Peptide 278.76 pg/mL (0-100) LFT Test 03/11/24 17:12 03/12/24 02:30 Alanine Aminotransferase (ALT) < 9 U/L (7-40) < 9 U/L (7-40) Alkaline Phosphatase 98 U/L (46-116) 94 U/L (46-116) Aspartate Amino Transferase (AST) 25 U/L (13-40) 21 U/L (13-40) Total Bilirubin 1.0 mg/dL (0.2-1.0) 1.2 mg/dL (0.2-1.0) H Urinalysis Test 03/11/24 20:21 Urine Color Colorless (Yellow) Urine Clarity Clear (Clear) Urine pH 8.5 (5.0-9.0) Urine Specific [place] 1.011 (1.001-1.035) Urine Protein 1+ (Negative) H Urine Ketones 1+ (Negative) H Urine Blood Trace /uL (Negative) H Urine Nitrite Negative (Negative) Urine Bilirubin Negative (Negative) Urine Urobilinogen Normal mg/dL (Negative) Urine Leukocyte Esterase Negative /uL (Negative) Urine RBC 1 /hpf (0 - 4) Urine WBC 1 /hpf (0 - 5) Urine Squamous Epithelial Cells None seen /hpf (<5) Urine Bacteria None seen /hpf (None Seen) Urine Hyaline Casts Few /lpf (0 - 2) Urine Glucose 1+ mg/dL (Normal) H Blood Gas Results Test 03/12/24 01:04 Arterial Blood pH 7.694 (7.350-7.450) FiO2 % 21.0 Labs and/or images reviewed: Labs reviewed by me, Image(s) reviewed by me Assessment/Plan Assessment/Plan Impression: -metabolic encephalopathy -acute respiratory alkalosis -history of renal transplant. 3rd kidney noticed on CT scan -chronic kidney disease stage 4 and -recent UTI -accelerated hypertension -rule out colitis Plan: -nephrology consultation -neurology consultation -continue tacrolimus if patient will tolerate p.o. meds -IV fluids: 0.45 normal saline at 75 mL/hour -repeat ABG in BMP -continue antibiotic therapy for questionable colitis, Flagyl, Rocephin -repeat labs in a.m. Total time spent with patient discussing and formulating plan of care: 35 minutes. This medical document was created using an electronic medical record system with [employer] dictation system. Although this document has been carefully reviewed, there may still be some phonetic and typographical errors. These areas are purely typographical due to imperfections of the software programs, and do not reflect any compromise in the patient's medical care. Plan discussed with: Patient, Other (RN) My Orders Orders - KRZYSZTOF CHAVEZ NP Procedure Category Date Status Time Abg W/ Co-Ox RT 03/12/24 Transmitted 14:13 Metoprolol Inj PHA 03/12/24 Transmitted (Lopressor) 18:00 * Neurology Consult CONS 03/12/24 Transmitted 14:13 *Dr. [facility] CONS 03/12/24 Transmitted -[place] 14:13 12 Ns PHA 03/12/24 Transmitted 14:15 Basic Metabolic Panel LAB 03/12/24 Transmitted 14:13 Basic Metabolic Panel LAB 03/13/24 Verified 04:00 Erythrocyte LAB 03/12/24 Transmitted Sedimentation Rate 14:13 C-Reactive Protein LAB 03/12/24 Transmitted 14:13 Date of Service: Mar 12, 2024 Billing Provider: KRZYSZTOF CHAVEZ NP Common Visit Codes: [id number] CARE 30-74 MIN KRZYSZTOF CHAVEZ NP Mar 12, 2024 14:30
[2024-03-12 15:29] LABS: Potassium 4.5 mmol/L (3.5-5.1); Sodium 142 mmol/L (136-145)
[2024-03-12 15:30] LABS: Anion Gap 10 (5-15)
[2024-03-12] MEDS: SOD CHL 0.45% 1,000 ML IV SCH (15:30)
[2024-03-12 15:31] LABS: Calcium 9.7 mg/dL (8.7-10.4)
[2024-03-12 15:35] LABS: BUN/Creatinine Ratio 8.2 (10.0-20.0)
[2024-03-12 15:45] LABS: Blood Urea Nitrogen 23 mg/dL (9-23); Carbon Dioxide 18 mmol/L (20-31); Chloride 114 mmol/L (98-107); Glucose 110 mg/dL (74-106)
[2024-03-12 16:30] LABS: Erythrocyte Sedimentation Rate 23 mm/hr (0-20)
[2024-03-12 17:11] LABS: CRP High Sensitivity 0.91 mg/dL (<1.0)
[2024-03-12] MEDS: METOPROLOL TARTRATE 1MG/1ML-5ML VIAL IV SCH (17:32)
[2024-03-12] MEDS: MORPHINE SULFATE INJ 2 MG/ml SYRG IV PRN (19:56)
[2024-03-12] MEDS: ONDANSETRON HCL 4 MG/2 ML VIAL IV PRN (19:57)
[2024-03-13 06:55] LABS: Potassium 4.4 mmol/L (3.5-5.1); Sodium 142 mmol/L (136-145)
[2024-03-13 06:56] LABS: Anion Gap 12 (5-15); Calcium 9.4 mg/dL (8.7-10.4)
[2024-03-13 07:00] LABS: Carbon Dioxide 18 mmol/L (20-31); Chloride 112 mmol/L (98-107)
[2024-03-13 07:01] LABS: BUN/Creatinine Ratio 9.8 (10.0-20.0); Blood Urea Nitrogen 24 mg/dL (9-23); Glucose 93 mg/dL (74-106)
[2024-03-13 08:00] VITALS: PULSE 107; RESP 25; O2SAT 97
--- NOTE | 2024-03-13 15:11 | DVHINCON2 ---
Date of service: Mar 13, 2024 Reason for Consultation Acute kidney injury History of Present Illness 63-year-old female past medical history of renal transplant presents to the hospital with altered mental status. Nephrology consulted due to elevated creatinine Allergies: Coded Allergies: Lisinopril (Verified Allergy, Unknown, 02/13/22) Home Meds Active Scripts Ciprofloxacin Hcl (Cipro) 500 Mg Tab, 1 TAB PO BID, #14 TAB Prov:DINA HOLLIDAY MD 02/19/24 Levofloxacin Hemihydrate (LEVAQUIN 500 MG) 500 Mg Tab, 1 TAB PO DAILY, #10 TAB Prov:DINA HOLLIDAY MD 01/29/24 Amlodipine Besylate (NORVASC TABLET) 5 Mg Tb, 5 MG PO DAILY for 30 Days, #30 TAB 11 Refills Prov:LYNNETTE DALTON DO 10/23/22 Omeprazole Magnesium (Omeprazole) 20 Mg Tab, 20 MG PO BID for 30 Days, #60 TAB Prov:BLANCA BELLO MD 02/18/22 Levofloxacin (Levaquin) 500 Mg Tab, 500 MG PO EOD for 7 Days, #7 TAB Prov:BLANCA BELLO MD 02/18/22 Sucralfate (CARAFATE) 1 Gm Tab, 1 GM PO QID for 30 Days, #120 TAB Prov:BLANCA BELLO MD 02/18/22 Reported Medications Tacrolimus (ASTAGRAF XL) 1 Mg Cap, 3 MG PO Q12HR, CAP 01/27/24 Lansoprazole (Lansoprazole) 30 Mg Cap, 1 CAP PO DAILY, #30 CAP 5 Refills 01/27/24 Pregabalin (Lyrica) 50 Mg Cap, 50 MG PO DAILY, CAP 09/27/20 Trazodone Hcl (Trazodone Hcl) 50 Mg Tab, 50 MG PO HS, MG 09/27/20 Cyanocobalamin (B-12) 1,000 Mcg Cap, 1000 MCG PO, CAP 09/27/20 Tizanidine Hydrochloride (TIZANIDINE HCL) 2 Mg Cap, 2.5 MG PO, CAP 09/27/20 Magnesium Oxide (MAGNESIUM OXIDE) 400 Mg Tab, 1 TAB PO BID, #60 TAB 5 Refills 09/27/20 Tizanidine Hydrochloride (Zanaflex) 4 Mg Tab, 0.5 TAB PO HS, #60 TAB 09/27/20 Metoprolol Tartrate (Metoprolol Tartrate) 25 Mg Tab, 1 TAB PO BID, #180 TAB 1 Refill 09/04/18 Raloxifene Hydrochloride (EVISTA TABLET) 60 Mg Tb, 1 TAB PO DAILY, #30 TAB 11 Refills 09/04/18 Prednisone (PREDNISONE) 5 Mg Tb, 5 MG PO DAILY 09/02/18 Azathioprine (Imuran) 50 Mg Tab, 3 TAB PO BEDTIME, #180 TAB 3 Refills 09/02/18 Fish Oil (Fish Oil) 500 Mg Cap, 500 MG PO BID, CAP 09/02/18 Omeprazole (Gnp Omeprazole) 20 Mg Tab, 1 CAP PO BID, #90 TAB 1 Refill 09/02/18 Docusate Sodium (Docusate Sodium) 250 Mg Cap, 250 MG PO QHS, CAP 09/02/18 Cholecalciferol (VITAMIN D3) 2,000 Unit Chw, 2000 UNIT PO DAILY, CHW 09/02/18 Loratadine (Claritin) 10 Mg Tab, 1 TAB PO DAILY, #30 TAB 5 Refills 09/02/18 Aspirin (Aspirin Low Dose) 81 Mg Chw, 1 TAB PO DAILY, #30 TAB 3 Refills 09/02/18 Cyclobenzaprine Hcl (Cyclobenzaprine Hcl) 5 Mg Tab, 2 TAB PO QPM PRN for prn, #30 TAB 09/02/18 Hydrocodone-Acetaminophen (Shirley 5/325MG) 1 Tab Tb, 1 TAB PO Q6HP PRN for pain, #90 TAB 09/02/18 Sertraline Hcl (Sertraline Hcl) 50 Mg Tab, 3 TAB PO QPM for depression, #30 TAB 5 Refills 09/02/18 Simvastatin (Simvastatin) 40 Mg Tab, 1 TAB PO QPM, #30 TAB 5 Refills 09/02/18 Current Medications Current Medications Medications (Trade) Dose Ordered Sig/Srikanth Route PRN Reason Start Time Stop Time Status Last Admin Metoprolol Tartrate (Lopressor) 2.5 mg Q6HR IV 03/12/24 18:00 03/13/24 11:30 DC 03/12/24 17:32 Metoprolol Tartrate (Lopressor Tablet) 50 mg BID PO 03/13/24 22:00 Family History: Diabetes mellitus G8 FATHER FH: CHF (congestive heart failure) G8 FATHER G8 SISTER FH: celiac disease FH: dementia G8 MOTHER FH: heart attack G8 FATHER FH: lung cancer G8 FATHER FH: pneumonia G8 SISTER FH: skin cancer G8 MOTHER G8 SISTER Pleural effusion G8 BROTHER Psychiatric disorder G8 SISTER Review of Systems Altered mental status H&P Exam Vital Signs/I&O Vital Sign Date Time Temp Pulse Resp B/P (MAP) Pulse Ox O2 Delivery O2 Flow Rate FiO2 03/13/24 14:00 99.0 93 25 136/77 (96) 98 99.0 03/13/24 08:00 Nasal Cannula* 1 24 Intake and Output 03/12/24 03/13/24 18:59 06:59 Intake Total 1150 ml Output Total 1100 ml Balance 1150 ml -1100 ml Intake IV Total 1150 ml Output Urine Total 1100 ml Physical Exam Thin elderly white female Not in overt distress Mildly confused Abdomen is soft No pitting edema Labs/Diagnostic Data Labs/Diagnostic Data Laboratory Tests Test 03/13/24 06:26 03/12/24 14:48 03/12/24 04:19 03/12/24 02:53 Range/Units Sodium Level 142 142 136-145 mmol/L Potassium Level 4.4 4.5 3.5-5.1 mmol/L Chloride Level 112 H 114 H 98-107 mmol/L Carbon Dioxide Level 18 L 18 L 20-31 mmol/L Anion Gap 12 10 5-15 Blood Urea Nitrogen 24 H 23 9-23 mg/dL Creatinine 2.45 H 2.79 H 0.550-1.02 mg/dL Glomerular Filtration Rate Calc 21 18 >90 mL/min BUN/Creatinine Ratio 9.8 L 8.2 L 10.0-20.0 Serum Glucose 93 110 H 74-106 mg/dL Calcium Level 9.4 9.7 8.7-10.4 mg/dL Erythrocyte Sedimentation Rate 23 H 0-20 mm/hr Blood Gas Specimen Type Arterial Blood Gas Sample Site Right radial Blood Gas Patient Temperature 37.0 Arterial Blood Date Drawn [id number] Arterial Blood pH 7.478 H 7.350-7.450 Arterial Blood Partial Pressure CO2 23.6 L 32.0-45.0 mmHg Arterial Blood Partial Pressure O2 81.1 L 83.0-108.0 mmHg Arterial Blood HCO3 17.1 L 21.0-28.0 mmol/L Arterial Blood Oxygen Saturation 95.5 94.0-98.0 % Arterial Blood Base Excess -5.0 L -2.0-3.0 mmol/L Arterial Blood Oxyhemoglobin 94.9 94.0-98.0 % Arterial Blood Carboxyhemoglobin 0.1 L 0.5-1.5 % Arterial Blood Methemoglobin 0.5 0.0-1.5 % Tulio Test Yes Blood Gas Total Hemoglobin 10.60 L 12.0-16.0 g/dL Blood Gas Modality Room air FiO2 % 21.0 C-Reactive Protein High Sensitivity 0.91 <1.0 mg/dL Lactic Acid Level 1.8 0.4-2.0 mmol/L D-Dimer, Quantitative 3.22 H 0.0-0.49 mg/L FEU Test 03/12/24 02:30 03/12/24 01:04 03/11/24 20:21 03/11/24 17:12 Range/Units White Blood Count 10.6 9.1 4.4-10.8 10^3/uL Red Blood Count 3.81 L 3.75 L 4.0-5.20 10^6/uL Hemoglobin 11.2 L 11.2 L 12.2-16.2 g/dL Hematocrit 33.8 L 33.6 L 36.0-46.0 % Mean Corpuscular Volume 88.6 89.7 80.0-100.0 fL Mean Corpuscular Hemoglobin 29.4 29.8 28.0-32.0 pg Mean Corpuscular Hemoglobin Concent 33.2 33.2 32.0-36.0 g/dL Red Cell Distribution Width 16.4 H 16.1 H 11.8-14.3 % Platelet Count 246 278 140-450 10^3/uL Mean Platelet Volume 8.1 8.4 6.9-10.8 fL Neutrophils (%) (Auto) 77.8 85.7 H 37.0-80.0 % Lymphocytes (%) (Auto) 15.6 10.2 10.0-50.0 % Monocytes (%) (Auto) 6.4 3.6 0.0-12.0 % Eosinophils (%) (Auto) 0.0 0.0 0.0-7.0 % Basophils (%) (Auto) 0.2 0.5 0.0-2.0 % Neutrophils # (Auto) 8.3 7.8 1.6-8.6 10 ^3/uL Lymphocytes # (Auto) 1.7 0.9 0.4-5.4 10 ^3/uL Monocytes # (Auto) 0.7 0.3 0-1.3 10 ^3/uL Eosinophils # (Auto) 0 0 0-0.8 10 ^3/uL Basophils # (Auto) 0 0 0-0.2 10 ^3/uL Nucleated Red Blood Cells 0.1 0.3 % Sodium Level 144 142 136-145 mmol/L Potassium Level 5.4 H 5.3 H 3.5-5.1 mmol/L Chloride Level 111 H 109 H 98-107 mmol/L Carbon Dioxide Level 17 L 18 L 20-31 mmol/L Anion Gap 16 H 15 5-15 Blood Urea Nitrogen 32 H 26 H 9-23 mg/dL Creatinine 2.59 H 2.61 H 0.550-1.02 mg/dL Glomerular Filtration Rate Calc 20 20 >90 mL/min BUN/Creatinine Ratio 12.4 10.0 10.0-20.0 Serum Glucose 154 H 162 H 74-106 mg/dL Calcium Level 10.6 H 10.5 H 8.7-10.4 mg/dL Total Bilirubin 1.2 H 1.0 0.2-1.0 mg/dL Aspartate Amino Transferase (AST) 21 25 13-40 U/L Alanine Aminotransferase (ALT) < 9 < 9 7-40 U/L Alkaline Phosphatase 94 98 46-116 U/L Total Protein 7.7 7.6 5.7-8.2 g/dL Albumin 4.7 4.6 3.2-4.8 g/dL Blood Gas Specimen Type Arterial Blood Gas Sample Site Left radial Blood Gas Patient Temperature 37.0 Arterial Blood Date Drawn [id number] Arterial Blood pH 7.694 *H 7.350-7.450 Arterial Blood Partial Pressure CO2 12.9 *L 32.0-45.0 mmHg Arterial Blood Partial Pressure O2 104.8 83.0-108.0 mmHg Arterial Blood HCO3 15.4 L 21.0-28.0 mmol/L Arterial Blood Oxygen Saturation 98.6 H 94.0-98.0 % Arterial Blood Base Excess -1.8 -2.0-3.0 mmol/L Arterial Blood Oxyhemoglobin 98.1 H 94.0-98.0 % Arterial Blood Carboxyhemoglobin 0.1 L 0.5-1.5 % Arterial Blood Methemoglobin 0.4 0.0-1.5 % Tulio Test Modified Blood Gas Total Hemoglobin 11.80 L 12.0-16.0 g/dL Blood Gas Liter Flow 0.00 Blood Gas Modality Room air Blood Gas Spontaneous Rate 48 FiO2 % 21.0 Specimen Drawn By Ashlyn armendariz rt Blood Gas Critical Value Read Back Yes Blood Gas Notified Whom juan pablo Hunter np Blood Gas Notified Time [id number] Blood Gas Notified By Ashlyn armendariz rt Urine Color Colorless Yellow Urine Clarity Clear Clear Urine pH 8.5 5.0-9.0 Urine Specific [place] 1.011 1.001-1.035 Urine Protein 1+ H Negative Urine Ketones 1+ H Negative Urine Blood Trace H Negative /uL Urine Nitrite Negative Negative Urine Bilirubin Negative Negative Urine Urobilinogen Normal Negative mg/dL Urine Leukocyte Esterase Negative Negative /uL Urine RBC 1 0 - 4 /hpf Urine WBC 1 0 - 5 /hpf Urine Squamous Epithelial Cells None seen <5 /hpf Urine Bacteria None seen None Seen /hpf Urine Hyaline Casts Few 0 - 2 /lpf Urine Glucose 1+ H Normal mg/dL Urine Opiates Screen Neg NEGATIVE Urine Fentanyl Screen Neg NEGATIVE Urine Barbiturates Screen Neg NEGATIVE Urine Phencyclidine Screen Neg NEGATIVE Urine Amphetamines Screen Neg NEGATIVE Urine Benzodiazepines Screen Neg NEGATIVE Urine Cocaine Screen Neg NEGATIVE Urine Cannabinoids Screen Neg NEGATIVE Ammonia < 10 L 11-32 umol/L B-Type Natriuretic Peptide 278.76 0-100 pg/mL Lipase 52 12-53 U/L Plasma/Serum Blood Alcohol 3.5 <10 mg/dL Assessment Acute kidney injury hemodynamically mediated Chronic kidney disease stage 4 Altered mental status History of renal transplant Sepsis secondary to urinary tract infection Agree with obtaining tacrolimus level Continue rejection medications so long as patient is not in septic shock IV antibiotics Monitor drug levels Continue with IV fluid hydration Plan discussed with: Patient RUBI COLLIER MD Mar 13, 2024 15:11
--- NOTE | 2024-03-13 15:40 | DVHPN2 ---
Subjective Patient with altered mental status Reviewed: Care Plan, H&P, Labs, Medications, Previous Orders Changes from previous H/P or p: No Changes General: Per HPI Objective Vitals Vital Signs Date Time Temp Pulse Resp B/P (MAP) Pulse Ox O2 Delivery O2 Flow Rate FiO2 03/13/24 14:00 99.0 93 25 136/77 (96) 98 99.0 03/13/24 08:00 Nasal Cannula* 1 24 Intake/Output Intake and Output 03/13/24 07:00 Intake Total 1150 ml Output Total 1100 ml Balance 50 ml Intake IV Total 1150 ml Output Urine Total 1100 ml General Appearance: Alert, Oriented X3, Cooperative, No acute distress HEENT: Atraumatic, PERRLA Lungs: Clear to auscultation, Normal air movement Cardiovascular: Normal S1, Normal S2 Abdomen: Normal bowel sounds, Soft, No tenderness Musculoskeletal: Normal sensory function, Normal motor function Extremities: No clubbing, No cyanosis, No edema, Normal pulses Neuro: Normal gait, Normal speech Psych/Mental Status: Mental status NL, Mood NL Medications Current Medications Medications Dose Ordered Sig/Srikanth Route Start Time Stop Time Status Last Admin Dose Admin Tacrolimus 2 mg BID PO 03/12/24 10:00 03/13/24 10:48 2 MG Ondansetron HCl 4 mg Q4HP PRN IV 03/12/24 01:15 03/12/24 19:57 4 MG Nitroglycerin 0.4 mg Q5MINP PRN SL 03/12/24 01:15 Morphine Sulfate 2 mg Q30M PRN IV 03/12/24 01:15 03/13/24 06:40 2 MG Ceftriaxone Sodium 50 ml @ 100 mls/hr DAILY@09 IV 03/12/24 02:00 03/13/24 09:39 100 MLS/HR Metronidazole 100 ml @ 100 mls/hr Q8HR IV 03/12/24 06:00 03/13/24 13:47 100 MLS/HR Metoprolol Tartrate 50 mg BID PO 03/13/24 22:00 Laboratory Results Laboratory Tests 03/12/24 02:30 03/13/24 06:26 Chemistry Test 03/13/24 06:26 Calcium Level 9.4 mg/dL (8.7-10.4) Urinalysis Test 03/11/24 20:21 Urine Color Colorless (Yellow) Urine Clarity Clear (Clear) Urine pH 8.5 (5.0-9.0) Urine Specific [place] 1.011 (1.001-1.035) Urine Protein 1+ (Negative) H Urine Ketones 1+ (Negative) H Urine Blood Trace /uL (Negative) H Urine Nitrite Negative (Negative) Urine Bilirubin Negative (Negative) Urine Urobilinogen Normal mg/dL (Negative) Urine Leukocyte Esterase Negative /uL (Negative) Urine RBC 1 /hpf (0 - 4) Urine WBC 1 /hpf (0 - 5) Urine Squamous Epithelial Cells None seen /hpf (<5) Urine Bacteria None seen /hpf (None Seen) Urine Hyaline Casts Few /lpf (0 - 2) Urine Glucose 1+ mg/dL (Normal) H Labs and/or images reviewed: Labs reviewed by me, Image(s) reviewed by me Assessment/Plan Assessment/Plan Impression: -metabolic encephalopathy -acute respiratory alkalosis -history of renal transplant. 3rd kidney noticed on CT scan -chronic kidney disease stage 4 and -recent UTI -accelerated hypertension -rule out colitis Plan: Events: Patient more alert, oriented. States that she was had problems with frequent UTIs. UA reviewed. -nephrology consultation : Recommendations appreciated -continue tacrolimus, restart prednisone -patient tolerating oral intake. Stop IV fluids -repeat ABG with improvement with alkalosis. -continue metoprolol tartrate -continue antibiotic therapy for questionable colitis, Flagyl, Rocephin -repeat labs in a.m. -transfer to Medical/Surgical unit Total time spent with patient discussing and formulating plan of care: 35 minutes. This medical document was created using an electronic medical record system with [employer] dictation system. Although this document has been carefully reviewed, there may still be some phonetic and typographical errors. These areas are purely typographical due to imperfections of the software programs, and do not reflect any compromise in the patient's medical care. Plan discussed with: Patient, Other (RN) My Orders Orders - KRZYSZTOF CHAVEZ NP Procedure Category Date Status Time Metoprolol Tartrate PHA 03/13/24 In Process Tablet (Lopressor Ta 22:00 Transfer Orders XFER 03/13/24 Transmitted 15:35 Date of Service: Mar 13, 2024 Billing Provider: KRZYSZTOF CHAVEZ NP Common Visit Codes: [id number] INP/OBS CARE(HIGH) KRZYSZTOF CHAVEZ NP Mar 13, 2024 15:40
[2024-03-13 21:00] VITALS: BP 91/61; PULSE 69; RESP 16; TEMP 98.2; O2SAT 99
[2024-03-13 22:00] VITALS: PULSE 89; RESP 18; O2SAT 98
[2024-03-13] MEDS: METOPROLOL TARTRATE 25 MG TAB PO SCH (22:09)
[2024-03-14] VITALS (8 sets, daily range): BP systolic 91–166; BP diastolic 61–85; PULSE 69–79; RESP 16–19; TEMP 97.5–98.7; O2SAT 96–99
[2024-03-14] MEDS: GABAPENTIN 100 MG CAP PO ONE (03:57)
[2024-03-14 07:00] LABS: Anion Gap 8 (5-15); Calcium 9.3 mg/dL (8.7-10.4); Potassium 4.1 mmol/L (3.5-5.1); Sodium 139 mmol/L (136-145)
[2024-03-14 07:06] LABS: BUN/Creatinine Ratio 12.2 (10.0-20.0); Glucose 81 mg/dL (74-106)
[2024-03-14 07:13] LABS: Blood Urea Nitrogen 29 mg/dL (9-23); Carbon Dioxide 20 mmol/L (20-31); Chloride 111 mmol/L (98-107)
[2024-03-14] MEDS: predniSONE 5 MG TAB PO SCH (09:09)
--- NOTE | 2024-03-14 12:45 | DVHPN2 ---
Subjective Patient now alert and oriented x4. Reviewed: Care Plan, H&P, Labs, Medications, Previous Orders Changes from previous H/P or p: No Changes General: Per HPI Objective Vitals Vital Signs Date Time Temp Pulse Resp B/P (MAP) Pulse Ox O2 Delivery O2 Flow Rate FiO2 03/14/24 09:09 74 130/70 03/14/24 09:00 97.8 18 97 97.8 03/14/24 08:00 Room Air* 0 21 Intake/Output Intake and Output 03/14/24 07:00 Intake Total 450 ml Output Total 950 ml Balance -500 ml Intake Oral 200 ml IV Total 250 ml Output Urine Total 950 ml General Appearance: Alert, Oriented X3, Cooperative, No acute distress HEENT: Atraumatic, PERRLA Lungs: Clear to auscultation, Normal air movement Cardiovascular: Normal S1, Normal S2 Abdomen: Normal bowel sounds, Soft, No tenderness Musculoskeletal: Normal sensory function, Normal motor function Extremities: No clubbing, No cyanosis, No edema, Normal pulses Neuro: Normal gait, Normal speech Skin: Dry, Intact Psych/Mental Status: Mental status NL, Mood NL Medications Current Medications Medications Dose Ordered Sig/Srikanth Route Start Time Stop Time Status Last Admin Dose Admin Tacrolimus 2 mg BID PO 03/12/24 10:00 03/14/24 09:40 2 MG Ondansetron HCl 4 mg Q4HP PRN IV 03/12/24 01:15 03/12/24 19:57 4 MG Nitroglycerin 0.4 mg Q5MINP PRN SL 03/12/24 01:15 Morphine Sulfate 2 mg Q30M PRN IV 03/12/24 01:15 03/13/24 06:40 2 MG Ceftriaxone Sodium 50 ml @ 100 mls/hr DAILY@09 IV 03/12/24 02:00 03/14/24 09:08 100 MLS/HR Metronidazole 100 ml @ 100 mls/hr Q8HR IV 03/12/24 06:00 03/14/24 05:20 100 MLS/HR Metoprolol Tartrate 50 mg BID PO 03/13/24 22:00 03/14/24 09:09 50 MG Prednisone 5 mg DAILY PO 03/14/24 10:00 03/14/24 09:09 5 MG Laboratory Results Laboratory Tests 03/12/24 02:30 03/14/24 06:11 Chemistry Test 03/14/24 06:11 Calcium Level 9.3 mg/dL (8.7-10.4) Urinalysis Test 03/11/24 20:21 Urine Color Colorless (Yellow) Urine Clarity Clear (Clear) Urine pH 8.5 (5.0-9.0) Urine Specific [place] 1.011 (1.001-1.035) Urine Protein 1+ (Negative) H Urine Ketones 1+ (Negative) H Urine Blood Trace /uL (Negative) H Urine Nitrite Negative (Negative) Urine Bilirubin Negative (Negative) Urine Urobilinogen Normal mg/dL (Negative) Urine Leukocyte Esterase Negative /uL (Negative) Urine RBC 1 /hpf (0 - 4) Urine WBC 1 /hpf (0 - 5) Urine Squamous Epithelial Cells None seen /hpf (<5) Urine Bacteria None seen /hpf (None Seen) Urine Hyaline Casts Few /lpf (0 - 2) Urine Glucose 1+ mg/dL (Normal) H Labs and/or images reviewed: Labs reviewed by me, Image(s) reviewed by me Assessment/Plan Assessment/Plan Impression: -metabolic encephalopathy -acute respiratory alkalosis -history of renal transplant. 3rd kidney noticed on CT scan -chronic kidney disease stage 4 and -recent UTI -accelerated hypertension -rule out colitis Plan: Events: Takes patient was unable to remember conversations with the yesterday. Patient was alert and oriented x4 today. Patient denies any symptoms -nephrology consultation : Recommendations appreciated -continue tacrolimus, prednisone -continue metoprolol tartrate -continue antibiotic therapy for questionable colitis, Flagyl, Rocephin -repeat labs in a.m. -reassess for discharge in am Total time spent with patient discussing and formulating plan of care: 35 minutes. This medical document was created using an electronic medical record system with [employer] dictation system. Although this document has been carefully reviewed, there may still be some phonetic and typographical errors. These areas are purely typographical due to imperfections of the software programs, and do not reflect any compromise in the patient's medical care. Plan discussed with: Patient, Other (RN) My Orders Orders - KRZYSZTOF CHAVEZ SUPPLY COORDINATOR Procedure Category Date Status Time Transfer Orders XFER 03/13/24 Transmitted 15:35 Prednisone Tablet PHA 03/14/24 In Process 10:00 Date of Service: Mar 14, 2024 Billing Provider: KRZYSZTOF CHAVEZ NP Common Visit Codes: [id number] INP/OBS CARE(HIGH) KRZYSZTOF CHAVEZ NP Mar 14, 2024 12:45
--- NOTE | 2024-03-14 14:16 | DVHPN2 ---
Progress Note Date Seen: Mar 14, 2024 Medical Necessity Reason Pt with a Central, PICC or Fol: No Subjective Patient reports: Feels better Objective vital signs Vital Sign Date Time Temp Pulse Resp B/P (MAP) Pulse Ox O2 Delivery O2 Flow Rate FiO2 03/14/24 13:00 98.7 79 18 145/80 (101) 96 98.7 03/14/24 08:00 Room Air* 0 21 Total Intake and Output 03/13/24 03/13/24 03/14/24 15:00 23:00 07:00 Intake Total 150 ml 300 ml Output Total 800 ml 150 ml Balance 150 ml -800 ml 150 ml medications Current Medications Medications Dose Ordered Sig/Srikanth Route Start Time Stop Time Status Last Admin Dose Admin Tacrolimus 2 mg BID PO 03/12/24 10:00 03/14/24 09:40 2 MG Ondansetron HCl 4 mg Q4HP PRN IV 03/12/24 01:15 03/12/24 19:57 4 MG Nitroglycerin 0.4 mg Q5MINP PRN SL 03/12/24 01:15 Morphine Sulfate 2 mg Q30M PRN IV 03/12/24 01:15 03/13/24 06:40 2 MG Ceftriaxone Sodium 50 ml @ 100 mls/hr DAILY@09 IV 03/12/24 02:00 03/14/24 09:08 100 MLS/HR Metronidazole 100 ml @ 100 mls/hr Q8HR IV 03/12/24 06:00 03/14/24 05:20 100 MLS/HR Metoprolol Tartrate 50 mg BID PO 03/13/24 22:00 03/14/24 09:09 50 MG Prednisone 5 mg DAILY PO 03/14/24 10:00 03/14/24 09:09 5 MG Examination: GENERAL:Abnormal, CVS:Abnormal, NEURO:Normal laboratory and microbiology Laboratory Tests 03/14/24 06:11 03/12/24 02:30 Test 03/14/24 06:11 Range/Units Serum Glucose 81 74-106 mg/dL Problem List/Assessment/Plan Problem List/Assessment/Plan Acute kidney injury hemodynamically mediated Chronic kidney disease stage 4 Altered mental status History of renal transplant Sepsis secondary to urinary tract infection Agree with obtaining tacrolimus level Continue rejection medications so long as patient is not in septic shock IV antibiotics Monitor drug levels Continue with IV fluid hydration Plan discussed with: Patient RUBI COLLIER MD Mar 14, 2024 14:16
[2024-03-14] MEDS: SODIUM CHLORIDE 0.9% 1,000 ML IV ONE (15:37)
[2024-03-14] MEDS ORDERED: hydrALAZINE HCL 20 MG/ML VL IV PRN (17:00)
[2024-03-14] MEDS ORDERED: ACETAMINOPHEN 500 MG TAB or CAP PO PRN (17:00)
[2024-03-14] MEDS ORDERED: MORPHINE SULFATE INJ 2 MG/ml SYRG IV PRN (17:00)
[2024-03-14] MEDS: HYDROcodone-ACET 5/325MG TAB PO PRN (18:29)
[2024-03-15] VITALS (8 sets, daily range): BP systolic 114–161; BP diastolic 42–88; PULSE 58–81; RESP 16–18; TEMP 97.7–98.4; O2SAT 97–99
[2024-03-15 07:38] LABS: Anion Gap 12 (5-15); Calcium 9.4 mg/dL (8.7-10.4); Potassium 3.9 mmol/L (3.5-5.1); Sodium 140 mmol/L (136-145)
[2024-03-15 07:42] LABS: BUN/Creatinine Ratio 15.8 (10.0-20.0); Glucose 86 mg/dL (74-106)
[2024-03-15 07:50] LABS: Blood Urea Nitrogen 36 mg/dL (9-23); Carbon Dioxide 18 mmol/L (20-31); Chloride 110 mmol/L (98-107)
--- NOTE | 2024-03-15 13:58 | DVH ---
Bilateral lower extremity venous duplex Clinical History: rule out DVT Comparison: None Technique: Duplex Doppler evaluation of the deep venous systems of both lower extremities from the common femora l veins to the popliteal veins including color Doppler and spectral/pulsed waveform analysis was perf ormed. Findings: RIGHT SIDE: The common femoral vein demonstrates appropriate compressibility and waveform variability. There is compressibility/patency of the great saphenous vein at the proximal thigh. The femoral vein demonstrates appropriate compressibility and waveform variability. The deep femoral vein demonstrates appropriate compressibility and waveform variability. The popliteal vein demonstrates appropriate compressibility and waveform variability. There is color flow at the tibioperoneal trunk and in the posterior tibial vein. LEFT SIDE: The common femoral vein demonstrates appropriate compressibility and waveform variability. There is compressibility/patency of the great saphenous vein at the proximal thigh. The femoral vein demonstrates appropriate compressibility and waveform variability. The deep femoral vein demonstrates appropriate compressibility and waveform variability. The popliteal vein demonstrates appropriate compressibility and waveform variability. There is color flow at the tibioperoneal trunk and in the posterior tibial vein. Impression: 1. No right or left femoropopliteal venous thrombosis.
--- NOTE | 2024-03-15 15:08 | DVHDS2 ---
Discharge Summary Date of Admission Mar 12, 2024 at 01:08 Date of Discharge: Mar 15, 2024 Admitting Diagnosis Altered mental status Labs/Diagnostic Data: Laboratory Results Test 03/15/24 06:44 03/12/24 14:48 03/12/24 04:19 03/12/24 02:53 Sodium Level 140 mmol/L (136-145) Potassium Level 3.9 mmol/L (3.5-5.1) Chloride Level 110 mmol/L (98-107) Carbon Dioxide Level 18 mmol/L (20-31) Anion Gap 12 (5-15) Blood Urea Nitrogen 36 mg/dL (9-23) Creatinine 2.28 mg/dL (0.550-1.02) Glomerular Filtration Rate Calc 23 mL/min (>90) BUN/Creatinine Ratio 15.8 (10.0-20.0) Serum Glucose 86 mg/dL (74-106) Calcium Level 9.4 mg/dL (8.7-10.4) Erythrocyte Sedimentation Rate 23 mm/hr (0-20) Blood Gas Specimen Type Arterial Blood Gas Sample Site Right radial Blood Gas Patient Temperature 37.0 Arterial Blood Date Drawn [id number] Arterial Blood pH 7.478 (7.350-7.450) Arterial Blood Partial Pressure CO2 23.6 mmHg (32.0-45.0) Arterial Blood Partial Pressure O2 81.1 mmHg (83.0-108.0) Arterial Blood HCO3 17.1 mmol/L (21.0-28.0) Arterial Blood Oxygen Saturation 95.5 % (94.0-98.0) Arterial Blood Base Excess -5.0 mmol/L (-2.0-3.0) Arterial Blood Oxyhemoglobin 94.9 % (94.0-98.0) Arterial Blood Carboxyhemoglobin 0.1 % (0.5-1.5) Arterial Blood Methemoglobin 0.5 % (0.0-1.5) Tulio Test Yes Blood Gas Total Hemoglobin 10.60 g/dL (12.0-16.0) Blood Gas Modality Room air FiO2 % 21.0 C-Reactive Protein High Sensitivity 0.91 mg/dL (<1.0) Lactic Acid Level 1.8 mmol/L (0.4-2.0) D-Dimer, Quantitative 3.22 mg/L FEU (0.0-0.49) Test 03/12/24 02:30 03/12/24 01:04 03/11/24 20:21 03/11/24 17:12 White Blood Count 10.6 10^3/uL (4.4-10.8) Red Blood Count 3.81 10^6/uL (4.0-5.20) Hemoglobin 11.2 g/dL (12.2-16.2) Hematocrit 33.8 % (36.0-46.0) Mean Corpuscular Volume 88.6 fL (80.0-100.0) Mean Corpuscular Hemoglobin 29.4 pg (28.0-32.0) Mean Corpuscular Hemoglobin Concent 33.2 g/dL (32.0-36.0) Red Cell Distribution Width 16.4 % (11.8-14.3) Platelet Count 246 10^3/uL (140-450) Mean Platelet Volume 8.1 fL (6.9-10.8) Neutrophils (%) (Auto) 77.8 % (37.0-80.0) Lymphocytes (%) (Auto) 15.6 % (10.0-50.0) Monocytes (%) (Auto) 6.4 % (0.0-12.0) Eosinophils (%) (Auto) 0.0 % (0.0-7.0) Basophils (%) (Auto) 0.2 % (0.0-2.0) Neutrophils # (Auto) 8.3 10 ^3/uL (1.6-8.6) Lymphocytes # (Auto) 1.7 10 ^3/uL (0.4-5.4) Monocytes # (Auto) 0.7 10 ^3/uL (0-1.3) Eosinophils # (Auto) 0 10 ^3/uL (0-0.8) Basophils # (Auto) 0 10 ^3/uL (0-0.2) Nucleated Red Blood Cells 0.1 % Total Bilirubin 1.2 mg/dL (0.2-1.0) Aspartate Amino Transferase (AST) 21 U/L (13-40) Alanine Aminotransferase (ALT) < 9 U/L (7-40) Alkaline Phosphatase 94 U/L (46-116) Total Protein 7.7 g/dL (5.7-8.2) Albumin 4.7 g/dL (3.2-4.8) Blood Gas Liter Flow 0.00 Blood Gas Spontaneous Rate 48 Specimen Drawn By Ashlyn armendariz rt Blood Gas Critical Value Read Back Yes Blood Gas Notified Whom juan pablo Hunter np Blood Gas Notified Time [id number] Blood Gas Notified By Ashlyn armendariz rt Urine Color Colorless (Yellow) Urine Clarity Clear (Clear) Urine pH 8.5 (5.0-9.0) Urine Specific [place] 1.011 (1.001-1.035) Urine Protein 1+ (Negative) Urine Ketones 1+ (Negative) Urine Blood Trace /uL (Negative) Urine Nitrite Negative (Negative) Urine Bilirubin Negative (Negative) Urine Urobilinogen Normal mg/dL (Negative) Urine Leukocyte Esterase Negative /uL (Negative) Urine RBC 1 /hpf (0 - 4) Urine WBC 1 /hpf (0 - 5) Urine Squamous Epithelial Cells None seen /hpf (<5) Urine Bacteria None seen /hpf (None Seen) Urine Hyaline Casts Few /lpf (0 - 2) Urine Glucose 1+ mg/dL (Normal) Urine Opiates Screen Neg (NEGATIVE) Urine Fentanyl Screen Neg (NEGATIVE) Urine Barbiturates Screen Neg (NEGATIVE) Urine Phencyclidine Screen Neg (NEGATIVE) Urine Amphetamines Screen Neg (NEGATIVE) Urine Benzodiazepines Screen Neg (NEGATIVE) Urine Cocaine Screen Neg (NEGATIVE) Urine Cannabinoids Screen Neg (NEGATIVE) Ammonia < 10 umol/L (11-32) B-Type Natriuretic Peptide 278.76 pg/mL (0-100) Lipase 52 U/L (12-53) Plasma/Serum Blood Alcohol 3.5 mg/dL (<10) Other Laboratory Tests 03/15/24 06:44 03/12/24 02:30 Brief Hx & Hospital Course: History of Present Illness 63-year-old female presents for evaluation of altered mental status. Per the patient's caregiver patient was noted to be progressively more confused over the past two days. Patient is not answering questions at the moment. Course of hospitalization: Patient was given aggressive IV hydration, antihypertensives, as well as being started on empiric antibiotic therapy. CT scan of the abdomen and pelvis reveals possible colitis. Urinalysis negative for UTI at this time. Nephrology consultation was obtained given the patient's elevated BUN and creatinine, which did improve with IV fluids. Patient was now alert and oriented, tolerating home medications. Patient was restarted on tacrolimus and prednisone has prescribed by her PCP. Patient was has been ambulating without any difficulties. Patient was currently on room air, with noted elevated D-dimer for which DVT study was performed which was negative. Discussion was made with the patient's daughter Stephanie, who states that the patient has had multiple admissions for UTIs and other infections since of last year. She also reports that the patient has had issues with hallucinations as well as altered mental status at home which occurs on an intermittent basis. She states that she lives alone and has a caregiver that does assist with some ADLs as well as minor housework. Social service consultation will be placed for home health evaluation, as well as assistance with medications. Patient is agreeable to be discharged home. Home health services will be provided. She will be continued on her previous medications as prescribed by her PCP in addition to Augmentin 875 mg p.o. twice a day x7 days. She will make an appointment with the discharge Clinic as it was unknown if the patient was following up with her PCP with the [facility] system. Physical examination General: Alert and Oriented x3. No acute distress. Well-nourished. Eyes: EOMI. Anicteric. HENT: Moist mucous membranes. Lungs: Clear to auscultation bilaterally. No accessory muscle use. Cardiovascular: Regular rate and rhythm. No murmur. No JVD. Abdomen: Soft, non-tender and non-distended. No palpable masses. Extremities: No edema. Non-tender. Skin: No rashes or lesions. Warm. Neurologic: No focal neurological deficits. CN II-XII grossly intact, but not individually tested. Psychiatric: Cooperative. Appropriate mood and affect. Total time spent with patient discussing and formulating plan of care: 35 minutes. This medical document was created using an electronic medical record system with [employer] dictation system. Although this document has been carefully reviewed, there may still be some phonetic and typographical errors. These areas are purely typographical due to imperfections of the software programs, and do not reflect any compromise in the patient's medical care. Consults/Reason for consult Nephrology: Acute on chronic renal failure Condition at Discharge: Guarded Final Diagnosis/Problems List Metabolic Encephalopathy due to sepsis Secondary Diagnosis: -acute respiratory alkalosis -history of renal transplant. 3rd kidney noticed on CT scan -chronic kidney disease stage 4 -recent UTI -accelerated hypertension -acute colitis Discharge Disposition: Home with Health Services Discharge Instruct/Medications Diet: Cardiac 2g Na,low cholest Activity: No Restrictions, As Tolerated Follow Up/Referral: PCP in 1 to 2 weeks Medications: Augmentin 875mg po BID x 7 days 36 Discharge Statement: "Patient was advised to return to the ER or call 911 if any headaches, dizziness, shortness of breath, chest pain, abdominal pain, bleeding, fevers, or worsening of medical condition. Patient was counseled about treatment plan, medications, possible side effects, patientverbalized understanding. All questions were answered to the best of my ability. This discharge took greater then 30 minutes in planning, reviewing documentation, counseling the patient, and discussing with other team members." ASSESSMENT ASSESSMENT Assessment Metabolic Encephalopathy due to sepsis Date of Service: Mar 15, 2024 Billing Provider: KRZYSZTOF CHAVEZ NP Common Visit Codes: 04373-NTL/OBS DISCH DAY >30min KRZYSZTOF CHAVEZ NP Mar 15, 2024 15:08
[2024-03-20] MEDS ORDERED: AUG875T PO (13:48)
== END 2024-03-15 20:25 | disposition left against medical advice (07) | DRG 871 ==
LOC: EDUNIT# 15:02 → EDBD 15:02 → ER 15:02 → TELE 03-12 01:08 → TELE-EAST 03-13 21:41 → EAST 03-14 01:47
PROVIDERS: ADMIT Nurse Practitioner Acute Care; ATTEND Nurse Practitioner Acute Care
DX: A41.9 Sepsis, unspecified organism (principal); G93.41 Metabolic encephalopathy; A86 Unspecified viral encephalitis; I13.0 Hypertensive heart and chronic kidney disease with heart failure and stage 1 through stage 4 chronic kidney disease, or unspecified chronic kidney disease; N17.9 Acute kidney failure, unspecified; N18.4 Chronic kidney disease, stage 4 (severe); E87.3 Alkalosis; N39.0 Urinary tract infection, site not specified; K52.9 Noninfective gastroenteritis and colitis, unspecified; I50.9 Heart failure, unspecified; E87.5 Hyperkalemia; E83.52 Hypercalcemia; I48.91 Unspecified atrial fibrillation; Z88.8 Allergy status to other drugs, medicaments and biological substances; Z90.49 Acquired absence of other specified parts of digestive tract; Z83.3 Family history of diabetes mellitus; Z82.49 Family history of ischemic heart disease and other diseases of the circulatory system; Z80.1 Family history of malignant neoplasm of trachea, bronchus and lung; Z80.8 Family history of malignant neoplasm of other organs or systems; Z83.79 Family history of other diseases of the digestive system
CPT/HCPCS: 36415; 36600; 70450; 71045; 74176; 80048; 80053; 80197; 80307; 80320; 81001; 82140; 82805; 83605; 83690; 83880; 85025; 85379; 85652; 86141; 93005; 93970; 96372; 96374; G0378; J0131; J2405; J3490; J7507

== ENCOUNTER 2024-03-21 17:38 | Inpatient (IN) | payer OTHER, MEDICARE ==
[~2024-03-21] VITALS: Ht 162.6 cm; Wt 65.0 kg
[2024-03-21] MEDS: SODIUM CHLORIDE 0.9% 1,000 ML IV SCH
[~2024-03-21 17:38] MED LIST changes: +AUG875T PO
--- NOTE | 2024-03-21 18:25 | ED.PDOC ---
History of Present Illness HPI Comments Doretha Frey is a 63-year-old female patient who presents to ED via EMS with chief complaint of abdominal, head, back and lower limb pain which started 3 hours ago while she was watching television, associated with severe hypertension (180/100 mmHg). Denies fever, chills, chest pain, dyspnea, unintentional weight loss, generalized edema, melena or any other bleeding. 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 GERD, probable GI bleed, presented colonoscopy with probable polyps per patient, multiple episodes of UTI, hiatal hernia, GERD Surgical history: , hernia repair, cholecystectomy, renal transplant, AV fistula placement for hemodialysis on left arm Family history: Noncontributory Social history: Lives alone, denies tobacco, alcohol and other drug abuse Allergies: Lisinopril Home medication amlodipine 5 mg p.o. daily, aspirin 81 mg p.o. daily Azathioprine 50 mg p.o. daily, Prednisone 5 mg p.o. daily tacrolimus 3 mg a.m. a nd 2 mg p.m. p.o. daily, vitamin D 2000 units p.o. daily, vitamin B12 1000 mg p.o. daily, cyclobenzaprine as needed, docusate as needed, fish oil p.o. daily, hydrocodone as needed, metoprolol 25 mg p.o. twice daily, omeprazole 20 mg p.o. twice daily, pregabalin 50 mg p.o. daily sertraline 150 mg p.o. daily, trazodone 50 mg p.o. daily. Chief Complaint: Abdominal Pain Time Seen by MD: 17:40 Primary Care Provider: NA Allergies: Coded Allergies: Lisinopril (Verified Allergy, Unknown, 02/13/22) Home Meds Active Scripts Amoxicillin & Pot Clavulanate (AUGMENTIN TABLET) 875 Mg Tb, 875 MG PO BID for 5 Days, #10 TAB Prov:KRZYSZTOF CHAVEZ [employer] 03/20/24 Ciprofloxacin Hcl (Cipro) 500 Mg Tab, 1 TAB PO BID, #14 TAB Prov:DINA HOLLIDAY MD 02/19/24 Levofloxacin Hemihydrate (LEVAQUIN 500 MG) 500 Mg Tab, 1 TAB PO DAILY, #10 TAB Prov:DINA HOLLIDAY MD 01/29/24 Amlodipine Besylate (NORVASC TABLET) 5 Mg Tb, 5 MG PO DAILY for 30 Days, #30 TAB 11 Refills Prov:LYNNETTE DALTON DO 10/23/22 Omeprazole Magnesium (Omeprazole) 20 Mg Tab, 20 MG PO BID for 30 Days, #60 TAB Prov:BLANCA BELLO MD 02/18/22 Levofloxacin (Levaquin) 500 Mg Tab, 500 MG PO EOD for 7 Days, #7 TAB Prov:BLANCA BELLO MD 02/18/22 Sucralfate (CARAFATE) 1 Gm Tab, 1 GM PO QID for 30 Days, #120 TAB Prov:BLANCA BELLO MD 02/18/22 Reported Medications Tacrolimus (ASTAGRAF XL) 1 Mg Cap, 3 MG PO Q12HR, CAP 01/27/24 Lansoprazole (Lansoprazole) 30 Mg Cap, 1 CAP PO DAILY, #30 CAP 5 Refills 01/27/24 Pregabalin (Lyrica) 50 Mg Cap, 50 MG PO DAILY, CAP 09/27/20 Trazodone Hcl (Trazodone Hcl) 50 Mg Tab, 50 MG PO HS, MG 09/27/20 Cyanocobalamin (B-12) 1,000 Mcg Cap, 1000 MCG PO, CAP 09/27/20 Tizanidine Hydrochloride (TIZANIDINE HCL) 2 Mg Cap, 2.5 MG PO, CAP 09/27/20 Magnesium Oxide (MAGNESIUM OXIDE) 400 Mg Tab, 1 TAB PO BID, #60 TAB 5 Refills 09/27/20 Tizanidine Hydrochloride (Zanaflex) 4 Mg Tab, 0.5 TAB PO HS, #60 TAB 09/27/20 Metoprolol Tartrate (Metoprolol Tartrate) 25 Mg Tab, 1 TAB PO BID, #180 TAB 1 Refill 09/04/18 Raloxifene Hydrochloride (EVISTA TABLET) 60 Mg Tb, 1 TAB PO DAILY, #30 TAB 11 Refills 09/04/18 Prednisone (PREDNISONE) 5 Mg Tb, 5 MG PO DAILY 09/02/18 Azathioprine (Imuran) 50 Mg Tab, 3 TAB PO BEDTIME, #180 TAB 3 Refills 09/02/18 Fish Oil (Fish Oil) 500 Mg Cap, 500 MG PO BID, CAP 09/02/18 Omeprazole (Gnp Omeprazole) 20 Mg Tab, 1 CAP PO BID, #90 TAB 1 Refill 09/02/18 Docusate Sodium (Docusate Sodium) 250 Mg Cap, 250 MG PO QHS, CAP 09/02/18 Cholecalciferol (VITAMIN D3) 2,000 Unit Chw, 2000 UNIT PO DAILY, CHW 09/02/18 Loratadine (Claritin) 10 Mg Tab, 1 TAB PO DAILY, #30 TAB 5 Refills 09/02/18 Aspirin (Aspirin Low Dose) 81 Mg Chw, 1 TAB PO DAILY, #30 TAB 3 Refills 09/02/18 Cyclobenzaprine Hcl (Cyclobenzaprine Hcl) 5 Mg Tab, 2 TAB PO QPM PRN for prn, #30 TAB 09/02/18 Hydrocodone-Acetaminophen ([place] 5/325MG) 1 Tab Tb, 1 TAB PO Q6HP PRN for pain, #90 TAB 09/02/18 Sertraline Hcl (Sertraline Hcl) 50 Mg Tab, 3 TAB PO QPM for depression, #30 TAB 5 Refills 09/02/18 Simvastatin (Simvastatin) 40 Mg Tab, 1 TAB PO QPM, #30 TAB 5 Refills 09/02/18 Mode of Arrival: EMS Past Medical History PAST MEDICAL HISTORY: AFIB, CHF, HTN, Liver, UTI'S Surgical History: Cholecystectomy, , Hernia 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 [employer]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 Family History Family History: Reviewed,noncontributory to illness, Unknown Social History Smoker: Non-Smoker Alcohol: Denies ETOH Use Drugs: Denies Drug Use Lives In: Home Physical Exam General Appearance: No Apparent Distress, Normal HEENT: Head (Headache), Normal ENT Inspection, Pharynx Normal, TMs Normal Neck: Full Range of Motion, Non-Tender, Normal, Normal Inspection Respiratory: Chest Non-Tender, Lungs Clear, No Accessory Muscle Use, No Respiratory Distress, Normal Breath Sounds Cardiovascular: Diastolic Murmur, No Edema, No JVD, No Gallop, Normal Peripheral Pulses, Regular Rate/Rhythm, Systolic Murmur Breast Exam: Deferred Gastrointestinal: No Organomegaly, No Pulsatile Mass, Normal Bowel Sounds, Soft, Tenderness Genitalia: Deferred Pelvic: Deferred Rectal: Deferred Extremities: Normal capillary refill, Normal inspection, Normal range of motion, No pedal edema, Tender Neurologic: Alert, refrigerator mover II-XII nml as Tested, No Motor Deficits, Normal Affect, Normal Mood, No Sensory Deficits Cerebellar Function: Normal Reflexes: Normal Skin: Dry, Normal Color, Warm Lymphatic: No Adenopathy Was a procedure done? Was a procedure done?: No EKG EKG : Comments Sinus tachycardia with incomplete left bundle-branch block Differential Dx Considerations may include: Anxiety, aortic dissection, hypertensive urgency, stroke, cholecystics, cholangitis, pancreatitis X-Ray, Labs, Meds, VS Vital Signs Date Time Temp Pulse Resp B/P (MAP) Pulse Ox O2 Delivery O2 Flow Rate FiO2 03/21/24 20:57 98.7 99 16 160/98 (118) 98 98.7 03/21/24 19:46 89 18 152/89 03/21/24 17:45 98.4 101 20 180/109 (132) 96 03/21/24 17:45 100 Lab Test 03/21/24 19:32 Range/Units White Blood Count 4.7 4.4-10.8 10^3/uL Red Blood Count 3.46 L 4.0-5.20 10^6/uL Hemoglobin 10.6 L 12.2-16.2 g/dL Hematocrit 32.0 L 36.0-46.0 % Mean Corpuscular Volume 92.4 80.0-100.0 fL Mean Corpuscular Hemoglobin 30.6 28.0-32.0 pg Mean Corpuscular Hemoglobin Concent 33.1 32.0-36.0 g/dL Red Cell Distribution Width 16.8 H 11.8-14.3 % Platelet Count 259 140-450 10^3/uL Mean Platelet Volume 8.5 6.9-10.8 fL Neutrophils (%) (Auto) 53.2 37.0-80.0 % Lymphocytes (%) (Auto) 29.3 10.0-50.0 % Monocytes (%) (Auto) 13.1 H 0.0-12.0 % Eosinophils (%) (Auto) 1.9 0.0-7.0 % Basophils (%) (Auto) 2.5 H 0.0-2.0 % Neutrophils # (Auto) 2.5 1.6-8.6 10 ^3/uL Lymphocytes # (Auto) 1.4 0.4-5.4 10 ^3/uL Monocytes # (Auto) 0.6 0-1.3 10 ^3/uL Eosinophils # (Auto) 0.1 0-0.8 10 ^3/uL Basophils # (Auto) 0.1 0-0.2 10 ^3/uL Nucleated Red Blood Cells 0.1 % Prothrombin Time 10.3 9.3-11.8 sec Prothrombin Time INR 0.97 0.9-1.15 Activated Partial Thromboplast Time 27.6 24.5-34.5 SEC Sodium Level 137 136-145 mmol/L Potassium Level 4.6 3.5-5.1 mmol/L Chloride Level 108 H 98-107 mmol/L Carbon Dioxide Level 21 20-31 mmol/L Anion Gap 8 5-15 Blood Urea Nitrogen 16 9-23 mg/dL Creatinine 2.01 H 0.550-1.02 mg/dL Glomerular Filtration Rate Calc 27 >90 mL/min BUN/Creatinine Ratio 8.0 L 10.0-20.0 Serum Glucose 99 74-106 mg/dL Lactic Acid Level 1.7 0.4-2.0 mmol/L Calcium Level 9.5 8.7-10.4 mg/dL Phosphorus Level 2.3 L 2.4-5.1 mg/dL Magnesium Level 1.4 L 1.6-2.6 mg/dL Total Bilirubin 0.7 0.2-1.0 mg/dL Aspartate Amino Transferase (AST) 24 13-40 U/L Alanine Aminotransferase (ALT) < 9 7-40 U/L Alkaline Phosphatase 70 46-116 U/L Creatine Kinase 52 34-145 U/L Total Protein 7.2 5.7-8.2 g/dL Albumin 4.5 3.2-4.8 g/dL Lipase 51 12-53 U/L Thyroid Stimulating Hormone (TSH) 0.83 0.55-4.78 uIU/mL Current Medications Medications (Trade) Dose Ordered Sig/Srikanth Route Start Time Stop Time Status Last Admin Morphine Sulfate 1 mg Q4HP PRN IV 03/21/24 17:45 03/21/24 19:46 Acetaminophen/ Hydrocodone Bitart ([place] 5/325MG Tab) 1 tab Q6HP PRN PO 03/21/24 18:30 03/21/24 18:53 Lorazepam (Ativan Inj) 0.5 mg ONCE ONCE IM 03/21/24 19:15 03/21/24 19:16 DC 03/21/24 19:16 X-Ray, Labs, Meds, VS Comment Reviewed vital signs, laboratory results and abdominal CT Time of 1ST Reevaluation: 21:34 Reevaluation 1ST: Unchanged Patient Education/Counseling: Diagnosis, Treatment, Prognosis Family Education/Counseling: Diagnosis, Treatment, Prognosis Departure 1 Departure Time of Disposition: 21:34 Impression: Primary Impression: Pneumobilia Disposition: ADMITTED INPATIENT Condition: Serious Additional Instructions: Patient responded to IV analgesics (morphine). Ordered abdomen and pelvis CT which showed pneumobilia, colitis and stomach wall thickening. Have initiated IV antibiotic, patient will benefit from surgical consult and admission. Critical Care Note Critical Care Time?: No Stability Stability form required: No Heart Score Heart Score: Heart Score Response (Comments) Value History N/A 0 EKG N/A 0 Age N/A 0 Risk Factors N/A 0 Troponin N/A 0 Total 0 OBINNA FERRO RESIDENT Mar 21, 2024 18:25
[2024-03-21] MEDS: HYDROcodone-ACET 5/325MG TAB PO PRN (18:53)
[2024-03-21] MEDS: LORazepam 2MG/ML-1ML VIAL IM ONE (19:16)
[2024-03-21] MEDS: MORPHINE SULFATE INJ 2 MG/ml SYRG IV PRN (19:46)
[2024-03-21 19:52] LABS: Basophils # (auto) 0.1 10 ^3/uL (0-0.2); Basophils % (auto) 2.5 % (0.0-2.0); Eosinophils # (auto) 0.1 10 ^3/uL (0-0.8); Eosinophils % (auto) 1.9 % (0.0-7.0); Hemoglobin 10.6 g/dL (12.2-16.2); Lymphocytes # (auto) 1.4 10 ^3/uL (0.4-5.4); Lymphocytes % (auto) 29.3 % (10.0-50.0); Mean Corpuscular Hemoglobin 30.6 pg (28.0-32.0); Mean Corpuscular Hgb Conc. 33.1 g/dL (32.0-36.0); Mean Corpuscular Volume 92.4 fL (80.0-100.0); Monocytes # (auto) 0.6 10 ^3/uL (0-1.3); Monocytes % (auto) 13.1 % (0.0-12.0); Neutrophils # (auto) 2.5 10 ^3/uL (1.6-8.6); Neutrophils % (auto) 53.2 % (37.0-80.0); Nucleated Red Blood Cells % 0.1 %; Platelet Count (auto) 259 10^3/uL (140-450); Red Blood Cells 3.46 10^6/uL (4.0-5.20); Red Cell Distribution Width 16.8 % (11.8-14.3); White Blood Cell 4.7 10^3/uL (4.4-10.8)
[2024-03-21 20:07] LABS: INR 0.97 (0.9-1.15); Partial Thromboplastin Time 27.6 SEC (24.5-34.5); Prothrombin Time 10.3 sec (9.3-11.8)
[2024-03-21 20:10] LABS: Albumin 4.5 g/dL (3.2-4.8); Alkaline Phosphatase 70 U/L (46-116); Anion Gap 8 (5-15); Aspartate Aminotransferase 24 U/L (13-40); Bilirubin, Total 0.7 mg/dL (0.2-1.0); Blood Urea Nitrogen 16 mg/dL (9-23); Calcium 9.5 mg/dL (8.7-10.4); Carbon Dioxide 21 mmol/L (20-31); Glucose 99 mg/dL (74-106); Lipase 51 U/L (12-53); Potassium 4.6 mmol/L (3.5-5.1); Sodium 137 mmol/L (136-145); Total Protein 7.2 g/dL (5.7-8.2)
--- NOTE | 2024-03-21 20:25 | DVH ---
CHEST RADIOGRAPH Indication: back pain Technique: Single frontal view of the chest was obtained Comparison: XY CHEST XRAY 1 VIEW on DOS: 03/11/24, XY CHEST PORTABLE on DOS: 02/15/24, XY CHEST PORTAB LE on DOS: 01/26/24 FINDINGS: Lines and Tubes: None Lungs: There appear to be increasing bilateral perihilar infiltrates Pleura: No effusion. No pneumothorax. Cardiomediastinal contours: Unremarkable Bones: No acute osseous abnormality. IMPRESSION: 1. Increasing bilateral perihilar airspace disease in bronchial thickening findings may represent bro nchitis..
[2024-03-21 20:27] LABS: Alanine Aminotransferase < 9 U/L (7-40); Chloride 108 mmol/L (98-107); Magnesium 1.4 mg/dL (1.6-2.6); Phosphorus 2.3 mg/dL (2.4-5.1)
--- NOTE | 2024-03-21 20:36 | DVH ---
Exam: CT CT AB PEL WO CON-NO ORAL OR IV History: Abdominal pain Comparison Study: None available at time of dictation. TECHNIQUE: Multidetector CT of the abdomen and pelvis without contrast. Axial, coronal and sagittal m ultiplanar reformats were obtained from the axial data set by the technologist. Radiation Dose Information: CT Dose: CTDI volume is 10.48 mGy. Dose-length product is 581.4 mGy*cm FINDINGS: Partially imaged multiple small nodular densities over the left lower lobe. Mild cardiomegaly. Pneumobilia. Liver is normal in size. Spleen, adrenal glands unremarkable. Pancreatic calcifications most prominent of the pancreatic head which may represent sequela of chronic pancreatitis. There is gas within the pancreatic duct of the proximal body. Status post cholecystectomy. Severe atrophy of bilateral kidneys with right pelvic transplant kidney appears unremarkable. Urinary bladder is unremarkable. Moderate size hiatal hernia. Mild wall thickening of the stomach. Small bowel loops unremarkable. Elizabeth endix is unremarkable. Scattered colonic diverticulosis without diverticulitis. [id number] feca l material within the colon. No evidence of intraperitoneal free air or free fluid. No evidence of aortic aneurysm. No significant lymphadenopathy. Phleboliths are noted within the pelvis. Small fat containing umbilical hernia. Mild fat stranding of the lower abdominal and pelvic subcutan eous fat. Sclerotic focus of the right acetabulum which may represent a bone [place] /blastic lesion. Severe degenerative changes of the lumbar spine. Diffuse demineralization. Sclerotic line over the right femoral head consistent with avascular necrosis. IMPRESSION: Mild wall thickening of the stomach which may be due to inadequate distention with gastritis not excl uded. Pneumobilia with focus of air within the pancreatic duct. Moderate size hiatal hernia. Scattered colonic diverticulosis without diverticulitis. Additional findings as above.
[2024-03-21] MEDS ORDERED: metroNIDAZOLE 500MG/100ML 100 ML IV ONE (21:45)
--- NOTE | 2024-03-21 23:18 | DVHHPRES ---
History of Present Illness Resident Creating Document: GEOVANNI RIDLEY RESIDENT History of Present Illness Patient is a 63-year-old female with past medical history of pancreatitis due to gallstones in 2020, recurrent UTIs, gout, hypertension, dyslipidemia, CHF, asthma, focal segmental glomerulosclerosis s/p renal transplant, paroxysmal atrial fibrillation not on anticoagulation, chronic congestive heart failure, aortic stenosis, who came in due to abdominal pain and nausea that has been ongoing since this morning. According to the patient, she started experiencing abdominal pain while she was sitting in her recliner, she describes the pain as dull, constant, 5/10 in intensity without any exacerbating or relieving factors. Denies having similar symptoms in the past. On review of systems, she is complaining of fatigue, fever, chills, flu-like symptoms, productive cough with whitish phlegm, shortness of breath, palpitations, diarrhea. She notes having sick contacts, her roommate with a flu-like illness. CXR showed increasing bilateral perihilar airspace disease in bronchial thickening findings may represent bronchitis. CT abdomen pelvis showed mild wall thickening of the stomach which may be due to inadequate distention with gastritis not excluded, pneumobilia with focus of air within the pancreatic duct. Moderate size hiatal hernia. Scattered colonic diverticulosis without diverticulitis. Multiple small nodular densities over the left lower lobe of lung. Patient was discharged from the [facility] on 03/15/2024 after being admitted for altered mental status. Patient is not oriented to time. Past Medical History pancreatitis due to gallstones in 2020, recurrent UTIs, gout, hypertension, dyslipidemia, CHF, asthma, focal segmental glomerulosclerosis s/p renal transplant, paroxysmal atrial fibrillation not on anticoagulation, chronic congestive heart failure, aortic stenosis Past Surgical History Renal transplant, , hernia repair surgery, cholecystectomy, av fistula placement for hemodialysis on left arm Smoke: No ALCOHOL: none Drugs: None Lives: Alone Review of Systems Constitutional: Yes: Fever, Chills, Malaise; No: Sweats, Weakness, Other Eyes: No: Pain, Vision change, Conjunctivae inflammation, Eyelid inflammation, Other, Redness ENT: Nose discharge, Nose congestion, Throat pain; No: Ear pain, Ear discharge, Nose pain, Mouth pain, Mouth swelling, Throat swelling, Other Respiratory: Cough, Shortness of breath, Sputum; No: Dry, SOB with excertion, Wheezing, Hemoptysis, Pleuritic Pain, Wheezing, Other Cardiovascular: Palpitations; No: Chest Pain, Orthopnea, Paroxysmal Noc. Dyspnea, Edema, Lt Headedness, Other Gastrointestinal: Nausea, Abdominal Pain; No: Vomiting, Diarrhea, Constipation, Melena, Hematochezia, Other Genitourinary: No Dysuria, No Frequency, No Incontinence, No Hematuria, No Retention, No Other Musculoskeletal: No: other, neck pain, shoulder pain, arm pain, back pain, hand pain, leg pain, foot pain Skin: No: Rash, Lesions, Jaundice, Bruising, Other Neurological: No: Weakness, Numbness, Incoordination, Change in speech, Confusion, Seizures, Other Allergies: Coded Allergies: Lisinopril (Verified Allergy, Unknown, 02/13/22) Medications Current Medications Medications Dose Ordered Sig/Srikanth Route Start Time Stop Time Status Last Admin Dose Admin Morphine Sulfate 1 mg Q4HP PRN IV 03/21/24 17:45 03/21/24 19:46 1 MG Hydralazine HCl 10 mg Q6HP PRN IV 03/21/24 18:00 Amlodipine Besylate 5 mg DAILY PO 03/22/24 10:00 Azathioprine 150 mg HS PO 03/22/24 22:00 Acetaminophen/ Hydrocodone Bitart 1 tab Q6HP PRN PO 03/21/24 18:30 03/21/24 18:53 1 TAB Metoprolol Tartrate 25 mg BID PO 03/21/24 22:00 Prednisone 5 mg DAILY PO 03/22/24 10:00 Sertraline HCl 150 mg QPM PO 03/22/24 18:00 Sucralfate 1 gm QIDACHS PO 03/21/24 22:00 Trazodone HCl 50 mg HS PO 03/21/24 22:00 Aspirin 81 mg DAILY PO 03/22/24 10:00 Docusate Calcium 240 mg HS PO 03/22/24 22:00 Pantoprazole Sodium 40 mg DAILY@0630 PO 03/22/24 06:30 Pregabalin 50 mg DAILY PO 03/22/24 10:00 Atorvastatin Calcium 20 mg HS PO 03/21/24 22:00 Tacrolimus 3 mg Q12HR PO 03/21/24 22:00 Ceftriaxone Sodium 50 ml @ 100 mls/hr DAILY@09 IV 03/22/24 09:00 Metronidazole 100 ml @ 100 mls/hr Q8HR IV 03/21/24 22:00 Exam Vital Signs Vital Signs Date Time Temp Pulse Resp B/P (MAP) Pulse Ox O2 Delivery O2 Flow Rate FiO2 03/21/24 20:57 98.7 99 16 160/98 (118) 98 98.7 General Appearance: Alert, Oriented X3, mild distress HEENT: Atraumatic, PERRLA, EOMI Respiratory: Normal air movement, Other (Crackles heard, trace scattered wheezes) Cardiovascular: Regular rate, Normal S1, Normal S2 Abdominal: Normal bowel sounds, Other (Mid to generalized abdominal tenderness to palpation) Extremities: No clubbing Skin: No rashes, No significant lesion Neuro: Normal speech, Sensation intact Psych/Mental Status: Mental status NL, Mood NL Labs/Xrays Labs Test 03/21/24 19:32 Range/Units White Blood Count 4.7 4.4-10.8 10^3/uL Red Blood Count 3.46 L 4.0-5.20 10^6/uL Hemoglobin 10.6 L 12.2-16.2 g/dL Hematocrit 32.0 L 36.0-46.0 % Mean Corpuscular Volume 92.4 80.0-100.0 fL Mean Corpuscular Hemoglobin 30.6 28.0-32.0 pg Mean Corpuscular Hemoglobin Concent 33.1 32.0-36.0 g/dL Red Cell Distribution Width 16.8 H 11.8-14.3 % Platelet Count 259 140-450 10^3/uL Mean Platelet Volume 8.5 6.9-10.8 fL Neutrophils (%) (Auto) 53.2 37.0-80.0 % Lymphocytes (%) (Auto) 29.3 10.0-50.0 % Monocytes (%) (Auto) 13.1 H 0.0-12.0 % Eosinophils (%) (Auto) 1.9 0.0-7.0 % Basophils (%) (Auto) 2.5 H 0.0-2.0 % Neutrophils # (Auto) 2.5 1.6-8.6 10 ^3/uL Lymphocytes # (Auto) 1.4 0.4-5.4 10 ^3/uL Monocytes # (Auto) 0.6 0-1.3 10 ^3/uL Eosinophils # (Auto) 0.1 0-0.8 10 ^3/uL Basophils # (Auto) 0.1 0-0.2 10 ^3/uL Nucleated Red Blood Cells 0.1 % Prothrombin Time 10.3 9.3-11.8 sec Prothrombin Time INR 0.97 0.9-1.15 Activated Partial Thromboplast Time 27.6 24.5-34.5 SEC Sodium Level 137 136-145 mmol/L Potassium Level 4.6 3.5-5.1 mmol/L Chloride Level 108 H 98-107 mmol/L Carbon Dioxide Level 21 20-31 mmol/L Anion Gap 8 5-15 Blood Urea Nitrogen 16 9-23 mg/dL Creatinine 2.01 H 0.550-1.02 mg/dL Glomerular Filtration Rate Calc 27 >90 mL/min BUN/Creatinine Ratio 8.0 L 10.0-20.0 Serum Glucose 99 74-106 mg/dL Lactic Acid Level 1.7 0.4-2.0 mmol/L Calcium Level 9.5 8.7-10.4 mg/dL Phosphorus Level 2.3 L 2.4-5.1 mg/dL Magnesium Level 1.4 L 1.6-2.6 mg/dL Total Bilirubin 0.7 0.2-1.0 mg/dL Aspartate Amino Transferase (AST) 24 13-40 U/L Alanine Aminotransferase (ALT) < 9 7-40 U/L Alkaline Phosphatase 70 46-116 U/L Creatine Kinase 52 34-145 U/L Total Protein 7.2 5.7-8.2 g/dL Albumin 4.5 3.2-4.8 g/dL Lipase 51 12-53 U/L Thyroid Stimulating Hormone (TSH) 0.83 0.55-4.78 uIU/mL Assessment/Plan Assessment/Plan Acute intractable abdominal pain Pneumobilia with focus of air within the pancreatic duct History of gallstone pancreatitis in 2020; s/p cholecystectomy 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 Liver is normal in size. Spleen, adrenal glands unremarkable. Pancreatic calcifications most prominent of the pancreatic head which may represent sequela of chronic pancreatitis. There is gas within the pancreatic duct of the proximal body. Status post cholecystectomy. Mild wall thickening of the stomach which may be due to inadequate distention with gastritis not excluded.Moderate size hiatal hernia.Scattered colonic diverticulosis without diverticulitis. - IV ceftriaxone, IV metronidazole - patient NPO, IV NS at 60 cc/hour - Protonix 40 mg daily, sucralfate 1 g p.o. q.i.d. - [place] 5 as needed for moderate pain, IV morphine as needed for severe pain Acute on chronic? metabolic/toxic encephalopathy - per patient's daughter, patient has been having increasing confusion and hallucinations at home - resumed home medication sertraline 150 mg q.p.m. - resumed home medication trazodone 50 mg Bronchitis likely acute vs community-acquired pneumonia? - CXR: Increasing bilateral perihilar airspace disease in bronchial thickening findings may represent bronchitis - CT abdomen: Multiple small nodular densities over the left lobe. 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 - prednisone 5 mg p.o. daily - azathioprine 150 mg p.o. daily History of aortic stenosis Paroxysmal atrial fibrillation History of congestive heart failure probably secondary to aortic stenosis Hypertension Dyslipidemia - aspirin 81 mg, metoprolol tartrate 25 mg b.i.d. - resumed home medication amlodipine 5 mg p.o. daily - atorvastatin 20 mg p.o. daily - hydralazine 10 mg as needed for SBP > 150 Anemia, likely of chronic disease - hemoglobin 10.6, hematocrit 32, MCV 92.4 - vitamin B12 and folic acid levels DVT prophylaxis: SCDs Goals of care: Full code, discussed for >16 minutes on 03/21/2024 Plan discussed with patient Plan discussed with Dr. Dumont Plan discussed with: Patient, Other (RN) Date of Service: Mar 21, 2024 Billing Provider: VIKI DUMONT MD Common Visit Codes: 30303-DPWLVSI INP/OBS CARE (HIGH) Secondary Visit Codes: 91457-DCYYIBPQ CARE PLAN 30 MINUTES GEOVANNI RIDLEY Mar 21, 2024 23:18 VIKI DUMONT MD Mar 22, 2024 23:11
[2024-03-21] MEDS: cefTRIAXone 1GM/50ML D5W 50 ML IV ONE (23:45)
[2024-03-21] MEDS: ATORVASTATIN 20 MG TAB PO SCH (23:52)
[2024-03-21] MEDS: METOPROLOL TARTRATE 25 MG TAB PO SCH (23:52)
[2024-03-21] MEDS: SUCRALFATE 1 GM TAB PO SCH (23:52)
[2024-03-21] MEDS: traZODone HCL 50 MG TAB PO SCH (23:52)
[2024-03-21] MEDS: TACROLIMUS 1 MG CAP PO SCH (23:54)
[2024-03-22] MEDS: metroNIDAZOLE 500MG/100ML 100 ML IV SCH (00:30)
[2024-03-22 01:39] LABS: COVID19 ANTIGEN SOFIA FIA NEGATIVE (NEGATIVE)
[2024-03-22] MEDS: MAGNESIUM SULFATE 1GM/100ML 100 ML IV ONE (02:48)
[2024-03-22] MEDS: LORazepam 2MG/ML-1ML VIAL IV ONE (03:08)
[2024-03-22 03:26] LABS: Rapid Influenza A Negative (Negative); Rapid Influenza B Negative (Negative)
[2024-03-22] MEDS: hydrALAZINE HCL 20 MG/ML VL IV PRN (04:11)
[2024-03-22] MEDS: ACETAMINOPHEN 325 MG TAB PO ONE (04:15)
[2024-03-22] MEDS ORDERED: IPRATROPIUM BROM 0.5 MG/2.5ML INH SOL NEB PRN (05:15)
[2024-03-22] MEDS ORDERED: ALBUTEROL SULF 2.5 MG/0.5ML(0.5%) NEB SOLN NEB PRN (05:15)
[2024-03-22 05:38] LABS: Urine Bacteria None Seen /hpf (None Seen)
[2024-03-22 05:53] LABS: Urine Blood Negative /uL (Negative); Urine Clarity Clear (Clear); Urine Color Colorless (Yellow); Urine Protein, UAD 1+ (Negative); Urine Specific Gravity 1.009 (1.001-1.035); Urine Squamous Epithelial Cell FEW /hpf (<5); Urine Urobilinogen Normal (Negative); Urine WBC < 1 /HPF (0-5); Urine pH 6.5 (5.0-9.0)
[2024-03-22] MEDS: PANTOPRAZOLE 40 MG TAB PO SCH (06:01)
[2024-03-22 06:13] LABS: Basophils # (auto) 0 10 ^3/uL (0-0.2); Basophils % (auto) 1.2 % (0.0-2.0); Eosinophils # (auto) 0 10 ^3/uL (0-0.8); Eosinophils % (auto) 0.3 % (0.0-7.0); Hemoglobin 9.8 g/dL (12.2-16.2); Lymphocytes # (auto) 1.1 10 ^3/uL (0.4-5.4); Lymphocytes % (auto) 25.7 % (10.0-50.0); Mean Corpuscular Hemoglobin 30.5 pg (28.0-32.0); Mean Corpuscular Hgb Conc. 33.9 g/dL (32.0-36.0); Monocytes # (auto) 0.6 10 ^3/uL (0-1.3); Neutrophils # (auto) 2.4 10 ^3/uL (1.6-8.6); Neutrophils % (auto) 58.8 % (37.0-80.0); Platelet Count (auto) 182 10^3/uL (140-450); Red Blood Cells 3.22 10^6/uL (4.0-5.20); Red Cell Distribution Width 16.5 % (11.8-14.3); White Blood Cell 4.1 10^3/uL (4.4-10.8)
[2024-03-22 06:40] LABS: Folate (Folic Acid) 14.48 ng/mL (>5.38)
[2024-03-22 06:44] LABS: Amphetamine Screen, Urine Neg (NEGATIVE); Barbiturate Scree,Urine Neg (NEGATIVE); Benzodiazephine Screen, Urine Neg (NEGATIVE); Cannabinoid Screen, Urine Neg (NEGATIVE); Cocaine Screen, Urine Neg (NEGATIVE); Opiate Scree,Urine Pos (NEGATIVE); Phencyclidine Screen, Urine Neg (NEGATIVE)
[2024-03-22 06:45] LABS: Alkaline Phosphatase 61 U/L (46-116); Anion Gap 11 (5-15); Sodium 137 mmol/L (136-145)
[2024-03-22 06:46] LABS: Alanine Aminotransferase < 9 U/L (7-40); BUN/Creatinine Ratio 8.6 (10.0-20.0); Blood Urea Nitrogen 16 mg/dL (9-23); Carbon Dioxide 19 mmol/L (20-31); Chloride 107 mmol/L (98-107); Glucose 99 mg/dL (74-106)
[2024-03-22 06:48] LABS: Albumin 3.9 g/dL (3.2-4.8); Aspartate Aminotransferase 20 U/L (13-40); Bilirubin, Total 0.5 mg/dL (0.2-1.0); Total Protein 6.4 g/dL (5.7-8.2)
[2024-03-22 07:34] VITALS: BP 155/87; PULSE 100; RESP 18; O2SAT 97
[2024-03-22 08:00] VITALS: PULSE 95; RESP 22; O2SAT 94
--- NOTE | 2024-03-22 09:59 | DVHINCON2 ---
Date of service: Mar 22, [address] Aly Reason for Consultation Acute kidney injury History of Present Illness Patient is voicing 63-year-old female with past medical history significant for AFIB, CHF, HTN, end-stage renal disease due to focal segmental gl omerulosclerosis status post cadaveric kidney transplant on immunosuppression, 2007 in [facility] and recurrent UTI'S is admitted for abdominal pain associated with nausea and vomiting. On admission patient found to have elevated BUN creatinine nephrology is consulted for acute kidney injury Past Medical History PAST MEDICAL HISTORY: AFIB, CHF, HTN, chronic kidney disease to focal segmental glomerulosclerosis and recurrent urinary Past Surgical History Surgical History: Cholecystectomy, , Hernia Repair Kidney transplant Allergies: Coded Allergies: Lisinopril (Verified Allergy, Unknown, 02/13/22) Home Meds Active Scripts Amoxicillin & Pot Clavulanate (AUGMENTIN TABLET) 875 Mg Tb, 875 MG PO BID for 5 Days, #10 TAB Prov:KRZYSZTOF CHAVEZ [employer] 03/20/24 Ciprofloxacin Hcl (Cipro) 500 Mg Tab, 1 TAB PO BID, #14 TAB Prov:DINA HOLLIDAY MD 02/19/24 Levofloxacin Hemihydrate (LEVAQUIN 500 MG) 500 Mg Tab, 1 TAB PO DAILY, #10 TAB Prov:DINA HOLLIDAY MD 01/29/24 Amlodipine Besylate (NORVASC TABLET) 5 Mg Tb, 5 MG PO DAILY for 30 Days, #30 TAB 11 Refills Prov:LYNNETTE DALTON DO 10/23/22 Omeprazole Magnesium (Omeprazole) 20 Mg Tab, 20 MG PO BID for 30 Days, #60 TAB Prov:BLANCA BELLO MD 02/18/22 Levofloxacin (Levaquin) 500 Mg Tab, 500 MG PO EOD for 7 Days, #7 TAB Prov:BLANCA BELLO MD 02/18/22 Sucralfate (CARAFATE) 1 Gm Tab, 1 GM PO QID for 30 Days, #120 TAB Prov:BLANCA BELLO MD 02/18/22 Reported Medications Tacrolimus (ASTAGRAF XL) 1 Mg Cap, 3 MG PO Q12HR, CAP 01/27/24 Lansoprazole (Lansoprazole) 30 Mg Cap, 1 CAP PO DAILY, #30 CAP 5 Refills 01/27/24 Pregabalin (Lyrica) 50 Mg Cap, 50 MG PO DAILY, CAP 09/27/20 Trazodone Hcl (Trazodone Hcl) 50 Mg Tab, 50 MG PO HS, MG 09/27/20 Cyanocobalamin (B-12) 1,000 Mcg Cap, 1000 MCG PO, CAP 09/27/20 Tizanidine Hydrochloride (TIZANIDINE HCL) 2 Mg Cap, 2.5 MG PO, CAP 09/27/20 Magnesium Oxide (MAGNESIUM OXIDE) 400 Mg Tab, 1 TAB PO BID, #60 TAB 5 Refills 09/27/20 Tizanidine Hydrochloride (Zanaflex) 4 Mg Tab, 0.5 TAB PO HS, #60 TAB 09/27/20 Metoprolol Tartrate (Metoprolol Tartrate) 25 Mg Tab, 1 TAB PO BID, #180 TAB 1 Refill 09/04/18 Raloxifene Hydrochloride (EVISTA TABLET) 60 Mg Tb, 1 TAB PO DAILY, #30 TAB 11 Refills 09/04/18 Prednisone (PREDNISONE) 5 Mg Tb, 5 MG PO DAILY 09/02/18 Azathioprine (Imuran) 50 Mg Tab, 3 TAB PO BEDTIME, #180 TAB 3 Refills 09/02/18 Fish Oil (Fish Oil) 500 Mg Cap, 500 MG PO BID, CAP 09/02/18 Omeprazole (Gnp Omeprazole) 20 Mg Tab, 1 CAP PO BID, #90 TAB 1 Refill 09/02/18 Docusate Sodium (Docusate Sodium) 250 Mg Cap, 250 MG PO QHS, CAP 09/02/18 Cholecalciferol (VITAMIN D3) 2,000 Unit Chw, 2000 UNIT PO DAILY, CHW 09/02/18 Loratadine (Claritin) 10 Mg Tab, 1 TAB PO DAILY, #30 TAB 5 Refills 09/02/18 Aspirin (Aspirin Low Dose) 81 Mg Chw, 1 TAB PO DAILY, #30 TAB 3 Refills 09/02/18 Cyclobenzaprine Hcl (Cyclobenzaprine Hcl) 5 Mg Tab, 2 TAB PO QPM PRN for prn, #30 TAB 09/02/18 Hydrocodone-Acetaminophen ([place] 5/325MG) 1 Tab Tb, 1 TAB PO Q6HP PRN for pain, #90 TAB 09/02/18 Sertraline Hcl (Sertraline Hcl) 50 Mg Tab, 3 TAB PO QPM for depression, #30 TAB 5 Refills 09/02/18 Simvastatin (Simvastatin) 40 Mg Tab, 1 TAB PO QPM, #30 TAB 5 Refills 09/02/18 Current Medications Current Medications Medications (Trade) Dose Ordered Sig/Srikanth Route PRN Reason Start Time Stop Time Status Last Admin Morphine Sulfate 1 mg Q4HP PRN IV SEVERE PAIN (7-10 PAIN SCALE) 03/21/24 17:45 03/22/24 05:27 Hydralazine HCl (Apresoline Injection) 10 mg Q6HP PRN IV SBP>150 03/21/24 18:00 03/22/24 04:11 Amlodipine Besylate (Norvasc Tablet) 5 mg DAILY PO 03/22/24 10:00 03/22/24 10:44 Azathioprine (Imuran Tablet) 150 mg HS PO 03/22/24 22:00 Acetaminophen/ Hydrocodone Bitart ([place] 5/325MG Tab) 1 tab Q6HP PRN PO MODERATE PAIN (4-6 PAIN SCALE) 03/21/24 18:30 03/22/24 08:24 Metoprolol Tartrate (Lopressor Tablet) 25 mg BID PO 03/21/24 22:00 03/22/24 10:43 Prednisone 5 mg DAILY PO 03/22/24 10:00 03/22/24 10:43 Sertraline HCl (Zoloft) 150 mg QPM PO 03/22/24 18:00 Sucralfate (Carafate Tab) 1 gm QIDACHS PO 03/21/24 22:00 03/22/24 11:39 Trazodone HCl (Desyrel) 50 mg HS PO 03/21/24 22:00 03/21/24 23:52 Aspirin 81 mg DAILY PO 03/22/24 10:00 03/22/24 10:42 Docusate Calcium (Surfak Capsule) 240 mg HS PO 03/22/24 22:00 Pantoprazole Sodium (Protonix Tablet) 40 mg DAILY@0630 PO 03/22/24 06:30 03/22/24 06:01 Pregabalin (Lyrica Capsule) 50 mg DAILY PO 03/22/24 10:00 03/22/24 10:44 Atorvastatin Calcium (Lipitor) 20 mg HS PO 03/21/24 22:00 03/21/24 23:52 Tacrolimus (Prograf) 3 mg Q12HR PO 03/21/24 22:00 03/22/24 10:46 Ceftriaxone Sodium 50 ml @ 100 mls/hr DAILY@09 IV 03/22/24 09:00 03/22/24 10:47 Metronidazole 100 ml @ 100 mls/hr Q8HR IV 03/21/24 22:00 03/22/24 05:52 Sodium Chloride 1,000 ml @ 60 mls/hr [id number] IV 03/21/24 23:45 03/21/24 00:00 Albuterol (Ventolin Medneb) 2.5 mg Q8HPRN PRN NEB SHORTNESS OF BREATH 03/22/24 05:15 Ipratropium [place] (Atrovent Medneb) 0.5 mg Q8HPRN PRN NEB SHORTNESS OF BREATH 03/22/24 05:15 Family History: Diabetes mellitus G8 FATHER FH: CHF (congestive heart failure) G8 FATHER G8 SISTER FH: celiac disease FH: dementia G8 MOTHER FH: heart attack G8 FATHER FH: lung cancer G8 FATHER FH: pneumonia G8 SISTER FH: skin cancer G8 MOTHER G8 SISTER Pleural effusion G8 BROTHER Psychiatric disorder G8 SISTER Review of Systems All 12 item review of systems reviewed with the patient nonsignificant except what is mentioned in the history of present illness H&P Exam Vital Signs/I&O Vital Sign Date Time Temp Pulse Resp B/P (MAP) Pulse Ox O2 Delivery O2 Flow Rate FiO2 03/22/24 10:44 133/72 03/22/24 10:43 90 03/22/24 10:00 20 94 03/22/24 08:00 98.8 98.8 03/22/24 08:00 Room Air* 0 21 Intake and Output 03/21/24 03/22/24 18:59 06:59 Intake Total 510 ml Balance 510 ml Intake IV Total 510 ml Physical Exam Patient appeared in no acute distress Lungs clear to auscultation bilaterally Cardiac exam regular rate and rhythm GI guarding upper abdomen Chávez catheter Extremities no clubbing cyanosis or edema Neuro nonfocal Labs/Diagnostic Data Labs/Diagnostic Data Laboratory Tests Test 03/22/24 05:45 03/22/24 05:30 03/22/24 02:20 03/22/24 00:31 Range/Units White Blood Count 4.1 L 4.4-10.8 10^3/uL Red Blood Count 3.22 L 4.0-5.20 10^6/uL Hemoglobin 9.8 L 12.2-16.2 g/dL Hematocrit 29.0 L 36.0-46.0 % Mean Corpuscular Volume 90.0 80.0-100.0 fL Mean Corpuscular Hemoglobin 30.5 28.0-32.0 pg Mean Corpuscular Hemoglobin Concent 33.9 32.0-36.0 g/dL Red Cell Distribution Width 16.5 H 11.8-14.3 % Platelet Count 182 140-450 10^3/uL Mean Platelet Volume 8.2 6.9-10.8 fL Neutrophils (%) (Auto) 58.8 37.0-80.0 % Lymphocytes (%) (Auto) 25.7 10.0-50.0 % Monocytes (%) (Auto) 14.0 H 0.0-12.0 % Eosinophils (%) (Auto) 0.3 0.0-7.0 % Basophils (%) (Auto) 1.2 0.0-2.0 % Neutrophils # (Auto) 2.4 1.6-8.6 10 ^3/uL Lymphocytes # (Auto) 1.1 0.4-5.4 10 ^3/uL Monocytes # (Auto) 0.6 0-1.3 10 ^3/uL Eosinophils # (Auto) 0 0-0.8 10 ^3/uL Basophils # (Auto) 0 0-0.2 10 ^3/uL Nucleated Red Blood Cells 0.0 % Sodium Level 137 136-145 mmol/L Potassium Level 4.0 3.5-5.1 mmol/L Chloride Level 107 98-107 mmol/L Carbon Dioxide Level 19 L 20-31 mmol/L Anion Gap 11 5-15 Blood Urea Nitrogen 16 9-23 mg/dL Creatinine 1.86 H 0.550-1.02 mg/dL Glomerular Filtration Rate Calc 30 >90 mL/min BUN/Creatinine Ratio 8.6 L 10.0-20.0 Serum Glucose 99 74-106 mg/dL Calcium Level 9.0 8.7-10.4 mg/dL Phosphorus Level 2.2 L 2.4-5.1 mg/dL Magnesium Level 1.7 1.6-2.6 mg/dL Total Bilirubin 0.5 0.2-1.0 mg/dL Aspartate Amino Transferase (AST) 20 13-40 U/L Alanine Aminotransferase (ALT) < 9 7-40 U/L Alkaline Phosphatase 61 46-116 U/L Total Protein 6.4 5.7-8.2 g/dL Albumin 3.9 3.2-4.8 g/dL Lipase 45 12-53 U/L Vitamin B12 Level 660 211-911 pg/mL Vitamin D 25-Hydroxy 22.6 L 30.0-100 ng/mL Folic Acid 14.48 >5.38 ng/mL Parathyroid Hormone (Intact) 333.3 H 18.4-80.1 pg/mL Urine Color Colorless Yellow Urine Clarity Clear Clear Urine pH 6.5 5.0-9.0 Urine Specific [place] 1.009 1.001-1.035 Urine Protein 1+ H Negative Urine Ketones Negative Negative Urine Blood Negative Negative /uL Urine Nitrite Negative Negative Urine Bilirubin Negative Negative Urine Urobilinogen Normal Negative mg/dL Urine Leukocyte Esterase Negative Negative /uL Urine RBC <1 0 - 4 /hpf Urine Microscopic WBC < 1 0-5 /HPF Urine Squamous Epithelial Cells Few <5 /hpf Urine Bacteria None seen None Seen /hpf Urine Creatinine 44.49 30.0-125.0 mg/dL Urine Protein/Creatinine Ratio 1.23 Urine Sodium 131 40-220 mmol/L Urine Glucose Normal Normal mg/dL Urine Total Protein 54.8 H 1-14 mg/dL Urine Opiates Screen Pos NEGATIVE Urine Fentanyl Screen Neg NEGATIVE Urine Barbiturates Screen Neg NEGATIVE Urine Phencyclidine Screen Neg NEGATIVE Urine Amphetamines Screen Neg NEGATIVE Urine Benzodiazepines Screen Neg NEGATIVE Urine Cocaine Screen Neg NEGATIVE Urine Cannabinoids Screen Neg NEGATIVE Influenza Type A Antigen Negative Negative Influenza Type B Antigen Negative Negative SARS-CoV-2 Antigen (Rapid) Negative NEGATIVE Test 03/21/24 19:32 Range/Units White Blood Count 4.7 4.4-10.8 10^3/uL Red Blood Count 3.46 L 4.0-5.20 10^6/uL Hemoglobin 10.6 L 12.2-16.2 g/dL Hematocrit 32.0 L 36.0-46.0 % Mean Corpuscular Volume 92.4 80.0-100.0 fL Mean Corpuscular Hemoglobin 30.6 28.0-32.0 pg Mean Corpuscular Hemoglobin Concent 33.1 32.0-36.0 g/dL Red Cell Distribution Width 16.8 H 11.8-14.3 % Platelet Count 259 140-450 10^3/uL Mean Platelet Volume 8.5 6.9-10.8 fL Neutrophils (%) (Auto) 53.2 37.0-80.0 % Lymphocytes (%) (Auto) 29.3 10.0-50.0 % Monocytes (%) (Auto) 13.1 H 0.0-12.0 % Eosinophils (%) (Auto) 1.9 0.0-7.0 % Basophils (%) (Auto) 2.5 H 0.0-2.0 % Neutrophils # (Auto) 2.5 1.6-8.6 10 ^3/uL Lymphocytes # (Auto) 1.4 0.4-5.4 10 ^3/uL Monocytes # (Auto) 0.6 0-1.3 10 ^3/uL Eosinophils # (Auto) 0.1 0-0.8 10 ^3/uL Basophils # (Auto) 0.1 0-0.2 10 ^3/uL Nucleated Red Blood Cells 0.1 % Prothrombin Time 10.3 9.3-11.8 sec Prothrombin Time INR 0.97 0.9-1.15 Activated Partial Thromboplast Time 27.6 24.5-34.5 SEC Sodium Level 137 136-145 mmol/L Potassium Level 4.6 3.5-5.1 mmol/L Chloride Level 108 H 98-107 mmol/L Carbon Dioxide Level 21 20-31 mmol/L Anion Gap 8 5-15 Blood Urea Nitrogen 16 9-23 mg/dL Creatinine 2.01 H 0.550-1.02 mg/dL Glomerular Filtration Rate Calc 27 >90 mL/min BUN/Creatinine Ratio 8.0 L 10.0-20.0 Serum Glucose 99 74-106 mg/dL Lactic Acid Level 1.7 0.4-2.0 mmol/L Calcium Level 9.5 8.7-10.4 mg/dL Phosphorus Level 2.3 L 2.4-5.1 mg/dL Magnesium Level 1.4 L 1.6-2.6 mg/dL Total Bilirubin 0.7 0.2-1.0 mg/dL Aspartate Amino Transferase (AST) 24 13-40 U/L Alanine Aminotransferase (ALT) < 9 7-40 U/L Alkaline Phosphatase 70 46-116 U/L Creatine Kinase 52 34-145 U/L Total Protein 7.2 5.7-8.2 g/dL Albumin 4.5 3.2-4.8 g/dL Lipase 51 12-53 U/L Thyroid Stimulating Hormone (TSH) 0.83 0.55-4.78 uIU/mL Assessment Acute kidney injury secondary hemodynamic mediated Kidney transplant on immunosuppression AFib with RVR Hypertension Abdominal pain Hypomagnesemia Anemia of chronic kidney disease Recommendations Closely monitor fluid and electrolytes Avoid nephrotoxic medications Strict I&Os Check urine electrolytes urine protein excretion kidney transplant ultrasound reported earlier with a normal limit Resume home immunosuppressive medications Magnesium sulfate IV piggyback GI consult Cardiology consult We will continue to follow Patient seen and examined by myself. I discussed my plan of care with the patient and primary nurse at the bedside I would like to thank Dr. Aly for the consult, will follow up Plan discussed with: Patient IRMA LARKIN MD Mar 22, 2024 09:59
[2024-03-22 10:23] LABS: Magnesium 1.7 mg/dL (1.6-2.6)
[2024-03-22 10:33] LABS: Phosphorus 2.2 mg/dL (2.4-5.1)
[2024-03-22 10:38] LABS: Protein, Urine 54.8 mg/dL (1-14)
[2024-03-22 10:41] LABS: Creatinine, Urine 44.49 mg/dL (30.0-125.0); Urine Protein/Creatinine Ratio 1.23
[2024-03-22] MEDS: ASPirin 81 mg TAB PO SCH (10:42)
[2024-03-22] MEDS: predniSONE 5 MG TAB PO SCH (10:43)
[2024-03-22] MEDS: PREGABALIN 25 MG CAP PO SCH (10:44)
[2024-03-22] MEDS: amLODIPine BESYLATE 5 MG TAB PO SCH (10:44)
[2024-03-22] MEDS: cefTRIAXone 1GM/50ML D5W 50 ML IV SCH (10:47)
[2024-03-22 12:45] VITALS: BP 161/88; PULSE 85; RESP 16; RESP 18; TEMP 97.9; O2SAT 96
[2024-03-22] MEDS: HYDROcodone-ACET 10/325MG TAB PO PRN (14:16)
[2024-03-22 16:45] VITALS: BP 154/92; PULSE 80; RESP 16; TEMP 97.9; O2SAT 92
--- NOTE | 2024-03-22 17:07 | DVHPNRES ---
Progress Note Date Seen: Mar 22, 2024 Resident Creating Document: HERMILO PORTER RESIDENT Has the PT tested + for MRSA If YES, has PT been informed?: No Medical Necessity Reason Pt with a Central, PICC or Fol: No Subjective Review of Systems Patient is a 63-year-old female with past medical history of pancreatitis due to gallstones in 2020, recurrent UTIs, gout, hypertension, dyslipidemia, CHF, asthma, focal segmental glomerulosclerosis s/p renal transplant, paroxysmal atrial fibrillation not on anticoagulation, chronic congestive heart failure, aortic stenosis, who came in due to abdominal pain and nausea that has been ongoing since this morning. According to the patient, she started experiencing abdominal pain while she was sitting in her recliner, she describes the pain as dull, constant, 5/10 in intensity without any exacerbating or relieving factors. Denies having similar symptoms in the past. On review of systems, she is complaining of fatigue, fever, chills, flu-like symptoms, productive cough with whitish phlegm, shortness of breath, palpitations, diarrhea. She notes having sick contacts, her roommate with a flu-like illness. CXR showed increasing bilateral perihilar airspace disease in bronchial thickening findings may represent bronchitis. CT abdomen pelvis showed mild wall thickening of the stomach which may be due to inadequate distention with gastritis not excluded, pneumobilia with focus of air within the pancreatic duct. Moderate size hiatal hernia. Scattered colonic diverticulosis without diverticulitis. Multiple small nodular densities over the left lower lobe of lung. Patient was discharged from the [facility] on 03/15/2024 after being admitted for altered mental status. Patient is not oriented to time. Past Medical History pancreatitis due to gallstones in 2020, recurrent UTIs, gout, hypertension, dyslipidemia, CHF, asthma, focal segmental glomerulosclerosis s/p renal transplant, paroxysmal atrial fibrillation not on anticoagulation, chronic congestive heart failure, aortic stenosis Past Surgical History Renal transplant, , hernia repair surgery, cholecystectomy, av fistula placement for hemodialysis on left arm Smoke: No ALCOHOL: none Drugs: None Lives: Alone Objective vital signs Vital Sign Date Time Temp Pulse Resp B/P (MAP) Pulse Ox O2 Delivery O2 Flow Rate FiO2 03/22/24 12:45 97.9 85 16 161/88 (112) 96 97.9 03/22/24 12:45 Room Air* 0 21 Total Intake and Output 03/21/24 03/21/24 03/22/24 15:00 23:00 07:00 Intake Total 570 ml Balance 570 ml medications Current Medications Medications Dose Ordered Sig/Srikanth Route Start Time Stop Time Status Last Admin Dose Admin Morphine Sulfate 1 mg Q4HP PRN IV 03/21/24 17:45 03/22/24 05:27 1 MG Hydralazine HCl 10 mg Q6HP PRN IV 03/21/24 18:00 03/22/24 04:11 10 MG Amlodipine Besylate 5 mg DAILY PO 03/22/24 10:00 03/22/24 10:44 5 MG Azathioprine 150 mg HS PO 03/22/24 22:00 Metoprolol Tartrate 25 mg BID PO 03/21/24 22:00 03/22/24 10:43 25 MG Prednisone 5 mg DAILY PO 03/22/24 10:00 03/22/24 10:43 5 MG Sertraline HCl 150 mg QPM PO 03/22/24 18:00 Sucralfate 1 gm QIDACHS PO 03/21/24 22:00 03/22/24 11:39 1 GM Trazodone HCl 50 mg HS PO 03/21/24 22:00 03/21/24 23:52 50 MG Aspirin 81 mg DAILY PO 03/22/24 10:00 03/22/24 10:42 81 MG Docusate Calcium 240 mg HS PO 03/22/24 22:00 Pantoprazole Sodium 40 mg DAILY@0630 PO 03/22/24 06:30 03/22/24 06:01 40 MG Pregabalin 50 mg DAILY PO 03/22/24 10:00 03/22/24 10:44 50 MG Atorvastatin Calcium 20 mg HS PO 03/21/24 22:00 03/21/24 23:52 20 MG Tacrolimus 3 mg Q12HR PO 03/21/24 22:00 03/22/24 10:46 3 MG Ceftriaxone Sodium 50 ml @ 100 mls/hr DAILY@09 IV 03/22/24 09:00 03/22/24 10:47 100 MLS/HR Metronidazole 100 ml @ 100 mls/hr Q8HR IV 03/21/24 22:00 03/22/24 14:16 100 MLS/HR Sodium Chloride 1,000 ml @ 60 mls/hr [id number] IV 03/21/24 23:45 03/21/24 00:00 60 MLS/HR Albuterol 2.5 mg Q8HPRN PRN NEB 03/22/24 05:15 Ipratropium [place] 0.5 mg Q8HPRN PRN NEB 03/22/24 05:15 Acetaminophen/ Hydrocodone Bitart 1 tab Q8HP PRN PO 03/22/24 13:00 03/22/24 14:16 1 TAB Examination General Appearance: Alert, Oriented X3, mild distress HEENT: Atraumatic, PERRLA, EOMI Respiratory: clear lungs Cardiovascular: Regular rate, Normal S1, Normal S2 Abdominal: Mid to generalized abdominal tenderness to palpation Extremities: No clubbing Skin: No rashes, No significant lesion Neuro: Normal speech, Sensation intact Psych/Mental Status: Mental status NL, Mood NL laboratory and microbiology Laboratory Tests 03/22/24 05:45 Test 03/22/24 05:45 Range/Units Serum Glucose 99 74-106 mg/dL Problem List/Assessment/Plan Problem List/Assessment/Plan Acute intractable abdominal pain Pneumobilia with focus of air within the pancreatic duct History of gallstone pancreatitis in 2020; s/p cholecystectomy 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 Liver is normal in size. Spleen, adrenal glands unremarkable. Pancreatic calcifications most prominent of the pancreatic head which may represent sequela of chronic pancreatitis. There is gas within the pancreatic duct of the proximal body. Status post cholecystectomy. Mild wall thickening of the stomach which may be due to inadequate distention with gastritis not excluded.Moderate size hiatal hernia.Scattered colonic diverticulosis without diverticulitis. - IV ceftriaxone, IV metronidazole - Clear liquid diet -IV NS at 60 cc/hour - Protonix 40 mg daily, sucralfate 1 g p.o. q.i.d. - [place] 10 as needed for moderate pain, IV morphine as needed for severe pain Acute on chronic? metabolic/toxic encephalopathy - per patient's daughter, patient has been having increasing confusion and hallucinations at home - resumed home medication sertraline 150 mg q.p.m. - resumed home medication trazodone 50 mg Bronchitis - CXR: Increasing bilateral perihilar airspace disease in bronchial thickening findings may represent bronchitis - CT abdomen: Multiple small nodular densities over the left lobe. 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 - prednisone 5 mg p.o. daily - azathioprine 150 mg p.o. daily History of aortic stenosis Paroxysmal atrial fibrillation History of congestive heart failure probably secondary to aortic stenosis Hypertension Dyslipidemia - aspirin 81 mg, metoprolol tartrate 25 mg b.i.d. - resumed home medication amlodipine 5 mg p.o. daily - atorvastatin 20 mg p.o. daily - hydralazine 10 mg as needed for SBP > 150 Anemia, likely of chronic disease - hemoglobin 10.6, hematocrit 32, MCV 92.4 - vitamin B12 and folic acid levels DVT prophylaxis: SCDs Goals of care: Full code, discussed for >16 minutes on 03/21/2024 Plan discussed with patient Plan discussed with Dr. Lowery Plan discussed with: Patient, Other (rn) My Orders My Orders Orders - HERMILO PORTER Procedure Category Date Status Time * Generator Repairer CONS 03/22/24 Transmitted Consult * Gi Dvh Fraud Prevention Analyst CONS 03/22/24 Transmitted 12:47 Clear Liq Diet DIET 03/22/24 Transmitted Lunch Hydrocodone-Acet PHA 03/22/24 In Process 10/325mg Tab ([place] 13:00 Mrsa Screen EFRAIN 03/22/24 Logged 15:37 Date of Service: Mar 22, 2024 Billing Provider: JENIFFER LOWERY MD Common Visit Codes: [id number] INP/OBS CARE(HIGH) HERMILO PORTER RESIDENT Mar 22, 2024 17:07 JENIFFER LOWERY MD Mar 23, 2024 08:53
[2024-03-22] MEDS: SERTRALINE HCL 50 MG TAB PO SCH (17:39)
[2024-03-22 21:00] VITALS: BP 129/68; PULSE 86; RESP 17; TEMP 98.2; O2SAT 92
[2024-03-22] MEDS: DOCUSATE CALCIUM 240 MG CAP PO SCH (22:18)
[2024-03-22] MEDS: azaTHIOprine 50 MG TAB PO SCH (22:45)
[2024-03-23] VITALS (9 sets, daily range): BP systolic 128–147; BP diastolic 68–84; PULSE 79–87; RESP 17–18; TEMP 36.6; O2SAT 92–97
[2024-03-23] MEDS ORDERED: CYCLOBENZAPRINE HCL 10 MG TAB PO ONE (01:00)
[2024-03-23 08:34] LABS: Basophils # (auto) 0 10 ^3/uL (0-0.2); Basophils % (auto) 0.6 % (0.0-2.0); Eosinophils # (auto) 0.1 10 ^3/uL (0-0.8); Eosinophils % (auto) 1.4 % (0.0-7.0); Hematocrit 33.8 % (36.0-46.0); Hemoglobin 10.8 g/dL (12.2-16.2); Lymphocytes # (auto) 1.6 10 ^3/uL (0.4-5.4); Lymphocytes % (auto) 39.4 % (10.0-50.0); Mean Corpuscular Hemoglobin 29.9 pg (28.0-32.0); Mean Corpuscular Hgb Conc. 31.9 g/dL (32.0-36.0); Mean Corpuscular Volume 93.7 fL (80.0-100.0); Monocytes # (auto) 0.4 10 ^3/uL (0-1.3); Monocytes % (auto) 11.3 % (0.0-12.0); Neutrophils # (auto) 1.9 10 ^3/uL (1.6-8.6); Neutrophils % (auto) 47.3 % (37.0-80.0); Nucleated Red Blood Cells % 0.3 %; Platelet Count (auto) 185 10^3/uL (140-450); Red Blood Cells 3.61 10^6/uL (4.0-5.20)
[2024-03-23 08:44] LABS: Albumin 3.8 g/dL (3.2-4.8); Alkaline Phosphatase 56 U/L (46-116); Anion Gap 9 (5-15); Aspartate Aminotransferase 18 U/L (13-40); BUN/Creatinine Ratio 8.1 (10.0-20.0); Bilirubin, Total 0.4 mg/dL (0.2-1.0); Blood Urea Nitrogen 17 mg/dL (9-23); Potassium 3.8 mmol/L (3.5-5.1); Sodium 138 mmol/L (136-145); Total Protein 6.1 g/dL (5.7-8.2)
[2024-03-23 08:55] LABS: Alanine Aminotransferase < 9 U/L (7-40); Calcium 8.5 mg/dL (8.7-10.4); Carbon Dioxide 19 mmol/L (20-31); Chloride 110 mmol/L (98-107); Glucose 107 mg/dL (74-106)
--- NOTE | 2024-03-23 10:45 | DVHPN2 ---
Progress Note Date Seen: Mar 23, 2024 Has the PT tested + for MRSA If YES, has PT been informed?: No Medical Necessity Reason Pt with a Central, PICC or Fol: No Subjective Review of Systems: GI:Abnormal Objective vital signs Vital Sign Date Time Temp Pulse Resp B/P (MAP) Pulse Ox O2 Delivery O2 Flow Rate FiO2 03/23/24 10:23 143/84 03/23/24 10:22 80 03/23/24 08:36 98.4 17 94 98.4 03/23/24 06:00 Room Air* 0 21 Total Intake and Output 03/22/24 03/22/24 03/23/24 15:00 23:00 07:00 Intake Total 660 ml 510 ml 679 ml Output Total 0 ml Balance 660 ml 510 ml 679 ml medications Current Medications Medications Dose Ordered Sig/Srikanth Route Start Time Stop Time Status Last Admin Dose Admin Morphine Sulfate 1 mg Q4HP PRN IV 03/21/24 17:45 03/22/24 05:27 1 MG Hydralazine HCl 10 mg Q6HP PRN IV 03/21/24 18:00 03/22/24 04:11 10 MG Amlodipine Besylate 5 mg DAILY PO 03/22/24 10:00 03/23/24 10:23 5 MG Azathioprine 150 mg HS PO 03/22/24 22:00 03/22/24 22:45 150 MG Metoprolol Tartrate 25 mg BID PO 03/21/24 22:00 03/23/24 10:22 25 MG Prednisone 5 mg DAILY PO 03/22/24 10:00 03/23/24 10:22 5 MG Sertraline HCl 150 mg QPM PO 03/22/24 18:00 Sucralfate 1 gm QIDACHS PO 03/21/24 22:00 03/23/24 06:12 1 GM Trazodone HCl 50 mg HS PO 03/21/24 22:00 03/22/24 22:22 50 MG Aspirin 81 mg DAILY PO 03/22/24 10:00 03/23/24 10:23 81 MG Docusate Calcium 240 mg HS PO 03/22/24 22:00 03/22/24 22:18 240 MG Pantoprazole Sodium 40 mg DAILY@0630 PO 03/22/24 06:30 03/23/24 06:12 40 MG Pregabalin 50 mg DAILY PO 03/22/24 10:00 03/23/24 10:23 50 MG Atorvastatin Calcium 20 mg HS PO 03/21/24 22:00 03/22/24 22:21 20 MG Tacrolimus 3 mg Q12HR PO 03/21/24 22:00 03/23/24 10:24 3 MG Ceftriaxone Sodium 50 ml @ 100 mls/hr DAILY@09 IV 03/22/24 09:00 03/23/24 10:21 100 MLS/HR Metronidazole 100 ml @ 100 mls/hr Q8HR IV 03/21/24 22:00 03/23/24 06:12 100 MLS/HR Sodium Chloride 1,000 ml @ 60 mls/hr [id number] IV 03/21/24 23:45 03/23/24 09:05 60 MLS/HR Albuterol 2.5 mg Q8HPRN PRN NEB 03/22/24 05:15 Ipratropium [place] 0.5 mg Q8HPRN PRN NEB 03/22/24 05:15 Acetaminophen/ Hydrocodone Bitart 1 tab Q8HP PRN PO 03/22/24 13:00 03/23/24 00:35 1 TAB Examination: LUNGS:Normal, CVS:Normal, MSK:Normal laboratory and microbiology Laboratory Tests 03/23/24 08:09 Test 03/23/24 08:09 Range/Units Serum Glucose 107 H 74-106 mg/dL Problem List/Assessment/Plan Problem List/Assessment/Plan Acute kidney injury secondary hemodynamic mediated Kidney transplant on immunosuppression AFib with RVR Hypertension Abdominal pain Hypomagnesemia Anemia of chronic kidney disease Hyperparathyroidism Recommendations Kidney function slightly worsened today No urine output charted Strict I&Os Mild proteinuria due to transplant glomerulopathy kidney transplant ultrasound reported earlier with a normal limit Resume home immunosuppressive medications Magnesium sulfate IV piggyback Calcitriol 0.25 mcg p.o. q.day GI consult Cardiology consult We will continue to follow Plan discussed with: Patient IRMA LARKIN MD Mar 23, 2024 10:45
[2024-03-23] MEDS: MAGNESIUM SULFATE 1GM/100ML 100 ML IV SCH (12:00)
[2024-03-23] MEDS: HYDROcodone-ACET 5/325MG TAB PO PRN (12:01)
--- NOTE | 2024-03-23 14:41 | DVHINCON2 ---
Date of service: Mar 23, 2024 History of Present Illness 63-year-old female with a history of multiple medical problems admitted secondary to abdominal pain associated with nausea and vomiting. However patient denies any abdominal pain today. She is able to tolerate clear liquid diet today. Past Medical History End-stage renal disease secondary to focal segmental glomerulosclerosis status post category kidney transplant on immunosuppression. History of pancreatitis status post ERCP. Atrial fibrillation. CHF. Hypertension. Past Surgical History Cholecystectomy. . Hernia repair. Kidney transplant. Family History: Diabetes mellitus G8 FATHER FH: CHF (congestive heart failure) G8 FATHER G8 SISTER FH: celiac disease FH: dementia G8 MOTHER FH: heart attack G8 FATHER FH: lung cancer G8 FATHER FH: pneumonia G8 SISTER FH: skin cancer G8 MOTHER G8 SISTER Pleural effusion G8 BROTHER Psychiatric disorder G8 SISTER Family History Noncontributory Social History No alcohol, tobacco, IV drug use Allergies: Coded Allergies: Lisinopril (Verified Allergy, Unknown, 02/13/22) Home Meds Active Scripts Amoxicillin & Pot Clavulanate (AUGMENTIN TABLET) 875 Mg Tb, 875 MG PO BID for 5 Days, #10 TAB Prov:KRZYSZTOF CHAVEZ NP 03/20/24 Ciprofloxacin Hcl (Cipro) 500 Mg Tab, 1 TAB PO BID, #14 TAB Prov:DINA HOLLIDAY MD 02/19/24 Levofloxacin Hemihydrate (LEVAQUIN 500 MG) 500 Mg Tab, 1 TAB PO DAILY, #10 TAB Prov:DINA HOLLIDAY MD 01/29/24 Amlodipine Besylate (NORVASC TABLET) 5 Mg Tb, 5 MG PO DAILY for 30 Days, #30 TAB 11 Refills Prov:LYNNETTE DALTON DO 10/23/22 Omeprazole Magnesium (Omeprazole) 20 Mg Tab, 20 MG PO BID for 30 Days, #60 TAB Prov:BLANCA BELLO MD 02/18/22 Levofloxacin (Levaquin) 500 Mg Tab, 500 MG PO EOD for 7 Days, #7 TAB Prov:BLANCA BELLO MD 02/18/22 Sucralfate (CARAFATE) 1 Gm Tab, 1 GM PO QID for 30 Days, #120 TAB Prov:BLANCA BELLO MD 02/18/22 Reported Medications Tacrolimus (ASTAGRAF XL) 1 Mg Cap, 3 MG PO Q12HR, CAP 01/27/24 Lansoprazole (Lansoprazole) 30 Mg Cap, 1 CAP PO DAILY, #30 CAP 5 Refills 01/27/24 Pregabalin (Lyrica) 50 Mg Cap, 50 MG PO DAILY, CAP 09/27/20 Trazodone Hcl (Trazodone Hcl) 50 Mg Tab, 50 MG PO HS, MG 09/27/20 Cyanocobalamin (B-12) 1,000 Mcg Cap, 1000 MCG PO, CAP 09/27/20 Tizanidine Hydrochloride (TIZANIDINE HCL) 2 Mg Cap, 2.5 MG PO, CAP 09/27/20 Magnesium Oxide (MAGNESIUM OXIDE) 400 Mg Tab, 1 TAB PO BID, #60 TAB 5 Refills 09/27/20 Tizanidine Hydrochloride (Zanaflex) 4 Mg Tab, 0.5 TAB PO HS, #60 TAB 09/27/20 Metoprolol Tartrate (Metoprolol Tartrate) 25 Mg Tab, 1 TAB PO BID, #180 TAB 1 Refill 09/04/18 Raloxifene Hydrochloride (EVISTA TABLET) 60 Mg Tb, 1 TAB PO DAILY, #30 TAB 11 Refills 09/04/18 Prednisone (PREDNISONE) 5 Mg Tb, 5 MG PO DAILY 09/02/18 Azathioprine (Imuran) 50 Mg Tab, 3 TAB PO BEDTIME, #180 TAB 3 Refills 09/02/18 Fish Oil (Fish Oil) 500 Mg Cap, 500 MG PO BID, CAP 09/02/18 Omeprazole (Gnp Omeprazole) 20 Mg Tab, 1 CAP PO BID, #90 TAB 1 Refill 09/02/18 Docusate Sodium (Docusate Sodium) 250 Mg Cap, 250 MG PO QHS, CAP 09/02/18 Cholecalciferol (VITAMIN D3) 2,000 Unit Chw, 2000 UNIT PO DAILY, CHW 09/02/18 Loratadine (Claritin) 10 Mg Tab, 1 TAB PO DAILY, #30 TAB 5 Refills 09/02/18 Aspirin (Aspirin Low Dose) 81 Mg Chw, 1 TAB PO DAILY, #30 TAB 3 Refills 09/02/18 Cyclobenzaprine Hcl (Cyclobenzaprine Hcl) 5 Mg Tab, 2 TAB PO QPM PRN for prn, #30 TAB 09/02/18 Hydrocodone-Acetaminophen ([place] 5/325MG) 1 Tab Tb, 1 TAB PO Q6HP PRN for pain, #90 TAB 09/02/18 Sertraline Hcl (Sertraline Hcl) 50 Mg Tab, 3 TAB PO QPM for depression, #30 TAB 5 Refills 09/02/18 Simvastatin (Simvastatin) 40 Mg Tab, 1 TAB PO QPM, #30 TAB 5 Refills 09/02/18 Current Medications Current Medications Medications (Trade) Dose Ordered Sig/Srikanth Route PRN Reason Start Time Stop Time Status Last Admin Azathioprine (Imuran Tablet) 150 mg HS PO 03/22/24 22:00 03/22/24 22:45 Sertraline HCl (Zoloft) 150 mg QPM PO 03/22/24 18:00 Docusate Calcium (Surfak Capsule) 240 mg HS PO 03/22/24 22:00 03/22/24 22:18 Calcitriol (Rocaltrol Capsule) 0.25 mcg DAILY PO 03/24/24 10:00 Magnesium Sulfate/ Dextrose 100 ml @ 100 mls/hr Q1HR IV 03/23/24 11:00 03/23/24 12:59 DC 03/23/24 12:01 Acetaminophen/ Hydrocodone Bitart ([place] 5/325MG Tab) 2 tab Q8HPRN PRN PO MODERATE PAIN (4-6 PAIN SCALE) 03/23/24 11:00 03/23/24 12:01 Vital Signs Vital Signs Date Time Temp Pulse Resp B/P (MAP) Pulse Ox O2 Delivery O2 Flow Rate FiO2 03/23/24 10:23 143/84 03/23/24 10:22 80 03/23/24 08:36 98.4 17 94 98.4 03/23/24 06:00 Room Air* 0 21 Physical Exam GEN: Obese female in no acute distress. Alert. HEENT: Normocephalic atraumatic. Moist mucous membranes. Anicteric sclerae. CV: RRR Respiratory: CTAB ABD: Obese abdomen. Soft. Very minimal diffuse tenderness to palpation without guarding or rebound. Nondistended. CT of the abdomen and pelvis: Moderate size hiatal hernia. Diverticulosis without diverticulitis. Pneumobilia with focus of air within the pancreatic duct. Labs/Diagnostic Data Labs Test 03/23/24 08:09 03/22/24 05:45 03/22/24 05:30 03/22/24 02:20 Range/Units White Blood Count 4.0 L 4.4-10.8 10^3/uL Red Blood Count 3.61 L 4.0-5.20 10^6/uL Hemoglobin 10.8 L 12.2-16.2 g/dL Hematocrit 33.8 #L 36.0-46.0 % Mean Corpuscular Volume 93.7 # 80.0-100.0 fL Mean Corpuscular Hemoglobin 29.9 28.0-32.0 pg Mean Corpuscular Hemoglobin Concent 31.9 L 32.0-36.0 g/dL Red Cell Distribution Width 18.0 H 11.8-14.3 % Platelet Count 185 140-450 10^3/uL Mean Platelet Volume 8.5 6.9-10.8 fL Neutrophils (%) (Auto) 47.3 37.0-80.0 % Lymphocytes (%) (Auto) 39.4 10.0-50.0 % Monocytes (%) (Auto) 11.3 0.0-12.0 % Eosinophils (%) (Auto) 1.4 0.0-7.0 % Basophils (%) (Auto) 0.6 0.0-2.0 % Neutrophils # (Auto) 1.9 1.6-8.6 10 ^3/uL Lymphocytes # (Auto) 1.6 0.4-5.4 10 ^3/uL Monocytes # (Auto) 0.4 0-1.3 10 ^3/uL Eosinophils # (Auto) 0.1 0-0.8 10 ^3/uL Basophils # (Auto) 0 0-0.2 10 ^3/uL Nucleated Red Blood Cells 0.3 % Sodium Level 138 136-145 mmol/L Potassium Level 3.8 3.5-5.1 mmol/L Chloride Level 110 H 98-107 mmol/L Carbon Dioxide Level 19 L 20-31 mmol/L Anion Gap 9 5-15 Blood Urea Nitrogen 17 9-23 mg/dL Creatinine 2.11 H 0.550-1.02 mg/dL Glomerular Filtration Rate Calc 26 >90 mL/min BUN/Creatinine Ratio 8.1 L 10.0-20.0 Serum Glucose 107 H 74-106 mg/dL Calcium Level 8.5 L 8.7-10.4 mg/dL Total Bilirubin 0.4 0.2-1.0 mg/dL Aspartate Amino Transferase (AST) 18 13-40 U/L Alanine Aminotransferase (ALT) < 9 7-40 U/L Alkaline Phosphatase 56 46-116 U/L Total Protein 6.1 5.7-8.2 g/dL Albumin 3.8 3.2-4.8 g/dL Phosphorus Level 2.2 L 2.4-5.1 mg/dL Magnesium Level 1.7 1.6-2.6 mg/dL Lipase 45 12-53 U/L CA 19-9 Antigen 170 H 0-35 U/mL Vitamin B12 Level 660 211-911 pg/mL Vitamin D 25-Hydroxy 22.6 L 30.0-100 ng/mL Folic Acid 14.48 >5.38 ng/mL Parathyroid Hormone (Intact) 333.3 H 18.4-80.1 pg/mL Urine Color Colorless Yellow Urine Clarity Clear Clear Urine pH 6.5 5.0-9.0 Urine Specific [place] 1.009 1.001-1.035 Urine Protein 1+ H Negative Urine Ketones Negative Negative Urine Blood Negative Negative /uL Urine Nitrite Negative Negative Urine Bilirubin Negative Negative Urine Urobilinogen Normal Negative mg/dL Urine Leukocyte Esterase Negative Negative /uL Urine RBC <1 0 - 4 /hpf Urine Microscopic WBC < 1 0-5 /HPF Urine Squamous Epithelial Cells Few <5 /hpf Urine Bacteria None seen None Seen /hpf Urine Creatinine 44.49 30.0-125.0 mg/dL Urine Protein/Creatinine Ratio 1.23 Urine Sodium 131 40-220 mmol/L Urine Glucose Normal Normal mg/dL Urine Total Protein 54.8 H 1-14 mg/dL Urine Opiates Screen Pos NEGATIVE Urine Fentanyl Screen Neg NEGATIVE Urine Barbiturates Screen Neg NEGATIVE Urine Phencyclidine Screen Neg NEGATIVE Urine Amphetamines Screen Neg NEGATIVE Urine Benzodiazepines Screen Neg NEGATIVE Urine Cocaine Screen Neg NEGATIVE Urine Cannabinoids Screen Neg NEGATIVE Influenza Type A Antigen Negative Negative Influenza Type B Antigen Negative Negative Test 03/22/24 00:31 03/21/24 19:32 Range/Units SARS-CoV-2 Antigen (Rapid) Negative NEGATIVE Prothrombin Time 10.3 9.3-11.8 sec Prothrombin Time INR 0.97 0.9-1.15 Activated Partial Thromboplast Time 27.6 24.5-34.5 SEC Lactic Acid Level 1.7 0.4-2.0 mmol/L Creatine Kinase 52 34-145 U/L Thyroid Stimulating Hormone (TSH) 0.83 0.55-4.78 uIU/mL Microbiology Date/Time Source Procedure Growth Status 03/22/24 16:15 Nose MRSA Screen - Final Complete Assessment A: 1. no acute surgical issues P: 1. surgery signing off. Plan discussed with: Patient BIANCA JERNIGAN MD Mar 23, 2024 14:41
--- NOTE | 2024-03-23 16:14 | DVHDSRES ---
Discharge Summary Date of Admission Resident Creating Document: HERMILO PORTER RESIDENT Mar 21, 2024 at 23:17 Date of Discharge: Mar 23, 2024 Admitting Diagnosis Acute intractable abdominal pain Labs/Diagnostic Data: Laboratory Results Test 03/23/24 08:09 03/22/24 05:45 03/22/24 05:30 03/22/24 02:20 White Blood Count 4.0 10^3/uL (4.4-10.8) Red Blood Count 3.61 10^6/uL (4.0-5.20) Hemoglobin 10.8 g/dL (12.2-16.2) Hematocrit 33.8 % (36.0-46.0) Mean Corpuscular Volume 93.7 fL (80.0-100.0) Mean Corpuscular Hemoglobin 29.9 pg (28.0-32.0) Mean Corpuscular Hemoglobin Concent 31.9 g/dL (32.0-36.0) Red Cell Distribution Width 18.0 % (11.8-14.3) Platelet Count 185 10^3/uL (140-450) Mean Platelet Volume 8.5 fL (6.9-10.8) Neutrophils (%) (Auto) 47.3 % (37.0-80.0) Lymphocytes (%) (Auto) 39.4 % (10.0-50.0) Monocytes (%) (Auto) 11.3 % (0.0-12.0) Eosinophils (%) (Auto) 1.4 % (0.0-7.0) Basophils (%) (Auto) 0.6 % (0.0-2.0) Neutrophils # (Auto) 1.9 10 ^3/uL (1.6-8.6) Lymphocytes # (Auto) 1.6 10 ^3/uL (0.4-5.4) Monocytes # (Auto) 0.4 10 ^3/uL (0-1.3) Eosinophils # (Auto) 0.1 10 ^3/uL (0-0.8) Basophils # (Auto) 0 10 ^3/uL (0-0.2) Nucleated Red Blood Cells 0.3 % Sodium Level 138 mmol/L (136-145) Potassium Level 3.8 mmol/L (3.5-5.1) Chloride Level 110 mmol/L (98-107) Carbon Dioxide Level 19 mmol/L (20-31) Anion Gap 9 (5-15) Blood Urea Nitrogen 17 mg/dL (9-23) Creatinine 2.11 mg/dL (0.550-1.02) Glomerular Filtration Rate Calc 26 mL/min (>90) BUN/Creatinine Ratio 8.1 (10.0-20.0) Serum Glucose 107 mg/dL (74-106) Calcium Level 8.5 mg/dL (8.7-10.4) Total Bilirubin 0.4 mg/dL (0.2-1.0) Aspartate Amino Transferase (AST) 18 U/L (13-40) Alanine Aminotransferase (ALT) < 9 U/L (7-40) Alkaline Phosphatase 56 U/L (46-116) Total Protein 6.1 g/dL (5.7-8.2) Albumin 3.8 g/dL (3.2-4.8) Phosphorus Level 2.2 mg/dL (2.4-5.1) Magnesium Level 1.7 mg/dL (1.6-2.6) Lipase 45 U/L (12-53) CA 19-9 Antigen 170 U/mL (0-35) Vitamin B12 Level 660 pg/mL (211-911) Vitamin D 25-Hydroxy 22.6 ng/mL (30.0-100) Folic Acid 14.48 ng/mL (>5.38) Parathyroid Hormone (Intact) 333.3 pg/mL (18.4-80.1) Urine Color Colorless (Yellow) Urine Clarity Clear (Clear) Urine pH 6.5 (5.0-9.0) Urine Specific [place] 1.009 (1.001-1.035) Urine Protein 1+ (Negative) Urine Ketones Negative (Negative) Urine Blood Negative /uL (Negative) Urine Nitrite Negative (Negative) Urine Bilirubin Negative (Negative) Urine Urobilinogen Normal mg/dL (Negative) Urine Leukocyte Esterase Negative /uL (Negative) Urine RBC <1 /hpf (0 - 4) Urine Microscopic WBC < 1 /HPF (0-5) Urine Squamous Epithelial Cells Few /hpf (<5) Urine Bacteria None seen /hpf (None Seen) Urine Creatinine 44.49 mg/dL (30.0-125.0) Urine Protein/Creatinine Ratio 1.23 Urine Sodium 131 mmol/L (40-220) Urine Glucose Normal mg/dL (Normal) Urine Total Protein 54.8 mg/dL (1-14) Urine Opiates Screen Pos (NEGATIVE) Urine Fentanyl Screen Neg (NEGATIVE) Urine Barbiturates Screen Neg (NEGATIVE) Urine Phencyclidine Screen Neg (NEGATIVE) Urine Amphetamines Screen Neg (NEGATIVE) Urine Benzodiazepines Screen Neg (NEGATIVE) Urine Cocaine Screen Neg (NEGATIVE) Urine Cannabinoids Screen Neg (NEGATIVE) Influenza Type A Antigen Negative (Negative) Influenza Type B Antigen Negative (Negative) Test 03/22/24 00:31 03/21/24 19:32 SARS-CoV-2 Antigen (Rapid) Negative (NEGATIVE) Prothrombin Time 10.3 sec (9.3-11.8) Prothrombin Time INR 0.97 (0.9-1.15) Activated Partial Thromboplast Time 27.6 SEC (24.5-34.5) Lactic Acid Level 1.7 mmol/L (0.4-2.0) Creatine Kinase 52 U/L (34-145) Thyroid Stimulating Hormone (TSH) 0.83 uIU/mL (0.55-4.78) Other Laboratory Tests 03/23/24 08:09 Brief Hx & Hospital Course: A 63-year-old female with PMHx of pancreatitis due to gallstones, recurrent UTIs, gout, CHF, asthma, FSGS status post renal transplant, paroxysmal atrial fibrillation, and aortic stenosis was admitted for acute abdominal pain. Imaging revealed pancreatic calcifications and gas in the pancreatic duct, suggestive of chronic pancreatitis, alongside a moderate-sized hiatal hernia and scattered diverticula. CXR indicated bronchitis with bilateral perihilar airspace opacities, while CT suggested mild gastric distension. The patient experienced confusion and hallucinations, attributed to [id number] encephalopathy. During admission, she received symptom-directed care, including IV fluids, analgesia, and bronchodilators for respiratory symptoms. Immunosuppression for her renal transplant was maintained with tacrolimus and azathioprine. Notable issues included chronic kidney disease stage 4, a history of DVTs, and anemia secondary to chronic disease. No acute interventions were required for her aortic stenosis or heart failure. The patient was stabilized and transitioned to home medications, including tacrolimus, metoprolol, and amlodipine. Discharge instructions emphasized close follow-up with nephrology and gastroenterology, monitoring for signs of infection or worsening gastrointestinal symptoms. General Appearance: Alert, Oriented X3, mild distress HEENT: Atraumatic, PERRLA, EOMI Respiratory: clear lungs Cardiovascular: Regular rate, Normal S1, Normal S2 Abdominal: Mid to generalized abdominal tenderness to palpation Extremities: No clubbing Skin: No rashes, No significant lesion Neuro: Normal speech, Sensation intact Psych/Mental Status: Mental status NL, Mood NL Case discussed with Dr Lowery Time spent on care 23min Consults/Reason for consult nephrology due to Acute kidney injury secondary hemodynamic mediated Kidney transplant on immunosuppression surgery due to pneumobilia Operations or Procedures ORIGINAL REPORT Exam: CT CT AB PEL WO CON-NO ORAL OR IV History: Abdominal pain Comparison Study: None available at time of dictation. TECHNIQUE: Multidetector CT of the abdomen and pelvis without contrast. Axial, coronal and sagittal multiplanar reformats were obtained from the axial data set by the technologist. Radiation Dose Information: CT Dose: CTDI volume is 10.48 mGy. Dose-length product is 581.4 mGy*cm FINDINGS: Partially imaged multiple small nodular densities over the left lower lobe. Mild cardiomegaly. Pneumobilia. Liver is normal in size. Spleen, adrenal glands unremarkable. Pancreatic calcifications most prominent of the pancreatic head which may represent sequela of chronic pancreatitis. There is gas within the pancreatic duct of the proximal body. Status post cholecystectomy. Severe atrophy of bilateral kidneys with right pelvic transplant kidney appears unremarkable. Urinary bladder is unremarkable. Moderate size hiatal hernia. Mild wall thickening of the stomach. Small bowel loops unremarkable. Appendix is unremarkable. Scattered colonic diverticulosis without diverticulitis. [id number] fecal material within the colon. No evidence of intraperitoneal free air or free fluid. No evidence of aortic aneurysm. No significant lymphadenopathy. Phleboliths are noted within the pelvis. Small fat containing umbilical hernia. Mild fat stranding of the lower abdominal and pelvic subcutaneous fat. Sclerotic focus of the right acetabulum which may represent a bone islands /blastic lesion. Severe degenerative changes of the lumbar spine. Diffuse demineralization. Sclerotic line over the right femoral head consistent with avascular necrosis. IMPRESSION: Mild wall thickening of the stomach which may be due to inadequate distention with gastritis not excluded. Pneumobilia with focus of air within the pancreatic duct. Moderate size hiatal hernia. Scattered colonic diverticulosis without diverticulitis. Condition at Discharge: Stable Final Diagnosis/Problems List Acute intractable abdominal pain Pneumobilia with focus of air within the pancreatic duct History of gallstone pancreatitis in 2020; s/p cholecystectomy Possible chronic calcific pancreatitis ?Sepsis Erosive esophagitis with gastroduodenitis (on EGD 2021) Acute on chronic? metabolic/toxic encephalopathy Bronchitis History of renal transplant due to FSGS: donor transplant, on immunosuppression History of aortic stenosis Paroxysmal atrial fibrillation History of congestive heart failure probably secondary to aortic stenosis Hypertension Dyslipidemia Anemia, likely of chronic disease Discharge Disposition: Home Discharge Instruct/Medications Diet: Consistent carbohydrate, Cardiac 2g Na,low cholest Activity: No Restrictions, As Tolerated Follow Up/Referral: f/u with pcp, neprologist, physics department chair and GI as outpatient Medications: resume home meds Discharge Statement: "Patient was advised to return to the ER or call 911 if any headaches, dizziness, shortness of breath, chest pain, abdominal pain, bleeding, fevers, or worsening of medical condition. Patient was counseled about treatment plan, medications, possible side effects, patientverbalized understanding. All questions were answered to the best of my ability. This discharge took greater then 30 minutes in planning, reviewing documentation, counseling the patient, and discussing with other team members." ASSESSMENT ASSESSMENT Assessment acute abdominal pain Date of Service: Mar 23, 2024 Billing Provider: JENIFFER LOWERY MD Common Visit Codes: 62876-GHC/OBS DISCH DAY >30min HERMILO PORTER RESIDENT Mar 23, 2024 16:14 JENIFFER LOWERY MD Mar 23, 2024 22:44
[2024-03-24] MEDS ORDERED: CALCITRIOL 0.25 MCG CAP PO SCH (10:00)
[2024-03-25 09:01] LABS: Hepatitis B Surface Antigen Negative (Negative)
[2024-03-25 09:18] LABS: Hepatitis C Antibody Negative (Negative)
== END 2024-03-23 17:30 | disposition home or self-care (01) | DRG 871 ==
LOC: EDBD 17:38 → ER 17:38 → OVERFLOW 23:17 → CENTRAL 03-22 12:38
PROVIDERS: ADMIT Internal Medicine; ATTEND Internal Medicine
DX: A41.9 Sepsis, unspecified organism (principal); G92.8 Other toxic encephalopathy; N18.6 End stage renal disease; I13.2 Hypertensive heart and chronic kidney disease with heart failure and with stage 5 chronic kidney disease, or end stage renal disease; Z94.0 Kidney transplant status; N17.9 Acute kidney failure, unspecified; K86.1 Other chronic pancreatitis; E78.5 Hyperlipidemia, unspecified; I48.0 Paroxysmal atrial fibrillation; I50.9 Heart failure, unspecified; K21.9 Gastro-esophageal reflux disease without esophagitis; J45.909 Unspecified asthma, uncomplicated; Z20.822 Contact with and (suspected) exposure to COVID-19; D63.1 Anemia in chronic kidney disease; E83.42 Hypomagnesemia; I35.2 Nonrheumatic aortic (valve) stenosis with insufficiency; Z90.49 Acquired absence of other specified parts of digestive tract; Z88.1 Allergy status to other antibiotic agents; Z80.8 Family history of malignant neoplasm of other organs or systems; Z80.1 Family history of malignant neoplasm of trachea, bronchus and lung; Z82.49 Family history of ischemic heart disease and other diseases of the circulatory system; Z83.3 Family history of diabetes mellitus; Z83.79 Family history of other diseases of the digestive system; Z81.8 Family history of other mental and behavioral disorders; Z82.0 Family history of epilepsy and other diseases of the nervous system; Z79.60 Long term (current) use of unspecified immunomodulators and immunosuppressants
CPT/HCPCS: 36415; 71045; 74176; 80053; 80307; 81001; 82306; 82550; 82570; 82607; 82746; 83605; 83690; 83735; 83970; 84100; 84156; 84300; 84443; 85025; 85610; 85730; 86301; 86803; 87040; 87081; 87340; 87426; 87804; G0378; J3490; J7507

== ENCOUNTER 2024-05-13 15:27 | Inpatient (IN) | payer OTHER, MEDICARE ==
[~2024-05-13] VITALS: Ht 162.6 cm; Wt 64.0 kg
[~2024-05-13 15:27] MED LIST changes: -AUG875T PO; -CIPR-173 PO; -LEVO500T31 PO; -LEVO500T91 PO
--- NOTE | 2024-05-13 15:54 | ECG ---
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
[2024-05-13 16:26] LABS: Basophils # (auto) 0.2 10 ^3/uL (0-0.2); Basophils % (auto) 1.3 % (0.0-2.0); Eosinophils # (auto) 0.1 10 ^3/uL (0-0.8); Eosinophils % (auto) 1.1 % (0.0-7.0); Hematocrit 34.6 % (36.0-46.0); Hemoglobin 11.4 g/dL (12.2-16.2); Lymphocytes # (auto) 4.6 10 ^3/uL (0.4-5.4); Lymphocytes % (auto) 39.2 % (10.0-50.0); Mean Corpuscular Hemoglobin 28.8 pg (28.0-32.0); Mean Corpuscular Hgb Conc. 32.8 g/dL (32.0-36.0); Mean Corpuscular Volume 87.7 fL (80.0-100.0); Monocytes # (auto) 0.9 10 ^3/uL (0-1.3); Monocytes % (auto) 7.8 % (0.0-12.0); Neutrophils % (auto) 50.6 % (37.0-80.0); Platelet Count (auto) 298 10^3/uL (140-450); Red Blood Cells 3.95 10^6/uL (4.0-5.20); Red Cell Distribution Width 15.2 % (11.8-14.3); White Blood Cell 11.8 10^3/uL (4.4-10.8)
--- NOTE | 2024-05-13 16:40 | DVH ---
Exam: CT CT AB PEL WO CON-NO ORAL OR IV History: pain Comparison Study: None available at time of dictation. TECHNIQUE: Multidetector CT of the abdomen was performed from lung bases to pubic symphysis. Imaging was performed without IV contrast. Axial, coronal and sagittal multiplanar reformats were obtained fr om the axial data set by the technologist. Radiation Dose Information: CT Dose: CTDI volume is 6.3 mGy. Dose-length product is 342.97 mGy*cm FINDINGS: Evaluation of solid organs is limited due to lack of intravenous contrast use. Findings: Lung Bases: No acute or significant lung base finding. Normal heart size. No pleural or pericardial effusion. Liver: The liver is normal in size. No focal lesions. Gallbladder and Biliary Tree: Gallbladder has been surgically removed. Spleen: Unremarkable Pancreas: The pancreas is grossly normal in appearance. Adrenal Glands: Unremarkable Kidneys: Bilateral renal atrophy. Transplant kidney in the right pelvis. Bladder: Grossly unremarkable for degree of distention. Bowel: The stomach is grossly normal in appearance. Small bowel and colon are normal in caliber and d istribution. The appendix is not visualized; however, no secondary findings of acute appendicitis id entified. Ascites: Absent Lymphadenopathy: No mesenteric, retroperitoneal or periportal lymphadenopathy. Abdominal Wall and Mesentery: Unremarkable. Vasculature: The visualized abdominal aorta is normal in size and caliber. Evaluation of abdominal a nd pelvic vessels is limited due to lack of intravenous contrast. Pelvic Organs: Unremarkable Musculoskeletal: No aggressive focal bony lesions, acute fractures or dislocation. Soft tissues: Unremarkable IMPRESSION: 1. Bilateral renal atrophy 2. Transplant kidney in the right pelvis without significant changed from 03/21/2024, 01/26/2024. Radiation optimization: All CT scans at this facility use at least one of these dose optimization te chniques: automated exposure control mA and/or kV adjustment per patient size (includes targeted exa ms where dose is matched to clinical indication) or iterative reconstruction.
[2024-05-13 16:48] LABS: Alanine Aminotransferase 10 U/L (7-40); Albumin 4.6 g/dL (3.2-4.8); Alkaline Phosphatase 66 U/L (46-116); Anion Gap 14 (5-15); Aspartate Aminotransferase 28 U/L (13-40); BUN/Creatinine Ratio 14.5 (10.0-20.0); Calcium 9.6 mg/dL (8.7-10.4); Carbon Dioxide 25 mmol/L (20-31); Glucose 97 mg/dL (74-106); Total Protein 7.5 g/dL (5.7-8.2)
[2024-05-13 16:49] LABS: Bilirubin, Total 0.6 mg/dL (0.2-1.0)
[2024-05-13 17:01] LABS: Blood Urea Nitrogen 41 mg/dL (9-23); Chloride 95 mmol/L (98-107); Lipase 181 U/L (12-53); Potassium 2.7 mmol/L (3.5-5.1); Sodium 134 mmol/L (136-145)
[2024-05-13] MEDS: PANTOPRAZOLE 40 MG/10 ML VIAL INJ IV ONE (17:38)
[2024-05-13] MEDS: ONDANSETRON HCL 4 MG/2 ML VIAL IV ONE (17:38)
[2024-05-13] MEDS: SODIUM CHLORIDE 0.9% 500 ML IVB ONE (17:38)
[2024-05-13] MEDS: MORPHINE SULFATE 4 MG/ML SYR/VIAL IV ONE (17:39)
[2024-05-13 17:45] VITALS: PULSE 101; RESP 16; O2SAT 99
--- NOTE | 2024-05-13 18:31 | ED.PDOC ---
GI ASSESSMENT HPI Comments 63 y.o female with PMHx of a kidney transplant, HTN, hyperlipidemia, AFIB, and CHF, presents to the ED via EMS for a chief complaint of nausea, vomiting, diarrhea and generalized abdominal pain that started 2 days ago. Patient describes pain as a dullness sensation, is non radiating, constant and rating of 6/10 on the pain scale. Patient denies any other symptoms or complaint. Chief Complaint: Abdominal Pain Time Seen by MD: 15:56 Primary Care Provider: [place] Reviewed Notes: Nurses Notes, Medications, Allergies Allergies: Coded Allergies: Lisinopril (Verified Allergy, Unknown, 02/13/22) Home Meds Active Scripts Amlodipine Besylate (NORVASC TABLET) 5 Mg Tb, 5 MG PO DAILY for 30 Days, #30 TAB 11 Refills Prov:LYNNETTE DALTON DO 10/23/22 Omeprazole Magnesium (Omeprazole) 20 Mg Tab, 20 MG PO BID for 30 Days, #60 TAB Prov:BLANCA BELLO MD 02/18/22 Sucralfate (CARAFATE) 1 Gm Tab, 1 GM PO QID for 30 Days, #120 TAB Prov:BLANCA BELLO MD 02/18/22 Reported Medications Tacrolimus (ASTAGRAF XL) 1 Mg Cap, 3 MG PO Q12HR, CAP 01/27/24 Lansoprazole (Lansoprazole) 30 Mg Cap, 1 CAP PO DAILY, #30 CAP 5 Refills 01/27/24 Pregabalin (Lyrica) 50 Mg Cap, 50 MG PO DAILY, CAP 09/27/20 Trazodone Hcl (Trazodone Hcl) 50 Mg Tab, 50 MG PO HS, MG 09/27/20 Cyanocobalamin (B-12) 1,000 Mcg Cap, 1000 MCG PO, CAP 09/27/20 Tizanidine Hydrochloride (TIZANIDINE HCL) 2 Mg Cap, 2.5 MG PO, CAP 09/27/20 Magnesium Oxide (MAGNESIUM OXIDE) 400 Mg Tab, 1 TAB PO BID, #60 TAB 5 Refills 09/27/20 Tizanidine Hydrochloride (Zanaflex) 4 Mg Tab, 0.5 TAB PO HS, #60 TAB 09/27/20 Metoprolol Tartrate (Metoprolol Tartrate) 25 Mg Tab, 1 TAB PO BID, #180 TAB 1 Refill 09/04/18 Raloxifene Hydrochloride (EVISTA TABLET) 60 Mg Tb, 1 TAB PO DAILY, #30 TAB 11 Refills 09/04/18 Prednisone (PREDNISONE) 5 Mg Tb, 5 MG PO DAILY 09/02/18 Azathioprine (Imuran) 50 Mg Tab, 3 TAB PO BEDTIME, #180 TAB 3 Refills 09/02/18 Fish Oil (Fish Oil) 500 Mg Cap, 500 MG PO BID, CAP 09/02/18 Omeprazole (Gnp Omeprazole) 20 Mg Tab, 1 CAP PO BID, #90 TAB 1 Refill 09/02/18 Docusate Sodium (Docusate Sodium) 250 Mg Cap, 250 MG PO QHS, CAP 09/02/18 Cholecalciferol (VITAMIN D3) 2,000 Unit Chw, 2000 UNIT PO DAILY, CHW 09/02/18 Loratadine (Claritin) 10 Mg Tab, 1 TAB PO DAILY, #30 TAB 5 Refills 09/02/18 Aspirin (Aspirin Low Dose) 81 Mg Chw, 1 TAB PO DAILY, #30 TAB 3 Refills 09/02/18 Cyclobenzaprine Hcl (Cyclobenzaprine Hcl) 5 Mg Tab, 2 TAB PO QPM PRN for prn, #30 TAB 09/02/18 Hydrocodone-Acetaminophen ([place] 5/325MG) 1 Tab Tb, 1 TAB PO Q6HP PRN for pain, #90 TAB 09/02/18 Sertraline Hcl (Sertraline Hcl) 50 Mg Tab, 3 TAB PO QPM for depression, #30 TAB 5 Refills 09/02/18 Simvastatin (Simvastatin) 40 Mg Tab, 1 TAB PO QPM, #30 TAB 5 Refills 09/02/18 Information Source: Patient Mode of Arrival: EMS Timing: Days (2) Duration: Since onset Quality: Other (dull) Vomitus: Hard Stool: Loose Severity: Moderate Recent: None Recent Hx of: None Pain Location: Diffuse Modifying Factors: Nothing Associated sign and symptoms: Nausea, Vomiting, Diarrhea, Abdominal Pain Past Medical History PAST MEDICAL HISTORY: AFIB, CHF, HTN, Liver, UTI'S Surgical History: Cholecystectomy, , Hernia Repair Surgical History (Other): kidney transplant COMPUTER SYSTEMS MANAGER History: No Pertinent COMPUTER SYSTEMS MANAGER History Family History Family History: Reviewed,noncontributory to illness, Unknown Social History Smoker: Non-Smoker Alcohol: Denies ETOH Use Drugs: Denies Drug Use Lives In: Home Constitutional: denies: chills, diaphoresis, fatigue, fever, malaise, sweats, weakness, others EENTM: denies: blurred vision, double vision, ear bleeding, ear discharge, ear drainage, ear pain, ear ringing, eye pain, eye redness, hearing loss, mouth pain, mouth swelling, nasal discharge, nose bleeding, nose congestion, nose pain, photophobia, tearing, throat pain, throat swelling, voice changes, others Respiratory: denies: cough, hemoptysis, orthopnea, SOB at rest, shortness of breath, SOB with excertion, stridor, wheezing, others Cardiovascular: denies: chest pain, dizzy spells, diaphoresis, Dyspnea on exertion, edema, irregular heart beat, left arm pain, lightheadedness, palpitations, PND, syncope, others Gastrointestinal: reports: abdominal pain, diarrhea, nausea, vomiting; denies: abdomen distended, blood streaked bowels, constipated, dysphagia, difficulty swallowing, hematemesis, melena, poor appetite, poor fluid intake, rectal bleeding, rectal pain, others Genitourinary: denies: abnormal vagina bleeding, burning, dyspareunia, dysuria, flank pain, frequency, hematuria, incontinence, pain, , vagina discharge, urgency, others Neurological: denies: dizziness, fainting, headache, left sided numbness, left sided weakness, numbness, paresthesia, pre-existing deficit, right sided numbness, right sided weakness, seizure, speech problems, tingling, tremors, weakness, others Musculoskeletal: denies: back pain, gout, joint pain, joint swelling, muscle pain, muscle stiffness, neck pain, others Integumetry: denies: bruises, change in color, change in hair/nails, dryness, laceration, lesions, lumps, rash, wounds, others Allergic/Immunocompromised: denies: Difficulty Healing, Frequent Infections, Hives, Itching, others Hematologic/Lymphatic: denies: anemia, blood clots, easy bleeding, easy bruising, swollen glands, others Endocrine: denies: excessive hunger, excessive sweating, excessive thirst, excessive urination, flushing, intolerance to cold, intolerance to heat, unexplained weight gain, unexplained weight loss, others Psychiatric: denies: anxiety, bipolar disorder, depression, hopeless, panic disorder, schizophrenia, sleepless, suicidal, others All Other Systems: Reviewed and Negative Physical Exam General Appearance: Moderate Distress HEENT: Normal ENT Inspection, Pharynx Normal, TMs Normal Neck: Full Range of Motion, Non-Tender, Normal, Normal Inspection Respiratory: Chest Non-Tender, Lungs Clear, No Accessory Muscle Use, No Respiratory Distress, Normal Breath Sounds Cardiovascular: No Edema, No JVD, No Murmur, No Gallop, Normal Peripheral Pulses, Regular Rate/Rhythm Breast Exam: Deferred Gastrointestinal: Epigastric, No Organomegaly, No Pulsatile Mass, Normal Bowel Sounds, Soft, Tenderness Genitalia: Deferred Pelvic: Deferred Rectal: Deferred Extremities: No calf tenderness, Normal capillary refill, Normal inspection, Normal range of motion, Non-tender, No pedal edema Musculoskeletal : Apperance: Normal Neurologic: Alert, credit resolution representative II-XII nml as Tested, No Motor Deficits, Normal Affect, Normal Mood, No Sensory Deficits Cerebellar Function: Normal Reflexes: Normal Skin: Dry, Normal Color, Warm Lymphatic: No Adenopathy EKG EKG : Pulse Rate (adult): 92 Cardiac Rhythm: NSR Hypertrophy: LVH Comments poor R wave progression Was a procedure done? Was a procedure done?: No GI differential Dx Differential Diagnosis: Diverticular disease, Gastritis/PUD, Gastroenteritis, Electrolyte Imbalance, Food Poisoning, Viral X-Ray, Labs, Meds, VS Vital Signs Date Time Temp Pulse Resp B/P (MAP) Pulse Ox O2 Delivery O2 Flow Rate FiO2 05/13/24 19:01 71 16 185/73 (110) 99 05/13/24 19:00 91 18 185/73 05/13/24 18:31 92 05/13/24 17:45 101 16 99 Room Air* 0 21 05/13/24 17:39 92 18 127/83 05/13/24 16:48 97.8 101 18 127/83 (98) 98 97.8 05/13/24 16:48 101 18 98 Room Air 05/13/24 15:41 98.0 96 16 173/108 (129) 97 98.0 05/13/24 15:37 92 Lab Test 05/13/24 16:15 Range/Units White Blood Count 11.8 H 4.4-10.8 10^3/uL Red Blood Count 3.95 L 4.0-5.20 10^6/uL Hemoglobin 11.4 L 12.2-16.2 g/dL Hematocrit 34.6 L 36.0-46.0 % Mean Corpuscular Volume 87.7 80.0-100.0 fL Mean Corpuscular Hemoglobin 28.8 28.0-32.0 pg Mean Corpuscular Hemoglobin Concent 32.8 32.0-36.0 g/dL Red Cell Distribution Width 15.2 H 11.8-14.3 % Platelet Count 298 140-450 10^3/uL Mean Platelet Volume 8.0 6.9-10.8 fL Neutrophils (%) (Auto) 50.6 37.0-80.0 % Lymphocytes (%) (Auto) 39.2 10.0-50.0 % Monocytes (%) (Auto) 7.8 0.0-12.0 % Eosinophils (%) (Auto) 1.1 0.0-7.0 % Basophils (%) (Auto) 1.3 0.0-2.0 % Neutrophils # (Auto) 6.0 1.6-8.6 10 ^3/uL Lymphocytes # (Auto) 4.6 0.4-5.4 10 ^3/uL Monocytes # (Auto) 0.9 0-1.3 10 ^3/uL Eosinophils # (Auto) 0.1 0-0.8 10 ^3/uL Basophils # (Auto) 0.2 0-0.2 10 ^3/uL Nucleated Red Blood Cells 0.0 % Sodium Level 134 L 136-145 mmol/L Potassium Level 2.7 L 3.5-5.1 mmol/L Chloride Level 95 L 98-107 mmol/L Carbon Dioxide Level 25 20-31 mmol/L Anion Gap 14 5-15 Blood Urea Nitrogen 41 H 9-23 mg/dL Creatinine 2.83 H 0.550-1.02 mg/dL Glomerular Filtration Rate Calc 18 >90 mL/min BUN/Creatinine Ratio 14.5 10.0-20.0 Serum Glucose 97 74-106 mg/dL Calcium Level 9.6 8.7-10.4 mg/dL Total Bilirubin 0.6 0.2-1.0 mg/dL Aspartate Amino Transferase (AST) 28 13-40 U/L Alanine Aminotransferase (ALT) 10 7-40 U/L Alkaline Phosphatase 66 46-116 U/L Total Protein 7.5 5.7-8.2 g/dL Albumin 4.6 3.2-4.8 g/dL Lipase 181 H 12-53 U/L Current Medications Medications (Trade) Dose Ordered Sig/Srikanth Route Start Time Stop Time Status Last Admin Ondansetron HCl (Zofran) 4 mg ONCE ONCE IV 05/13/24 15:45 05/13/24 15:46 DC 05/13/24 17:38 Morphine Sulfate 4 mg ONCE ONCE IV 05/13/24 15:45 05/13/24 15:46 DC 05/13/24 17:39 Sodium Chloride 500 ml @ 500 mls/hr Q1H ONCE IVB 05/13/24 15:45 05/13/24 16:44 DC 05/13/24 17:38 Pantoprazole Sodium (Protonix) 40 mg ONCE ONCE IV 05/13/24 15:45 05/13/24 15:46 DC 05/13/24 17:38 Exam: CT CT AB PEL WO CON-NO ORAL OR IV IMPRESSION: 1. Bilateral renal atrophy 2. Transplant kidney in the right pelvis without significant changed from 03/21/2024, 01/26/2024. IV Hep-Lock was established The patient was given morphine 4 mg IV push for the pain The patient was given Zofran 4 mg IV push for the nausea The patient was given a 500 cc bolus of normal saline The patient was given Protonix 40 mg IV push The lipase came back elevated indicating acute pancreatitis The patient's BUN and creatinine are also elevated. The patient's potassium came back somewhat decreased at 2.7 The patient was being given potassium here in the emergency department's The patient was being admitted. The patient's white blood cell count is elevated 11.8 The patient was being admitted. Images Reviewed?: Images reviewed and evaluated by me Time of 1ST Reevaluation: 18:27 Reevaluation 1ST: Unchanged Patient Education/Counseling: Diagnosis, Treatment, Prognosis Family Education/Counseling: No Family Present Departure 1 Departure Time of Disposition: 20:23 Impression: Primary Impression: Intractable abdominal pain Additional Impressions: Acute pancreatitis Qualified Codes: K85.90 - Acute pancreatitis without necrosis or infection, unspecified Hypokalemia Electrolyte imbalance Disposition: ADMITTED INPATIENT Admit to: Med Surg Condition: Fair Critical Care Note Critical Care Time?: No Stability Stability form required: Yes Unstable for transfer: ED Physician Assesment (Clinical assesment) I personally scribed for MARY LARSON MD ([email or web address]) on 05/13/24 at 18:31. Electronically submitted by Karie Ervin ([facility]). I personally scribed for MARY LARSON MD ([email or web address]) on 05/13/24 at 18:32. Electronically submitted by Karie Ervin ([facility]). MARY LARSON MD May 13, 2024 18:31
[2024-05-13] MEDS ORDERED: POTASSIUM CHL 20MEQ/100ML 100 ML IV ONE (20:30)
--- NOTE | 2024-05-13 21:27 | DVHHPRES ---
History of Present Illness Resident Creating Document: BERT GUAN RESIDENT Reason for Visit: ABDOMINAL PAIN History of Present Illness Patient is a 63 years old female presented to ED with a chief complaint of abdominal pain. Pain located in the epigastric region with radiation to the patient. Patient is a poor history could not say much other than " On my gosh i am in so much pain, on disability". Denies fever, chills, chest pain, dyspnea, unintentional weight loss, generalized edema, melena or any other bleeding. She had EGD in 2021 revealed Erosive esophagitis with gastroduodenitis. Of note, patient was recently admitted for Pneumobilia with focus of air within the pancreatic duct and questionable metabolic encephalopathy. PMHx: Hypertension, dyslipidemia, anemia, critical aortic stenosis and moderate aortic regurgitation with chronic congestive heart failure, paroxysmal atrial fibrillation ([id number] 3/has bled 2) not under anticoagulation, focal and segmental glomerulonephritis with end-stage kidney disease previously requiring hemodialysis through fistula currently status post renal transplant with immunosuppression's. GERD, probable GI bleed, presented colonoscopy with probable polyps per patient, multiple episodes of UTI, hiatal hernia, GERD Surgical history: , hernia repair, cholecystectomy, renal transplant, AV fistula placement for hemodialysis on left arm Family history: Noncontributory Social history: Lives alone, denies tobacco, alcohol and other drug abuse Review of Systems Constitutional: No: Fever, Chills, Sweats, Weakness, Malaise, Other Eyes: No: Pain, Vision change, Conjunctivae inflammation, Eyelid inflammation, Other, Redness ENT: No: Ear pain, Ear discharge, Nose pain, Nose discharge, Nose congestion, Mouth pain, Mouth swelling, Throat pain, Throat swelling, Other Respiratory: No: Cough, Dry, Shortness of breath, SOB with excertion, Wheezing, Hemoptysis, Pleuritic Pain, Sputum, Wheezing, Other Cardiovascular: No: Chest Pain, Palpitations, Orthopnea, Paroxysmal Noc. Dyspnea, Edema, Lt Headedness, Other Gastrointestinal: Nausea, Vomiting; No: Abdominal Pain, Diarrhea, Constipation, Melena, Hematochezia, Other Genitourinary: No Dysuria, No Frequency, No Incontinence, No Hematuria, No Retention, No Other Musculoskeletal: No: other, neck pain, shoulder pain, arm pain, back pain, hand pain, leg pain, foot pain Skin: No: Rash, Lesions, Jaundice, Bruising, Other Neurological: No: Weakness, Numbness, Incoordination, Change in speech, Confusion, Seizures, Other Allergies: Coded Allergies: Lisinopril (Verified Allergy, Unknown, 02/13/22) Exam Vital Signs Vital Signs Date Time Temp Pulse Resp B/P (MAP) Pulse Ox O2 Delivery O2 Flow Rate FiO2 05/13/24 19:01 71 16 185/73 (110) 99 05/13/24 17:45 Room Air* 0 21 05/13/24 16:48 97.8 97.8 Exam General Appearance: Alert, Oriented X3, Cooperative, Moderate distress HEENT: Atraumatic, PERRLA, EOMI, Mucous membrane moist/pink Respiratory: Clear to auscultation, Normal air movement Cardiovascular: Regular rate, Normal S1, Normal S2, No murmurs, no chest wall tenderness Abdominal: tenderness, bowel sounds present, no scars noted Extremities: No clubbing, No cyanosis, No edema, Normal pulses, No tenderness/swelling Skin: No rashes, No breakdown, No significant lesion Neuro: Normal gait, Normal speech, Strength at 5/5 X4 ext, Normal tone, Sensation intact, Cranial nerves 3-12 NL, Reflexes 2+ Psych/Mental Status: Mental status NL, Mood NL Labs/Xrays Labs Test 05/13/24 16:15 Range/Units White Blood Count 11.8 H 4.4-10.8 10^3/uL Red Blood Count 3.95 L 4.0-5.20 10^6/uL Hemoglobin 11.4 L 12.2-16.2 g/dL Hematocrit 34.6 L 36.0-46.0 % Mean Corpuscular Volume 87.7 80.0-100.0 fL Mean Corpuscular Hemoglobin 28.8 28.0-32.0 pg Mean Corpuscular Hemoglobin Concent 32.8 32.0-36.0 g/dL Red Cell Distribution Width 15.2 H 11.8-14.3 % Platelet Count 298 140-450 10^3/uL Mean Platelet Volume 8.0 6.9-10.8 fL Neutrophils (%) (Auto) 50.6 37.0-80.0 % Lymphocytes (%) (Auto) 39.2 10.0-50.0 % Monocytes (%) (Auto) 7.8 0.0-12.0 % Eosinophils (%) (Auto) 1.1 0.0-7.0 % Basophils (%) (Auto) 1.3 0.0-2.0 % Neutrophils # (Auto) 6.0 1.6-8.6 10 ^3/uL Lymphocytes # (Auto) 4.6 0.4-5.4 10 ^3/uL Monocytes # (Auto) 0.9 0-1.3 10 ^3/uL Eosinophils # (Auto) 0.1 0-0.8 10 ^3/uL Basophils # (Auto) 0.2 0-0.2 10 ^3/uL Nucleated Red Blood Cells 0.0 % Sodium Level 134 L 136-145 mmol/L Potassium Level 2.7 L 3.5-5.1 mmol/L Chloride Level 95 L 98-107 mmol/L Carbon Dioxide Level 25 20-31 mmol/L Anion Gap 14 5-15 Blood Urea Nitrogen 41 H 9-23 mg/dL Creatinine 2.83 H 0.550-1.02 mg/dL Glomerular Filtration Rate Calc 18 >90 mL/min BUN/Creatinine Ratio 14.5 10.0-20.0 Serum Glucose 97 74-106 mg/dL Calcium Level 9.6 8.7-10.4 mg/dL Total Bilirubin 0.6 0.2-1.0 mg/dL Aspartate Amino Transferase (AST) 28 13-40 U/L Alanine Aminotransferase (ALT) 10 7-40 U/L Alkaline Phosphatase 66 46-116 U/L Total Protein 7.5 5.7-8.2 g/dL Albumin 4.6 3.2-4.8 g/dL Lipase 181 H 12-53 U/L Assessment/Plan Assessment/Plan Acute on Possible chronic calcific pancreatitis --> Lipase: 181 --> Keep NPO --> IV fluids ---> morphine for pain management Hypokalemia --> K: 2.7 --> Replaced electrolytes --> Repeat BMP in the AM Hypertension --> Continue home medication Dyslipidemia Anemia, likely of chronic disease History of gallstone pancreatitis in 2020; s/p cholecystectomy 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 Dumont Plan discussed with: Patient Date of Service: May 13, 2024 Billing Provider: VIKI DUMONT MD Common Visit Codes: [id number] INP/OBS CARE (HIGH) BERT GUAN RESIDENT May 13, 2024 21:27 VIKI DUMONT MD May 14, 2024 17:42
[2024-05-13] MEDS: POTASSIUM CHLORIDE 40 MEQ, LIDOCAINE 1% (LOCAL ANESTH.) 4 ML in SODIUM CHL 0.9% 250 ML IV ONE (21:30)
[2024-05-13] MEDS ORDERED: MORPHINE SULFATE INJ 2 MG/ml SYRG IV PRN (21:30)
[2024-05-13 22:02] LABS: Blood Alcohol 3.1 mg/dL (<10)
[2024-05-13 22:06] LABS: Partial Thromboplastin Time 22.8 SEC (24.5-34.5); Prothrombin Time 10.6 sec (9.3-11.8)
[2024-05-13] MEDS: MORPHINE SULFATE INJ 2 MG/ml SYRG IV ONE (22:59)
[2024-05-13 23:08] VITALS: PULSE 102; RESP 18; O2SAT 95
[2024-05-13 23:10] VITALS: BP 149/77; PULSE 102; RESP 18; TEMP 97.6; O2SAT 97
--- NOTE | 2024-05-14 00:02 | DVH ---
INDICATION: abdominal pain TECHNIQUE: Multiple real-time sonographic images of the abdomen were obtained. COMPARISON: ABPL on DOS: 02/23/22, ABPL on DOS: 02/13/22 FINDINGS: Liver is homogenous in echogenicity. The liver measures 12.3 cm. No intrahepatic biliary ductal dilatation is noted. Status post cholecystectomy. The common duct measures 0.5 cm and is unremarkable. Right transplant pelvic kidney measures 7.7 cm. No hydronephrosis. The left [place] kidney measures 6. 3 cm. No hydronephrosis. The right [place] kidney is not clearly visualized. The spleen measures 7.2 cm, within normal limits. The echogenicity is within normal limits. The pancreas is not well visualized due to obscuration from bowel gas. The visualized portions of the IVC and aorta are grossly unremarkable. IMPRESSION: 1. No acute findings identified.
[2024-05-14] MEDS: SODIUM CHLORIDE 0.9% 1,000 ML IV SCH (00:45)
[2024-05-14] MEDS: POTASSIUM CHL 20 Meq TABLET PO ONE (00:46)
[2024-05-14] MEDS: MORPHINE SULFATE INJ 2 MG/ml SYRG IV PRN (02:06)
[2024-05-14 05:20] LABS: Chloride 100 mmol/L (98-107); Sodium 138 mmol/L (136-145)
[2024-05-14 05:21] LABS: Anion Gap 11 (5-15); Calcium 9.3 mg/dL (8.7-10.4); Carbon Dioxide 27 mmol/L (20-31)
[2024-05-14 05:26] LABS: BUN/Creatinine Ratio 14.6 (10.0-20.0); Glucose 98 mg/dL (74-106)
[2024-05-14 05:27] LABS: Blood Urea Nitrogen 38 mg/dL (9-23); Lipase 57 U/L (12-53); Potassium 2.9 mmol/L (3.5-5.1)
[2024-05-14 05:28] LABS: Basophils # (auto) 0.1 10 ^3/uL (0-0.2); Eosinophils # (auto) 0.2 10 ^3/uL (0-0.8); Hematocrit 29.3 % (36.0-46.0); Hemoglobin 9.9 g/dL (12.2-16.2); Lymphocytes % (auto) 36.3 % (10.0-50.0); Mean Corpuscular Hemoglobin 29.4 pg (28.0-32.0); Mean Corpuscular Hgb Conc. 33.8 g/dL (32.0-36.0); Monocytes # (auto) 0.7 10 ^3/uL (0-1.3); Monocytes % (auto) 9.1 % (0.0-12.0); Neutrophils # (auto) 4.2 10 ^3/uL (1.6-8.6); Neutrophils % (auto) 51.6 % (37.0-80.0); Platelet Count (auto) 218 10^3/uL (140-450); Red Blood Cells 3.37 10^6/uL (4.0-5.20); Red Cell Distribution Width 15.3 % (11.8-14.3); White Blood Cell 8.2 10^3/uL (4.4-10.8)
[2024-05-14 09:30] VITALS: BP 147/85; PULSE 88; RESP 18; TEMP 98.6; O2SAT 98
[2024-05-14] MEDS: POTASSIUM CHL 20MEQ/50ML 50 ML IV SCH (10:36)
[2024-05-14] MEDS: SODIUM CHL 0.9% 100 ML IV SCH (10:37)
[2024-05-14] MEDS: ENOXAPARIN SOD 30 MG/0.3 ML SYRINGE SC SCH (10:38)
[2024-05-14] MEDS ORDERED: ONDANSETRON HCL 4 MG/2 ML VIAL IV PRN (11:30)
--- NOTE | 2024-05-14 11:52 | DVHPNRES ---
Progress Note Date Seen: May 14, 2024 Resident Creating Document: LILLIAN JAEGER RESIDENT Medical Necessity Reason Pt with a Central, PICC or Fol: No Subjective Review of Systems This is a 63-year-old female with past medical history of hypertension, dyslipidemia, anemia, critical aortic stenosis, CHF, paroxysmal atrial fibrillation, status post renal transplant and on immunosuppressive, GERD, hiatal hernia presented to the ED with a chief complaint of epigastric pain and nausea and vomiting for 1 day prior to this admission. Patient stated that pain started epigastric region which was crampy in nature, 7/10 radiate to the back and associated with nausea and vomiting and also few episodes of diarrhea . Also mentioned she had an episode of pancreatitis 2 years ago and had an EGD 2021 revealed erosive esophagitis with gastroduodenitis. Patient denied fever, chills, chest pain, dyspnea, unintentional weight loss, generalized edema, melena or any change in bowel and bladder habit. Patient was seen and examined on the bedside. She is alert ,oriented x3. Mentioned improvement of abdominal pain and nausea. patient is tolerating oral diet. Constitutional: No: Fever, Chills, Sweats, Weakness, Malaise, Other Eyes: No: Pain, Vision change, Conjunctivae inflammation, Eyelid inflammation, Other, Redness ENT: No: Ear pain, Ear discharge, Nose pain, Nose discharge, Nose congestion, Mouth pain, Mouth swelling, Throat pain, Throat swelling, Other Respiratory: Shortness of breath, improving No: Cough, Dry,Wheezing, Hemoptysis, Pleuritic Pain, Sputum, Wheezing, Other Cardiovascular: No: Chest Pain, Palpitations, Orthopnea, Paroxysmal Noc. Dyspnea, Edema, Lt Headedness, Other Gastrointestinal: Abdominal Pain No: Nausea, Vomiting, Diarrhea, Constipation, Melena, Hematochezia, Other Musculoskeletal: No: other, neck pain, shoulder pain, arm pain, back pain, hand pain, leg pain, foot pain Neurological:; No: Weakness, Numbness, Incoordination, Change in speech, Confusion, Seizures Objective vital signs Vital Sign Date Time Temp Pulse Resp B/P (MAP) Pulse Ox O2 Delivery O2 Flow Rate FiO2 05/14/24 09:30 98.6 88 18 147/85 (105) 98 98.6 05/13/24 23:08 Room Air* 0 21 Total Intake and Output 05/13/24 05/13/24 05/14/24 15:00 23:00 07:00 Intake Total 500 ml Balance 500 ml medications Current Medications Medications Dose Ordered Sig/Srikanth Route Start Time Stop Time Status Last Admin Dose Admin Sodium Chloride 1,000 ml @ 125 mls/hr Q8H IV 05/13/24 21:30 05/14/24 05:35 125 MLS/HR Morphine Sulfate 2 mg Q4HPRN PRN IV 05/13/24 21:30 05/14/24 02:06 2 MG Enoxaparin Sodium 30 mg DAILY SC 05/14/24 10:00 05/14/24 10:38 30 MG Morphine Sulfate 2 mg Q30M PRN IV 05/13/24 21:30 Potassium Chloride 50 ml @ 25 mls/hr Q2H IV 05/14/24 08:45 05/14/24 14:44 05/14/24 10:36 25 MLS/HR Sodium Chloride 100 ml @ 50 mls/hr Q2H IV 05/14/24 09:00 05/14/24 14:59 05/14/24 10:37 50 MLS/HR Ondansetron HCl 4 mg Q8HPRN PRN IV 05/14/24 11:30 UNV Examination Physical examination: General Appearance: Alert, Oriented X3, Cooperative, No acute distress HEENT: Atraumatic, PERRLA, EOMI, Mucous membrane moist/pink Respiratory: Clear to auscultation, Normal air movement Cardiovascular: Regular rate, Normal S1, Normal S2, No murmurs, no chest wall tenderness Abdominal: Normal bowel sounds, Soft, No tenderness, No hepatospenomegaly, No masses Extremities: No clubbing, No cyanosis, No edema, Normal pulses, No tenderness/swelling Skin: No rashes, No breakdown, No significant lesion Neuro: Normal gait, Normal speech, Strength at 5/5 X4 ext, Normal tone, Sensation intact, grossly intact cranial nerves. Psych/Mental Status: Mental status NL, Mood NL laboratory and microbiology Laboratory Tests 05/14/24 04:27 Test 05/14/24 04:27 Range/Units Serum Glucose 98 74-106 mg/dL Labs and/or images reviewed: Labs reviewed by me, Image(s) reviewed by me Problem List/Assessment/Plan Problem List/Assessment/Plan Assessment and plan: # Sepsis likely due to acute pancreatitis # Acute pancreatitis likely due to medication induced - patient was presented with tachycardia, leukocytosis and elevated lactic acid - IV normal saline at 125 mL/hours - Clear liquid diet - CT abdomen pelvis revealed normal pancreas and transplant kidney in the right pelvis - Lipase trends are 181>57 - Lipid profile showed elevated triglyceride 298 - IV morphine 2 mg q.4 p.r.n. - IV ondansetron 4 mg Q 8 p.r.n. # Hypokalemia - Replenished. # Hypertensive urgency - Continue amlodipine 5 mg p.o. daily, metoprolol tartrate 25 mg b.i.d. - IV hydralazine 10 mg q.6 p.r.n. # Dyslipidemia - Atorvastatin 20 mg p.o. at HS # CKD stage 4, status post renal transplant - stable baseline creatinine and patient is following with [facility] in [place] # DVT prophylaxis - Lovenox 30 mg sc daily Goal of care discussed with the patient for more than 20 minutes full code Plan discussed with Dr. Thacker Plan discussed with: Patient, Other My Orders My Orders Orders - LILLIAN JAEGER Procedure Category Date Status Time Potassium Chl PHA 05/14/24 In Process 20meq/50ml (Potassium 08:45 Blood Culture EFRAIN 05/14/24 Uncollected 08:24 Urine Bacterial EFRAIN 05/14/24 Uncollected Culture 08:24 Sodium Chl 0.9% PHA 05/14/24 In Process (Sodium Chloride) 09:00 Clear Liq Diet DIET 05/14/24 Transmitted Breakfast Ondansetron Hcl PHA 05/14/24 Logged (Jillfran) 11:30 LILLIAN JAEGER RESIDENT May 14, 2024 11:52
[2024-05-14] MEDS: POTASSIUM EFFERVESENT TAB 25 MEQ GT ONE (15:51)
[2024-05-14 16:32] LABS: COVID19 ANTIGEN SOFIA FIA NEGATIVE (NEGATIVE)
--- NOTE | 2024-05-14 17:14 | DVHDSRES ---
Discharge Summary Date of Admission Resident Creating Document: LILLIAN JAEGER RESIDENT May 13, 2024 at 21:18 Date of Discharge: May 14, 2024 Admitting Diagnosis Acute pancreatitis likely due to medication induced Wounds: No wound was present Labs/Diagnostic Data: Laboratory Results Test 05/14/24 16:03 05/14/24 04:27 05/13/24 21:31 05/13/24 16:15 SARS-CoV-2 Antigen (Rapid) Negative (NEGATIVE) White Blood Count 8.2 10^3/uL (4.4-10.8) Red Blood Count 3.37 10^6/uL (4.0-5.20) Hemoglobin 9.9 g/dL (12.2-16.2) Hematocrit 29.3 % (36.0-46.0) Mean Corpuscular Volume 87.0 fL (80.0-100.0) Mean Corpuscular Hemoglobin 29.4 pg (28.0-32.0) Mean Corpuscular Hemoglobin Concent 33.8 g/dL (32.0-36.0) Red Cell Distribution Width 15.3 % (11.8-14.3) Platelet Count 218 10^3/uL (140-450) Mean Platelet Volume 8.2 fL (6.9-10.8) Neutrophils (%) (Auto) 51.6 % (37.0-80.0) Lymphocytes (%) (Auto) 36.3 % (10.0-50.0) Monocytes (%) (Auto) 9.1 % (0.0-12.0) Eosinophils (%) (Auto) 2.0 % (0.0-7.0) Basophils (%) (Auto) 1.0 % (0.0-2.0) Neutrophils # (Auto) 4.2 10 ^3/uL (1.6-8.6) Lymphocytes # (Auto) 3.0 10 ^3/uL (0.4-5.4) Monocytes # (Auto) 0.7 10 ^3/uL (0-1.3) Eosinophils # (Auto) 0.2 10 ^3/uL (0-0.8) Basophils # (Auto) 0.1 10 ^3/uL (0-0.2) Nucleated Red Blood Cells 0.0 % Sodium Level 138 mmol/L (136-145) Potassium Level 2.9 mmol/L (3.5-5.1) Chloride Level 100 mmol/L (98-107) Carbon Dioxide Level 27 mmol/L (20-31) Anion Gap 11 (5-15) Blood Urea Nitrogen 38 mg/dL (9-23) Creatinine 2.61 mg/dL (0.550-1.02) Glomerular Filtration Rate Calc 20 mL/min (>90) BUN/Creatinine Ratio 14.6 (10.0-20.0) Serum Glucose 98 mg/dL (74-106) Lactic Acid Level 1.7 mmol/L (0.4-2.0) Calcium Level 9.3 mg/dL (8.7-10.4) Lipase 57 U/L (12-53) Prothrombin Time 10.6 sec (9.3-11.8) Prothrombin Time INR 1.00 (0.9-1.15) Activated Partial Thromboplast Time 22.8 SEC (24.5-34.5) Triglycerides Level 298 mg/dL (< 150) Thyroid Stimulating Hormone (TSH) 3.09 uIU/mL (0.55-4.78) Plasma/Serum Blood Alcohol 3.1 mg/dL (<10) Total Bilirubin 0.6 mg/dL (0.2-1.0) Aspartate Amino Transferase (AST) 28 U/L (13-40) Alanine Aminotransferase (ALT) 10 U/L (7-40) Alkaline Phosphatase 66 U/L (46-116) Total Protein 7.5 g/dL (5.7-8.2) Albumin 4.6 g/dL (3.2-4.8) Other Laboratory Tests 05/14/24 04:27 Brief Hx & Hospital Course: This is a 63-year-old female with past medical history of hypertension, dyslipidemia, anemia, critical aortic stenosis, CHF, paroxysmal atrial fibrillation, status post renal transplant and on immunosuppressive, GERD, hiatal hernia presented to the ED with a chief complaint of epigastric pain and nausea and vomiting for 1 day prior to this admission. Patient stated that pain started epigastric region which was crampy in nature, 7/10 radiate to the back and associated with nausea and vomiting and also few episodes of diarrhea . Also mentioned she had an episode of pancreatitis 2 years ago and had an EGD 2021 revealed erosive esophagitis with gastroduodenitis. Patient denied fever, chills, chest pain, dyspnea, unintentional weight loss, generalized edema, melena or any change in bowel and bladder habit. Hospital course: Patient was initially presented with sepsis likely due to pancreatitis , CT abdomen pelvis revealed normal pancreas and transplant kidney in the right pelvis and abdominal and ultrasound also revealed normal study. Lipase was elevated 181 and the follow up revealed downtrending to 57, lipid profile demonstrated mildly elevated triglyceride 298. patient was treated with IV normal saline bolus followed by IV normal saline at 125 mL/hours, IV morphine 2 mg q.4 p.r.n. and, IV ondansetron 4 mg Q 8 p.r.n. and hypokalemia was replenished. Hypertensive urgency was managed with continuation of home medications amlodipine 5 mg p.o. daily and metoprolol tartrate 25 mg b.i.d. and IV hydralazine 10 mg q.6 p.r.n. patient was stable and tolerating p.o. diet. Peer to peer with [place] doctor and they are willing to take the patient to the [place]. Patient is stable to transfer to [place]. Patient is transfer to acute care facility. Physical examination: General Appearance: Alert, Oriented X3, Cooperative, No acute distress HEENT: Atraumatic, PERRLA, EOMI, Mucous membrane moist/pink Respiratory: Clear to auscultation, Normal air movement Cardiovascular: Regular rate, Normal S1, Normal S2, No murmurs, no chest wall tenderness Abdominal: Normal bowel sounds, Soft, No tenderness, No hepatospenomegaly, No masses Extremities: No clubbing, No cyanosis, No edema, Normal pulses, No tenderness/swelling Skin: No rashes, No breakdown, No significant lesion Neuro: Normal gait, Normal speech, Strength at 5/5 X4 ext, Normal tone, Sensation intact, Cranial nerves 3-12 NL, Reflexes 2+ Psych/Mental Status: Mental status NL, Mood NL Consults/Reason for consult No consultation was done Operations or Procedures Exam: CT CT AB PEL WO CON-NO ORAL OR IV FINDINGS: Evaluation of solid organs is limited due to lack of intravenous contrast use. Findings: Lung Bases: No acute or significant lung base finding. Normal heart size. No pleural or pericardial effusion. Liver: The liver is normal in size. No focal lesions. Gallbladder and Biliary Tree: Gallbladder has been surgically removed. Spleen: Unremarkable Pancreas: The pancreas is grossly normal in appearance. Adrenal Glands: Unremarkable Kidneys: Bilateral renal atrophy. Transplant kidney in the right pelvis. Bladder: Grossly unremarkable for degree of distention. Bowel: The stomach is grossly normal in appearance. Small bowel and colon are normal in caliber and distribution. The appendix is not visualized; however, no secondary findings of acute appendicitis identified. Ascites: Absent Lymphadenopathy: No mesenteric, retroperitoneal or periportal lymphadenopathy. Abdominal Wall and Mesentery: Unremarkable. Vasculature: The visualized abdominal aorta is normal in size and caliber. Evaluation of abdominal and pelvic vessels is limited due to lack of intravenous contrast. Pelvic Organs: Unremarkable Musculoskeletal: No aggressive focal bony lesions, acute fractures or dislocation. Soft tissues: Unremarkable IMPRESSION: 1. Bilateral renal atrophy 2. Transplant kidney in the right pelvis without significant changed from 03/21/2024, 01/26/2024. INDICATION: abdominal pain FINDINGS: Liver is homogenous in echogenicity. The liver measures 12.3 cm. No intrahepatic biliary ductal dilatation is noted. Status post cholecystectomy. The common duct measures 0.5 cm and is unremarkable. Right transplant pelvic kidney measures 7.7 cm. No hydronephrosis. The left [place] kidney measures 6.3 cm. No hydronephrosis. The right [place] kidney is not clearly visualized. The spleen measures 7.2 cm, within normal limits. The echogenicity is within normal limits. The pancreas is not well visualized due to obscuration from bowel gas. The visualized portions of the IVC and aorta are grossly unremarkable. IMPRESSION: 1. No acute findings identified. Condition at Discharge: Stable Final Diagnosis/Problems List # Sepsis likely due to acute pancreatitis # Acute pancreatitis likely due to medication induced # Hypokalemia # Hypertensive urgency # Dyslipidemia # CKD stage 4, status post renal transplant Discharge Disposition: Acute Care Facility Discharge Instruct/Medications Diet: Renal Activity: No Restrictions, As Tolerated Medications: As per EMR Discharge Statement: "Patient was advised to return to the ER or call 911 if any headaches, dizziness, shortness of breath, chest pain, abdominal pain, bleeding, fevers, or worsening of medical condition. Patient was counseled about treatment plan, medications, possible side effects, patientverbalized understanding. All questions were answered to the best of my ability. This discharge took greater then 30 minutes in planning, reviewing documentation, counseling the patient, and discussing with other team members." ASSESSMENT ASSESSMENT Assessment # Sepsis likely due to acute pancreatitis # Acute pancreatitis likely due to medication induced # Hypokalemia # Hypertensive urgency # Dyslipidemia # CKD stage 4, status post renal transplant LILLIAN JAEGER RESIDENT May 14, 2024 17:14
[2024-05-14] MEDS: SUCRALFATE 1 GM TAB PO SCH (18:29)
[2024-05-14 18:48] VITALS: BP 174/100; PULSE 115; RESP 18; TEMP 98; O2SAT 98
[2024-05-14] MEDS: hydrALAZINE HCL 20 MG/ML VL IV PRN (19:01)
[2024-05-14] MEDS ORDERED: METOPROLOL TARTRATE 25 MG TAB PO SCH (22:00)
[2024-05-14] MEDS ORDERED: traZODone HCL 50 MG TAB PO SCH (22:00)
[2024-05-14] MEDS ORDERED: ATORVASTATIN 20 MG TAB PO SCH (22:00)
[2024-05-15] MEDS ORDERED: PREGABALIN 25 MG CAP PO SCH (10:00)
[2024-05-15] MEDS ORDERED: amLODIPine BESYLATE 5 MG TAB PO SCH (10:00)
[2024-05-15] MEDS ORDERED: ASPirin 81 mg TAB PO SCH (10:00)
== END 2024-05-14 19:55 | disposition short-term general hospital (02) | DRG 871 ==
LOC: ER 15:27 → EDBD 15:27 → OVERFLOW 21:18
PROVIDERS: ADMIT Student in an Organized Health Care Education/Training Program; ATTEND Student in an Organized Health Care Education/Training Program
DX: A41.9 Sepsis, unspecified organism (principal); K85.30 Drug induced acute pancreatitis without necrosis or infection; N18.4 Chronic kidney disease, stage 4 (severe); Z94.0 Kidney transplant status; I13.0 Hypertensive heart and chronic kidney disease with heart failure and stage 1 through stage 4 chronic kidney disease, or unspecified chronic kidney disease; E87.6 Hypokalemia; E78.5 Hyperlipidemia, unspecified; I16.0 Hypertensive urgency; I50.9 Heart failure, unspecified; I48.0 Paroxysmal atrial fibrillation; K21.9 Gastro-esophageal reflux disease without esophagitis; T50.995A Adverse effect of other drugs, medicaments and biological substances, initial encounter; Z88.8 Allergy status to other drugs, medicaments and biological substances; Z79.899 Other long term (current) drug therapy; Z90.49 Acquired absence of other specified parts of digestive tract; Z98.891 History of uterine scar from previous surgery; Y92.89 Other specified places as the place of occurrence of the external cause
CPT/HCPCS: 36415; 74176; 76700; 80048; 80053; 80320; 83605; 83690; 84443; 84478; 85025; 85610; 85730; 87426; 93005; 96361; 96374; 96375; G0378; J2003; J2405; J2470; J3480

== ENCOUNTER 2024-08-26 09:25 | Inpatient (IN) | payer OTHER, MEDICARE ==
[~2024-08-26] VITALS: Ht 165.1 cm; Wt 68.4 kg
[2024-08-26 10:29] LABS: Hematocrit 36.3 % (36.0-46.0); Hemoglobin 12.4 g/dL (12.2-16.2); Mean Corpuscular Hemoglobin 28.3 pg (28.0-32.0); Mean Corpuscular Volume 82.6 fL (80.0-100.0); Nucleated Red Blood Cells % 0.0 %
[2024-08-26] MEDS ORDERED: CEFEPIME 1GM/ 50ML 50 ML IV ONE (10:30)
--- NOTE | 2024-08-26 10:34 | DVH ---
CHEST RADIOGRAPH Indication: sob Technique: Single frontal view of the chest was obtained COMPARISON: XY CHEST XRAY 1 VIEW on DOS: 03/21/24, XY CHEST XRAY 1 VIEW on DOS: 03/11/24, XY CHEST PORT ABLE on DOS: 02/15/24, XY CHEST PORTABLE on DOS: 01/26/24, XY CHEST PORTABLE on DOS: 02/01/23 FINDINGS: Lines and Tubes: None Lungs: Clear Pleura: No effusion. No pneumothorax. Cardiomediastinal contours: Moderate hiatal hernia. Bones: Unremarkable IMPRESSION: No acute disease.
--- NOTE | 2024-08-26 10:34 | ED.PDOC ---
History of Present Illness HPI Comments 63-year-old female BIBA with prior medical history of arthritis, CHF, hypertension, restless leg syndrome, depression, AFib, liver, UTI; surgical history of cholecystectomy, hernia repair, , tubal ligation and a chief complaint of cold/flu. Patient reports on having N/V/D yesterday at 5:00 p.m. body aches and cough. EMS note that the patient's stated that she might have possibly eaten bad watermelon. En rout patient was given 4 mg of Zofran. Denies chills, fever, SOB, CP. No other associated symptoms, modifiers, recent injuries or sick contacts present at this time. Chief Complaint: Flu like Time Seen by MD: 09:35 Primary Care Provider: UNKNOWN Reviewed Notes: Nurses Notes, Patient Transporter Notes, Medications, Allergies Allergies: Coded Allergies: Penicillins (Verified Allergy, Intermediate, 08/26/24) Lisinopril (Verified Allergy, Unknown, 02/13/22) Home Meds Active Scripts Amlodipine Besylate (NORVASC TABLET) 5 Mg Tb, 5 MG PO DAILY for 30 Days, #30 TAB 11 Refills Prov:LYNNETTE DALTON DO 10/23/22 Omeprazole Magnesium (Omeprazole) 20 Mg Tab, 20 MG PO BID for 30 Days, #60 TAB Prov:BLANCA BELLO MD 02/18/22 Sucralfate (CARAFATE) 1 Gm Tab, 1 GM PO QID for 30 Days, #120 TAB Prov:BLANCA BELLO MD 02/18/22 Reported Medications Tacrolimus (ASTAGRAF XL) 1 Mg Cap, 3 MG PO Q12HR, CAP 01/27/24 Lansoprazole (Lansoprazole) 30 Mg Cap, 1 CAP PO DAILY, #30 CAP 5 Refills 01/27/24 Pregabalin (Lyrica) 50 Mg Cap, 50 MG PO DAILY, CAP 09/27/20 Trazodone Hcl (Trazodone Hcl) 50 Mg Tab, 50 MG PO HS, MG 09/27/20 Cyanocobalamin (B-12) 1,000 Mcg Cap, 1000 MCG PO, CAP 09/27/20 Tizanidine Hydrochloride (TIZANIDINE HCL) 2 Mg Cap, 2.5 MG PO, CAP 09/27/20 Magnesium Oxide (MAGNESIUM OXIDE) 400 Mg Tab, 1 TAB PO BID, #60 TAB 5 Refills 09/27/20 Tizanidine Hydrochloride (Zanaflex) 4 Mg Tab, 0.5 TAB PO HS, #60 TAB 09/27/20 Metoprolol Tartrate (Metoprolol Tartrate) 25 Mg Tab, 1 TAB PO BID, #180 TAB 1 Refill 09/04/18 Raloxifene Hydrochloride (EVISTA TABLET) 60 Mg Tb, 1 TAB PO DAILY, #30 TAB 11 Refills 09/04/18 Prednisone (PREDNISONE) 5 Mg Tb, 5 MG PO DAILY 09/02/18 Azathioprine (Imuran) 50 Mg Tab, 3 TAB PO BEDTIME, #180 TAB 3 Refills 09/02/18 Fish Oil (Fish Oil) 500 Mg Cap, 500 MG PO BID, CAP 09/02/18 Omeprazole (Gnp Omeprazole) 20 Mg Tab, 1 CAP PO BID, #90 TAB 1 Refill 09/02/18 Docusate Sodium (Docusate Sodium) 250 Mg Cap, 250 MG PO QHS, CAP 09/02/18 Cholecalciferol (VITAMIN D3) 2,000 Unit Chw, 2000 UNIT PO DAILY, CHW 09/02/18 Loratadine (Claritin) 10 Mg Tab, 1 TAB PO DAILY, #30 TAB 5 Refills 09/02/18 Aspirin (Aspirin Low Dose) 81 Mg Chw, 1 TAB PO DAILY, #30 TAB 3 Refills 09/02/18 Cyclobenzaprine Hcl (Cyclobenzaprine Hcl) 5 Mg Tab, 2 TAB PO QPM PRN for prn, #30 TAB 09/02/18 Hydrocodone-Acetaminophen ([place] 5/325MG) 1 Tab Tb, 1 TAB PO Q6HP PRN for pain, #90 TAB 09/02/18 Sertraline Hcl (Sertraline Hcl) 50 Mg Tab, 3 TAB PO QPM for depression, #30 TAB 5 Refills 09/02/18 Simvastatin (Simvastatin) 40 Mg Tab, 1 TAB PO QPM, #30 TAB 5 Refills 09/02/18 Information Source: Patient, Emergency Med Personnel Mode of Arrival: EMS Severity: Moderate Timing: Hours Duration: Since onset, Hours Prehospital treatment: None Past Medical History PAST MEDICAL HISTORY: AFIB, Arthritis, CHF, Depression, HTN, Liver, UTI'S Past Medical History (Other): Restless leg syndrome Surgical History: Cholecystectomy, , Hernia Repair, Tubal Ligation SURVEY TECHNOLOGIST History: No Pertinent SURVEY TECHNOLOGIST History Family History Family History: Reviewed,noncontributory to illness, Unknown Social History Smoker: Non-Smoker Alcohol: Denies ETOH Use Drugs: Denies Drug Use Lives In: Home Constitutional: reports: others (Body aches); denies: chills, diaphoresis, fatigue, fever, malaise, sweats, weakness EENTM: denies: blurred vision, double vision, ear bleeding, ear discharge, ear drainage, ear pain, ear ringing, eye pain, eye redness, hearing loss, mouth pain, mouth swelling, nasal discharge, nose bleeding, nose congestion, nose pain, photophobia, tearing, throat pain, throat swelling, voice changes, others Respiratory: reports: cough; denies: hemoptysis, orthopnea, SOB at rest, shortness of breath, SOB with excertion, stridor, wheezing, others Cardiovascular: denies: chest pain, dizzy spells, diaphoresis, Dyspnea on exertion, edema, irregular heart beat, left arm pain, lightheadedness, palpitations, PND, syncope, others Gastrointestinal: reports: diarrhea, nausea, vomiting; denies: abdomen distended, abdominal pain, blood streaked bowels, constipated, dysphagia, di fficulty swallowing, hematemesis, melena, poor appetite, poor fluid intake, rectal bleeding, rectal pain, others Genitourinary: denies: abnormal vagina bleeding, burning, dyspareunia, dysuria, flank pain, frequency, hematuria, incontinence, pain, , vagina discharge, urgency, others Neurological: denies: dizziness, fainting, headache, left sided numbness, left sided weakness, numbness, paresthesia, pre-existing deficit, right sided numbness, right sided weakness, seizure, speech problems, tingling, tremors, weakness, others Musculoskeletal: denies: back pain, gout, joint pain, joint swelling, muscle pain, muscle stiffness, neck pain, others Integumetry: denies: bruises, change in color, change in hair/nails, dryness, laceration, lesions, lumps, rash, wounds, others Allergic/Immunocompromised: denies: Difficulty Healing, Frequent Infections, Hives, Itching, others Hematologic/Lymphatic: denies: anemia, blood clots, easy bleeding, easy bruising, swollen glands, others Endocrine: denies: excessive hunger, excessive sweating, excessive thirst, excessive urination, flushing, intolerance to cold, intolerance to heat, unexplained weight gain, unexplained weight loss, others Psychiatric: denies: anxiety, bipolar disorder, depression, hopeless, panic disorder, schizophrenia, sleepless, suicidal, others All Other Systems: Reviewed and Negative Physical Exam General Appearance: Moderate Distress, Normal HEENT: Normal ENT Inspection, Pharynx Normal, TMs Normal Neck: Full Range of Motion, Non-Tender, Normal, Normal Inspection Respiratory: Chest Non-Tender, Lungs Clear, No Accessory Muscle Use, No Resp iratory Distress, Normal Breath Sounds Cardiovascular: No Edema, No JVD, No Murmur, No Gallop, Normal Peripheral Pulses, Tachycardia Breast Exam: Deferred Gastrointestinal: Diffuse, No Organomegaly, No Pulsatile Mass, Normal Bowel Sounds, Soft Genitalia: Deferred Pelvic: Deferred Rectal: Deferred Extremities: No calf tenderness, Normal capillary refill, Normal inspection, Normal range of motion, Non-tender, No pedal edema Musculoskeletal : Apperance: Normal Neurologic: Alert, medical operations supervisor II-XII nml as Tested, No Motor Deficits, Normal Affect, Normal Mood, No Sensory Deficits Cerebellar Function: NOT DONE Reflexes: NOT DONE Skin: Dry, Normal Color, Warm Peripheral Pulses: 3+ Radial (R), 3+ Radial (L) Lymphatic: No Adenopathy Was a procedure done? Was a procedure done?: No EKG EKG : Pulse Rate (adult): 123 [place]: Normal Cardiac Rhythm: ST Block: None Hypertrophy: None ST: Normal Differential Dx Considerations may include: Sepsis Gastroenteritis X-Ray, Labs, Meds, VS Vital Signs Date Time Temp Pulse Resp B/P (MAP) Pulse Ox O2 Delivery O2 Flow Rate FiO2 08/26/24 12:26 171/99 08/26/24 12:11 153 182/121 08/26/24 12:10 20 98 Room Air* 0 21 08/26/24 11:31 188/122 08/26/24 11:21 174/125 08/26/24 10:49 129 26 97 Room Air* 0 21 08/26/24 10:38 98.7 140 26 177/116 (136) 97 98.7 08/26/24 10:34 123 08/26/24 09:35 123 08/26/24 09:27 98.7 130 20 197/120 (145) 98 98.7 Lab Test 08/26/24 11:14 08/26/24 10:15 Range/Units POC Glucose 163 H 70-106 mg/dl White Blood Count 8.9 4.4-10.8 10^3/uL Red Blood Count 4.39 4.0-5.20 10^6/uL Hemoglobin 12.4 12.2-16.2 g/dL Hematocrit 36.3 36.0-46.0 % Mean Corpuscular Volume 82.6 80.0-100.0 fL Mean Corpuscular Hemoglobin 28.3 28.0-32.0 pg Mean Corpuscular Hemoglobin Concent 34.2 32.0-36.0 g/dL Red Cell Distribution Width 16.1 H 11.8-14.3 % Platelet Count 259 140-450 10^3/uL Mean Platelet Volume 7.8 6.9-10.8 fL Neutrophils (%) (Auto) 86.6 H 37.0-80.0 % Lymphocytes (%) (Auto) 10.1 10.0-50.0 % Monocytes (%) (Auto) 2.6 0.0-12.0 % Eosinophils (%) (Auto) 0.0 0.0-7.0 % Basophils (%) (Auto) 0.7 0.0-2.0 % Neutrophils # (Auto) 7.7 1.6-8.6 10 ^3/uL Lymphocytes # (Auto) 0.9 0.4-5.4 10 ^3/uL Monocytes # (Auto) 0.2 0-1.3 10 ^3/uL Eosinophils # (Auto) 0 0-0.8 10 ^3/uL Basophils # (Auto) 0.1 0-0.2 10 ^3/uL Nucleated Red Blood Cells 0.0 % Prothrombin Time 10.9 9.3-11.8 sec Prothrombin Time INR 1.03 0.9-1.15 Activated Partial Thromboplast Time 21.9 L 24.5-34.5 SEC Sodium Level 143 136-145 mmol/L Potassium Level 5.3 H 3.5-5.1 mmol/L Chloride Level 109 H 98-107 mmol/L Carbon Dioxide Level 16 L 20-31 mmol/L Anion Gap 18 H 5-15 Blood Urea Nitrogen 43 H 9-23 mg/dL Creatinine 2.71 H 0.550-1.02 mg/dL Glomerular Filtration Rate Calc 19 >90 mL/min BUN/Creatinine Ratio 15.9 10.0-20.0 Serum Glucose 161 H 74-106 mg/dL Lactic Acid Level 3.2 *H 0.4-2.0 mmol/L Calcium Level 10.9 H 8.7-10.4 mg/dL Total Bilirubin 0.8 0.2-1.0 mg/dL Aspartate Amino Transferase (AST) 18 13-40 U/L Alanine Aminotransferase (ALT) < 9 7-40 U/L Alkaline Phosphatase 111 46-116 U/L Total Protein 8.7 H 5.7-8.2 g/dL Albumin 5.3 H 3.2-4.8 g/dL Beta-Hydroxybutyric Acid 0.762 H < 0.4 mmol/L Current Medications Medications (Trade) Dose Ordered Sig/Srikanth Route Start Time Stop Time Status Last Admin Lactated Ringer's 1,700 ml @ 1,700 mls/hr ONCE ONCE IV 08/26/24 10:00 08/26/24 10:59 DC 08/26/24 11:10 Vancomycin HCl 200 ml @ 200 mls/hr ONCE ONCE IV 08/26/24 10:00 08/26/24 10:59 DC 08/26/24 11:10 Clonidine HCl (Catapres Tablet) 0.2 mg ONCE ONCE PO 08/26/24 11:30 08/26/24 11:31 DC 08/26/24 11:21 Insulin Human Regular (InsuLIN R) 10 units ONCE ONCE IV 08/26/24 11:30 08/26/24 11:31 DC 08/26/24 11:33 Dextrose 50 ml ONCE ONCE IV 08/26/24 11:30 08/26/24 11:31 DC 08/26/24 11:34 Albuterol (Ventolin Medneb) 20 mg ONCE ONCE NEB 08/26/24 11:30 08/26/24 11:31 DC 08/26/24 11:34 Sodium Bicarbonate 50 ml ONCE ONCE IV 08/26/24 11:30 08/26/24 11:31 DC 08/26/24 11:46 Furosemide (Lasix Injection) 20 mg ONCE ONCE IV 08/26/24 11:30 08/26/24 11:31 DC 08/26/24 11:31 Calcium Gluconate/ Sodium Chloride 50 ml @ 120 mls/hr ONCE ONCE IV 08/26/24 11:30 08/26/24 11:54 DC 08/26/24 11:34 Zirconium Oxide (Lokelma) 10 gm ONCE ONCE PO 08/26/24 11:30 08/26/24 11:31 DC 08/26/24 11:33 Labetalol HCl (Labetalol HCl) 10 mg ONCE ONCE IV 08/26/24 12:15 08/26/24 12:16 DC 08/26/24 12:11 Patient alert. Nausea vomiting. Vitals stable. Answering questions. Establish intravenous access. Was given fluids. Increased anion gap. Potassium elevated. Blood sugar elevated. Blood pressure slightly elevated. Tachycardia. Was given clonidine. Sepsis protocol. Explained to the patient. Continue monitoring. Time of 1ST Reevaluation: 10:05 Reevaluation 1ST: Unchanged Patient Education/Counseling: Diagnosis, Treatment, Prognosis Family Education/Counseling: No Family Present SEPSIS Sepsis Screen Date sepsis recognized/suspect: Aug 26, 2024 Time Sepsis recognized/suspect: 926 Recent Procedure: No On Antibiotic Therapy: No Respiratory Rate >20: No Heart Rate >90: Yes Temp<36 C (96.8 F) or >38.3 C: No SBP <90 or MAP <65 mmHG: No New Acute Mental Status Change: No Is the patient on CPAP, BIPAP,: No Physician Orders Electrocardigram (08/26/24 09:43) Urinalysis (08/26/24 09:47) Chest Portable (08/26/24 09:47) Accucheck (08/26/24 09:47) Blood Culture (08/26/24 09:47) Cefepime 1gm/ 50ml (Maxipime 1gm/50ml) (08/26/24 14:00) Notify Md If Map <65 Or Bp<90 (08/26/24 09:47) If Map<65 Start Vasopressor (08/26/24 09:47) Potassium (08/26/24 15:19) Vital Signs Date Time Temp Pulse Resp B/P (MAP) Pulse Ox O2 Delivery O2 Flow Rate FiO2 08/26/24 12:26 171/99 08/26/24 12:11 153 182/121 08/26/24 12:10 20 98 Room Air* 0 21 08/26/24 11:31 188/122 08/26/24 11:21 174/125 08/26/24 10:49 129 26 97 Room Air* 0 08/26/24 10:38 98.7 140 26 177/116 (136) 97 98.7 08/26/24 10:34 123 08/26/24 09:35 123 08/26/24 09:27 98.7 130 20 197/120 (145) 98 98.7 Laboratory Tests Test 08/26/24 10:15 Lactic Acid Level 3.2 mmol/L (0.4-2.0) *H White Blood Count 8.9 10^3/uL (4.4-10.8) Medications Medications Dose Ordered Sig/Srikanth Route Start Time Stop Time Status Last Admin Dose Admin Albuterol 20 mg ONCE ONCE NEB 08/26/24 11:30 08/26/24 11:31 DC 08/26/24 11:34 Calcium Gluconate/ Sodium Chloride 50 ml @ 120 mls/hr ONCE ONCE IV 08/26/24 11:30 08/26/24 11:54 DC 08/26/24 11:34 Clonidine HCl 0.2 mg ONCE ONCE PO 08/26/24 11:30 08/26/24 11:31 DC 08/26/24 11:21 Dextrose 50 ml ONCE ONCE IV 08/26/24 11:30 08/26/24 11:31 DC 08/26/24 11:34 Furosemide 20 mg ONCE ONCE IV 08/26/24 11:30 08/26/24 11:31 DC 08/26/24 11:31 Insulin Human Regular 10 units ONCE ONCE IV 08/26/24 11:30 08/26/24 11:31 DC 08/26/24 11:33 Labetalol HCl 10 mg ONCE ONCE IV 08/26/24 12:15 08/26/24 12:16 DC 08/26/24 12:11 Lactated Ringer's 1,700 ml @ 1,700 mls/hr ONCE ONCE IV 08/26/24 10:00 08/26/24 10:59 DC 08/26/24 11:10 Sodium Bicarbonate 50 ml ONCE ONCE IV 08/26/24 11:30 08/26/24 11:31 DC 08/26/24 11:46 Vancomycin HCl 200 ml @ 200 mls/hr ONCE ONCE IV 08/26/24 10:00 08/26/24 10:59 DC 08/26/24 11:10 Zirconium Oxide 10 gm ONCE ONCE PO 08/26/24 11:30 08/26/24 11:31 DC 08/26/24 11:33 Departure 1 Departure Time of Disposition: 11:17 Impression: Primary Impression: Sepsis Qualified Codes: A41.9 - Sepsis, unspecified organism Additional Impressions: Gastroenteritis Uncontrolled diabetes mellitus Qualified Codes: E13.65 - Other specified diabetes mellitus with hyperglycemia Hyperkalemia Disposition: ADMITTED INPATIENT Admit to: Med Surg Condition: Guarded Critical Care Note Critical Care Time?: Yes (90 min-critical care time only) Critical care comment: Sepsis hyperkalemia continue to monitor Stability Stability form required: No Heart Score Heart Score: Heart Score Response (Comments) Value History Slightly Suspicious 0 EKG Normal 0 Age 45-64 1 Risk Factors >3 or Hx ASHD 2 Troponin Normal limit 0 Total 3 I personally scribed for XIOMY BENITES MD ([email or web address]) on 08/26/24 at 10:34. Electronically submitted by Dez Martinez ([email or web address]). XIOMY BENITES MD Aug 26, 2024 10:34
[2024-08-26 10:49] VITALS: PULSE 129; RESP 26; O2SAT 97
[2024-08-26 10:50] LABS: INR 1.03 (0.9-1.15); Partial Thromboplastin Time 21.9 SEC (24.5-34.5); Prothrombin Time 10.9 sec (9.3-11.8)
[2024-08-26 10:56] LABS: Alkaline Phosphatase 111 U/L (46-116)
[2024-08-26 10:57] LABS: Anion Gap 18 (5-15); BUN/Creatinine Ratio 15.9 (10.0-20.0); Bilirubin, Total 0.8 mg/dL (0.2-1.0); Sodium 143 mmol/L (136-145)
[2024-08-26 10:58] LABS: Alanine Aminotransferase < 9 U/L (7-40); Albumin 5.3 g/dL (3.2-4.8); Blood Urea Nitrogen 43 mg/dL (9-23); Calcium 10.9 mg/dL (8.7-10.4); Carbon Dioxide 16 mmol/L (20-31); Chloride 109 mmol/L (98-107); Glucose 161 mg/dL (74-106); Potassium 5.3 mmol/L (3.5-5.1); Total Protein 8.7 g/dL (5.7-8.2)
[2024-08-26 11:06] LABS: Lactic Acid w/Reflex 3.2 mmol/L (0.4-2.0)
[2024-08-26] MEDS: VANCOMYCIN 1GM/200ML PM 200 ML IV ONE (11:10)
[2024-08-26] MEDS: LACTATED RINGER'S 1,700 ML IV ONE (11:10)
[2024-08-26] MEDS: FUROSEMIDE 20 MG/2 ML VIAL IV ONE (11:31)
[2024-08-26] MEDS: SODIUM ZIRCONIUM CYCL 10 GM PAK PO ONE (11:33)
[2024-08-26] MEDS: InsuLIN REG 1unit/0.01ml Soln (100units/ml) IV ONE (11:33)
[2024-08-26] MEDS: DEXTROSE (50%) 50ML SYRG IV ONE (11:34)
[2024-08-26] MEDS: CALCIUM GLUC 1,000mg/50ml-NS 50 ML IV ONE (11:34)
[2024-08-26] MEDS: ALBUTEROL SULF 2.5 MG/0.5ML(0.5%) NEB SOLN NEB ONE (11:34)
[2024-08-26] MEDS: SODIUM BICARB 8.4% 50Meq/50ml SYR INJ IV ONE (11:46)
[2024-08-26] MEDS: LABETALOL HCL 20 MG/4 ML VL IV ONE (12:11)
[2024-08-26] MEDS: MORPHINE SULFATE 4 MG/ML SYR/VIAL IV ONE (13:40)
[2024-08-26] MEDS: ONDANSETRON HCL 4 MG/2 ML VIAL IV ONE (13:40)
[2024-08-26] MEDS ORDERED: CEFEPIME 1GM/ 50ML 50 ML IV SCH (14:00)
[2024-08-26] MEDS ORDERED: ONDANSETRON HCL 4 MG/2 ML VIAL IV PRN (14:45)
[2024-08-26] MEDS ORDERED: NITROGLYCERIN 0.4 MG SL TAB SL PRN (14:45)
[2024-08-26] MEDS ORDERED: Docusate Sodium 250 MG PO SCH (14:45)
[2024-08-26] MEDS ORDERED: DOCUSATE SOD 100 MG CAP PO PRN (14:45)
[2024-08-26] MEDS ORDERED: MORPHINE SULFATE INJ 2 MG/ml SYRG IV PRN (14:45)
[2024-08-26] MEDS ORDERED: CYCLOBENZAPRINE HCL PO PRN (14:45)
[2024-08-26] MEDS ORDERED: ACETAMINOPHEN 325 MG TAB PO PRN (14:45)
[2024-08-26 14:48] LABS: Urine Protein, UAD Negative (Negative)
[2024-08-26] MEDS ORDERED: VANCOMYCIN PER PHARMACY 0 MG IV SCH (15:00)
[2024-08-26] MEDS ORDERED: DEXTROSE (50%) 50ML SYRG IV PRN (15:00)
--- NOTE | 2024-08-26 15:11 | DVHHP2 ---
History of Present Illness Reason for Visit: Flu like symptoms History of Present Illness Doretha Frey is a 63-year-old female with past medical history of hypertension, CHF, atrial fibrillation, kidney transplant, pancreatitis, UTI's, hyperlipidemia, focal segmental glomerulosclerosis S/P kidney transplant, and aortic stenosis who came to the hospital for flu like symptoms. Patient states she began experiencing nausea, vomiting, and diarrhea yesterday. Cardiovascular: AFIB, CHF, HTN Hepatobiliary: Cirrhosis Psych: Depression Smoke: No ALCOHOL: none Drugs: None Lives: Alone Domestic Violence: Neg Review of Systems Constitutional: No: Fever, Chills, Sweats, Weakness, Malaise, Other Eyes: No: Pain, Vision change, Conjunctivae inflammation, Eyelid inflammation, Other, Redness ENT: No: Ear pain, Ear discharge, Nose pain, Nose discharge, Nose congestion, Mouth pain, Mouth swelling, Throat pain, Throat swelling, Other Respiratory: No: Cough, Dry, Shortness of breath, SOB with excertion, Wheezing, Hemoptysis, Pleuritic Pain, Sputum, Wheezing, Other Cardiovascular: No: Chest Pain, Palpitations, Orthopnea, Paroxysmal Noc. Dyspnea, Edema, Lt Headedness, Other Gastrointestinal: Nausea, Vomiting, Abdominal Pain, Diarrhea; No: Constipation, Melena, Hematochezia, Other Genitourinary: No Dysuria, No Frequency, No Incontinence, No Hematuria, No Retention, No Other Musculoskeletal: No: other, neck pain, shoulder pain, arm pain, back pain, hand pain, leg pain, foot pain Skin: No: Rash, Lesions, Jaundice, Bruising, Other Neurological: No: Weakness, Numbness, Incoordination, Change in speech, Confusion, Seizures, Other Allergies: Coded Allergies: Penicillins (Verified Allergy, Intermediate, 08/26/24) Lisinopril (Verified Allergy, Unknown, 02/13/22) Medications Current Medications Medications Dose Ordered Sig/Srikanth Route Start Time Stop Time Status Last Admin Dose Admin Cefepime HCl 50 ml @ 12.5 mls/hr DAILY IV 08/27/24 10:00 Acetaminophen/ Hydrocodone Bitart 1 tab Q4HP PRN PO 08/26/24 14:45 UNV Ondansetron HCl 4 mg Q4HP PRN IV 08/26/24 14:45 UNV Docusate Sodium 100 mg BIDPRN PRN PO 08/26/24 14:45 UNV Acetaminophen 650 mg Q6HP PRN PO 08/26/24 14:45 UNV Nitroglycerin 0.4 mg Q5MINP PRN SL 08/26/24 14:45 UNV Morphine Sulfate 2 mg Q30M PRN IV 08/26/24 14:45 UNV Azathioprine 150 mg HS PO 08/26/24 22:00 UNV Loratadine 10 mg DAILY PO 08/27/24 10:00 UNV Metoprolol Tartrate 25 mg BID PO 08/26/24 22:00 UNV Prednisone 5 mg DAILY PO 08/27/24 10:00 UNV Raloxifene HCl 60 mg DAILY PO 08/27/24 10:00 UNV Sertraline HCl 150 mg QPM PO 08/26/24 18:00 UNV Sucralfate 1 gm QID PO 08/26/24 18:00 UNV Trazodone HCl 50 mg HS PO 08/26/24 22:00 UNV Patient Own Medication 1 tab DAILY PO 08/27/24 10:00 UNV Patient Own Medication 2,000 unit DAILY PO 08/27/24 10:00 UNV Patient Own Medication 2 tab QPM PRN PO 08/26/24 14:45 UNV Patient Own Medication 250 mg QHS PO 08/26/24 14:45 UNV Patient Own Medication 500 mg BID PO 08/26/24 22:00 UNV Patient Own Medication 1 tab BID PO 08/26/24 22:00 UNV Patient Own Medication 1 cap BID PO 08/26/24 22:00 UNV Patient Own Medication 50 mg DAILY PO 08/27/24 10:00 UNV Patient Own Medication 1 tab QPM PO 08/26/24 18:00 UNV Patient Own Medication 0.5 tab HS PO 08/26/24 22:00 UNV Diagnostic Test (Pha) 1 strip ACHS 08/26/24 17:00 UNV Insulin Human Regular ACHS SC 08/26/24 17:00 UNV Dextrose 50 ml UD PRN IV 08/26/24 15:00 UNV Exam Vital Signs Vital Signs Date Time Temp Pulse Resp B/P (MAP) Pulse Ox O2 Delivery O2 Flow Rate FiO2 08/26/24 14:29 122 18 171/108 08/26/24 12:10 98 Room Air* 0 21 08/26/24 12:00 99.1 99.1 General Appearance: Alert, Oriented X3, Cooperative, mild distress HEENT: Atraumatic, PERRLA, Mucous membr. moist/pink Respiratory: Clear to auscultation, Normal air movement Cardiovascular: Normal S1, Normal S2, Other (ST) Abdominal: Normal bowel sounds, Soft Extremities: No clubbing, No cyanosis, Normal pulses Skin: No rashes, No breakdown, No significant lesion Neuro: Normal speech Psych/Mental Status: Mental status NL Labs/Xrays Labs Test 08/26/24 13:08 08/26/24 11:14 08/26/24 11:03 08/26/24 10:15 Range/Units Lactic Acid Level 6.1 *H 0.4-2.0 mmol/L POC Glucose 163 H 70-106 mg/dl White Blood Count 8.9 4.4-10.8 10^3/uL Red Blood Count 4.39 4.0-5.20 10^6/uL Hemoglobin 12.4 12.2-16.2 g/dL Hematocrit 36.3 36.0-46.0 % Mean Corpuscular Volume 82.6 80.0-100.0 fL Mean Corpuscular Hemoglobin 28.3 28.0-32.0 pg Mean Corpuscular Hemoglobin Concent 34.2 32.0-36.0 g/dL Red Cell Distribution Width 16.1 H 11.8-14.3 % Platelet Count 259 140-450 10^3/uL Mean Platelet Volume 7.8 6.9-10.8 fL Neutrophils (%) (Auto) 86.6 H 37.0-80.0 % Lymphocytes (%) (Auto) 10.1 10.0-50.0 % Monocytes (%) (Auto) 2.6 0.0-12.0 % Eosinophils (%) (Auto) 0.0 0.0-7.0 % Basophils (%) (Auto) 0.7 0.0-2.0 % Neutrophils # (Auto) 7.7 1.6-8.6 10 ^3/uL Lymphocytes # (Auto) 0.9 0.4-5.4 10 ^3/uL Monocytes # (Auto) 0.2 0-1.3 10 ^3/uL Eosinophils # (Auto) 0 0-0.8 10 ^3/uL Basophils # (Auto) 0.1 0-0.2 10 ^3/uL Nucleated Red Blood Cells 0.0 % Prothrombin Time 10.9 9.3-11.8 sec Prothrombin Time INR 1.03 0.9-1.15 Activated Partial Thromboplast Time 21.9 L 24.5-34.5 SEC Sodium Level 143 136-145 mmol/L Potassium Level 5.3 H 3.5-5.1 mmol/L Chloride Level 109 H 98-107 mmol/L Carbon Dioxide Level 16 L 20-31 mmol/L Anion Gap 18 H 5-15 Blood Urea Nitrogen 43 H 9-23 mg/dL Creatinine 2.71 H 0.550-1.02 mg/dL Glomerular Filtration Rate Calc 19 >90 mL/min BUN/Creatinine Ratio 15.9 10.0-20.0 Serum Glucose 161 H 74-106 mg/dL Calcium Level 10.9 H 8.7-10.4 mg/dL Total Bilirubin 0.8 0.2-1.0 mg/dL Aspartate Amino Transferase (AST) 18 13-40 U/L Alanine Aminotransferase (ALT) < 9 7-40 U/L Alkaline Phosphatase 111 46-116 U/L Total Protein 8.7 H 5.7-8.2 g/dL Albumin 5.3 H 3.2-4.8 g/dL Beta-Hydroxybutyric Acid 0.762 H < 0.4 mmol/L CHEST RADIOGRAPH FINDINGS: Lines and Tubes: None Lungs: Clear Pleura: No effusion. No pneumothorax. Cardiomediastinal contours: Moderate hiatal hernia. Bones: Unremarkable IMPRESSION: No acute disease. Assessment/Plan Assessment/Plan Assessment: Sepsis, Possible pancreatitis, Hyperkalemia, Leukocytosis, Plan: Admit to [facility], IV hydration, IV antibiotics, Hyperkalemia protocol, Amylase, Lipase, Manage/Monitor electrolytes closely, Home medications reconciled, Blood cultures, Plan discussed with: Patient My Orders Orders - MARTHA DA SILVA Procedure Category Date Status Time Amylase LAB 08/26/24 Logged 14:33 Lipase LAB 08/26/24 Logged 14:33 Admit ADMIT 08/26/24 Transmitted 14:39 Code Status CODE 08/26/24 Transmitted 14:39 Renal DIET 08/26/24 Transmitted Standard(2gna,3gk,Lopho) Dinner Hydrocodone-Acet PHA 08/26/24 Logged 5/325mg Tab (Yeso 14:45 Ondansetron Hcl PHA 08/26/24 Logged (Zofran) 14:45 Docusate Sodium PHA 08/26/24 Logged Capsule (Colace 14:45 Complete Blood Count LAB 08/27/24 Verified 04:00 Comprehensive LAB 08/27/24 Verified Metabolic Panel 04:00 Condition: Serious DONN 08/26/24 In Process 14:39 Acetaminophen Tablet PHA 08/26/24 Logged (Tylenol Tablet) 14:45 Nitroglycerin PHA 08/26/24 Logged Sublingual (Ntrostat 14:45 Morphine Sulfate PHA 08/26/24 Logged Injection 14:45 Stat Ekg For Chest DONN 08/26/24 In Process Pain 14:39 Notify Of Changes DONN 08/26/24 In Process From Base 14:39 Power Plant Supervisor For [facility] 08/26/24 In Process 24 Hours 14:39 Emergency Dysrhythmia DONN 08/26/24 In Process Protocol 14:39 Rhythm Strips Once [facility] 08/26/24 In Process Every Shift 14:39 Oxygen By Nasal RT 08/26/24 Transmitted Cannula 14:39 Azathioprine Tablet PHA 08/26/24 Logged (Imuran Tablet) 22:00 Loratadine Tablet PHA 08/27/24 Logged (Claritin Tablet) 10:00 Metoprolol Tartrate PHA 08/26/24 Logged Tablet (Lopressor Ta 22:00 Prednisone Tablet PHA 08/27/24 Logged 10:00 Raloxifene Hcl Tablet PHA 08/27/24 Logged (Evista Tablet) 10:00 Sertraline Hcl PHA 08/26/24 Logged (Zoloft) 18:00 Sucralfate Tab PHA 08/26/24 Logged (Carafate Tab) 18:00 Trazodone Hcl PHA 08/26/24 Logged (Desyrel) 22:00 (Nf) Aspirin (Aspirin PHA 08/27/24 Logged Low Dose) 10:00 (Nf) Cholecalciferol PHA 08/27/24 Logged (Vitamin D3) 10:00 (Nf) Cyclobenzaprine PHA 08/26/24 Logged Hcl 14:45 (Nf) Docusate Sodium PHA 08/26/24 Logged 14:45 (Nf) Fish Oil PHA 08/26/24 Logged 22:00 (Nf) Magnesium Oxide PHA 08/26/24 Logged 22:00 (Nf) Omeprazole (Gnp PHA 08/26/24 Logged Omeprazole) 22:00 (Nf) Pregabalin PHA 08/27/24 Logged (Lyrica) 10:00 (Nf) Simvastatin PHA 08/26/24 Logged 18:00 (Nf) Tizanidine PHA 08/26/24 Logged Hydrochloride 22:00 Potassium LAB 08/26/24 Logged 14:47 Magnesium LAB 08/26/24 Logged 14:47 Glucose Blood PHA 08/26/24 Logged (Accu-Chek Comfort 17:00 Insulin R (Human) PHA 08/26/24 Logged (Insulin R) 17:00 Dextrose 50% Syringe PHA 08/26/24 Logged 15:00 NS PHA 08/26/24 Verified 15:00 NS PHA 08/26/24 Verified 15:00 Date of Service: Aug 26, 2024 Billing Provider: MARTHA DA SILVA Common Visit Codes: [id number] INP/OBS CARE (HIGH) MARTHA DA SILVA Aug 26, 2024 15:11
[2024-08-26 15:12] LABS: Potassium 4.0 mmol/L (3.5-5.1)
[2024-08-26 15:18] LABS: Lipase 40 U/L (12-53)
[2024-08-26 15:19] LABS: Magnesium 1.8 mg/dL (1.6-2.6)
[2024-08-26 15:20] LABS: Amylase 128 U/L (30-118)
--- NOTE | 2024-08-26 15:29 | ECG ---
[facility] Test Date: 2024-08-26 Test Time: 09:35:11 Pat Name: JACOB WATTS Department: ED Room: 0212T Gender: F Tobacco Sorter: ULICES : 1960 Requested By: XIOMY BENITES Order Number: [id number] Reading MD: Jeremy Moore Measurements Intervals [place] Rate: 123 P: 33 TX: 149 QRS: -38 QRSD: 104 T: 71 QT: 337 QTc: 482 Interpretive Statements Sinus tachycardia Abnormal R-wave progression, early transition LVH with secondary repolarization abnormality Anterior Q waves, possibly due to LVH Electronically Signed On 08-30-2024 9:41:49 PDT by Jeremy Moore Please click the below link to view image of tracing.
[2024-08-26] MEDS ORDERED: CYCLOBENZAPRINE HCL 10 MG TAB PO PRN (15:30)
[2024-08-26] MEDS: SODIUM CHLORIDE 0.9% 500 ML IV ONE (15:39)
[2024-08-26] MEDS: HYDROcodone-ACET 5/325MG TAB PO PRN (15:47)
[2024-08-26] MEDS: InsuLIN REG 1unit/0.01ml Soln (100units/ml) SC SCH (17:00)
[2024-08-26] MEDS: ACCU-CHEK COMFORT CURVE STRIP VI SCH (17:18)
[2024-08-26] MEDS: SODIUM CHLORIDE 0.9% 1,000 ML IV ONE (17:19)
[2024-08-26] MEDS ORDERED: PATIENTS OWN MEDICATION (Simvastatin 1 TAB) PO SCH (18:00)
[2024-08-26] MEDS: SERTRALINE HCL 50 MG TAB PO SCH (18:10)
[2024-08-26] MEDS: SUCRALFATE 1 GM TAB PO SCH (18:10)
[2024-08-26] MEDS: MAGNESIUM SULFATE 1GM/100ML 100 ML IV SCH (19:06)
[2024-08-26 19:30] VITALS: PULSE 108; RESP 20; O2SAT 98
[2024-08-26 19:46] LABS: Lactic Acid w/Reflex 2.8 mmol/L (0.4-2.0)
[2024-08-26] MEDS ORDERED: OMEPRAZOLE PO SCH (22:00)
[2024-08-26] MEDS ORDERED: PATIENTS OWN MEDICATION (Magnesium Oxide 1 TAB) PO SCH (22:00)
[2024-08-26] MEDS: ATORVASTATIN 20 MG TAB PO SCH (22:29)
[2024-08-26] MEDS: PANTOPRAZOLE 40 MG TAB PO SCH (22:29)
[2024-08-26] MEDS: METOPROLOL TARTRATE 25 MG TAB PO SCH (22:30)
[2024-08-26] MEDS: MAGNESIUM OXIDE 400 MG TAB PO SCH (22:30)
[2024-08-26] MEDS: FISH OIL 500 MG PO SCH (23:21)
[2024-08-26] MEDS: Tizanidine Hydrochloride (Zanaflex) 4mg PO SCH (23:21)
[2024-08-27 02:09] LABS: COVID19 ANTIGEN SOFIA FIA NEGATIVE (NEGATIVE)
[2024-08-27 04:08] LABS: Hematocrit 27.1 % (36.0-46.0); Hemoglobin 9.1 g/dL (12.2-16.2); Mean Corpuscular Hemoglobin 28.1 pg (28.0-32.0); Mean Corpuscular Volume 83.6 fL (80.0-100.0); Nucleated Red Blood Cells % 0.0 %
[2024-08-27 04:23] LABS: Albumin 3.8 g/dL (3.2-4.8); Alkaline Phosphatase 76 U/L (46-116); Anion Gap 11 (5-15); BUN/Creatinine Ratio 15.5 (10.0-20.0); Carbon Dioxide 24 mmol/L (20-31); Chloride 106 mmol/L (98-107); Glucose 104 mg/dL (74-106); Potassium 4.3 mmol/L (3.5-5.1); Sodium 141 mmol/L (136-145); Total Protein 6.2 g/dL (5.7-8.2)
[2024-08-27 04:24] LABS: Bilirubin, Total 0.5 mg/dL (0.2-1.0)
[2024-08-27 04:37] LABS: Alanine Aminotransferase < 9 U/L (7-40); Blood Urea Nitrogen 37 mg/dL (9-23); Calcium 8.6 mg/dL (8.7-10.4)
[2024-08-27] MEDS: SODIUM CHLORIDE 0.9% 500 ML IV ONE (08:21)
[2024-08-27 10:00] VITALS: PULSE 83; RESP 23; O2SAT 100
[2024-08-27] MEDS ORDERED: PATIENTS OWN MEDICATION (Cholecalciferol (Vitamin D3) 2,000 UNIT) PO SCH (10:00)
[2024-08-27] MEDS ORDERED: PATIENTS OWN MEDICATION (Aspirin (Aspirin Low Dose) 1 TAB) PO SCH (10:00)
[2024-08-27] MEDS: RALOXIFENE HCL 60 MG TAB PO SCH (10:00)
[2024-08-27] MEDS ORDERED: PATIENTS OWN MEDICATION (Pregabalin (Lyrica) 50 MG) PO SCH (10:00)
[2024-08-27] MEDS ORDERED: CEFEPIME 1GM/ 50ML 50 ML IV SCH (10:00)
[2024-08-27] MEDS: CHOLECALCIFEROL (VITD3) 1,000UNIT=25mCg TAB PO SCH (11:04)
[2024-08-27] MEDS: PREGABALIN 25 MG CAP PO SCH (11:04)
[2024-08-27] MEDS: LORATADINE 10 MG TAB PO SCH (11:05)
[2024-08-27] MEDS: cefTRIAXone 1GM/50ML D5W 50 ML IV ONE ×2 (13:25→13:30)
--- NOTE | 2024-08-27 13:44 | DVH ---
Exam: CT CT AB PEL WO CON-NO ORAL OR IV History: Pancreatitis and gastroenteritis Comparison Study: CT CT AB PEL WO CON-NO ORAL OR IV on DOS: 05/13/24, CT CT AB PEL WO CON-NO ORAL OR I V on DOS: 03/21/24, CT CT AB PEL WO CON-NO ORAL OR IV on DOS: 03/12/24, CT CT AB PEL WO CON-NO ORAL OR IV on DOS: 01/26/24, CT CT AB PEL WO CON-NO ORAL OR IV on DOS: 10/20/22 Technique: Multidetector spiral CT of the abdomen was performed from lung bases to pubic symphysis. I maging was performed without IV contrast. Axial, coronal and sagittal multiplanar reformats were obta ined from the axial data set by the technologist. Radiation Dose : 1. Abdomen/Pelvis: CTDIvol 10.82 mGy, DLP 620.87 mGy*cm. Findings: Evaluation of solid organs is limited due to lack of intravenous contrast use. Lung Bases: Dependent atelectasis. Cardiomegaly. Liver: The liver is normal in size. No focal lesions. Gallbladder and Biliary Tree: Gallbladder is surgically absent. Spleen: Unremarkable Pancreas: Coarse calcifications of the pancreas suggestive of changes of chronic pancreatitis. Adrenal Glands: Unremarkable Kidneys: Bilateral renal atrophy. Right lower quadrant transplant kidney. Bladder: Grossly unremarkable for degree of distention. Bowel: Moderate hiatal hernia. Diverticulosis. Moderate diffuse colonic bowel wall thickening. The ap pendix is not visualized; however, no secondary findings of acute appendicitis identified. Ascites: Absent Lymphadenopathy: No mesenteric, retroperitoneal or periportal lymphadenopathy. Abdominal Wall and Mesentery: Unremarkable. Vasculature: The visualized abdominal aorta is normal in size and caliber. Evaluation of abdominal a nd pelvic vessels is limited due to lack of intravenous contrast. Pelvic Organs: Unremarkable Musculoskeletal: No aggressive focal bony lesions, acute fractures or dislocation. Degenerative schmidt es of the spine. IMPRESSION: Possible colitis. Otherwise, no acute findings.
--- NOTE | 2024-08-27 13:47 | DVHPNRES ---
Progress Note Date Seen: Aug 27, 2024 Resident Creating Document: RICHARD MCCURDY RESIDENT Medical Necessity Reason Pt with a Central, PICC or Fol: No Subjective Review of Systems Doretha Frey is a 63-year-old female with past medical history of hypertension, CHF, AFib, , the pancreatitis, UTIs, hyperlipidemia, focal segmental glomerulosclerosis, aortic stenosis, S/P left kidney transplantation (2012). Patient came in with chief complaints of epigastric abdominal pain after taking watermelon 2 days ago. She reports the pain gradually increased, was constant in nature, 8 x 10 intensity, nonradiating with no aggravating or relieving factor. It was associated with nausea, vomiting ( about 20 times), and diarrhea (5-6 times), headache, mid back pain. She denies any fever, chills, body ache, shortness of breath, urinary symptoms. PMH: Hypertension, CHF, AFib, pancreatitis, UTIs, hyperlipidemia, focal segmental glomerulosclerosis, S/p left kidney transplant PSH: left kidney transplant Family history: No significant family history except father had heart attack, DM Social history: Patient lives alone with her dog. Denies ever smoking drinking alcohol or taking any drugs Allergies: lisinopril, has Hay fever Home medicine: Patient remembers omeprazole and tacrolimus but can not remember other medications ( reports taking 10-15 types) ROS: Patient seen and examined at bedside. Overnight events reviewed, reports no new complaint. Reports feeling better and Abdominal pain has improved. No diarrhea or vomiting reported. Rest of the ROS is negative. Patient reports: Feels better Objective vital signs Vital Sign Date Time Temp Pulse Resp B/P (MAP) Pulse Ox O2 Delivery O2 Flow Rate FiO2 08/27/24 13:24 72 120/52 08/27/24 12:00 21 98 08/27/24 10:00 98.3 98.3 08/27/24 10:00 Room Air* 0 21 Total Intake and Output 08/26/24 08/26/24 08/27/24 15:00 23:00 07:00 Intake Total 2020 ml 850 ml Balance 2020 ml 850 ml medications Current Medications Medications Dose Ordered Sig/Srikanth Route Start Time Stop Time Status Last Admin Dose Admin Acetaminophen/ Hydrocodone Bitart 1 tab Q4HP PRN PO 08/26/24 14:45 08/27/24 03:09 1 TAB Ondansetron HCl 4 mg Q4HP PRN IV 08/26/24 14:45 Docusate Sodium 100 mg BIDPRN PRN PO 08/26/24 14:45 Acetaminophen 650 mg Q6HP PRN PO 08/26/24 14:45 Nitroglycerin 0.4 mg Q5MINP PRN SL 08/26/24 14:45 Morphine Sulfate 2 mg Q30M PRN IV 08/26/24 14:45 Azathioprine 150 mg HS PO 08/26/24 22:00 Loratadine 10 mg DAILY PO 08/27/24 10:00 08/27/24 11:05 10 MG Metoprolol Tartrate 25 mg BID PO 08/26/24 22:00 08/27/24 11:05 25 MG Prednisone 5 mg DAILY PO 08/27/24 10:00 08/27/24 11:05 5 MG Raloxifene HCl 60 mg DAILY PO 08/27/24 10:00 Sertraline HCl 150 mg QPM PO 08/26/24 18:00 08/26/24 18:10 150 MG Sucralfate 1 gm QID PO 08/26/24 18:00 08/27/24 13:17 1 GM Trazodone HCl 50 mg HS PO 08/26/24 22:00 08/26/24 22:29 50 MG Patient Own Medication 1 tab DAILY PO 08/27/24 10:00 UNV Patient Own Medication 2,000 unit DAILY PO 08/27/24 10:00 UNV Patient Own Medication 2 tab QPM PRN PO 08/26/24 14:45 UNV Patient Own Medication 250 mg QHS PO 08/26/24 14:45 Patient Own Medication 500 mg BID PO 08/26/24 22:00 Patient Own Medication 1 tab BID PO 08/26/24 22:00 UNV Patient Own Medication 1 cap BID PO 08/26/24 22:00 UNV Patient Own Medication 50 mg DAILY PO 08/27/24 10:00 UNV Patient Own Medication 1 tab QPM PO 08/26/24 18:00 UNV Patient Own Medication 0.5 tab HS PO 08/26/24 22:00 Diagnostic Test (Pha) 1 strip ACHS 08/26/24 17:00 08/27/24 11:30 1 STRIP Insulin Human Regular ACHS SC 08/26/24 17:00 Dextrose 50 ml UD PRN IV 08/26/24 15:00 Aspirin 81 mg DAILY PO 08/27/24 10:00 08/27/24 11:05 81 MG Cholecalciferol 2,000 unit DAILY PO 08/27/24 10:00 08/27/24 11:04 2,000 UNIT Cyclobenzaprine HCl 10 mg QPM PRN PO 08/26/24 15:30 Magnesium Oxide 400 mg BID PO 08/26/24 22:00 08/27/24 11:04 400 MG Pantoprazole Sodium 40 mg BID PO 08/26/24 22:00 08/27/24 11:04 40 MG Pregabalin 50 mg DAILY PO 08/27/24 10:00 08/27/24 11:04 50 MG Atorvastatin Calcium 20 mg HS PO 08/26/24 22:00 08/26/24 22:29 20 MG Ceftriaxone Sodium 50 ml @ 100 mls/hr DAILY@09 IV 08/28/24 09:00 Metronidazole 100 ml @ 100 mls/hr Q8H IV 08/27/24 22:00 Examination Pt is lying on bed General Appearance: Alert, Oriented X3, Cooperative, Not in acute distress HEENT: Atraumatic, Mucous membranes moist/pink Respiratory: Clear to auscultation, Normal air movement, No added sounds Cardiovascular: Regular rate, Normal S1, Normal S2, No murmurs Abdominal: Active bowel sounds, Soft, no distention, no tenderness Extremities: No edema, Normal pulses, No tenderness/swelling, Skin: No Significant rash, except past surgical scars Neuro: Normal speech, sensorimotor deficits none, presence of slight tremor in bilateral hands and feet Psych/Mental Status: Mental status NL, Mood NL Nurse was there as sand miller during examination laboratory and microbiology Laboratory Tests 08/27/24 03:40 Test 08/27/24 03:40 Range/Units Serum Glucose 104 74-106 mg/dL Microbiology Date/Time Source Procedure Growth Status 08/26/24 10:15 Blood Blood Culture - Preliminary NO GROWTH AFTER 24 HOURS OF INCUBATION. Resulted Labs and/or images reviewed: Image(s) reviewed by me Problem List/Assessment/Plan Problem List/Assessment/Plan # SIRS vs Sepsis without End organ damage likely due to below # Abdominal pain possibly due to gastroenteritis vs Pancreatitis - Stool WBC, bacterial culture, C diff ordered - blood culture ordered, preliminary negative - CT abdomen and pelvis ordered, pending - Initially started on cefepime and vancomycin but eventually downgraded to ceftriaxone and metronidazole - Continues to monitor labs - 3-4 bags of IVF given initially and discontinued - Amylase is slightly elevated but lipase is negative - Continue pain medication,and Zofran as needed - Protonox # 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 Lowery, patient and nurse. Plan discussed with: Patient, Other (RN) Date of Service: Aug 27, 2024 Billing Provider: JENIFFER LOWERY MD Common Visit Codes: [id number] INP/OBS CARE(HIGH) RICHARD MCCURDY RESIDENT Aug 27, 2024 13:47 JENIFFER LOWERY MD Aug 27, 2024 18:15
[2024-08-27] MEDS: TACROLIMUS 3 MG PO SCH (14:00)
[2024-08-27 14:24] LABS: Amphetamine Screen, Urine Neg (NEGATIVE); Barbiturate Scree,Urine Neg (NEGATIVE); Benzodiazephine Screen, Urine Neg (NEGATIVE); Cannabinoid Screen, Urine Neg (NEGATIVE); Cocaine Screen, Urine Neg (NEGATIVE); Opiate Scree,Urine Pos (NEGATIVE); Phencyclidine Screen, Urine Neg (NEGATIVE)
[2024-08-27 14:54] VITALS: BP 120/75; PULSE 69; RESP 17; TEMP 98.2; O2SAT 96
[2024-08-27 17:00] VITALS: BP 146/56; PULSE 70; RESP 17; TEMP 98; O2SAT 93
[2024-08-27 20:00] VITALS: PULSE 83; PULSE 88; RESP 14
[2024-08-27 21:00] VITALS: BP 114/72; PULSE 81; RESP 18; TEMP 97.5; O2SAT 95
[2024-08-28] VITALS (8 sets, daily range): BP systolic 98–112; BP diastolic 48–75; PULSE 70–85; RESP 14–18; TEMP 97.5–99; O2SAT 91–98
[2024-08-28 08:25] LABS: Hematocrit 24.6 % (36.0-46.0); Hemoglobin 8.0 g/dL (12.2-16.2); Mean Corpuscular Hemoglobin 27.8 pg (28.0-32.0); Mean Corpuscular Volume 85.6 fL (80.0-100.0); Nucleated Red Blood Cells % 0.0 %
[2024-08-28 08:40] LABS: Albumin 3.3 g/dL (3.2-4.8); Alkaline Phosphatase 62 U/L (46-116); Anion Gap 8 (5-15); BUN/Creatinine Ratio 14.2 (10.0-20.0); Blood Urea Nitrogen 29 mg/dL (9-23); Carbon Dioxide 22 mmol/L (20-31); Chloride 113 mmol/L (98-107); Glucose 79 mg/dL (74-106); Magnesium 2.0 mg/dL (1.6-2.6); Potassium 4.2 mmol/L (3.5-5.1); Sodium 143 mmol/L (136-145)
[2024-08-28 08:41] LABS: Alanine Aminotransferase < 9 U/L (7-40); Bilirubin, Total 0.4 mg/dL (0.2-1.0); Calcium 8.3 mg/dL (8.7-10.4); Total Protein 5.3 g/dL (5.7-8.2)
[2024-08-28 10:24] LABS: Iron 47.0 ug/dL (50-170)
[2024-08-28] MEDS: HYDROcodone-ACET 7.5/325MG TAB PO PRN (10:24)
[2024-08-28] MEDS: cefTRIAXone 1GM/50ML D5W 50 ML IV SCH (10:24)
[2024-08-28 10:26] LABS: Total Iron Binding Capacity 260.0 ug/dL (250-425)
[2024-08-28 10:36] LABS: Ferritin 13.6 ng/mL (10-291)
[2024-08-28] MEDS: metroNIDAZOLE 500 MG TAB PO SCH (15:29)
--- NOTE | 2024-08-28 16:14 | DVHPNRES ---
Progress Note Date Seen: Aug 28, 2024 Resident Creating Document: RICHARD MCCURDY RESIDENT Medical Necessity Reason Pt with a Central, PICC or Fol: No Subjective Review of Systems Doretha Frey is a 63-year-old female with past medical history of hypertension, CHF, AFib, , the pancreatitis, UTIs, hyperlipidemia, focal segmental glomerulosclerosis, aortic stenosis, S/P left kidney transplantation (2012). Patient came in with chief complaints of epigastric abdominal pain after taking watermelon 2 days ago. She reports the pain gradually increased, was constant in nature, 8 x 10 intensity, non-radiating with no aggravating or relieving factor. It was associated with nausea, vomiting ( about 20 times), and diarrhea (5-6 times), headache, mid back pain. She denies any fever, chills, body ache, shortness of breath, urinary symptoms. PMH: Hypertension, CHF, AFib, pancreatitis, UTIs, hyperlipidemia, focal segmental glomerulosclerosis, S/p left kidney transplant PSH: left kidney transplant Family history: No significant family history except father had heart attack, DM Social history: Patient lives alone with her dog. Denies ever smoking drinking alcohol or taking any drugs Allergies: lisinopril, has Hay fever Home medicine: Patient remembers omeprazole and tacrolimus but can not remember other medications ( reports taking 10-15 types) ROS: Patient seen and examined at bedside. Overnight events reviewed, reports complains of not being able to sleep due to back pain and requests for pain meds to be increased. Reports Abdominal pain has improved. No diarrhea or vomiting reported. Rest of the ROS is negative. Objective vital signs Vital Sign Date Time Temp Pulse Resp B/P (MAP) Pulse Ox O2 Delivery O2 Flow Rate FiO2 08/28/24 12:10 98.2 70 17 112/49 (70) 98 98.2 08/28/24 08:00 Room Air* 0 21 Total Intake and Output 08/27/24 08/27/24 08/28/24 15:00 23:00 07:00 Intake Total 550 ml 100 ml 650 ml Balance 550 ml 100 ml 650 ml medications Current Medications Medications Dose Ordered Sig/Srikanth Route Start Time Stop Time Status Last Admin Dose Admin Ondansetron HCl 4 mg Q4HP PRN IV 08/26/24 14:45 Docusate Sodium 100 mg BIDPRN PRN PO 08/26/24 14:45 Acetaminophen 650 mg Q6HP PRN PO 08/26/24 14:45 Nitroglycerin 0.4 mg Q5MINP PRN SL 08/26/24 14:45 Morphine Sulfate 2 mg Q30M PRN IV 08/26/24 14:45 Azathioprine 150 mg HS PO 08/26/24 22:00 08/27/24 22:32 150 MG Loratadine 10 mg DAILY PO 08/27/24 10:00 08/28/24 10:13 10 MG Metoprolol Tartrate 25 mg BID PO 08/26/24 22:00 08/27/24 22:30 25 MG Prednisone 5 mg DAILY PO 08/27/24 10:00 08/28/24 10:13 5 MG Raloxifene HCl 60 mg DAILY PO 08/27/24 10:00 08/28/24 10:15 60 MG Sertraline HCl 150 mg QPM PO 08/26/24 18:00 08/27/24 16:53 150 MG Sucralfate 1 gm QID PO 08/26/24 18:00 08/28/24 12:29 1 GM Trazodone HCl 50 mg HS PO 08/26/24 22:00 08/27/24 22:31 50 MG Patient Own Medication 1 tab DAILY PO 08/27/24 10:00 UNV Patient Own Medication 2,000 unit DAILY PO 08/27/24 10:00 UNV Patient Own Medication 2 tab QPM PRN PO 08/26/24 14:45 UNV Patient Own Medication 250 mg QHS PO 08/26/24 14:45 Patient Own Medication 500 mg BID PO 08/26/24 22:00 Patient Own Medication 1 tab BID PO 08/26/24 22:00 UNV Patient Own Medication 1 cap BID PO 08/26/24 22:00 UNV Patient Own Medication 50 mg DAILY PO 08/27/24 10:00 UNV Patient Own Medication 1 tab QPM PO 08/26/24 18:00 UNV Patient Own Medication 0.5 tab HS PO 08/26/24 22:00 Diagnostic Test (Pha) 1 strip ACHS 08/26/24 17:00 08/28/24 12:32 1 STRIP Insulin Human Regular ACHS SC 08/26/24 17:00 Dextrose 50 ml UD PRN IV 08/26/24 15:00 Aspirin 81 mg DAILY PO 08/27/24 10:00 08/28/24 10:12 81 MG Cholecalciferol 2,000 unit DAILY PO 08/27/24 10:00 08/28/24 10:13 2,000 UNIT Cyclobenzaprine HCl 10 mg QPM PRN PO 08/26/24 15:30 Magnesium Oxide 400 mg BID PO 08/26/24 22:00 08/28/24 10:13 400 MG Pantoprazole Sodium 40 mg BID PO 08/26/24 22:00 08/28/24 10:13 40 MG Pregabalin 50 mg DAILY PO 08/27/24 10:00 08/28/24 10:14 50 MG Atorvastatin Calcium 20 mg HS PO 08/26/24 22:00 08/27/24 22:31 20 MG Patient Own Medication 3 mg Q12HR PO 08/27/24 14:00 Acetaminophen/ Hydrocodone Bitart 1 tab Q4HP PRN PO 08/28/24 09:15 08/28/24 10:24 1 TAB Cefpodoxime Proxetil 200 mg DAILY PO 08/28/24 14:39 Metronidazole 500 mg Q8HR PO 08/28/24 14:00 08/28/24 15:29 500 MG Examination Pt is lying on bed General Appearance: Alert, Oriented X3, Cooperative, Not in acute distress HEENT: Atraumatic, Mucous membranes moist/pink Respiratory: Clear to auscultation, Normal air movement, No added sounds Cardiovascular: Regular rate, Normal S1, Normal S2, No murmurs Abdominal: Active bowel sounds, Soft, no distention, no tenderness Extremities: No edema, Normal pulses, No tenderness/swelling, Skin: No Significant rash, except past surgical scars Neuro: Normal speech, sensorimotor deficits none, presence of slight tremor in bilateral hands and feet Psych/Mental Status: Mental status NL, Mood NL Nurse was there as pencil maker during examination laboratory and microbiology Laboratory Tests 08/28/24 08:10 Test 08/28/24 08:10 Range/Units Serum Glucose 79 74-106 mg/dL Microbiology Date/Time Source Procedure Growth Status 08/26/24 10:15 Blood Blood Culture - Preliminary NO GROWTH AFTER 48 HOURS OF INCUBATION. Resulted Labs and/or images reviewed: Labs reviewed by me, Image(s) reviewed by me Problem List/Assessment/Plan Problem List/Assessment/Plan # SIRS vs Sepsis without End organ damage likely due to below # Abdominal pain possibly due to gastroenteritis and colitis - Stool WBC, bacterial culture, C diff ordered - blood culture ordered, preliminary negative - CT abdomen and pelvis showed findings of Possible colitis - Initially started on cefepime and vancomycin but eventually downgraded to ceftriaxone and metronidazole - Continues to monitor labs - 3-4 bags of IVF given initially and discontinued - Continue pain medication,and Zofran as needed - Protonox # Chronic pancreatitis - Amylase is slightly elevated but lipase is negative - CT abdomen and pelvis shows calcifications of pancreas # 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 - continue following up with Nephrology - monitor labs for now - Continue home medication given for transplantation - Renal diet # Chronic hypoxic respiratory failure likely from CHF on home O2 # Chronic diastolic heart failure/ hypertensive heart Disease # Uncontrolled hypertension # Afib # HLD - Continue follow-up with Cardiology - Continue home medications as tolerated - Monitor blood pressure # chronic back pain - Hydrocodone dose increased from 5mg to 7.5mg 4hourly for back pain # Acute normocytic normochromic anemia - Iron panel, borderline low - Stool occult blood ordered - ferrous sulfate 325 mg given -patient refused rectal examination # B12 deficiency - Repleting GI prophylaxis: Protonix, sucralfate DVT prophylaxis: SCDs Diet: Renal diet Goals of care discussed with the patient for more than 27 minutes: Full code status Case discussed with Dr. Lowery, patient and nurse. Plan discussed with: Patient, Other (RN) My Orders My Orders Orders - RICHARD MCCURDY Procedure Category Date Status Time Transfer Orders XFER 08/28/24 Transmitted 06:16 Ferrous Sulfate Tablet PHA 08/28/24 Logged 16:15 Date of Service: Aug 28, 2024 Billing Provider: JENIFFER LOWERY MD Common Visit Codes: [id number] INP/OBS CARE(HIGH) RICHARD MCCURDY RESIDENT Aug 28, 2024 16:14 JENIFFER LOWERY MD Aug 28, 2024 22:19
[2024-08-28] MEDS: CEFPODOXIME PROXETIL 200 MG TAB PO SCH (17:33)
[2024-08-28] MEDS: FERROUS SULFATE 325mg EC TAB PO SCH (17:36)
[2024-08-28] MEDS: CYANOCOBALAMIN (B-12) 1000 MCG/1 ML VIAL IM ONE (22:30)
[2024-08-29 01:01] VITALS: BP 137/83; PULSE 80; RESP 18; TEMP 98.1; O2SAT 99
[2024-08-29 04:50] VITALS: BP 133/80; PULSE 81; RESP 18; TEMP 97.6; O2SAT 96
[2024-08-29 06:56] LABS: Hematocrit 28.7 % (36.0-46.0); Hemoglobin 9.2 g/dL (12.2-16.2); Mean Corpuscular Hemoglobin 28.1 pg (28.0-32.0); Mean Corpuscular Volume 87.3 fL (80.0-100.0); Nucleated Red Blood Cells % 0.1 %
[2024-08-29 07:01] LABS: Calcium 9.3 mg/dL (8.7-10.4); Potassium 4.2 mmol/L (3.5-5.1); Sodium 142 mmol/L (136-145)
[2024-08-29 07:02] LABS: Anion Gap 11 (5-15); Carbon Dioxide 22 mmol/L (20-31)
[2024-08-29 07:07] LABS: BUN/Creatinine Ratio 16.1 (10.0-20.0); Glucose 89 mg/dL (74-106)
[2024-08-29 07:08] LABS: Blood Urea Nitrogen 38 mg/dL (9-23); Chloride 109 mmol/L (98-107)
[2024-08-29 08:00] VITALS: PULSE 80; RESP 18; O2SAT 98
[2024-08-29 09:00] VITALS: BP 112/64; PULSE 77; RESP 18; TEMP 96.3; O2SAT 96
[2024-08-29] MEDS ORDERED: AUG875T PO ×2 (10:02)
[2024-08-29] MEDS ORDERED: FER325T PO ×2 (10:29→10:30)
[2024-08-29 13:00] VITALS: BP 144/88; PULSE 83; RESP 16; TEMP 95.6; O2SAT 98
[2024-08-29 16:40] VITALS: BP 117/73; PULSE 97; RESP 20; TEMP 99; O2SAT 91
--- NOTE | 2024-08-29 17:37 | DVHDSRES ---
Discharge Summary Date of Admission Resident Creating Document: RICHARD MCCURDY RESIDENT Aug 26, 2024 at 14:39 Date of Discharge: Aug 29, 2024 Admitting Diagnosis # ?Sepsis without End organ damage likely due to below # Abdominal pain possibly due to gastroenteritis and colitis Labs/Diagnostic Data: Laboratory Results Test 08/29/24 05:46 08/28/24 12:31 08/28/24 08:10 08/27/24 13:43 White Blood Count 6.9 10^3/uL (4.4-10.8) Red Blood Count 3.29 10^6/uL (4.0-5.20) Hemoglobin 9.2 g/dL (12.2-16.2) Hematocrit 28.7 % (36.0-46.0) Mean Corpuscular Volume 87.3 fL (80.0-100.0) Mean Corpuscular Hemoglobin 28.1 pg (28.0-32.0) Mean Corpuscular Hemoglobin Concent 32.2 g/dL (32.0-36.0) Red Cell Distribution Width 16.2 % (11.8-14.3) Platelet Count 158 10^3/uL (140-450) Mean Platelet Volume 8.0 fL (6.9-10.8) Neutrophils (%) (Auto) 60.1 % (37.0-80.0) Lymphocytes (%) (Auto) 27.7 % (10.0-50.0) Monocytes (%) (Auto) 9.6 % (0.0-12.0) Eosinophils (%) (Auto) 1.4 % (0.0-7.0) Basophils (%) (Auto) 1.2 % (0.0-2.0) Neutrophils # (Auto) 4.1 10 ^3/uL (1.6-8.6) Lymphocytes # (Auto) 1.9 10 ^3/uL (0.4-5.4) Monocytes # (Auto) 0.7 10 ^3/uL (0-1.3) Eosinophils # (Auto) 0.1 10 ^3/uL (0-0.8) Basophils # (Auto) 0.1 10 ^3/uL (0-0.2) Nucleated Red Blood Cells 0.1 % Sodium Level 142 mmol/L (136-145) Potassium Level 4.2 mmol/L (3.5-5.1) Chloride Level 109 mmol/L (98-107) Carbon Dioxide Level 22 mmol/L (20-31) Anion Gap 11 (5-15) Blood Urea Nitrogen 38 mg/dL (9-23) Creatinine 2.36 mg/dL (0.550-1.02) Glomerular Filtration Rate Calc 22 mL/min (>90) BUN/Creatinine Ratio 16.1 (10.0-20.0) Serum Glucose 89 mg/dL (74-106) Calcium Level 9.3 mg/dL (8.7-10.4) POC Glucose 88 mg/dl (70-106) Lactic Acid Level 0.6 mmol/L (0.4-2.0) Magnesium Level 2.0 mg/dL (1.6-2.6) Iron Level 47 ug/dL (50-170) Total Iron Binding Capacity 260 ug/dL (250-425) Percent Iron Saturation 18.1 % (15-50) Ferritin 13.6 ng/mL (10-291) Total Bilirubin 0.4 mg/dL (0.2-1.0) Aspartate Amino Transferase (AST) 15 U/L (13-40) Alanine Aminotransferase (ALT) < 9 U/L (7-40) Alkaline Phosphatase 62 U/L (46-116) Total Protein 5.3 g/dL (5.7-8.2) Albumin 3.3 g/dL (3.2-4.8) Vitamin B12 Level 294 pg/mL (211-911) Folic Acid 6.43 ng/mL (>5.38) Urine Opiates Screen Pos (NEGATIVE) Urine Fentanyl Screen Neg (NEGATIVE) Urine Barbiturates Screen Neg (NEGATIVE) Urine Phencyclidine Screen Neg (NEGATIVE) Urine Amphetamines Screen Neg (NEGATIVE) Urine Benzodiazepines Screen Neg (NEGATIVE) Urine Cocaine Screen Neg (NEGATIVE) Urine Cannabinoids Screen Neg (NEGATIVE) Test 08/27/24 03:40 08/26/24 20:36 08/26/24 11:03 08/26/24 10:15 Hemoglobin A1c 5.3 % A1C (<5.7) Random Vancomycin Level 13.8 ug/mL (5-10) Influenza Type A Antigen Negative (Negative) Influenza Type B Antigen Negative (Negative) SARS-CoV-2 Antigen (Rapid) Negative (NEGATIVE) Urine Color Light-yellow (Yellow) Urine Clarity Clear (Clear) Urine pH 6.0 (5.0-9.0) Urine Specific [place] 1.007 (1.001-1.035) Urine Protein Negative (Negative) Urine Ketones Negative (Negative) Urine Blood Trace /uL (Negative) Urine Nitrite Negative (Negative) Urine Bilirubin Negative (Negative) Urine Urobilinogen Normal mg/dL (Negative) Urine Leukocyte Esterase Negative /uL (Negative) Urine RBC 2 /hpf (0 - 4) Urine Microscopic WBC < 1 /HPF (0-5) Urine Squamous Epithelial Cells Few /hpf (<5) Urine Bacteria None seen /hpf (None Seen) Urine Glucose Normal mg/dL (Normal) Prothrombin Time 10.9 sec (9.3-11.8) Prothrombin Time INR 1.03 (0.9-1.15) Activated Partial Thromboplast Time 21.9 SEC (24.5-34.5) Amylase Level 128 U/L (30-118) Lipase 40 U/L (12-53) Beta-Hydroxybutyric Acid 0.762 mmol/L (< 0.4) Other Laboratory Tests 08/29/24 05:46 Brief Hx & Hospital Course: Doretha Frey is a 63-year-old female with past medical history of hypertension, CHF, AFib, , the pancreatitis, UTIs, hyperlipidemia, focal segmental glomerulosclerosis, aortic stenosis, S/P left kidney transplantation (2012). Patient came in with chief complaints of epigastric abdominal pain after taking watermelon 2 days ago. She reports the pain gradually increased, was constant in nature, 8 x 10 intensity, non-radiating with no aggravating or relieving factor. It was associated with nausea, vomiting ( about 20 times), and diarrhea (5-6 times), headache, mid back pain. She denies any fever, chills, body ache, shortness of breath, urinary symptoms. PMH: Hypertension, CHF, AFib, pancreatitis, UTIs, hyperlipidemia, focal segmental glomerulosclerosis, S/p left kidney transplant PSH: left kidney transplant Family history: No significant family history except father had heart attack, DM Social history: Patient lives alone with her dog. Denies ever smoking drinking alcohol or taking any drugs Allergies: lisinopril, has Hay fever Home medicine: Patient remembers omeprazole and tacrolimus but can not remember other medications ( reports taking 10-15 types) Brief history of hospitalization: Patient had sepsis possibly due to gastroenteritis. CT abdomen and pelvis revealed Possible colitis. Blood culture showed preliminary negative. Patient was initially started on cefepime and vancomycin but she was downgraded to ceftriaxone and metronidazole. 3-4 bags of IVF was administered initially and discontinued, labs were monitored. Pain meds were continued and Zofran was given as needed. Protonix was given. Patient also had chronic pancreatitis evident on CT abdomen and pelvis showing calcifications of pancreas, and labs showed amylase slightly elevated, lipase normal. 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 Patient was counseled about renal diet. For chronic hypoxic respiratory failure likely from CHF, chronic diastolic heart failure, hypertensive heart disease, uncontrolled hypertension, AFib and hyperlipidemia patient was continued on home medication as tolerated. Blood pressure was monitored, cardiology follow-up was suggested. For chronic back pain patient was given hydrocodone dose 5 mg which was increased to 7.5 mg 4 hourly for her back pain. Acute normocytic normochromic anemia patient's hemoglobin dropped from 9.8-8.0 and an iron panel was ordered. Ferrous sulfate 325 mg was given stool for occult blood was ordered. Patient refused rectal examination. Blood hemoglobin levels came to 9.2 today. For B12 deficiency patient was given necessary repletion. The patient's condition is stable and is hemodynamically stable to be discharged with medications as prescribed. She was counseled regarding healthy lifestyle modification and rest follow-up with PCP and discharge Clinic. Pt is lying on bed General Appearance: Alert, Oriented X3, Cooperative, Not in acute distress HEENT: Atraumatic, Mucous membranes moist/pink Respiratory: Clear to auscultation, Normal air movement, No added sounds Cardiovascular: Regular rate, Normal S1, Normal S2, No murmurs Abdominal: Active bowel sounds, Soft, no distention, no tenderness Extremities: No edema, Normal pulses, No tenderness/swelling, Skin: No Significant rash, except past surgical scars Neuro: Normal speech, sensorimotor deficits none, presence of slight tremor in bilateral hands and feet Psych/Mental Status: Mental status NL, Mood NL Nurse was there as car jockey during examination Operations or Procedures CHEST RADIOGRAPH Indication: sob Technique: Single frontal view of the chest was obtained COMPARISON: XY CHEST XRAY 1 VIEW on DOS: 03/21/24, XY CHEST XRAY 1 VIEW on DOS: 03/11/24, XY CHEST PORTABLE on DOS: 02/15/24, XY CHEST PORTABLE on DOS: 01/26/24, XY CHEST PORTABLE on DOS: 02/01/23 IMPRESSION: No acute disease. CT ABD PEL WO CON-NO ORAL OR IV History: Pancreatitis and gastroenteritis Comparison Study: CT CT AB PEL WO CON-NO ORAL OR IV on DOS: 05/13/24, CT CT AB PEL WO CON-NO ORAL OR IV on DOS: 03/21/24, CT CT AB PEL WO CON-NO ORAL OR IV on DOS: 03/12/24, CT CT AB PEL WO CON-NO ORAL OR IV on DOS: 01/26/24, CT CT AB PEL WO CON-NO ORAL OR IV on DOS: 10/20/22 Technique: Multidetector spiral CT of the abdomen was performed from lung bases to pubic symphysis. Imaging was performed without IV contrast. Axial, coronal and sagittal multiplanar reformats were obtained from the axial data set by the technologist. IMPRESSION: Possible colitis. Otherwise, no acute findings. Condition at Discharge: Stable Final Diagnosis/Problems List # ?Sepsis without End organ damage likely due to below # Abdominal pain possibly due to gastroenteritis and colitis # Chronic pancreatitis # 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 # Chronic hypoxic respiratory failure likely from CHF on home O2 # Chronic diastolic heart failure/ hypertensive heart Disease # Uncontrolled hypertension # Afib # HLD # chronic back pain # Acute normocytic normochromic anemia # B12 deficiency Discharge Disposition: Home Discharge Instruct/Medications Diet: Consistent carbohydrate, Cardiac 2g Na,low cholest Activity: No Restrictions, As Tolerated Follow Up/Referral: followup with pcp Medications: Augmentin 875 mg BD for 7 days Scheduled Amlodipine Besylate (Norvasc Tablet), 5 MG PO DAILY Amoxicillin & Pot Clavulanate (Augmentin Tablet), 875 MG PO BID Aspirin (Aspirin Low Dose), 1 TAB PO DAILY, (Reported) Azathioprine (Imuran), 3 TAB PO BEDTIME, (Reported) Cholecalciferol (Vitamin D3), 2,000 UNIT PO DAILY, (Reported) Docusate Sodium (Docusate Sodium), 250 MG PO QHS, (Reported) Ferrous Sulfate (Ferrous Sulfate), 325 MG PO TUTHSA Fish Oil (Fish Oil), 500 MG PO BID, (Reported) Lansoprazole (Lansoprazole), 1 CAP PO DAILY, (Reported) Loratadine (Claritin), 1 TAB PO DAILY, (Reported) Magnesium Oxide (Magnesium Oxide), 1 TAB PO BID, (Reported) Metoprolol Tartrate (Metoprolol Tartrate), 1 TAB PO BID, (Reported) Omeprazole (Gnp Omeprazole), 1 CAP PO BID, (Reported) Omeprazole Magnesium (Omeprazole), 20 MG PO BID Prednisone (Prednisone), 5 MG PO DAILY, (Reported) Pregabalin (Lyrica), 50 MG PO DAILY, (Reported) Raloxifene Hydrochloride (Evista Tablet), 1 TAB PO DAILY, (Reported) Sertraline Hcl (Sertraline Hcl), 3 TAB PO QPM, (Reported) Simvastatin (Simvastatin), 1 TAB PO QPM, (Reported) Sucralfate (Carafate), 1 GM PO QID Tacrolimus (Astagraf Xl), 3 MG PO Q12HR, (Reported) Tizanidine Hydrochloride (Zanaflex), 0.5 TAB PO HS, (Reported) Trazodone Hcl (Trazodone Hcl), 50 MG PO HS, (Reported) Scheduled PRN Cyclobenzaprine Hcl (Cyclobenzaprine Hcl), 2 TAB PO QPM PRN for prn, (Reported) Hydrocodone-Acetaminophen ([place] 5/325MG), 1 TAB PO Q6HP PRN for pain, (Reported) Miscellaneous Medications Cyanocobalamin (B-12), 1,000 MCG PO, (Reported) Tizanidine Hydrochloride (Tizanidine Hcl), 2.5 MG PO, (Reported) Discharge Statement: "Patient was advised to return to the ER or call 911 if any headaches, dizziness, shortness of breath, chest pain, abdominal pain, bleeding, fevers, or worsening of medical condition. Patient was counseled about treatment plan, medications, possible side effects, patientverbalized understanding. All questions were answered to the best of my ability. This discharge took greater then 30 minutes in planning, reviewing documentation, counseling the patient, and discussing with other team members." ASSESSMENT ASSESSMENT Assessment Sepsis possibly due to gastroenteritis and colitis Date of Service: Aug 29, 2024 Billing Provider: JENIFFER DUFF MD Common Visit Codes: 28513-ODJ/OBS DISCH DAY >30min RICHARD MCCURDY RESIDENT Aug 29, 2024 17:37 JENIFFER DUFF MD Sep 01, 2024 13:19
== END 2024-08-29 17:10 | disposition home or self-care (01) | DRG 872 ==
LOC: EDBD 09:25 → EDUNIT# 09:25 → ER 09:25 → OVERFLOW 14:39 → TELE-CENTR 08-27 14:06
PROVIDERS: ADMIT Internal Medicine
PROC: 05H933Z Insertion of Infusion Device into Right Brachial Vein, Percutaneous Approach (ICD-10-PCS; principal; 2024-08-26)
PROC: B54NZZA Ultrasonography of Left Upper Extremity Veins, Guidance (ICD-10-PCS; 2024-08-26)
DX: A41.9 Sepsis, unspecified organism (principal); Z94.0 Kidney transplant status; I13.0 Hypertensive heart and chronic kidney disease with heart failure and stage 1 through stage 4 chronic kidney disease, or unspecified chronic kidney disease; I50.32 Chronic diastolic (congestive) heart failure; J96.11 Chronic respiratory failure with hypoxia; E78.5 Hyperlipidemia, unspecified; E11.65 Type 2 diabetes mellitus with hyperglycemia; K52.9 Noninfective gastroenteritis and colitis, unspecified; E87.5 Hyperkalemia; N18.9 Chronic kidney disease, unspecified; G89.29 Other chronic pain; M54.9 Dorsalgia, unspecified; E53.8 Deficiency of other specified B group vitamins; D64.9 Anemia, unspecified; I48.91 Unspecified atrial fibrillation; K74.60 Unspecified cirrhosis of liver; I35.0 Nonrheumatic aortic (valve) stenosis; F32.A Depression, unspecified; Z20.822 Contact with and (suspected) exposure to COVID-19; Z90.49 Acquired absence of other specified parts of digestive tract; Z88.0 Allergy status to penicillin; Z88.8 Allergy status to other drugs, medicaments and biological substances; Z98.51 Tubal ligation status; Z79.82 Long term (current) use of aspirin; Z79.899 Other long term (current) drug therapy
CPT/HCPCS: 36415; 71045; 74176; 80048; 80053; 80202; 80307; 81001; 82010; 82150; 82607; 82728; 82746; 82962; 83036; 83540; 83550; 83605; 83690; 83735; 84132; 85025; 85610; 85730; 87040; 87426; 87804; 93005; 94640; 96365; 96375; 99291; 99292; G0378; J1815; J2405; J3490

== ENCOUNTER 2024-09-01 05:42 | Inpatient (IN) | payer OTHER, MEDICARE ==
[~2024-09-01] VITALS: Ht 172.7 cm; Wt 59.5 kg
[2024-09-01] VITALS (7 sets, daily range): BP systolic 144–180; BP diastolic 97–110; PULSE 96–129; RESP 20–23; TEMP 98.5–100.2; O2SAT 96–98
[~2024-09-01 05:42] MED LIST changes: +AUG875T PO; +FER325T PO
[2024-09-01] MEDS: ACETAMINOPHEN 500 MG TAB or CAP PO ONE (05:45)
--- NOTE | 2024-09-01 05:59 | ECG ---
[facility] Test Date: 2024-09-01 Test Time: 05:51:21 Pat Name: JACOB WATTS Department: ED Room: Gender: F Pharmacy Order Entry Technician: LUIS ALFREDO : 1960 Requested By: EMERGENCY EMERGENCY Order Number: [id number] Reading MD: Measurements Intervals [place] Rate: 123 P: 0 [place]: 0 QRS: -49 QRSD: 106 T: 95 QT: 322 QTc: 461 Interpretive Statements Atrial fibrillation Left anterior fascicular block Abnormal R-wave progression, early transition LVH with secondary repolarization abnormality Please click the below link to view image of tracing.
[2024-09-01] MEDS: VANCOMYCIN 1GM/200ML PM 200 ML IV ONE (06:13)
[2024-09-01] MEDS: ACETAMINOPHEN IV 1000 MG/100ML (10MG/ML) IV ONE (06:30)
--- NOTE | 2024-09-01 06:30 | DVH ---
EXAM: XY CHEST PORTABLE HISTORY: fever COMPARISON: XY CHEST PORTABLE on DOS: 08/26/24, XY CHEST XRAY 1 VIEW on DOS: 03/21/24, XY CHEST XRAY 1 VIEW on DOS: 03/11/24, XY CHEST PORTABLE on DOS: 02/15/24, XY CHEST PORTABLE on DOS: 01/26/24 TECHNIQUE: Portable AP view of the chest was performed. FINDINGS: No pneumothorax, consolidative infiltrates, or pulmonary edema. The lung apices are partially obscure d by head and neck tissues. The heart is borderline enlarged. There is a moderate to large hiatal her usman. IMPRESSION: 1. No acute intrathoracic process. 2. Moderate to large hiatal hernia.
--- NOTE | 2024-09-01 06:43 | ED.PDOC ---
History of Present Illness HPI Comments 63-year-old female brought in by ambulance with a prior medical history of AFib, arthritis, CHF, depression, hypertension, liver disease, UTI, restless leg syndrome: Surgical history of cholecystectomy, , hernia repair, tubal ligation complaint of ALOC. EMS report that the daughter went to the residence after not being able to contact the patient, patient was found altered and her last known well was in the afternoon. Patient currently is not answering any questions is able to squeeze hands not follow any other commands. Current temperature was 101.3, heart rate in the 130s and blood pressure of 163/103. Patient is not forming any words is trying to speak. Patient was recently here for UTI on Monday for which was discharged. Denies chills, fever, N/V/D, SOB, CP. No other associated symptoms, modifiers, recent injuries or sick contacts present at this time. Chief Complaint: ALOC Time Seen by MD: 06:50 Primary Care Provider: UNKNOWN Reviewed Notes: Nurses Notes, Skull Splitter Notes, Medications, Allergies Allergies: Coded Allergies: Penicillins (Verified Allergy, Intermediate, 08/26/24) Lisinopril (Verified Allergy, Unknown, 02/13/22) Home Meds Active Scripts Ferrous Sulfate (Ferrous Sulfate) 325 Mg Tab, 325 MG PO TUTHSA for 90 Days, #36 TAB Prov:NARINDER HEDRICK RESIDENT 08/29/24 Amoxicillin & Pot Clavulanate (AUGMENTIN TABLET) 875 Mg Tb, 875 MG PO BID for 7 Days, #14 TAB Prov:NARINDER HEDRICK RESIDENT 08/29/24 Amlodipine Besylate (NORVASC TABLET) 5 Mg Tb, 5 MG PO DAILY for 30 Days, #30 TAB 11 Refills Prov:LYNNETTE DALTON DO 10/23/22 Omeprazole Magnesium (Omeprazole) 20 Mg Tab, 20 MG PO BID for 30 Days, #60 TAB Prov:BLANCA BELLO MD 02/18/22 Sucralfate (CARAFATE) 1 Gm Tab, 1 GM PO QID for 30 Days, #120 TAB Prov:BLANCA BELLO MD 02/18/22 Reported Medications Tacrolimus (ASTAGRAF XL) 1 Mg Cap, 3 MG PO Q12HR, CAP 01/27/24 Lansoprazole (Lansoprazole) 30 Mg Cap, 1 CAP PO DAILY, #30 CAP 5 Refills 01/27/24 Pregabalin (Lyrica) 50 Mg Cap, 50 MG PO DAILY, CAP 09/27/20 Trazodone Hcl (Trazodone Hcl) 50 Mg Tab, 50 MG PO HS, MG 09/27/20 Cyanocobalamin (B-12) 1,000 Mcg Cap, 1000 MCG PO, CAP 09/27/20 Tizanidine Hydrochloride (TIZANIDINE HCL) 2 Mg Cap, 2.5 MG PO, CAP 09/27/20 Magnesium Oxide (MAGNESIUM OXIDE) 400 Mg Tab, 1 TAB PO BID, #60 TAB 5 Refills 09/27/20 Tizanidine Hydrochloride (Zanaflex) 4 Mg Tab, 0.5 TAB PO HS, #60 TAB 09/27/20 Metoprolol Tartrate (Metoprolol Tartrate) 25 Mg Tab, 1 TAB PO BID, #180 TAB 1 Refill 09/04/18 Raloxifene Hydrochloride (EVISTA TABLET) 60 Mg Tb, 1 TAB PO DAILY, #30 TAB 11 Refills 09/04/18 Prednisone (PREDNISONE) 5 Mg Tb, 5 MG PO DAILY 09/02/18 Azathioprine (Imuran) 50 Mg Tab, 3 TAB PO BEDTIME, #180 TAB 3 Refills 09/02/18 Fish Oil (Fish Oil) 500 Mg Cap, 500 MG PO BID, CAP 09/02/18 Omeprazole (Gnp Omeprazole) 20 Mg Tab, 1 CAP PO BID, #90 TAB 1 Refill 09/02/18 Docusate Sodium (Docusate Sodium) 250 Mg Cap, 250 MG PO QHS, CAP 09/02/18 Cholecalciferol (VITAMIN D3) 2,000 Unit Chw, 2000 UNIT PO DAILY, CHW 09/02/18 Loratadine (Claritin) 10 Mg Tab, 1 TAB PO DAILY, #30 TAB 5 Refills 09/02/18 Aspirin (Aspirin Low Dose) 81 Mg Chw, 1 TAB PO DAILY, #30 TAB 3 Refills 09/02/18 Cyclobenzaprine Hcl (Cyclobenzaprine Hcl) 5 Mg Tab, 2 TAB PO QPM PRN for prn, #30 TAB 09/02/18 Hydrocodone-Acetaminophen ([place] 5/325MG) 1 Tab Tb, 1 TAB PO Q6HP PRN for pain, #90 TAB 09/02/18 Sertraline Hcl (Sertraline Hcl) 50 Mg Tab, 3 TAB PO QPM for depression, #30 TAB 5 Refills 09/02/18 Simvastatin (Simvastatin) 40 Mg Tab, 1 TAB PO QPM, #30 TAB 5 Refills 09/02/18 Information Source: Emergency Med Personnel Mode of Arrival: EMS Severity: Moderate Timing: Hours Duration: Since onset, Hours Prehospital treatment: None Past Medical History PAST MEDICAL HISTORY: AFIB, Arthritis, CHF, Depression, HTN, Liver, UTI'S Past Medical History (Other): Restless leg syndrome Surgical History: Cholecystectomy, , Hernia Repair, Tubal Ligation OVEN PRESS TENDER History: No Pertinent OVEN PRESS TENDER History Family History Family History: Reviewed,noncontributory to illness, Unknown Social History Smoker: Non-Smoker Alcohol: Denies ETOH Use Drugs: Denies Drug Use Lives In: Home Unable to Obtain due to: Altered Mental Status All Other Systems: Reviewed and Negative Physical Exam General Appearance: Moderate Distress, Normal HEENT: Normal ENT Inspection, Pharynx Normal, TMs Normal Neck: Full Range of Motion, Non-Tender, Normal, Normal Inspection Respiratory: Chest Non-Tender, Lungs Clear, No Accessory Muscle Use, No Respiratory Distress, Normal Breath Sounds Cardiovascular: No Edema, No JVD, No Murmur, No Gallop, Normal Peripheral Pulses, Tachycardia Breast Exam: Deferred Gastrointestinal: No Organomegaly, Non Tender, No Pulsatile Mass, Normal Bowel Sounds, Soft Genitalia: Deferred Pelvic: Deferred Rectal: Deferred Extremities: No calf tenderness, Normal capillary refill, Normal inspection, Normal range of motion, Non-tender, No pedal edema Musculoskeletal : Apperance: Normal Neurologic: Disoriented, No Motor Deficits, Normal Affect, Normal Mood, No Sensory Deficits Cerebellar Function: NOT DONE Reflexes: NOT DONE Skin: Dry, Normal Color, Warm Peripheral Pulses: 3+ Radial (R), 3+ Radial (L) Lymphatic: No Adenopathy Was a procedure done? Was a procedure done?: Yes Sedation Sedation?: No Central Line Recorder of insertion practice: Medical Appointment Scheduler Occupation of public weigher: Attending Physician Indication: Hypotension, CVP monitoring Room prepared for procedure: Yes Medical Appointment Scheduler performed hand hygien: Yes Maximal sterile barrier precau: Mask/Eye shield, Sterile gown Skin Preparation: Chlorhexidine gluconate Skin preparation completely dr: Yes Insertion site: Right, Femoral Central line catheter type: [id number] dialysis Number of lumens: 3 EKG EKG : Pulse Rate (adult): 109 [place]: Normal Cardiac Rhythm: ST Block: None Hypertrophy: None ST: Normal Differential Dx Considerations may include: Sepsis Electrolyte imbalance X-Ray, Labs, Meds, VS Vital Signs Date Time Temp Pulse Resp B/P (MAP) Pulse Ox O2 Delivery O2 Flow Rate FiO2 09/01/24 07:06 109 09/01/24 06:23 99.8 120 25 165/123 (137) 99 99.8 09/01/24 05:51 123 09/01/24 05:45 101.3 132 26 163/103 (123) 97 101.3 09/01/24 05:45 99.8 Current Medications Medications (Trade) Dose Ordered Sig/Srikanth Route Start Time Stop Time Status Last Admin Vancomycin HCl 200 ml @ 200 mls/hr ONCE ONCE IV 09/01/24 05:45 09/01/24 06:44 DC 09/01/24 06:13 [place] [id number] Ph: [phone] DIAGNOSTIC IMAGING Diagnostic Imaging Report : [id number] Signed PATIENT: JACOB WATTS ACCT: [id number] UNIT: [id number] : 1960 LOC: ER ROOM / BED: / AGE / SEX: 63 / F ADM STATUS: REG ER SERVICE [id number] ORDERING PHYSICIAN: ELLEN TAVERA MD PROCEDURE(s): CXRP - CHEST PORTABLE REASON: fever ORDER NUMBER(s): [id number], ACCESSION NUMBER(s): [id number] EXAM: XY CHEST PORTABLE HISTORY: fever COMPARISON: XY CHEST PORTABLE on DOS: 08/26/24, XY CHEST XRAY 1 VIEW on DOS: 03/21/24, XY CHEST XRAY 1 VIEW on DOS: 03/11/24, XY CHEST PORTABLE on DOS: 02/15/24, XY CHEST PORTABLE on DOS: 01/26/24 TECHNIQUE: Portable AP view of the chest was performed. FINDINGS: No pneumothorax, consolidative infiltrates, or pulmonary edema. The lung apices are partially obscured by head and neck tissues. The heart is borderline enlarged. There is a moderate to large hiatal hernia. IMPRESSION: 1. No acute intrathoracic process. 2. Moderate to large hiatal hernia. ATED BY: BRADFORD CRUZ MD DICTATED DATE/TIME: 09/01/24626 SIGNED BY: BRADFORD CRUZ MD SIGNED DATE/TIME: 09/01/24626 CC: Patient altered. Tachycardic. Possible sepsis. Establish intravenous access. Had to place a central line. Sepsis protocol. Chest x-ray reviewed does not show any acute changes. Possibly large hiatal hernia. She is moving all extremities. She is able to feel. Reviewed her history. Waiting for family. Continue monitoring. Time of 1ST Reevaluation: 07:20 Reevaluation 1ST: Unchanged Patient Education/Counseling: Other (Patient is altered) Family Education/Counseling: No Family Present SEPSIS Sepsis Screen Date sepsis recognized/suspect: Sep 01, 2024 Time Sepsis recognized/suspect: 623 Recent Procedure: No On Antibiotic Therapy: No Respiratory Rate >20: Yes Heart Rate >90: Yes Temp<36 C (96.8 F) or >38.3 C: No SBP <90 or MAP <65 mmHG: No New Acute Mental Status Change: Yes Is the patient on CPAP, BIPAP,: No Physician Orders Complete Blood Count (09/01/24 05:44) Comprehensive Metabolic Panel (09/01/24 05:44) PTPTT (09/01/24 05:44) Urinalysis (09/01/24 05:44) Chest Portable (09/01/24 05:44) Accucheck (09/01/24 05:44) Blood Culture (09/01/24 05:44) Lactic Acid W/ Reflex Order (09/01/24 06:00) Cefepime 1gm/ 50ml (Maxipime 1gm/50ml) (09/01/24 06:00) Notify Md If Map <65 Or Bp<90 (09/01/24 05:44) If Map<65 Start Vasopressor (09/01/24 05:44) Insert/Manage Urinary Catheter QSHIFT (09/01/24 05:47) Chest Xray 1 View (09/01/24 07:03) Vital Signs Date Time Temp Pulse Resp B/P (MAP) Pulse Ox O2 Delivery O2 Flow Rate FiO2 09/01/24 07:06 109 09/01/24 06:23 99.8 120 25 165/123 (137) 99 99.8 09/01/24 05:51 123 09/01/24 05:45 101.3 132 26 163/103 (123) 97 101.3 09/01/24 05:45 99.8 Medications Medications Dose Ordered Sig/Srikanth Route Start Time Stop Time Status Last Admin Dose Admin Vancomycin HCl 200 ml @ 200 mls/hr ONCE ONCE IV 09/01/24 05:45 09/01/24 06:44 DC 09/01/24 06:13 Departure 1 Departure Time of Disposition: 07:16 Impression: Primary Impression: Metabolic encephalopathy Additional Impressions: Sepsis Qualified Codes: A41.9 - Sepsis, unspecified organism Uncontrolled diabetes mellitus Qualified Codes: E13.65 - Other specified diabetes mellitus with hyperglycemia Hypertensive urgency Disposition: ADMITTED INPATIENT Admit to: Med Surg Condition: Guarded Critical Care Note Critical Care Time?: Yes (90 min-critical care time only) Critical care comment: Sepsis Stability Stability form required: No Heart Score Heart Score: Heart Score Response (Comments) Value History Slightly Suspicious 0 EKG Normal 0 Age 45-64 1 Risk Factors >3 or Hx ASHD 2 Troponin Normal limit 0 Total 3 I personally scribed for XIOMY BENITES MD ([email or web address]) on 09/01/24 at 06:43. Electronically submitted by Dez Martinez ([employer]). I personally scribed for XIOMY BENITES MD ([email or web address]) on 09/01/24 at 07:06. Electronically submitted by Dez Martinez ([employer]). XIOMY BENITES MD Sep 01, 2024 06:43
[2024-09-01] MEDS: SODIUM CHLORIDE 0.9% 1,000 ML IV ONE ×2 (07:30)
--- NOTE | 2024-09-01 07:47 | DVH ---
CLINICAL INFORMATION: PLACEMENT. TECHNIQUE: Single AP portable chest radiograph was obtained. COMPARISON: XY CHEST PORTABLE on DOS: 09/01/24, XY CHEST PORTABLE on DOS: 08/26/24, XY CHEST XRAY 1 VIEW on DOS: 03/21/24 FINDINGS: Lungs: Clear. Cardiac: Heart size is within normal limits. Pulmonary vasculature: Unremarkable. Mediastinum/thea: Unremarkable. Bones: No acute osseous abnormality identified. Other: Moderate to large hiatal hernia. The patient's necklace partially obscures visualization. IMPRESSION: 1. No evidence of acute disease in the chest. No significant change compared to the exam from earlier the same day. 2. Moderate to large hiatal hernia.
[2024-09-01 07:51] LABS: Hematocrit 36.5 % (36.0-46.0); Hemoglobin 11.7 g/dL (12.2-16.2); Mean Corpuscular Hemoglobin 27.6 pg (28.0-32.0); Mean Corpuscular Volume 85.8 fL (80.0-100.0); Nucleated Red Blood Cells % 0.2 %
[2024-09-01 08:02] LABS: Urine Budding Yeast OCCASIONAL /hpf (None Seen); Urine Protein, UAD 3+ (Negative)
[2024-09-01 08:04] LABS: Alanine Aminotransferase 10 U/L (7-40); Albumin 4.8 g/dL (3.2-4.8); Alkaline Phosphatase 86 U/L (46-116); Anion Gap 20 (5-15); BUN/Creatinine Ratio 13.2 (10.0-20.0); Calcium 10.2 mg/dL (8.7-10.4); Potassium 3.8 mmol/L (3.5-5.1); Total Protein 7.7 g/dL (5.7-8.2)
[2024-09-01 08:05] LABS: Bilirubin, Total 1.0 mg/dL (0.2-1.0)
[2024-09-01 08:12] LABS: Blood Urea Nitrogen 34 mg/dL (9-23); Carbon Dioxide 16 mmol/L (20-31); Chloride 111 mmol/L (98-107); Glucose 128 mg/dL (74-106); Lactic Acid w/Reflex 2.9 mmol/L (0.4-2.0); Sodium 147 mmol/L (136-145)
[2024-09-01 08:24] LABS: INR 1.13 (0.9-1.15); Partial Thromboplastin Time 22.5 SEC (24.5-34.5); Prothrombin Time 11.8 sec (9.3-11.8)
[2024-09-01] MEDS: CEFEPIME 1GM/ 50ML 50 ML IV ONE (08:40)
--- NOTE | 2024-09-01 09:12 | DVH ---
CLINICAL INFORMATION: Acute loss of consciousness. TECHNIQUE: Axial imaging was obtained through the brain without contrast. Coronal and sagittal reform atted images were obtained, reviewed, and stored. Images were reviewed in brain and bone windows. Al l CT scans at this medical facility are performed using dose modulation techniques as appropriate to a performed exam including the following: Automated exposure control was utilized; adjustment of the MA and/or KV according to patient size; and use of iterative reconstruction technique. CTDIvol = 52.8 7 mGy DLP = 847.71 mGy-cm COMPARISON: CT HEAD WITHOUT CONTRAST on DOS: 03/11/24, CT HEAD WITHOUT CONTRAST on DOS: 02/15/24, CT H EAD WITHOUT CONTRAST on DOS: 01/26/24 FINDINGS: There is no acute intracranial hemorrhage. No mass effect or midline shift. The ventricles and sulci are within normal limits in size for age. Basal cisterns are patent. The calvarium is unre markable. Mild mucosal thickening of the paranasal sinuses. Mastoid air cells are clear. IMPRESSION: No CT evidence of acute intracranial abnormality.
[2024-09-01] MEDS ORDERED: ONDANSETRON HCL 4 MG/2 ML VIAL IV PRN (10:15)
[2024-09-01] MEDS ORDERED: VANCOMYCIN PER PHARMACY 0 MG IV SCH (10:15)
--- NOTE | 2024-09-01 10:56 | DVHHP2 ---
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 The patient was recently discharged from this facility on August 26, 2024, after being treated for questionable sepsis, abdominal pain related to gastroenteritis and colitis, and chronic pancreatitis. According to EMS, her daughter found her confused at home after being unable to reach her by phone, with a last known reported yesterday afternoon. In the emergency department, the patient was alert to name and date of but remained overall altered compared to her baseline. A CT head showed no acute intracranial abnormalities. Laboratory evaluation revealed a WBC of 13.4 and elevated lactic acid of 2.9. Urine analysis demonstrated blast three proteinuria, plus one ketones, her hematuria and negative leukocyte esterase. She was febrile to 101.3 F and tachycardic on arrival. Past Medical History As stated in HPI Past Surgical History As stated in HPI Family History Reviewed, non-contributory to the management of this case. Past Social History The patient lives at home, denies smoking, alcohol or illicit drugs abuse. Review of Systems Constitutional: Yes: Malaise, Other (Altered); No: Fever, Chills, Sweats, Weakness Eyes: No: Pain, Vision change, Conjunctivae inflammation, Eyelid inflammation, Other, Redness ENT: No: Ear pain, Ear discharge, Nose pain, Nose discharge, Nose congestion, Mouth pain, Mouth swelling, Throat pain, Throat swelling, Other Respiratory: No: Cough, Dry, Shortness of breath, SOB with excertion, Wheezing, Hemoptysis, Pleuritic Pain, Sputum, Wheezing, Other Cardiovascular: No: Chest Pain, Palpitations, Orthopnea, Paroxysmal Noc. Dyspnea, Edema, Lt Headedness, Other Gastrointestinal: No: Nausea, Vomiting, Abdominal Pain, Diarrhea, Constipation, Melena, Hematochezia, Other Genitourinary: No Dysuria, No Frequency, No Incontinence, No Hematuria, No Retention, No Other Musculoskeletal: No: other, neck pain, shoulder pain, arm pain, back pain, hand pain, leg pain, foot pain Skin: No: Rash, Lesions, Jaundice, Bruising, Other Neurological: Confusion Allergies: Coded Allergies: Penicillins (Verified Allergy, Intermediate, 08/26/24) Lisinopril (Verified Allergy, Unknown, 02/13/22) Medications Current Medications Medications Dose Ordered Sig/Srikanth Route Start Time Stop Time Status Last Admin Dose Admin Cefepime HCl 50 ml @ 12.5 mls/hr DAILY IV 09/02/24 10:00 Exam Vital Signs Vital Signs Date Time Temp Pulse Resp B/P (MAP) Pulse Ox O2 Delivery O2 Flow Rate FiO2 09/01/24 09:25 98.4 118 18 185/116 (139) 97 98.4 09/01/24 07:25 Room Air* 0 21 General Appearance: mild distress, Other (Alert to name and date of , confused) HEENT: Atraumatic, PERRLA, EOMI Respiratory: Clear to auscultation, Normal air movement Cardiovascular: Regular rate, Normal S1, Normal S2 Abdominal: Normal bowel sounds, Soft, No tenderness Extremities: No clubbing, No cyanosis, No edema Skin: No rashes, No breakdown, No significant lesion Neuro: Normal tone Labs/Xrays Labs Test 09/01/24 09:22 09/01/24 07:35 09/01/24 07:30 Range/Units Lactic Acid Level 1.6 0.4-2.0 mmol/L Urine Color Yellow Yellow Urine Clarity Turbid H Clear Urine pH 6.0 5.0-9.0 Urine Specific [place] 1.021 1.001-1.035 Urine Protein 3+ H Negative Urine Ketones 1+ H Negative Urine Blood 2+ H Negative /uL Urine Nitrite Negative Negative Urine Bilirubin Negative Negative Urine Urobilinogen Normal Negative mg/dL Urine Leukocyte Esterase Negative Negative /uL Urine RBC 6 0 - 4 /hpf Urine Microscopic WBC 4 0-5 /HPF Urine Squamous Epithelial Cells Mod <5 /hpf Urine Bacteria None seen None Seen /hpf Urine Hyaline Casts Few 0 - 2 /lpf Urine Mucus Few None Seen Urine Yeast (Budding) Occasional None Seen /hpf Urine Glucose Normal Normal mg/dL White Blood Count 13.4 #H 4.4-10.8 10^3/uL Red Blood Count 4.25 4.0-5.20 10^6/uL Hemoglobin 11.7 #L 12.2-16.2 g/dL Hematocrit 36.5 # 36.0-46.0 % Mean Corpuscular Volume 85.8 80.0-100.0 fL Mean Corpuscular Hemoglobin 27.6 L 28.0-32.0 pg Mean Corpuscular Hemoglobin Concent 32.2 32.0-36.0 g/dL Red Cell Distribution Width 17.2 H 11.8-14.3 % Platelet Count 288 140-450 10^3/uL Mean Platelet Volume 8.2 6.9-10.8 fL Neutrophils (%) (Auto) 77.1 37.0-80.0 % Lymphocytes (%) (Auto) 14.6 10.0-50.0 % Monocytes (%) (Auto) 7.9 0.0-12.0 % Eosinophils (%) (Auto) 0.0 0.0-7.0 % Basophils (%) (Auto) 0.4 0.0-2.0 % Neutrophils # (Auto) 10.4 H 1.6-8.6 10 ^3/uL Lymphocytes # (Auto) 2.0 0.4-5.4 10 ^3/uL Monocytes # (Auto) 1.1 0-1.3 10 ^3/uL Eosinophils # (Auto) 0 0-0.8 10 ^3/uL Basophils # (Auto) 0.1 0-0.2 10 ^3/uL Nucleated Red Blood Cells 0.2 % Prothrombin Time 11.8 9.3-11.8 sec Prothrombin Time INR 1.13 0.9-1.15 Activated Partial Thromboplast Time 22.5 L 24.5-34.5 SEC Sodium Level 147 #H 136-145 mmol/L Potassium Level 3.8 3.5-5.1 mmol/L Chloride Level 111 H 98-107 mmol/L Carbon Dioxide Level 16 L 20-31 mmol/L Anion Gap 20 H 5-15 Blood Urea Nitrogen 34 H 9-23 mg/dL Creatinine 2.58 H 0.550-1.02 mg/dL Glomerular Filtration Rate Calc 20 >90 mL/min BUN/Creatinine Ratio 13.2 10.0-20.0 Serum Glucose 128 H 74-106 mg/dL Calcium Level 10.2 8.7-10.4 mg/dL Total Bilirubin 1.0 0.2-1.0 mg/dL Aspartate Amino Transferase (AST) 23 13-40 U/L Alanine Aminotransferase (ALT) 10 7-40 U/L Alkaline Phosphatase 86 46-116 U/L Total Protein 7.7 5.7-8.2 g/dL Albumin 4.8 3.2-4.8 g/dL PROCEDURE(s): HWOCT - HEAD WITHOUT CONTRAST REASON: ALOC ORDER NUMBER(s): [id number], ACCESSION NUMBER(s): [id number] CLINICAL INFORMATION: Acute loss of consciousness. TECHNIQUE: Axial imaging was obtained through the brain without contrast. Coronal and sagittal reformatted images were obtained, reviewed, and stored. Images were reviewed in brain and bone windows. All CT scans at this medical facility are performed using dose modulation techniques as appropriate to a performed exam including the following: Automated exposure control was utilized; adjustment of the MA and/or KV according to patient size; and use of iterative reconstruction technique. CTDIvol = 52.87 mGy DLP = 847.71 mGy-cm COMPARISON: CT HEAD WITHOUT CONTRAST on DOS: 03/11/24, CT HEAD WITHOUT CONTRAST on DOS: 02/15/24, CT HEAD WITHOUT CONTRAST on DOS: 01/26/24 FINDINGS: There is no acute intracranial hemorrhage. No mass effect or midline shift. The ventricles and sulci are within normal limits in size for age. Basal cisterns are patent. The calvarium is unremarkable. Mild mucosal thickening of the paranasal sinuses. Mastoid air cells are clear. IMPRESSION: No CT evidence of acute intracranial abnormality. Assessment/Plan Assessment/Plan # sepsis # acute metabolic encephalopathy, ALOC * Admit to Telemetry unit * Likely multifactorial--concern for sepsis of urinary or renal origin, especially given history of CKD from FSGS, renal transplant, and recent hospitalization for questionable sepsis * CT head negative for acute intracranial process * Immunosuppressed due to Tacrolimus and azathioprine * Monitor mental status closely * Fluid resuscitation received in ER * Empiric antibiotic for possible early signs of UTI * Pancultures * Consider renal ultrasound to assess for obstruction or allograft complications #Renal transplant with CKD --FSGS * Monitor renal function * Watch for transplant dysfunction versus prerenal BRANDON from sepsis * Nephrology consult # CHF with chronic hypoxic respiratory failure on home O2 * For fluid overload Monitor * Daily weight, strict intake and output * Chest x-ray reviewed * Continue home O2, titrate to maintain adequate saturation # uncomplicated hypertension * Continue antihypertensive medication uptitrate as tolerated * Hydralazine prn * Monitor BP closely * DASH diet # Depression * Sertraline DVT prophylaxis Medical plan discussed with patient and RN Plan discussed with: Patient My Orders Orders - NIGHAT VIRGEN Procedure Category Date Status Time Vancomycin Per PHA 09/01/24 Logged Pharmacy 10:15 Cefepime 1gm/ 50ml PHA 09/02/24 Logged (Maxipime 1gm/50ml) 10:00 Admit ADMIT 09/01/24 Transmitted 10:11 Code Status CODE 09/01/24 Transmitted 10:11 Ondansetron Hcl PHA 09/01/24 Logged (Zofran) 10:15 Complete Blood Count LAB 09/02/24 Verified 04:00 Comprehensive LAB 09/02/24 Verified Metabolic Panel 04:00 Cardiac DIET 09/01/24 Transmitted Diet-2gna,Lofat,Lochol Lunch Condition: Fair [facility] 09/01/24 In Process 10:11 Urine Bacterial EFRAIN 09/01/24 Logged Culture 10:11 Respiratory Culture EFRAIN 09/01/24 Logged W/ Gs 10:11 Stool Bacterial EFRAIN 09/01/24 Logged Culture 10:11 B-Type Natriuretic LAB 09/01/24 Logged Peptide 10:11 Enoxaparin Sodium PHA 09/02/24 Verified (Lovenox) 10:00 Fall Risk Precautions [facility] 09/01/[address] 10:11 Date of Service: Sep 01, 2024 Billing Provider: NIGHAT VIRGEN Common Visit Codes: 22423-JEVZRGT INP/OBS CARE (HIGH) Consultation Codes: 76387-[id number] CONSULT <45MIN NIGHAT VIRGEN Sep 01, 2024 10:56
[2024-09-01] MEDS: VANCOMYCIN 1GM/250ML KIT 250 ML IV ONE (11:00)
[2024-09-01] MEDS: RALOXIFENE HCL 60 MG TAB PO SCH (11:02)
[2024-09-01] MEDS: METOPROLOL TARTRATE 25 MG TAB PO SCH (11:42)
[2024-09-01] MEDS: hydrALAZINE HCL 20 MG/ML VL IV PRN (12:36)
[2024-09-01] MEDS: SOD CHL 0.45% 1,000 ML IV SCH (14:56)
[2024-09-01 15:57] LABS: COVID19 ANTIGEN SOFIA FIA NEGATIVE (NEGATIVE)
[2024-09-01] MEDS: MORPHINE SULFATE INJ 2 MG/ml SYRG IV STA (17:37)
[2024-09-01] MEDS: SERTRALINE HCL 50 MG TAB PO SCH (19:08)
[2024-09-01] MEDS: TACROLIMUS 1 MG PO SCH (22:00)
[2024-09-01] MEDS: MAGNESIUM OXIDE 400 MG TAB PO SCH (22:28)
[2024-09-02] VITALS (8 sets, daily range): BP systolic 115–160; BP diastolic 86–101; PULSE 86–104; RESP 18–20; TEMP 98–99; O2SAT 97–99
[2024-09-02] MEDS: HYDROcodone-ACET 7.5/325MG TAB PO ONE (00:47)
--- NOTE | 2024-09-02 09:27 | DVHCONRES ---
Date Seen: Sep 02, 2024 Resident Creating Document: JOZEF TORRES RESIDENT Referring Physician Lashanda STEIN History of Present Illness This is a 63-year-old female with history of left kidney transplantation secondary to FSGS 2012 at [facility] on immunosuppressive, hypertension, history of UTI, likely diastolic heart failure, erosive esophagitis and hiatal hernia who presented to the ER with a chief complaint of ALOC and abdominal upset. Patient was recently discharged from this facility on August 29 for sepsis due to acute gastroenteritis. She went home and had some spaghetti following which patient started throw up, she could not tolerate solids or liquid diet and also had 2 episodes of loose watery stools on 09/01. Patient was found to be altered by her daughter at the time. 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 Patient's tacrolimus levels were low. Patient reports noncompliance to tacrolimus On arrival to the ER patient had low-grade fever 101.3 F, blood pressure 163/103, she was started on vanc and cefepime and azithromycin. She received 1 L NS bolus followed by half NS at 75 cc/hour. Patient's symptoms are resolving. Patient seen and examined at bedside. Reports feeling better. Family History: Diabetes mellitus G8 FATHER FH: CHF (congestive heart failure) G8 FATHER G8 SISTER FH: celiac disease FH: dementia G8 MOTHER FH: heart attack G8 FATHER FH: lung cancer G8 FATHER FH: pneumonia G8 SISTER FH: skin cancer G8 MOTHER G8 SISTER Pleural effusion G8 BROTHER Psychiatric disorder G8 SISTER Allergies: Coded Allergies: Penicillins (Verified Allergy, Intermediate, 08/26/24) Lisinopril (Verified Allergy, Unknown, 02/13/22) Home Meds Active Scripts Ferrous Sulfate (Ferrous Sulfate) 325 Mg Tab, 325 MG PO TUTHSA for 90 Days, #36 TAB Prov:NARINDER HEDRICK RESIDENT 08/29/24 Amoxicillin & Pot Clavulanate (AUGMENTIN TABLET) 875 Mg Tb, 875 MG PO BID for 7 Days, #14 TAB Prov:NARINDER HEDRICK RESIDENT 08/29/24 Amlodipine Besylate (NORVASC TABLET) 5 Mg Tb, 5 MG PO DAILY for 30 Days, #30 TAB 11 Refills Prov:LYNNETTE DALTON DO 8/27/23 Omeprazole Magnesium (Omeprazole) 20 Mg Tab, 20 MG PO BID for 30 Days, #60 TAB Prov:BLANCA BELLO MD 02/18/22 Sucralfate (CARAFATE) 1 Gm Tab, 1 GM PO QID for 30 Days, #120 TAB Prov:BLANCA BELLO MD 02/18/22 Reported Medications Tacrolimus (ASTAGRAF XL) 1 Mg Cap, 3 MG PO Q12HR, CAP 01/27/24 Lansoprazole (Lansoprazole) 30 Mg Cap, 1 CAP PO DAILY, #30 CAP 5 Refills 01/27/24 Pregabalin (Lyrica) 50 Mg Cap, 50 MG PO DAILY, CAP 09/27/20 Trazodone Hcl (Trazodone Hcl) 50 Mg Tab, 50 MG PO HS, MG 09/27/20 Cyanocobalamin (B-12) 1,000 Mcg Cap, 1000 MCG PO, CAP 09/27/20 Tizanidine Hydrochloride (TIZANIDINE HCL) 2 Mg Cap, 2.5 MG PO, CAP 09/27/20 Magnesium Oxide (MAGNESIUM OXIDE) 400 Mg Tab, 1 TAB PO BID, #60 TAB 5 Refills 09/27/20 Tizanidine Hydrochloride (Zanaflex) 4 Mg Tab, 0.5 TAB PO HS, #60 TAB 09/27/20 Metoprolol Tartrate (Metoprolol Tartrate) 25 Mg Tab, 1 TAB PO BID, #180 TAB 1 Refill 09/04/18 Raloxifene Hydrochloride (EVISTA TABLET) 60 Mg Tb, 1 TAB PO DAILY, #30 TAB 11 Refills 09/04/18 Prednisone (PREDNISONE) 5 Mg Tb, 5 MG PO DAILY 09/02/18 Azathioprine (Imuran) 50 Mg Tab, 3 TAB PO BEDTIME, #180 TAB 3 Refills 09/02/18 Fish Oil (Fish Oil) 500 Mg Cap, 500 MG PO BID, CAP 09/02/18 Omeprazole (Gnp Omeprazole) 20 Mg Tab, 1 CAP PO BID, #90 TAB 1 Refill 09/02/18 Docusate Sodium (Docusate Sodium) 250 Mg Cap, 250 MG PO QHS, CAP 09/02/18 Cholecalciferol (VITAMIN D3) 2,000 Unit Chw, 2000 UNIT PO DAILY, CHW 09/02/18 Loratadine (Claritin) 10 Mg Tab, 1 TAB PO DAILY, #30 TAB 5 Refills 09/02/18 Aspirin (Aspirin Low Dose) 81 Mg Chw, 1 TAB PO DAILY, #30 TAB 3 Refills 09/02/18 Cyclobenzaprine Hcl (Cyclobenzaprine Hcl) 5 Mg Tab, 2 TAB PO QPM PRN for prn, #30 TAB 09/02/18 Hydrocodone-Acetaminophen ([place] 5/325MG) 1 Tab Tb, 1 TAB PO Q6HP PRN for pain, #90 TAB 09/02/18 Sertraline Hcl (Sertraline Hcl) 50 Mg Tab, 3 TAB PO QPM for depression, #30 TAB 5 Refills 09/02/18 Simvastatin (Simvastatin) 40 Mg Tab, 1 TAB PO QPM, #30 TAB 5 Refills 09/02/18 Current Medications Current Medications Medications (Trade) Dose Ordered Sig/Sriknath Route PRN Reason Start Time Stop Time Status Last Admin Cefepime HCl 50 ml @ 12.5 mls/hr DAILY IV 09/02/24 10:00 Cancel Vancomycin HCl 0 ml @ 0 mls/hr UD IV 09/01/24 10:15 Cefepime HCl 50 ml @ 12.5 mls/hr DAILY IV 09/02/24 10:00 Ondansetron HCl (Zofran) 4 mg Q4HP PRN IV NAUSEA / VOMITING 09/01/24 10:15 Enoxaparin Sodium (Lovenox) 30 mg DAILY SC 09/02/24 10:00 Amlodipine Besylate (Norvasc Tablet) 5 mg DAILY PO 09/01/24 10:58 09/01/24 11:43 Azathioprine (Imuran Tablet) 150 mg HS PO 09/01/24 22:00 Metoprolol Tartrate (Lopressor Tablet) 25 mg BID PO 09/01/24 10:58 09/01/24 22:27 Prednisone 5 mg DAILY PO 09/01/24 11:02 09/01/24 11:42 Raloxifene HCl (Evista Tablet) 60 mg DAILY PO 09/01/24 11:02 Sertraline HCl (Zoloft) 150 mg QPM PO 09/01/24 18:00 09/01/24 19:08 Aspirin 81 mg DAILY PO 09/02/24 10:00 Magnesium Oxide (Mag-Ox Tablet) 1 mg BID PO 09/01/24 22:00 09/01/24 22:28 Pantoprazole Sodium (Protonix Tablet) 40 mg DAILY PO 09/02/24 10:00 Patient Own Medication 3 mg Q12HR PO 09/01/24 22:00 Hydralazine HCl (Apresoline Injection) 10 mg Q6HP PRN IV SBP>150 09/01/24 11:00 09/01/24 12:36 Sodium Chloride 1,000 ml @ 75 mls/hr [id number] IV 09/01/24 14:00 09/02/24 04:18 Morphine Sulfate 2 mg ONCE STAT IV 09/01/24 17:11 09/01/24 17:14 DC 09/01/24 17:37 Vital Signs Vital Signs Date Time Temp Pulse Resp B/P (MAP) Pulse Ox O2 Delivery O2 Flow Rate FiO2 09/02/24 08:47 98.0 104 20 160/101 (120) 99 98.0 09/01/24 20:00 Room Air* 0 21 Physical Exam Patient lying in bed, in in mild distress secondary to back pain General: Well-built, afebrile, palor, mucosae are moist Cardiovascular: Regular S1 and S2. No murmurs, gallops or rubs. No JVD elevation. No pedal edema Respiratory: Normal B/L air entry on room air. Clear lung sounds on auscultation Abdomen: Soft, nontender, nondistended, normoactive bowel sounds, no rebound tenderness, no organomegaly, no masses. No CVA angle tenderness. Genitourinary: Deferred MSK/skin: Mobilizes 4 limbs. Skin is dry and warm Neurological: No motor, no sensitive deficits, normal speech. Pupils are isocoric and reactive. Psych/Mental Status: A/Ox3 Labs/Diagnostic Data Labs Test 09/01/24 14:53 09/01/24 12:28 09/01/24 09:22 09/01/24 07:35 Range/Units Influenza Type A Antigen Negative Negative Influenza Type B Antigen Negative Negative SARS-CoV-2 Antigen (Rapid) Negative NEGATIVE POC Glucose 119 H 70-106 mg/dl Lactic Acid Level 1.6 0.4-2.0 mmol/L Urine Color Yellow Yellow Urine Clarity Turbid H Clear Urine pH 6.0 5.0-9.0 Urine Specific [place] 1.021 1.001-1.035 Urine Protein 3+ H Negative Urine Ketones 1+ H Negative Urine Blood 2+ H Negative /uL Urine Nitrite Negative Negative Urine Bilirubin Negative Negative Urine Urobilinogen Normal Negative mg/dL Urine Leukocyte Esterase Negative Negative /uL Urine RBC 6 0 - 4 /hpf Urine Microscopic WBC 4 0-5 /HPF Urine Squamous Epithelial Cells Mod <5 /hpf Urine Bacteria None seen None Seen /hpf Urine Hyaline Casts Few 0 - 2 /lpf Urine Mucus Few None Seen Urine Yeast (Budding) Occasional None Seen /hpf Urine Glucose Normal Normal mg/dL Test 09/01/24 07:30 Range/Units White Blood Count 13.4 #H 4.4-10.8 10^3/uL Red Blood Count 4.25 4.0-5.20 10^6/uL Hemoglobin 11.7 #L 12.2-16.2 g/dL Hematocrit 36.5 # 36.0-46.0 % Mean Corpuscular Volume 85.8 80.0-100.0 fL Mean Corpuscular Hemoglobin 27.6 L 28.0-32.0 pg Mean Corpuscular Hemoglobin Concent 32.2 32.0-36.0 g/dL Red Cell Distribution Width 17.2 H 11.8-14.3 % Platelet Count 288 140-450 10^3/uL Mean Platelet Volume 8.2 6.9-10.8 fL Neutrophils (%) (Auto) 77.1 37.0-80.0 % Lymphocytes (%) (Auto) 14.6 10.0-50.0 % Monocytes (%) (Auto) 7.9 0.0-12.0 % Eosinophils (%) (Auto) 0.0 0.0-7.0 % Basophils (%) (Auto) 0.4 0.0-2.0 % Neutrophils # (Auto) 10.4 H 1.6-8.6 10 ^3/uL Lymphocytes # (Auto) 2.0 0.4-5.4 10 ^3/uL Monocytes # (Auto) 1.1 0-1.3 10 ^3/uL Eosinophils # (Auto) 0 0-0.8 10 ^3/uL Basophils # (Auto) 0.1 0-0.2 10 ^3/uL Nucleated Red Blood Cells 0.2 % Prothrombin Time 11.8 9.3-11.8 sec Prothrombin Time INR 1.13 0.9-1.15 Activated Partial Thromboplast Time 22.5 L 24.5-34.5 SEC Sodium Level 147 #H 136-145 mmol/L Potassium Level 3.8 3.5-5.1 mmol/L Chloride Level 111 H 98-107 mmol/L Carbon Dioxide Level 16 L 20-31 mmol/L Anion Gap 20 H 5-15 Blood Urea Nitrogen 34 H 9-23 mg/dL Creatinine 2.58 H 0.550-1.02 mg/dL Glomerular Filtration Rate Calc 20 >90 mL/min BUN/Creatinine Ratio 13.2 10.0-20.0 Serum Glucose 128 H 74-106 mg/dL Calcium Level 10.2 8.7-10.4 mg/dL Total Bilirubin 1.0 0.2-1.0 mg/dL Aspartate Amino Transferase (AST) 23 13-40 U/L Alanine Aminotransferase (ALT) 10 7-40 U/L Alkaline Phosphatase 86 46-116 U/L B-Type Natriuretic Peptide 2029.83 0-100 pg/mL Total Protein 7.7 5.7-8.2 g/dL Albumin 4.8 3.2-4.8 g/dL Microbiology Date/Time Source Procedure Growth Status 09/01/24 07:30 Blood Blood Culture - Preliminary NO GROWTH AFTER 24 HOURS OF INCUBATION. Resulted Assessment Acute kidney injury likely superimposed on CKD3B ---in the setting of sepsis likely Anemia likely normocytic due to above Status post kidney transplantation 2012 Intractable nausea and vomiting Likely acute gastroenteritis Sepsis due to above Anion gap acidosis secondary to lactic acidosis Baseline BUN/creatinine/GFR 38/2.06/18 as of last week Plan: Patient received 1 L bolus, continue maintenance fluid half NS at 75 cc/hour Antibiotics per primary team Amlodipine increased to 10 mg daily Follow up with P[facility], vitamin-D levels Ordered tacrolimus levels Continue tacrolimus 3 mg b.i.d. and azathioprine 50 mg HS daily Patient counseled regarding the necessity of taking immunosuppressant as prescribed We will continue to follow up Plan discussed with patient in which all questions have been answered Case discussed with Dr. Baxter Addendum Patient seen and examined, plan discussed with resident. Agree with above, we will follow closely continue home dose immunosuppression septic w/u non compliant pt Plan discussed with: Patient JOZEF TORRES RESIDENT Sep 02, 2024 09:27 RALF BAXTER MD Sep 02, 2024 17:54
[2024-09-02] MEDS: PANTOPRAZOLE 40 MG TAB PO SCH (09:43)
[2024-09-02] MEDS: ENOXAPARIN SOD 30 MG/0.3 ML SYRINGE SC SCH (09:45)
[2024-09-02] MEDS: CEFEPIME 1GM/ 50ML 50 ML IV SCH (10:00)
[2024-09-02] MEDS ORDERED: CEFEPIME 1GM/ 50ML 50 ML IV SCH (10:00)
[2024-09-02] MEDS ORDERED: VANCOMYCIN 1GM/200ML PM 200 ML IV ONE (11:30)
[2024-09-02] MEDS: HYDROcodone-ACET 5/325MG TAB PO PRN (11:34)
--- NOTE | 2024-09-02 15:40 | DVHPNRES ---
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 Per EMS, her daughter found her disoriented at home. She was discharged from this facility on August 29 after being treated for questionable sepsis due to acute gastroenteritis and colitis, and was discharged to continue antibiotic treatment at home with Augmentin. On evaluation, patient was disoriented, tachycardic, hypertensive, and febrile. Chest x-ray showed no acute disease in the chest. Head CT showed no acute intracranial abnormalities. Labs were significant for WBC 13.4 and lactate 2.9. Sepsis protocol was initiated blood cultures were drawn, fluids were given, antibiotic therapy was initiated. She was admitted for further monitoring and treatment was initiated with cefepime and vancomycin. Patient seen at bedside. Patient is oriented in person and place, complaining of back pain. States that she feels better than when she arrived, however does not recall being disoriented on arrival. She states that when she left after previous discharge she began having diarrhea episodes of vomiting. States that she is still having diarrhea, a stool sample has been ordered for further workup. Last febrile peak of 100.2 was yesterday (09/01), today has remained afebrile. She states she has not eaten much, but is hungry, for this reason will be advanced as tolerated. Due to history of renal transplant and increased levels of creatinine, she was seen by Nephrology who state that the patient has been noncompliant with immunosuppressive therapy. Recommended she continue tacrolimus and azathioprine regimen. Review of systems: Constitutional: Denies fever and chills. HEENT: Denies changes in vision and hearing. Respiratory: Denies shortness of breath and cough Cardiovascular: Denies chest discomfort or palpitations GI: Refers vomiting and diarrhea, prefers minor abdominal pain : Denies dysuria and urinary frequency. Musculoskeletal: Refers back pain Skin: Denies rash and pruritus. Neurological: denies dizziness headache vision or hearing problems Patient reports: Feels better Objective vital signs Vital Sign Date Time Temp Pulse Resp B/P (MAP) Pulse Ox O2 Delivery O2 Flow Rate FiO2 09/02/24 12:46 98.2 87 20 156/90 (112) 98 98.2 09/02/24 08:00 Room Air* 0 21 Total Intake and Output 09/01/24 09/01/24 09/02/24 15:00 23:00 07:00 Intake Total 2150 ml 502.5 ml 200 ml Output Total 450 ml 400 ml Balance 2150 ml 52.5 ml -200 ml medications Current Medications Medications Dose Ordered Sig/Srikanth Route Start Time Stop Time Status Last Admin Dose Admin Cefepime HCl 50 ml @ 12.5 mls/hr DAILY IV 09/02/24 10:00 Cancel Cefepime HCl 50 ml @ 12.5 mls/hr DAILY IV 09/02/24 10:00 Ondansetron HCl 4 mg Q4HP PRN IV 09/01/24 10:15 Enoxaparin Sodium 30 mg DAILY SC 09/02/24 10:00 09/02/24 09:45 30 MG Azathioprine 150 mg HS PO 09/01/24 22:00 Metoprolol Tartrate 25 mg BID PO 09/01/24 10:58 09/02/24 09:44 25 MG Prednisone 5 mg DAILY PO 09/01/24 11:02 09/02/24 09:43 5 MG Raloxifene HCl 60 mg DAILY PO 09/01/24 11:02 Sertraline HCl 150 mg QPM PO 09/01/24 18:00 09/01/24 19:08 150 MG Aspirin 81 mg DAILY PO 09/02/24 10:00 09/02/24 09:43 81 MG Magnesium Oxide 1 mg BID PO 09/01/24 22:00 09/01/24 22:28 1 MG Pantoprazole Sodium 40 mg DAILY PO 09/02/24 10:00 09/02/24 09:43 40 MG Patient Own Medication 3 mg Q12HR PO 09/01/24 22:00 Hydralazine HCl 10 mg Q6HP PRN IV 09/01/24 11:00 09/01/24 12:36 10 MG Acetaminophen/ Hydrocodone Bitart 1 tab Q6HPRN PRN PO 09/02/24 10:00 09/02/24 11:34 1 TAB Amlodipine Besylate 10 mg DAILY PO 09/02/24 10:45 Metronidazole 100 ml @ 100 mls/hr Q8HR IV 09/02/24 22:00 UNV Examination General: The patient alert and oriented in person place and time. Patient following commands HEENT: Normocephalic, atraumatic, moist mucous membrane Respiratory/pulmonary: Clear lungs bilaterally, vesicular murmurs present in almost all lung jessica, no associated crackles or wheezes. Abdomen: Abdomen non-distended, there is no pain to palpation in any of the abdominal quadrants, no palpable masses. Extremities: there is no peripheral edema present at the lower extremities, presence of AV fistula for dialysis in upper left arm Peripheral pulses 3+ radial right, 3+ radials soft. 3+ dorsalis pedis right. 3+ dorsalis pedis left Skin: No rashes or pruritus Neurological: Intact cranial nerves with no focal neurologic deficits laboratory and microbiology Laboratory Tests 09/01/24 07:30 Test 09/01/24 07:30 Range/Units Serum Glucose 128 H 74-106 mg/dL Microbiology Date/Time Source Procedure Growth Status 09/01/24 14:53 Nose MRSA Screen - Final Complete 09/01/24 07:35 Voided Urine Urine Culture - Preliminary Resulted 09/01/24 07:30 Blood Blood Culture - Preliminary NO GROWTH AFTER 24 HOURS OF INCUBATION. Resulted Problem List/Assessment/Plan Problem List/Assessment/Plan Acute Metabolic Encephalopathy, likely secondary to possible sepsis secondary to acute bacterial gastroenteritis Possible sepsis, secondary to acute bacterial gastroenteritis -IV fluids -Cefepime IV daily (started 09/02/2024) -Flagyll IV q 8 (started 09/02/2024) -Vancomycin discontinued -Pending blood cultures -Pending stool sample BRANDON on CKD --Renal transplant status due to FSGS -Followed by nephrology -Continue tacrolimus 3 mg bid and azathioprine 150 mg Chronic Diastolic Heart Failure, not exacerbated -Monitor for fluid overload Hypertension -Continue home medications Depression -Sertaline DVT prohpylaxis: Enoxaparin 30 mg SC Case discussed with Dr. Webber. Goals of plan discussed with patient for 15 minutes. Full code. Plan discussed with: Patient My Orders My Orders Orders - JUSTIN OKEEFE Procedure Category Date Status Time Hydrocodone-Acet PHA 09/02/24 In Process 5/325mg Tab ([place] 10:00 Date of Service: Sep 02, 2024 Billing Provider: JENNIFER WEBBER MD Common Visit Codes: [id number] INP/OBS CARE(HIGH) JUSTIN OKEEFE RESIDENT Sep 02, 2024 15:40 JENNIFER WEBBER MD Sep 03, 2024 20:22
[2024-09-02] MEDS ORDERED: PATIENTS OWN MEDICATION PO STA (17:27)
[2024-09-02] MEDS: TACROLIMUS 1 MG PO SCH (18:08)
[2024-09-02] MEDS: MAGNESIUM OXIDE 400 MG TAB PO SCH (22:28)
[2024-09-03 01:00] VITALS: BP 118/74; PULSE 75; RESP 20; TEMP 98.7; O2SAT 99
[2024-09-03 04:48] VITALS: BP 140/78; PULSE 73; RESP 20; TEMP 98.4; O2SAT 100
[2024-09-03 07:29] LABS: Hematocrit 29.1 % (36.0-46.0); Hemoglobin 9.3 g/dL (12.2-16.2); Mean Corpuscular Hemoglobin 27.9 pg (28.0-32.0); Mean Corpuscular Volume 87.3 fL (80.0-100.0); Nucleated Red Blood Cells % 0.1 %
[2024-09-03 07:30] LABS: Anion Gap 15 (5-15); Potassium 3.7 mmol/L (3.5-5.1); Sodium 141 mmol/L (136-145)
[2024-09-03 07:31] LABS: Calcium 8.6 mg/dL (8.7-10.4); Carbon Dioxide 17 mmol/L (20-31); Chloride 109 mmol/L (98-107)
[2024-09-03 07:36] LABS: BUN/Creatinine Ratio 20.9 (10.0-20.0); Glucose 97 mg/dL (74-106)
[2024-09-03 07:39] LABS: Blood Urea Nitrogen 45 mg/dL (9-23)
[2024-09-03 08:00] VITALS: PULSE 68
[2024-09-03 09:00] VITALS: BP 132/84; PULSE 76; RESP 16; TEMP 97.7; O2SAT 100
--- NOTE | 2024-09-03 11:57 | DVHPN2 ---
Progress Note Date Seen: Sep 03, 2024 Resident Creating Document: JOZEF TORRES RESIDENT Has the PT tested + for MRSA If YES, has PT been informed?: Yes Medical Necessity Reason Pt with a Central, PICC or Fol: No Subjective Review of Systems This is a 63-year-old female with history of left kidney transplantation secondary to FSGS 2013 at [facility] on immunosuppressive, hypertension, history of UTI, likely diastolic heart failure, erosive esophagitis and hiatal hernia who presented to the ER with a chief complaint of ALOC and abdominal upset. Patient was recently discharged from this facility on August 29 for sepsis due to acute gastroenteritis. She went home and had some spaghetti following which patient started throw up, she could not tolerate solids or liquid diet and also had 2 episodes of loose watery stools on 09/01. Patient was found to be altered by her daughter at the time. Nephrology consulted for BRANDON on CKD Patient follows [facility], recently saw her gaming associate 2 weeks back. Patient's tacrolimus levels were low. Patient reports noncompliance to tacrolimus On arrival to the ER patient had low-grade fever 101.3 F, blood pressure 163/103, she was started on vanc and cefepime and azithromycin. She received 1 L NS bolus followed by half NS at 75 cc/hour. Patient's symptoms are resolving. 09/02-Patient seen and examined at bedside. Reports feeling better. 09/03-patient seen and examined, reports no acute distress. Nausea/vomiting has resolved. BUN/creatinine trending down after IV fluids supplementation Objective vital signs Vital Sign Date Time Temp Pulse Resp B/P (MAP) Pulse Ox O2 Delivery O2 Flow Rate FiO2 09/03/24 09:02 132/84 09/03/24 08:56 76 09/03/24 08:00 Room Air* 0 21 09/03/24 04:48 98.4 20 100 98.4 Total Intake and Output 09/02/24 09/02/24 09/03/24 15:00 23:00 07:00 Intake Total 660 ml 580 ml 340 ml Output Total 300 ml 200 ml Balance 660 ml 280 ml 140 ml medications Current Medications Medications Dose Ordered Sig/Srikanth Route Start Time Stop Time Status Last Admin Dose Admin Cefepime HCl 50 ml @ 12.5 mls/hr DAILY IV 09/02/24 10:00 Cancel Cefepime HCl 50 ml @ 12.5 mls/hr DAILY IV 09/02/24 10:00 Ondansetron HCl 4 mg Q4HP PRN IV 09/01/24 10:15 Enoxaparin Sodium 30 mg DAILY SC 09/02/24 10:00 09/03/24 08:56 30 MG Azathioprine 150 mg HS PO 09/01/24 22:00 09/02/24 21:36 150 MG Metoprolol Tartrate 25 mg BID PO 09/01/24 10:58 09/03/24 08:56 25 MG Prednisone 5 mg DAILY PO 09/01/24 11:02 09/03/24 08:58 5 MG Raloxifene HCl 60 mg DAILY PO 09/01/24 11:02 Sertraline HCl 150 mg QPM PO 09/01/24 18:00 09/02/24 17:24 150 MG Aspirin 81 mg DAILY PO 09/02/24 10:00 09/03/24 08:58 81 MG Pantoprazole Sodium 40 mg DAILY PO 09/02/24 10:00 09/03/24 09:01 40 MG Hydralazine HCl 10 mg Q6HP PRN IV 09/01/24 11:00 09/01/24 12:36 10 MG Acetaminophen/ Hydrocodone Bitart 1 tab Q6HPRN PRN PO 09/02/24 10:00 09/03/24 08:57 1 TAB Amlodipine Besylate 10 mg DAILY PO 09/02/24 10:45 09/03/24 09:02 10 MG Metronidazole 100 ml @ 100 mls/hr Q8H IV 09/03/24 00:00 09/03/24 08:55 100 MLS/HR Patient Own Medication 3 mg Q12HR PO 09/02/24 17:00 09/02/24 21:33 3 MG Magnesium Oxide 400 mg BID PO 09/02/24 22:00 09/03/24 08:58 400 MG Examination Patient lying in bed, in in mild distress secondary to back pain General: Well-built, afebrile, palor, mucosae are moist Cardiovascular: Regular S1 and S2. No murmurs, gallops or rubs. No JVD elevation. No pedal edema Respiratory: Normal B/L air entry on room air. Clear lung sounds on auscultation Abdomen: Soft, nontender, nondistended, normoactive bowel sounds, no rebound tenderness, no organomegaly, no masses. No CVA angle tenderness. Genitourinary: Deferred MSK/skin: Mobilizes 4 limbs. Skin is dry and warm. Left upper arm AV fistula noted Neurological: No motor, no sensitive deficits, normal speech. Pupils are isocoric and reactive. Psych/Mental Status: A/Ox3 laboratory and microbiology Laboratory Tests 09/03/24 06:49 Test 09/03/24 06:49 Range/Units Serum Glucose 97 74-106 mg/dL Microbiology Date/Time Source Procedure Growth Status 09/02/24 00:00 Stool Stool Culture - Preliminary Resulted 09/02/24 00:00 Stool Shiga Toxin I & II Pending Resulted 09/02/24 00:00 Stool Clostridium difficile Toxin Assay Pending Resulted 09/01/24 14:53 Nose MRSA Screen - Final Complete 09/01/24 07:35 Voided Urine Urine Culture - Final Complete 09/01/24 07:30 Blood Blood Culture - Preliminary NO GROWTH AFTER 48 HOURS OF INCUBATION. Resulted Labs and/or images reviewed: Labs reviewed by me, Image(s) reviewed by me Problem List/Assessment/Plan Problem List/Assessment/Plan Acute kidney injury likely superimposed on CKD4 ---in the setting of sepsis likely Anemia likely normocytic due to above Status post kidney transplantation 2012 Intractable nausea and vomiting Likely acute gastroenteritis Sepsis due to above Anion gap acidosis secondary to lactic acidosis Medication noncompliance Baseline BUN/creatinine/GFR 38/2./ as of last week Plan: BUN/creatinine trending down, GFR improving to baseline with IV resuscitation. Patient is stable to be discharged per nephrology point of view. No acute nephrology workup indicated at this time. Outpatient follow up advised. Patient received 1 L bolus, and maintenance fluid half NS at 75 cc/hour Patient has a left upper arm AV fistula Antibiotics per primary team Amlodipine increased to 10 mg daily Follow up with PTH, vitamin-D levels Ordered tacrolimus levels Continue home dose immunosuppressants = Continue prednisone 5 mg daily, tacrolimus 3 mg b.i.d. and azathioprine 50 mg HS daily Patient counseled regarding the necessity of taking immunosuppressant as prescribed We will continue to follow up Plan discussed with patient in which all questions have been answered Case discussed with Dr. Baxter Addendum Patient seen and examined, plan discussed with resident. Agree with above, we will follow closely ct scan from August 27 noted colitis---no hydronephrosis transplant kidney appears okay [place] level pending Plan discussed with: Patient JOZEF TORRES Sep 03, 2024 11:57 RALF BAXTER MD Sep 03, 2024 19:09
[2024-09-03 13:00] VITALS: BP 107/65; PULSE 67; RESP 17; TEMP 97.5; O2SAT 98
[2024-09-03] MEDS ORDERED: HYDROcodone-ACET 10/325MG TAB PO PRN (14:00)
--- NOTE | 2024-09-03 15:44 | DVHDSRES ---
Discharge Summary Date of Admission Resident Creating Document: JUSTIN OKEEFE RESIDENT Sep 01, 2024 at 10:11 Date of Discharge: Sep 03, 2024 Labs/Diagnostic Data: Laboratory Results Test 09/03/24 15:06 09/03/24 06:49 09/02/24 15:22 09/01/24 14:53 Stool for White Cells None seen White Blood Count 7.3 10^3/uL (4.4-10.8) Red Blood Count 3.33 10^6/uL (4.0-5.20) Hemoglobin 9.3 g/dL (12.2-16.2) Hematocrit 29.1 % (36.0-46.0) Mean Corpuscular Volume 87.3 fL (80.0-100.0) Mean Corpuscular Hemoglobin 27.9 pg (28.0-32.0) Mean Corpuscular Hemoglobin Concent 32.0 g/dL (32.0-36.0) Red Cell Distribution Width 17.5 % (11.8-14.3) Platelet Count 173 10^3/uL (140-450) Mean Platelet Volume 8.4 fL (6.9-10.8) Neutrophils (%) (Auto) 62.9 % (37.0-80.0) Lymphocytes (%) (Auto) 27.8 % (10.0-50.0) Monocytes (%) (Auto) 8.0 % (0.0-12.0) Eosinophils (%) (Auto) 0.4 % (0.0-7.0) Basophils (%) (Auto) 0.9 % (0.0-2.0) Neutrophils # (Auto) 4.6 10 ^3/uL (1.6-8.6) Lymphocytes # (Auto) 2.0 10 ^3/uL (0.4-5.4) Monocytes # (Auto) 0.6 10 ^3/uL (0-1.3) Eosinophils # (Auto) 0 10 ^3/uL (0-0.8) Basophils # (Auto) 0.1 10 ^3/uL (0-0.2) Nucleated Red Blood Cells 0.1 % Sodium Level 141 mmol/L (136-145) Potassium Level 3.7 mmol/L (3.5-5.1) Chloride Level 109 mmol/L (98-107) Carbon Dioxide Level 17 mmol/L (20-31) Anion Gap 15 (5-15) Blood Urea Nitrogen 45 mg/dL (9-23) Creatinine 2.15 mg/dL (0.550-1.02) Glomerular Filtration Rate Calc 25 mL/min (>90) BUN/Creatinine Ratio 20.9 (10.0-20.0) Serum Glucose 97 mg/dL (74-106) Calcium Level 8.6 mg/dL (8.7-10.4) Random Vancomycin Level 9.4 ug/mL (5-10) Ammonia < 10 umol/L (11-32) Thyroid Stimulating Hormone (TSH) 0.60 uIU/mL (0.55-4.78) Influenza Type A Antigen Negative (Negative) Influenza Type B Antigen Negative (Negative) SARS-CoV-2 Antigen (Rapid) Negative (NEGATIVE) Test 09/01/24 12:28 09/01/24 09:22 09/01/24 07:35 09/01/24 07:30 POC Glucose 119 mg/dl (70-106) Lactic Acid Level 1.6 mmol/L (0.4-2.0) Urine Color Yellow (Yellow) Urine Clarity Turbid (Clear) Urine pH 6.0 (5.0-9.0) Urine Specific [place] 1.021 (1.001-1.035) Urine Protein 3+ (Negative) Urine Ketones 1+ (Negative) Urine Blood 2+ /uL (Negative) Urine Nitrite Negative (Negative) Urine Bilirubin Negative (Negative) Urine Urobilinogen Normal mg/dL (Negative) Urine Leukocyte Esterase Negative /uL (Negative) Urine RBC 6 /hpf (0 - 4) Urine Microscopic WBC 4 /HPF (0-5) Urine Squamous Epithelial Cells Mod /hpf (<5) Urine Bacteria None seen /hpf (None Seen) Urine Hyaline Casts Few /lpf (0 - 2) Urine Mucus Few (None Seen) Urine Yeast (Budding) Occasional /hpf (None Urine Glucose Normal mg/dL (Normal) Prothrombin Time 11.8 sec (9.3-11.8) Prothrombin Time INR 1.13 (0.9-1.15) Activated Partial Thromboplast Time 22.5 SEC (24.5-34.5) Total Bilirubin 1.0 mg/dL (0.2-1.0) Aspartate Amino Transferase (AST) 23 U/L (13-40) Alanine Aminotransferase (ALT) 10 U/L (7-40) Alkaline Phosphatase 86 U/L (46-116) B-Type Natriuretic Peptide 2029.83 pg/mL (0-100) Total Protein 7.7 g/dL (5.7-8.2) Albumin 4.8 g/dL (3.2-4.8) Other Laboratory Tests 09/03/24 06:49 Brief Hx & Hospital Course: Patient is a 63-year-old female with prior medical history of atrial fibrillation, CHF, 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 Per EMS, her daughter found her disoriented at home. She was discharged from this facility on August 29 after being treated for questionable sepsis due to acute gastroenteritis and colitis, and was discharged to continue antibiotic treatment at home with Augmentin. On evaluation, patient was disoriented, tachycardic, hypertensive, and febrile. Chest x-ray showed no acute disease in the chest. Head CT showed no acute intracranial abnormalities. Labs were significant for WBC 13.4, lactate 2.9, creatinine 2.58, BUN of 34. Sepsis protocol was initiated blood cultures were drawn, fluids were given, antibiotic therapy was initiated. She was admitted for further monitoring and treatment was initiated with cefepime and vancomycin. On evaluation, patient was oriented referring pain, abdominal pain, vomiting, and diarrhea. Vancomycin was discontinued and metronidazole was initiated. After initiation of antibiotics and fluids, leukocytosis resolved, lactate was 1.6, and creatinine 2.15. Blood cultures showed no growth at 48 hours, urine cultures without significant finding, preliminary stool cultures are negative, and stool samples without WBCs. Patient was started on liquid diet and advanced to regular renal diet, which she tolerated without further vomiting nor diarrheal episodes. Patient was seen by Nephrology, who stated the patient was not being compliant with immunosuppressive therapy thus recommended she begin taking tacrolimus and azathioprine again, considered stable for discharge from a renal standpoint as creatinine continues to trend down and GFR has returned to baseline. Today ,WBCs continued to trend down, patient is tolerating regular renal diet, denies any episodes of pain, vomiting, nausea, or diarrhea and is thus considered stable for discharge home with home medications and instructions to continue renal diet and follow up with PCP in 1-2 weeks. Consults/Reason for consult Nephrology due to transplant status and elevated creatinine. Operations or Procedures EXAM: XY CHEST PORTABLE HISTORY: fever COMPARISON: XY CHEST PORTABLE on DOS: 08/26/24, XY CHEST XRAY 1 VIEW on DOS: 03/21/24, XY CHEST XRAY 1 VIEW on DOS: 03/11/24, XY CHEST PORTABLE on DOS: 02/15/24, XY CHEST PORTABLE on DOS: 01/26/24 TECHNIQUE: Portable AP view of the chest was performed. FINDINGS: No pneumothorax, consolidative infiltrates, or pulmonary edema. The lung apices are partially obscured by head and neck tissues. The heart is borderline enlarged. There is a moderate to large hiatal hernia. IMPRESSION: 1. No acute intrathoracic process. 2. Moderate to large hiatal hernia. CLINICAL INFORMATION: PLACEMENT. TECHNIQUE: Single AP portable chest radiograph was obtained. COMPARISON: XY CHEST PORTABLE on DOS: 09/01/24, XY CHEST PORTABLE on DOS: 08/26/24, XY CHEST XRAY 1 VIEW on DOS: 03/21/24 FINDINGS: Lungs: Clear. Cardiac: Heart size is within normal limits. Pulmonary vasculature: Unremarkable. Mediastinum/thea: Unremarkable. Bones: No acute osseous abnormality identified. Other: Moderate to large hiatal hernia. The patient's necklace partially obscures visualization. IMPRESSION: 1. No evidence of acute disease in the chest. No significant change compared to the exam from earlier the same day. 2. Moderate to large hiatal hernia. CLINICAL INFORMATION: Acute loss of consciousness. TECHNIQUE: Axial imaging was obtained through the brain without contrast. Coronal and sagittal reformatted images were obtained, reviewed, and stored. Images were reviewed in brain and bone windows. All CT scans at this medical facility are performed using dose modulation techniques as appropriate to a performed exam including the following: Automated exposure control was utilized; adjustment of the MA and/or KV according to patient size; and use of iterative reconstruction technique. CTDIvol = 52.87 mGy DLP = 847.71 mGy-cm COMPARISON: CT HEAD WITHOUT CONTRAST on DOS: 03/11/24, CT HEAD WITHOUT CONTRAST on DOS: 02/15/24, CT HEAD WITHOUT CONTRAST on DOS: 01/26/24 FINDINGS: There is no acute intracranial hemorrhage. No mass effect or midline shift. The ventricles and sulci are within normal limits in size for age. Basal cisterns are patent. The calvarium is unremarkable. Mild mucosal thickening of the paranasal sinuses. Mastoid air cells are clear. IMPRESSION: No CT evidence of acute intracranial abnormality. Condition at Discharge: Stable Final Diagnosis/Problems List Acute Metabolic Encephalopathy, likely secondary to possible sepsis secondary to acute bacterial gastroenteritis Possible sepsis, secondary to acute bacterial gastroenteritis BRANDON on CKD likely due to VMN--Renal transplant status due to FSGS Chronic Diastolic Heart Failure, not exacerbated Hypertension Dyslipidemia Depression Discharge Disposition: Home Discharge Instruct/Medications Diet: Renal Activity: No Restrictions, As Tolerated Follow Up/Referral: Follow up with PCP in 1-2 weeks Medications: Continue home medications Scheduled Amlodipine Besylate (Norvasc Tablet), 5 MG PO DAILY Aspirin (Aspirin Low Dose), 1 TAB PO DAILY, (Reported) Azathioprine (Imuran), 3 TAB PO BEDTIME, (Reported) Cholecalciferol (Vitamin D3), 2,000 UNIT PO DAILY, (Reported) Docusate Sodium (Docusate Sodium), 250 MG PO QHS, (Reported) Ferrous Sulfate (Ferrous Sulfate), 325 MG PO TUTHSA Fish Oil (Fish Oil), 500 MG PO BID, (Reported) Lansoprazole (Lansoprazole), 1 CAP PO DAILY, (Reported) Loratadine (Claritin), 1 TAB PO DAILY, (Reported) Magnesium Oxide (Magnesium Oxide), 1 TAB PO BID, (Reported) Metoprolol Tartrate (Metoprolol Tartrate), 1 TAB PO BID, (Reported) Prednisone (Prednisone), 5 MG PO DAILY, (Reported) Pregabalin (Lyrica), 50 MG PO DAILY, (Reported) Raloxifene Hydrochloride (Evista Tablet), 1 TAB PO DAILY, (Reported) Sertraline Hcl (Sertraline Hcl), 3 TAB PO QPM, (Reported) Simvastatin (Simvastatin), 1 TAB PO QPM, (Reported) Sucralfate (Carafate), 1 GM PO QID Tacrolimus (Astagraf Xl), 3 MG PO Q12HR, (Reported) Tizanidine Hydrochloride (Zanaflex), 0.5 TAB PO HS, (Reported) Trazodone Hcl (Trazodone Hcl), 50 MG PO HS, (Reported) Scheduled PRN Cyclobenzaprine Hcl (Cyclobenzaprine Hcl), 2 TAB PO QPM PRN for prn, (Reported) Hydrocodone-Acetaminophen ([place] 5/325MG), 1 TAB PO Q6HP PRN for pain, (Reported) Miscellaneous Medications Cyanocobalamin (B-12), 1,000 MCG PO, (Reported) Discontinued Medications Amoxicillin & Pot Clavulanate (Augmentin Tablet), 875 MG PO BID Omeprazole (Gnp Omeprazole), 1 CAP PO BID, (Reported) Omeprazole Magnesium (Omeprazole), 20 MG PO BID Tizanidine Hydrochloride (Tizanidine Hcl), 2.5 MG PO, (Reported) Discharge Statement: "Patient was advised to return to the ER or call 911 if any headaches, dizziness, shortness of breath, chest pain, abdominal pain, bleeding, fevers, or worsening of medical condition. Patient was counseled about treatment plan, medications, possible side effects, patientverbalized understanding. All questions were answered to the best of my ability. This discharge took greater then 30 minutes in planning, reviewing documentation, counseling the patient, and discussing with other team members." ASSESSMENT ASSESSMENT Assessment Date of Service: Sep 03, 2024 Billing Provider: JENNIFER WEBBER MD Common Visit Codes: [id number] DISCH DAY >30min JUSTIN OKEEFE RESIDENT Sep 03, 2024 15:44 JENNIFER WEBBER MD Sep 03, 2024 20:29
== END 2024-09-03 16:20 | disposition home or self-care (01) | DRG 871 ==
LOC: EDBD 05:42 → ER 05:42 → OVERFLOW 10:11 → TELE-EAST 12:03
PROVIDERS: ADMIT Student in an Organized Health Care Education/Training Program; ATTEND Student in an Organized Health Care Education/Training Program
PROC: 06HY33Z Insertion of Infusion Device into Lower Vein, Percutaneous Approach (ICD-10-PCS; principal; 2024-09-01)
DX: A41.89 Other specified sepsis (principal); G93.41 Metabolic encephalopathy; J96.11 Chronic respiratory failure with hypoxia; N39.0 Urinary tract infection, site not specified; Z94.0 Kidney transplant status; A04.9 Bacterial intestinal infection, unspecified; I50.32 Chronic diastolic (congestive) heart failure; E87.20 Acidosis, unspecified; I13.0 Hypertensive heart and chronic kidney disease with heart failure and stage 1 through stage 4 chronic kidney disease, or unspecified chronic kidney disease; N18.4 Chronic kidney disease, stage 4 (severe); D84.821 Immunodeficiency due to drugs; Z20.822 Contact with and (suspected) exposure to COVID-19; T45.1X5A Adverse effect of antineoplastic and immunosuppressive drugs, initial encounter; F32.A Depression, unspecified; I16.0 Hypertensive urgency; E11.22 Type 2 diabetes mellitus with diabetic chronic kidney disease; E78.5 Hyperlipidemia, unspecified; G25.81 Restless legs syndrome; I48.91 Unspecified atrial fibrillation; Z98.891 History of uterine scar from previous surgery; Z88.0 Allergy status to penicillin; Z88.8 Allergy status to other drugs, medicaments and biological substances; Z79.2 Long term (current) use of antibiotics; Z79.82 Long term (current) use of aspirin; Z79.899 Other long term (current) drug therapy; Z99.81 Dependence on supplemental oxygen; Z90.49 Acquired absence of other specified parts of digestive tract; Z91.148 Patient's other noncompliance with medication regimen for other reason; Z83.3 Family history of diabetes mellitus; Z83.6 Family history of other diseases of the respiratory system; Z82.0 Family history of epilepsy and other diseases of the nervous system; Z80.1 Family history of malignant neoplasm of trachea, bronchus and lung; Y92.89 Other specified places as the place of occurrence of the external cause
CPT/HCPCS: 36415; 36556; 70450; 71045; 80048; 80053; 80202; 81001; 82140; 82962; 83605; 83880; 84443; 85025; 85048; 85610; 85730; 87040; 87045; 87081; 87086; 87426; 87427; 87493; 87804; 93005; 96361; 96365; 99291; 99292; G0378; J0131; J3490

== ENCOUNTER 2024-09-05 14:12 | Inpatient (IN) | payer OTHER, MEDICARE ==
[~2024-09-05] VITALS: Ht 162.6 cm; Wt 59.5 kg
[~2024-09-05 14:12] MED LIST changes: -AUG875T PO; -OMEP-434 PO; -OMEP20TA PO; -TIZA2CAP7 PO
--- NOTE | 2024-09-05 14:28 | ED.PDOC ---
GI ASSESSMENT HPI Comments HPI: This is a 63 year old female BIBA presenting to the ED with chief complaint of abdominal pain. EMS reports that the patient has been complaining of lower abdominal pain for the past 3 days with associated nausea and vomiting (10 episodes according to patient). Patient relays that she has had intermittent gastritis over the past 2 months. Patient was previously admitted for sepsis on 09/01 and discharged on 09/03. Patient denies any chest pain, SOB, fever, chills, or diarrhea. Initial Vitals BP: HR: RR: O2 Sat: Temp: Past Medical history: HTN, CHF, Gout, A-Fib, UTIs, Depression Past Surgical history: Cholecystectomy, , Hernia repair, Tubal Ligation, Renal Transplant Social History: Denies smoking, ETOH, and drug use. Allergies: Lisinopril, Penicillins HPI: Poor Historian. REVIEW OF SYSTEMS: CONSTITUTIONAL: Denies acute: fever, diaphoresis, chills, generalized weakness. HEAD: Denies acute: headache, photophobia Eyes: Denies acute: Double vision, vision loss, eye pain, eye discharge. EARS: Denies acute: tinnitus, hearing loss, ear discharge, ear pain, THROAT: Denies acute: sore throat, swelling, difficulty swallowing , pain with swallowing, change in voice. NECK: Denies acute: neck pain, neck swelling, stiff neck. HEART: Denies acute : chest pain, palpitations, LUNGS: Denies acute: SOB, wheezing, cough, hemoptysis ABDOMEN: Denies acute: diarrhea, melena , hematemesis, hematochezia SKIN: Denies acute: rash, redness, lesions, itchiness. EXTREMITIES: Denies acute: calf pain, numbness, tingling, weakness, denies pain in extremity. Denies acute: Low back pain. Neuro: Denies acute: focal neurological deficit, motor or sensory focal neurological deficit, tremors, seizure like activity, confusion, dizziness, change in mental status, loss of bowel or bladder function, cauda equina like symptoms. : Denies acute: dysuria, hematuria, flank pain, increase in urinary frequency. PSYCH: Denies acute: hallucination, suicidal ideation, homicidal ideation. FEMALE: Denies acute: abnormal vaginal bleeding, foul odor, unusual discharge. PHYSICAL EXAM: General: ----moderate----acute distress, awake and alert. Head: normocephalic, atraumatic. Neck: supple, trachea is midline, no swelling. Throat: Normal phonation. Eyes:, no erythema, no purulent discharge, no proptosis, no icterus. Heart: regular rate, regular rhythm, no significant murmur appreciated. Lungs: no apparent respiratory distress, Able to speak in full sentences. No wheezing, no rhonchi, no crackles. No stridors Clear to auscultation bilaterally. Abdomen: Suprapubic tender to palpation, non distended, soft, no guarding, no rebound, + bowel sounds. Neuro: Awake, Alert, oriented to name, self, situation, follows commands GCS=15. Speech is normal. Skin: no petechia, no purpura, no cyanosis, non-pale, not jaundice. Lower extremities: --no - Pitting edema no deformity, no focal swelling, no calf TTP. Makes eye contact. moves all four extremities. Face: no apparent facial droop. . ED COURSE: DISCLAIMER: This medical document was created using an electronic medical record system with voice recognition software and computerized dictation system. Although this document has been carefully reviewed, there might still be some phonetic and typographical errors. Occasional wrong-word or "sound-alike" substitutions may have occurred due to the inherent limitations of voice recognition software. These areas are purely typographical due to imperfections of the software programs and do not reflect any compromise in the patient's medical care. Please read the chart carefully and recognize, using context, where these substitutions have occurred. Time Seen by MD: 14:21 Primary Care Provider: UNKNOWN Reviewed Notes: Medications, Allergies Allergies: Coded Allergies: Penicillins (Verified Allergy, Intermediate, 08/26/24) Lisinopril (Verified Allergy, Unknown, 02/13/22) Home Meds Active Scripts Ferrous Sulfate (Ferrous Sulfate) 325 Mg Tab, 325 MG PO TUTHSA for 90 Days, #36 TAB Prov:NARINDER HEDRICK RESIDENT 08/29/24 Amlodipine Besylate (NORVASC TABLET) 5 Mg Tb, 5 MG PO DAILY for 30 Days, #30 TAB 11 Refills Prov:LYNNETTE DALTON DO 10/23/22 Sucralfate (CARAFATE) 1 Gm Tab, 1 GM PO QID for 30 Days, #120 TAB Prov:BLANCA BELLO MD 02/18/22 Reported Medications Tacrolimus (ASTAGRAF XL) 1 Mg Cap, 3 MG PO Q12HR, CAP 01/27/24 Lansoprazole (Lansoprazole) 30 Mg Cap, 1 CAP PO DAILY, #30 CAP 5 Refills 01/27/24 Pregabalin (Lyrica) 50 Mg Cap, 50 MG PO DAILY, CAP 09/27/20 Trazodone Hcl (Trazodone Hcl) 50 Mg Tab, 50 MG PO HS, MG 09/27/20 Cyanocobalamin (B-12) 1,000 Mcg Cap, 1000 MCG PO, CAP 09/27/20 Magnesium Oxide (MAGNESIUM OXIDE) 400 Mg Tab, 1 TAB PO BID, #60 TAB 5 Refills 09/27/20 Tizanidine Hydrochloride (Zanaflex) 4 Mg Tab, 0.5 TAB PO HS, #60 TAB 09/27/20 Metoprolol Tartrate (Metoprolol Tartrate) 25 Mg Tab, 1 TAB PO BID, #180 TAB 1 Refill 09/04/18 Raloxifene Hydrochloride (EVISTA TABLET) 60 Mg Tb, 1 TAB PO DAILY, #30 TAB 11 Refills 09/04/18 Prednisone (PREDNISONE) 5 Mg Tb, 5 MG PO DAILY 09/02/18 Azathioprine (Imuran) 50 Mg Tab, 3 TAB PO BEDTIME, #180 TAB 3 Refills 09/02/18 Fish Oil (Fish Oil) 500 Mg Cap, 500 MG PO BID, CAP 09/02/18 Docusate Sodium (Docusate Sodium) 250 Mg Cap, 250 MG PO QHS, CAP 09/02/18 Cholecalciferol (VITAMIN D3) 2,000 Unit Chw, 2000 UNIT PO DAILY, CHW 09/02/18 Loratadine (Claritin) 10 Mg Tab, 1 TAB PO DAILY, #30 TAB 5 Refills 09/02/18 Aspirin (Aspirin Low Dose) 81 Mg Chw, 1 TAB PO DAILY, #30 TAB 3 Refills 09/02/18 Cyclobenzaprine Hcl (Cyclobenzaprine Hcl) 5 Mg Tab, 2 TAB PO QPM PRN for prn, #30 TAB 09/02/18 Hydrocodone-Acetaminophen (Backus 5/325MG) 1 Tab Tb, 1 TAB PO Q6HP PRN for pain, #90 TAB 09/02/18 Sertraline Hcl (Sertraline Hcl) 50 Mg Tab, 3 TAB PO QPM for depression, #30 TAB 5 Refills 09/02/18 Simvastatin (Simvastatin) 40 Mg Tab, 1 TAB PO QPM, #30 TAB 5 Refills 09/02/18 Information Source: Patient, Emergency Med Personnel Mode of Arrival: EMS Was a procedure done? Was a procedure done?: No GI differential Dx Differential Diagnosis: Other (DDX include Diverticulitis, colitis, gastroenteritis, acute abdomen, SBO, enteritis, constipation, volvulus, appendicitis, Gallbladder disease, choledocolithiasis, ascending cholangitis, pancreatitis, intraAbdominal mass/neoplasm, hepatitis, UTI, pylonephritis, kidney stone, aneurysm, dissection, Inflammatory bowel disease, gastroparesis, ischemic bowel, ovarian torsion, ovarian cyst/mass, tubo-ovarian abscess, PID, STD.) X-Ray, Labs, Meds, VS Vital Signs Date Time Temp Pulse Resp B/P (MAP) Pulse Ox O2 Delivery O2 Flow Rate FiO2 09/05/24 14:44 98.6 124 22 172/110 (130) 94 98.6 Lab Test 09/05/24 15:50 09/05/24 14:59 Range/Units Troponin I High Sensitivity 73 *H 76 *H </=34 ng/L White Blood Count 8.8 4.4-10.8 10^3/uL Red Blood Count 3.93 L 4.0-5.20 10^6/uL Hemoglobin 10.9 #L 12.2-16.2 g/dL Hematocrit 33.3 #L 36.0-46.0 % Mean Corpuscular Volume 84.9 80.0-100.0 fL Mean Corpuscular Hemoglobin 27.8 L 28.0-32.0 pg Mean Corpuscular Hemoglobin Concent 32.8 32.0-36.0 g/dL Red Cell Distribution Width 17.5 H 11.8-14.3 % Platelet Count 282 140-450 10^3/uL Mean Platelet Volume 8.2 6.9-10.8 fL Neutrophils (%) (Auto) 70.5 37.0-80.0 % Lymphocytes (%) (Auto) 20.6 10.0-50.0 % Monocytes (%) (Auto) 8.1 0.0-12.0 % Eosinophils (%) (Auto) 0.1 0.0-7.0 % Basophils (%) (Auto) 0.7 0.0-2.0 % Neutrophils # (Auto) 6.2 1.6-8.6 10 ^3/uL Lymphocytes # (Auto) 1.8 0.4-5.4 10 ^3/uL Monocytes # (Auto) 0.7 0-1.3 10 ^3/uL Eosinophils # (Auto) 0 0-0.8 10 ^3/uL Basophils # (Auto) 0.1 0-0.2 10 ^3/uL Nucleated Red Blood Cells 0.1 % Sodium Level 142 136-145 mmol/L Potassium Level 3.5 3.5-5.1 mmol/L Chloride Level 113 H 98-107 mmol/L Carbon Dioxide Level 13 L 20-31 mmol/L Anion Gap 16 H 5-15 Blood Urea Nitrogen 42 H 9-23 mg/dL Creatinine 2.08 H 0.550-1.02 mg/dL Glomerular Filtration Rate Calc 26 >90 mL/min BUN/Creatinine Ratio 20.2 H 10.0-20.0 Serum Glucose 108 H 74-106 mg/dL Lactic Acid Level 1.6 0.4-2.0 mmol/L Calcium Level 9.3 8.7-10.4 mg/dL Total Bilirubin 0.8 0.2-1.0 mg/dL Aspartate Amino Transferase (AST) 19 13-40 U/L Alanine Aminotransferase (ALT) 9 7-40 U/L Alkaline Phosphatase 70 46-116 U/L B-Type Natriuretic Peptide 481.64 0-100 pg/mL Total Protein 7.4 5.7-8.2 g/dL Albumin 4.7 3.2-4.8 g/dL Lipase 67 H 12-53 U/L [address] [address] Ph: [phone] DIAGNOSTIC IMAGING Diagnostic Imaging Report : [id number] Signed PATIENT: JACOB WATTS ACCT: [id number] UNIT: [id number] : 1960 LOC: ER ROOM / BED: / AGE / SEX: 63 / F ADM STATUS: REG ER SERVICE 1432 ORDERING PHYSICIAN: HA JUÁREZ DO PROCEDURE(s): ABPL - CT AB PEL WO CON-NO ORAL OR IV REASON: Suprapubic pain ORDER NUMBER(s): [id number], ACCESSION NUMBER(s): [id number] Indication: Suprapubic pain Technique: CT axial images of the abdomen and pelvis are obtained without contrast. Coronal and sagittal reformats were obtained. Radiation Dose Information: CTDI volume is 5.93 mGy. Dose-length product is 317.36 mGy*cm Comparison: CT CT AB PEL WO CON-NO ORAL OR IV on DOS: 08/27/24, FINDINGS: There is limited interpretation of the abdomen and pelvis without administration of intravenous contrast. Lung bases demonstrate 3 mm right middle lobe pulmonary nodule. Adrenal glands, spleen unremarkable in shape. Pancreatic head calcifications. Duodenal diverticulum measuring 3.5 cm. Cholecystectomy. Liver unremarkable in shape. Severe renal parenchymal atrophy/ cortical thinning. Right lower quadrant transplant kidney without hydronephrosis. Moderate size hiatal hernia. Small bowel loops are normal in caliber. Colonic diverticular disease. No secondary signs for appendicitis. Abdominal aortic atherosclerotic disease. Bladder partially distended. No inguinal lymphadenopathy. Right inguinal region soft tissue stranding extending into the right pectineus musculature. Severe lumbar degenerative disc disease. Moderate to severe lumbar facet hypertrophic changes. Sclerotic changes and fragmentation of the right femoral head. Sclerotic changes without fragmentation of the left femoral head. There is right medial acetabular sclerotic lesion measuring 11 mm. IMPRESSION: Soft tissue stranding within the right inguinal region with stranding/ expansion extending into the right pectineus musculature. Correlate for myositis and other etiologies. Pelvic MRI can be obtained to further characterize. Moderate size hiatal hernia. Right lower quadrant transplant kidney. No hydronephrosis. 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 There is also avascular necrosis of the left femoral head. Right medial acetabular sclerotic lesion measuring 11 mm. Differential considerations include bone island, bone infarct, osteoblastic metastases. Cor relate with clinical history and risk factors. 3 mm right middle lobe pulmonary nodule. Recommend follow-up per Fleischner soc iety criteria. Sequela of chronic pancreatitis. Other findings as described. ATED BY: ZAYNAB COREY MD DICTATED DATE/TIME: 09/05/241516 SIGNED BY: AZYNAB COREY MD SIGNED DATE/TIME: 09/05/241516 CC: Time of 1ST Reevaluation: 15:21 Reevaluation 1ST: Unchanged Patient Education/Counseling: Diagnosis, Treatment Family Education/Counseling: No Family Present Comments MDM: patient presented with the above HPI.---abdominal pain---workup was initi ated. patient was found with the above mentioned diagnosis. the following medications were ordered: please refer to order lists of meds and tests obtained by myself Dr. Juárez. Patient ED course and VS have been stabilized. Patient has been reassessed in the ED and remained in a stable condition. Patient has been observed in the ED adequate length of time to insure imp rovement/stability. Escalation of care considered: Consideration of escalation to observation or admission Patient was ADMITTED to the medicine team for further evaluation and treatment of their presentation. All the reports of any imaging studies that were ordered by myself were reviewed by myself. Departure 1 Departure Time of Disposition: 15:43 Impression: Primary Impression: Suprapubic pain Additional Impressions: Elevated troponin Abnormal finding on CT scan Chronic kidney disease Disposition: ADMITTED INPATIENT Condition: Guarded Discharged With: Self Critical Care Note Critical Care Time?: Yes (45 min-critical care time only) I personally scribed for HA JUÁREZ DO ([email or web address]) on 09/05/24 at 14:28. Electronically submitted by Robert Matamoros ([email or web address]). I personally scribed for HA JUÁREZ DO ([email or web address]) on 09/05/24 at 20:23. Electronically submitted by Robert Matamoros ([email or web address]). HA JUÁREZ DO Sep 05, 2024 14:28
[2024-09-05 15:08] LABS: Hematocrit 33.3 % (36.0-46.0); Hemoglobin 10.9 g/dL (12.2-16.2); Mean Corpuscular Hemoglobin 27.8 pg (28.0-32.0); Mean Corpuscular Volume 84.9 fL (80.0-100.0); Nucleated Red Blood Cells % 0.1 %
--- NOTE | 2024-09-05 15:18 | DVH ---
Indication: Suprapubic pain Technique: CT axial images of the abdomen and pelvis are obtained without contrast. Coronal and sagit garrick reformats were obtained. Radiation Dose Information: CTDI volume is 5.93 mGy. Dose-length product is 317.36 mGy*cm Comparison: CT CT AB PEL WO CON-NO ORAL OR IV on DOS: 08/27/24, FINDINGS: There is limited interpretation of the abdomen and pelvis without administration of intravenous contr ast. Lung bases demonstrate 3 mm right middle lobe pulmonary nodule. Adrenal glands, spleen unremarkable in shape. Pancreatic head calcifications. Duodenal diverticulum m easuring 3.5 cm. Cholecystectomy. Liver unremarkable in shape. Severe renal parenchymal atrophy/ cortical thinning. Right lower quadrant transplant kidney without h ydronephrosis. Moderate size hiatal hernia. Small bowel loops are normal in caliber. Colonic diverticular disease. No secondary signs for appendicitis. Abdominal aortic atherosclerotic disease. Bladder partially distended. No inguinal lymphadenopathy. Right inguinal region soft tissue stranding extending into the right pectineus musculature. Severe lumbar degenerative disc disease. Moderate to severe lumbar facet hypertrophic changes. Scler otic changes and fragmentation of the right femoral head. Sclerotic changes without fragmentation of the left femoral head. There is right medial acetabular sclerotic lesion measuring 11 mm. IMPRESSION: Soft tissue stranding within the right inguinal region with stranding/ expansion extending into the r ight pectineus musculature. Correlate for myositis and other etiologies. Pelvic MRI can be obtained to further characterize. Moderate size hiatal hernia. Right lower quadrant transplant kidney. No hydronephrosis. Avascular necrosis of the right femoral head with fragmentation and some collapse of the right femora l head. There is also avascular necrosis of the left femoral head. Right medial acetabular sclerotic lesion measuring 11 mm. Differential considerations include bone is land, bone infarct, osteoblastic metastases. Correlate with clinical history and risk factors. 3 mm right middle lobe pulmonary nodule. Recommend follow-up per Fleischner society criteria. Sequela of chronic pancreatitis. Other findings as described.
[2024-09-05 15:23] LABS: Albumin 4.7 g/dL (3.2-4.8); Alkaline Phosphatase 70 U/L (46-116); Anion Gap 16 (5-15); BUN/Creatinine Ratio 20.2 (10.0-20.0); Bilirubin, Total 0.8 mg/dL (0.2-1.0); Calcium 9.3 mg/dL (8.7-10.4); Potassium 3.5 mmol/L (3.5-5.1); Sodium 142 mmol/L (136-145); Total Protein 7.4 g/dL (5.7-8.2)
[2024-09-05 15:24] LABS: Alanine Aminotransferase 9 U/L (7-40); Blood Urea Nitrogen 42 mg/dL (9-23); Carbon Dioxide 13 mmol/L (20-31); Chloride 113 mmol/L (98-107); Glucose 108 mg/dL (74-106); Lipase 67 U/L (12-53)
[2024-09-05] MEDS ORDERED: ACETAMINOPHEN 325 MG TAB PO PRN (17:00)
[2024-09-05 17:10] VITALS: PULSE 103; RESP 23; O2SAT 100
[2024-09-05] MEDS: ASPirin-EC 325mg tab PO ONE (17:10)
[2024-09-05] MEDS: SODIUM CHLORIDE 0.9% 500 ML IV ONE (18:30)
--- NOTE | 2024-09-05 19:06 | DVHHP2 ---
History of Present Illness Reason for Visit: Abdominal pain History of Present Illness 63-year-old female presents for evaluation of abdominal pain. Patient reports a three day history of worsening abdominal pain with associated nausea and vomiting. She reports lower abdominal sharp pain that is nonradiating. Denies fever or chills. Patient reports a history of gastritis. Past Medical History CHF, hypertension, gout, AFib, depression Past Surgical History Cholecystectomy, hernia repair, tubal ligation, renal transplant, Family History Noncontributory Smoke: No ALCOHOL: none Drugs: None Lives: with Family Review of Systems Review of Systems Review of systems are currently negative otherwise addressed in HPI. Allergies: Coded Allergies: Penicillins (Verified Allergy, Intermediate, 08/26/24) Lisinopril (Verified Allergy, Unknown, 02/13/22) Medications Current Medications Medications Dose Ordered Sig/Srikanth Route Start Time Stop Time Status Last Admin Dose Admin Pantoprazole Sodium 40 mg DAILY IV 09/06/24 10:00 Metoprolol Tartrate 25 mg BID PO 09/05/24 22:00 Amlodipine Besylate 5 mg DAILY PO 09/06/24 10:00 Prednisone 5 mg DAILY PO 09/06/24 10:00 Pregabalin 50 mg DAILY PO 09/06/24 10:00 Atorvastatin Calcium 40 mg HS PO 09/05/24 22:00 Tacrolimus 3 mg BID PO 09/05/24 22:00 Acetaminophen/ Hydrocodone Bitart 1 tab Q4HP PRN PO 09/05/24 17:00 Ondansetron HCl 4 mg Q4HP PRN IV 09/05/24 17:00 Acetaminophen 650 mg Q6HP PRN PO 09/05/24 17:00 Morphine Sulfate 2 mg Q6HPRN PRN IV 09/05/24 17:00 Exam Vital Signs Vital Signs Date Time Temp Pulse Resp B/P (MAP) Pulse Ox O2 Delivery O2 Flow Rate FiO2 09/05/24 17:10 103 23 100 Room Air* 0 21 09/05/24 17:10 98.7 171/109 (129) 98.7 Exam Gen: 63-year-old female in mild distress Skin: Warm, dry, normal color and texture, no rash. HEENT: Normocephalic atraumatic, mucous membranes moist and pink. Neck: Cervical and supraclavicular nodes normal without enlargement, trachea is midline, thyroid gland is normal without masses. Pulmonary: Clear to auscultation and percussion bilaterally. Cardiac: Regular rate and rhythm. No murmur Abdomen: Soft, abdominal tenderness, nondistended, bowel sounds present all 4 quadrants, no guarding, no rigidity, no organomegaly. Extremities: No cyanosis, clubbing, no edema Neuro: Cranial nerves II through XII grossly intact, normal affect and speech, no focal motor deficits. Labs/Xrays ORDERING PHYSICIAN: HA JUÁREZ DO PROCEDURE(s): ABPL - CT AB PEL WO CON-NO ORAL OR IV REASON: Suprapubic pain ORDER NUMBER(s): [id number], ACCESSION NUMBER(s): [id number] Indication: Suprapubic pain Technique: CT axial images of the abdomen and pelvis are obtained without con trast. Coronal and sagittal reformats were obtained. Radiation Dose Information: CTDI volume is 5.93 mGy. Dose-length product is 317.36 mGy*cm Comparison: CT CT AB PEL WO CON-NO ORAL OR IV on DOS: 08/27/24, FINDINGS: There is limited interpretation of the abdomen and pelvis without administration of intravenous contrast. Lung bases demonstrate 3 mm right middle lobe pulmonary nodule. Adrenal glands, spleen unremarkable in shape. Pancreatic head calcifications. Duodenal diverticulum measuring 3.5 cm. Cholecystectomy. Liver unremarkable in shape. Severe renal parenchymal atrophy/ cortical thinning. Right lower quadrant trans plant kidney without hydronephrosis. Moderate size hiatal hernia. Small bowel loops are normal in caliber. Colonic diverticular disease. No secondary signs for appendicitis. Abdominal aortic atherosclerotic disease. Bladder partially distended. No ingui nal lymphadenopathy. Right inguinal region soft tissue stranding extending into the right pectineus musculature. Severe lumbar degenerative disc disease. Moderate to severe lumbar facet hypertrophic changes. Sclerotic changes and fragmentation of the right femoral head. Sclerotic changes without fragmentation of the left femoral head. There is right medial acetabular sclerotic lesion measuring 11 mm. IMPRESSION: Soft tissue stranding within the right inguinal region with stranding/ expansion extending into the right pectineus musculature. Correlate for myositis and other etiologies. Pelvic MRI can be obtained to further characterize. Moderate size hiatal hernia. Right lower quadrant transplant kidney. No hydronephrosis. 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 There is also avascular necrosis of the left femoral head. Right medial acetabular sclerotic lesion measuring 11 mm. Differential considerations include bone island, bone infarct, osteoblastic metastases. Correlate with clinical history and risk factors. 3 mm right middle lobe pulmonary nodule. Recommend follow-up per Fleischner society criteria. Sequela of chronic pancreatitis. Other findings as described. Labs Test 09/05/24 18:34 09/05/24 14:59 Range/Units White Blood Count 8.8 4.4-10.8 10^3/uL Red Blood Count 3.93 L 4.0-5.20 10^6/uL Hemoglobin 10.9 #L 12.2-16.2 g/dL Hematocrit 33.3 #L 36.0-46.0 % Mean Corpuscular Volume 84.9 80.0-100.0 fL Mean Corpuscular Hemoglobin 27.8 L 28.0-32.0 pg Mean Corpuscular Hemoglobin Concent 32.8 32.0-36.0 g/dL Red Cell Distribution Width 17.5 H 11.8-14.3 % Platelet Count 282 140-450 10^3/uL Mean Platelet Volume 8.2 6.9-10.8 fL Neutrophils (%) (Auto) 70.5 37.0-80.0 % Lymphocytes (%) (Auto) 20.6 10.0-50.0 % Monocytes (%) (Auto) 8.1 0.0-12.0 % Eosinophils (%) (Auto) 0.1 0.0-7.0 % Basophils (%) (Auto) 0.7 0.0-2.0 % Neutrophils # (Auto) 6.2 1.6-8.6 10 ^3/uL Lymphocytes # (Auto) 1.8 0.4-5.4 10 ^3/uL Monocytes # (Auto) 0.7 0-1.3 10 ^3/uL Eosinophils # (Auto) 0 0-0.8 10 ^3/uL Basophils # (Auto) 0.1 0-0.2 10 ^3/uL Nucleated Red Blood Cells 0.1 % Sodium Level 142 136-145 mmol/L Potassium Level 3.5 3.5-5.1 mmol/L Chloride Level 113 H 98-107 mmol/L Carbon Dioxide Level 13 L 20-31 mmol/L Anion Gap 16 H 5-15 Blood Urea Nitrogen 42 H 9-23 mg/dL Creatinine 2.08 H 0.550-1.02 mg/dL Glomerular Filtration Rate Calc 26 >90 mL/min BUN/Creatinine Ratio 20.2 H 10.0-20.0 Serum Glucose 108 H 74-106 mg/dL Lactic Acid Level 1.6 0.4-2.0 mmol/L Calcium Level 9.3 8.7-10.4 mg/dL Total Bilirubin 0.8 0.2-1.0 mg/dL Aspartate Amino Transferase (AST) 19 13-40 U/L Alanine Aminotransferase (ALT) 9 7-40 U/L Alkaline Phosphatase 70 46-116 U/L B-Type Natriuretic Peptide 481.64 0-100 pg/mL Total Protein 7.4 5.7-8.2 g/dL Albumin 4.7 3.2-4.8 g/dL Lipase 67 H 12-53 U/L SEPSIS Sepsis Screen Date sepsis recognized/suspect: Sep 05, 2024 Time Sepsis recognized/suspect: 1817 Recent Procedure: No On Antibiotic Therapy: No Respiratory Rate >20: No Heart Rate >90: Yes Temp<36 C (96.8 F) or >38.3 C: No SBP <90 or MAP <65 mmHG: No New Acute Mental Status Change: No Is the patient on CPAP, BIPAP,: No Physician Orders Office Electrician (09/05/24 ) Urinalysis (09/05/24 14:32) Electrocardigram (09/05/24 14:32) Ct Ab Pel Wo Con-No Oral Or Iv (09/05/24 14:32) Troponin-I Hs (09/05/24 17:32) Pantoprazole (Protonix) (09/06/24 10:00) Metoprolol Tartrate Tablet (Lopressor Ta (09/05/24 22:00) Amlodipine Tablet (Norvasc Tablet) (09/06/24 10:00) Prednisone Tablet (09/06/24 10:00) Pregabalin Capsule (Lyrica Capsule) (09/06/24 10:00) Atorvastatin (Lipitor) (09/05/24 22:00) Tacrolimus (Prograf) (09/05/24 22:00) Basic Metabolic Panel (09/06/24 04:00) Admit (09/05/24 16:48) Renal Standard(2gna,3gk,Lopho) (09/05/24 Dinner) Hydrocodone-Acet 5/325mg Tab (Chase 5/32 (09/05/24 17:00) Ondansetron Hcl (Zofran) (09/05/24 17:00) Complete Blood Count (09/06/24 04:00) Condition: Stable (09/05/24 16:48) Acetaminophen Tablet (Tylenol Tablet) (09/05/24 17:00) Bedrest With Bathroom Privileg (09/05/24 16:48) Morphine Sulfate Injection (09/05/24 17:00) Vital Signs Date Time Temp Pulse Resp B/P (MAP) Pulse Ox O2 Delivery O2 Flow Rate FiO2 09/05/24 17:10 103 23 100 Room Air* 0 21 09/05/24 17:10 98.7 121 18 171/109 (129) 99 98.7 09/05/24 14:44 98.6 124 22 172/110 (130) 94 98.6 Laboratory Tests Test 09/05/24 14:59 Lactic Acid Level 1.6 mmol/L (0.4-2.0) White Blood Count 8.8 10^3/uL (4.4-10.8) Medications Medications Dose Ordered Sig/Srikanth Route Start Time Stop Time Status Last Admin Dose Admin Aspirin 325 mg ONCE ONCE PO 09/05/24 16:45 09/05/24 16:46 DC 09/05/24 17:10 325 MG Assessment/Plan Assessment/Plan Assessment Acute on chronic, abdominal pain Gastroenteritis Chronic pain syndrome Status post renal transplant Questionable urinary tract infection Chronic kidney disease Elevated troponin, downtrending ? Chronic pancreatitis Plan Admit the patient to [facility] [place] to the hospitalist Clear liquid diet Protonix Maintenance IV fluids Resume home medications Pain management Continue treatment per orders. Plan discussed with: Patient My Orders Orders - BLANCA GARDNER Procedure Category Date Status Time Pantoprazole PHA 09/06/24 In Process (Protonix) 10:00 Metoprolol Tartrate PHA 09/05/24 In Process Tablet (Lopressor Ta 22:00 Amlodipine Tablet PHA 09/06/24 In Process (Norvasc Tablet) 10:00 Prednisone Tablet PHA 09/06/24 In Process 10:00 Pregabalin Capsule PHA 09/06/24 In Process (Lyrica Capsule) 10:00 Atorvastatin (Lipitor) PHA 09/05/24 In Process 22:00 Tacrolimus (Prograf) PHA 09/05/24 In Process 22:00 Basic Metabolic Panel LAB 09/06/24 Verified 04:00 Admit ADMIT 09/05/24 Transmitted 16:48 Renal DIET 09/05/24 Transmitted Standard(2gna,3gk,Lopho) Dinner Hydrocodone-Acet PHA 09/05/24 In Process 5/325mg Tab (Chase 17:00 Ondansetron Hcl PHA 09/05/24 In Process (Zofran) 17:00 Complete Blood Count LAB 09/06/24 Verified 04:00 Condition: Stable DONN 09/05/24 In Process 16:48 Acetaminophen Tablet PHA 09/05/24 In Process (Tylenol Tablet) 17:00 Bedrest With Bathroom DONN 09/05/24 In Process Privileg 16:48 Morphine Sulfate PHA 09/05/24 In Process Injection 17:00 Date of Service: Sep 05, 2024 Billing Provider: BLANCA GARDNER Common Visit Codes: [id number] INP/OBS CARE (MOD) BLANCA GARDNER Sep 05, 2024 19:06
[2024-09-05 19:21] VITALS: PULSE 111; RESP 17; O2SAT 99
[2024-09-05] MEDS: HYDROcodone-ACET 5/325MG TAB PO PRN (20:15)
[2024-09-05] MEDS: ONDANSETRON HCL 4 MG/2 ML VIAL IV PRN (21:18)
[2024-09-05] MEDS: MORPHINE SULFATE INJ 2 MG/ml SYRG IV PRN (21:19)
[2024-09-05] MEDS: TACROLIMUS 1 MG CAP PO SCH (21:47)
[2024-09-05] MEDS: METOPROLOL TARTRATE 25 MG TAB PO SCH (21:48)
[2024-09-05] MEDS: ATORVASTATIN 20 MG TAB PO SCH (21:48)
[2024-09-05 23:36] LABS: Urine Protein, UAD 1+ (Negative)
[2024-09-06] VITALS (7 sets, daily range): BP systolic 113–138; BP diastolic 64–86; PULSE 58–69; RESP 16–18; TEMP 96.6–97.6; O2SAT 96–99
[2024-09-06 08:02] LABS: Anion Gap 11 (5-15); Carbon Dioxide 21 mmol/L (20-31); Hematocrit 30.9 % (36.0-46.0); Hemoglobin 10.2 g/dL (12.2-16.2); Mean Corpuscular Hemoglobin 28.1 pg (28.0-32.0); Mean Corpuscular Volume 85.7 fL (80.0-100.0); Nucleated Red Blood Cells % 0.1 %; Potassium 3.7 mmol/L (3.5-5.1); Sodium 144 mmol/L (136-145)
[2024-09-06 08:03] LABS: Calcium 9.4 mg/dL (8.7-10.4)
[2024-09-06 08:08] LABS: BUN/Creatinine Ratio 20.1 (10.0-20.0); Blood Urea Nitrogen 39 mg/dL (9-23); Chloride 112 mmol/L (98-107); Glucose 90 mg/dL (74-106)
[2024-09-06] MEDS: PANTOPRAZOLE 40 MG/10 ML VIAL INJ IV SCH (10:26)
[2024-09-06] MEDS: PREGABALIN 25 MG CAP PO SCH (10:31)
--- NOTE | 2024-09-06 16:04 | DVH ---
CLINICAL HISTORY: Abnormal findings on CT. Rule out myositis. TECHNIQUE: Multi sequence multi planar MRI images of the pelvis were obtained without IV contrast. COMPARISON: CT dated 09/05/2024. FINDINGS: Serpiginous areas of signal abnormality in both femoral heads consistent with osteonecrosi s. There is a small to moderate right hip joint effusion. Moderate joint space narrowing in both hips . Sclerotic lesion in the posterior right acetabulum without adjacent perilesional edema or adjacent soft tissue abnormality, most likely bone island in the absence of a known primary malignancy. There is moderate inflammatory stranding and trace fluid in the right inguinal region and extending a djacent to the right pectineus muscle, may be inflammatory in nature or due to recent injury in this location. The fluid is along the superficial fascial plane of the pectineus muscle with no significan t fluid identified deep to the pectineus muscle and no significant intramuscular edema to suggest nathaniel sitis, possible strain or other nonspecific inflammation. There is mild intramuscular edema in the right gluteus minimus muscle, may be due to strain or acute or mild subacute denervation in the appropriate clinical setting. Right lower quadrant transplant kid maegan visualized without evidence of hydronephrosis. IMPRESSION: 1. 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 2. Small to moderate right hip joint effusion. 3. Sclerotic lesion in the posterior aspect of the right acetabulum, most likely bone island. 4. Inflammatory stranding and small amount of fluid in the right inguinal region and extending adjace nt to the right pectineus muscle, with no intramuscular edema or fluid deep to the pectineus muscle t o suggest myositis. Findings may be inflammatory in nature or due to sequelae of soft tissue injury/s train or prior intervention. Correlate with clinical findings. 5. Additional findings as detailed above.
--- NOTE | 2024-09-06 17:00 | DVHPNRES ---
Progress Note Date Seen: Sep 06, 2024 Resident Creating Document: RICHARD MCCURDY RESIDENT Medical Necessity Reason Pt with a Central, PICC or Fol: No Subjective Review of Systems 63-year-old female presents for evaluation of abdominal pain. Patient reports a three day history of worsening abdominal pain with associated nausea and vomiting(6-8times). She reports lower abdominal sharp pain that is nonradiating with 6/10 intensity. Denies fever or chills. Patient reports a history of gastritis. Past Medical History CHF, hypertension, gout, AFib, depression Past Surgical History Cholecystectomy, hernia repair, tubal ligation, renal transplant, Family History Noncontributory Smoke: No ALCOHOL: none Drugs: None Lives: with Family ROS: Patient was seen and examined by me at the bedside. Overnight events reviewed. Patient says she is feeling much better than she has not been throwing up, has no nausea and her abdominal symptoms have become better. Objective vital signs Vital Sign Date Time Temp Pulse Resp B/P (MAP) Pulse Ox O2 Delivery O2 Flow Rate FiO2 09/06/24 13:00 96.6 58 16 120/69 (86) 98 96.6 09/06/24 08:30 Room Air* 0 21 Total Intake and Output 09/05/24 09/05/24 09/06/24 15:00 23:00 07:00 Intake Total 500 ml 150 ml Balance 500 ml 150 ml medications Current Medications Medications Dose Ordered Sig/Srikanth Route Start Time Stop Time Status Last Admin Dose Admin Pantoprazole Sodium 40 mg DAILY IV 09/06/24 10:00 09/06/24 10:26 40 MG Metoprolol Tartrate 25 mg BID PO 09/05/24 22:00 09/06/24 10:30 25 MG Amlodipine Besylate 5 mg DAILY PO 09/06/24 10:00 09/06/24 10:30 5 MG Prednisone 5 mg DAILY PO 09/06/24 10:00 09/06/24 10:29 5 MG Pregabalin 50 mg DAILY PO 09/06/24 10:00 09/06/24 10:31 50 MG Atorvastatin Calcium 40 mg HS PO 09/05/24 22:00 09/05/24 21:48 40 MG Tacrolimus 3 mg BID PO 09/05/24 22:00 09/06/24 10:28 3 MG Acetaminophen/ Hydrocodone Bitart 1 tab Q4HP PRN PO 09/05/24 17:00 09/06/24 06:14 1 TAB Ondansetron HCl 4 mg Q4HP PRN IV 09/05/24 17:00 09/05/24 21:18 4 MG Acetaminophen 650 mg Q6HP PRN PO 09/05/24 17:00 Morphine Sulfate 2 mg Q6HPRN PRN IV 09/05/24 17:00 09/06/24 10:32 2 MG Examination Gen: 63-year-old female in mild distress Skin: Warm, dry, normal color and texture, no rash. HEENT: Normocephalic atraumatic, mucous membranes moist and pink. Neck: Cervical and supraclavicular nodes normal without enlargement, trachea is midline, thyroid gland is normal without masses. Pulmonary: Clear to auscultation and percussion bilaterally. Cardiac: Regular rate and rhythm. No murmur Abdomen: Soft, abdominal tenderness, nondistended, bowel sounds present all 4 quadrants, no guarding, no rigidity, no organomegaly. Extremities: No cyanosis, clubbing, no edema Neuro: Cranial nerves II through XII grossly intact, normal affect and speech, no focal motor deficits. laboratory and microbiology Laboratory Tests 09/06/24 07:27 Test 09/06/24 07:27 Range/Units Serum Glucose 90 74-106 mg/dL Microbiology Date/Time Source Procedure Growth Status 09/06/24 08:18 Nose MRSA Screen - Final Complete Labs and/or images reviewed: Labs reviewed by me Problem List/Assessment/Plan Problem List/Assessment/Plan # Chronic pain syndrome? 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 patient and nurse. Plan discussed with: Patient, Other (rn) Date of Service: Sep 06, 2024 Billing Provider: JENIFFER DUFF MD Common Visit Codes: [id number] INP/OBS CARE(HIGH) RICHARD MCCURDY Sep 06, 2024 17:00 JENIFFER DUFF MD Sep 06, 2024 22:08
[2024-09-07 01:42] VITALS: BP 110/61; PULSE 61; RESP 18; TEMP 97.1; O2SAT 95
[2024-09-07 05:00] VITALS: BP 137/79; PULSE 65; RESP 18; TEMP 97; O2SAT 95
[2024-09-07 08:26] LABS: Hematocrit 38.2 % (36.0-46.0); Hemoglobin 12.0 g/dL (12.2-16.2); Mean Corpuscular Hemoglobin 28.3 pg (28.0-32.0); Mean Corpuscular Volume 90.0 fL (80.0-100.0); Nucleated Red Blood Cells % 0.1 %
[2024-09-07 08:27] VITALS: RESP 18; O2SAT 98
[2024-09-07 08:37] LABS: Alanine Aminotransferase < 9 U/L (7-40); Albumin 4.3 g/dL (3.2-4.8); Alkaline Phosphatase 66 U/L (46-116); Anion Gap 13 (5-15); BUN/Creatinine Ratio 18.3 (10.0-20.0); Bilirubin, Total 0.4 mg/dL (0.2-1.0); Blood Urea Nitrogen 41 mg/dL (9-23); Calcium 9.5 mg/dL (8.7-10.4); Carbon Dioxide 18 mmol/L (20-31); Chloride 111 mmol/L (98-107); Glucose 95 mg/dL (74-106); Potassium 3.6 mmol/L (3.5-5.1); Sodium 142 mmol/L (136-145); Total Protein 7.1 g/dL (5.7-8.2)
[2024-09-07 09:00] VITALS: BP 111/66; PULSE 62; RESP 16; TEMP 97.1; O2SAT 100
[2024-09-07] MEDS: SODIUM CHLORIDE 0.9% 500 ML IV ONE (09:16)
--- NOTE | 2024-09-07 10:38 | DVHDSRES ---
Discharge Summary Date of Admission Resident Creating Document: HERMILO HENSON Sep 05, 2024 at 16:48 Date of Discharge: Sep 07, 2024 Admitting Diagnosis Abdominal pain Labs/Diagnostic Data: Laboratory Results Test 09/07/24 07:54 09/06/24 07:27 09/05/24 23:00 09/05/24 18:34 White Blood Count 7.7 10^3/uL (4.4-10.8) Red Blood Count 4.24 10^6/uL (4.0-5.20) Hemoglobin 12.0 g/dL (12.2-16.2) Hematocrit 38.2 % (36.0-46.0) Mean Corpuscular Volume 90.0 fL (80.0-100.0) Mean Corpuscular Hemoglobin 28.3 pg (28.0-32.0) Mean Corpuscular Hemoglobin Concent 31.4 g/dL (32.0-36.0) Red Cell Distribution Width 19.1 % (11.8-14.3) Platelet Count 305 10^3/uL (140-450) Mean Platelet Volume 8.3 fL (6.9-10.8) Neutrophils (%) (Auto) 52.4 % (37.0-80.0) Lymphocytes (%) (Auto) 37.1 % (10.0-50.0) Monocytes (%) (Auto) 5.7 % (0.0-12.0) Eosinophils (%) (Auto) 4.1 % (0.0-7.0) Basophils (%) (Auto) 0.7 % (0.0-2.0) Neutrophils # (Auto) 4.0 10 ^3/uL (1.6-8.6) Lymphocytes # (Auto) 2.9 10 ^3/uL (0.4-5.4) Monocytes # (Auto) 0.4 10 ^3/uL (0-1.3) Eosinophils # (Auto) 0.3 10 ^3/uL (0-0.8) Basophils # (Auto) 0.1 10 ^3/uL (0-0.2) Nucleated Red Blood Cells 0.1 % Sodium Level 142 mmol/L (136-145) Potassium Level 3.6 mmol/L (3.5-5.1) Chloride Level 111 mmol/L (98-107) Carbon Dioxide Level 18 mmol/L (20-31) Anion Gap 13 (5-15) Blood Urea Nitrogen 41 mg/dL (9-23) Creatinine 2.24 mg/dL (0.550-1.02) Glomerular Filtration Rate Calc 24 mL/min (>90) BUN/Creatinine Ratio 18.3 (10.0-20.0) Serum Glucose 95 mg/dL (74-106) Calcium Level 9.5 mg/dL (8.7-10.4) Total Bilirubin 0.4 mg/dL (0.2-1.0) Aspartate Amino Transferase (AST) 19 U/L (13-40) Alanine Aminotransferase (ALT) < 9 U/L (7-40) Alkaline Phosphatase 66 U/L (46-116) Total Protein 7.1 g/dL (5.7-8.2) Albumin 4.3 g/dL (3.2-4.8) Erythrocyte Sedimentation Rate 14 mm/hr (0-20) C-Reactive Protein High Sensitivity 0.56 mg/dL (<1.0) Urine Color Light-yellow (Yellow) Urine Clarity Clear (Clear) Urine pH 6.0 (5.0-9.0) Urine Specific [place] 1.013 (1.001-1.035) Urine Protein 1+ (Negative) Urine Ketones Negative (Negative) Urine Blood 1+ /uL (Negative) Urine Nitrite Negative (Negative) Urine Bilirubin Negative (Negative) Urine Urobilinogen Normal mg/dL (Negative) Urine Leukocyte Esterase Negative /uL (Negative) Urine RBC 2 /hpf (0 - 4) Urine Microscopic WBC < 1 /HPF (0-5) Urine Squamous Epithelial Cells Few /hpf (<5) Urine Bacteria None seen /hpf (None Seen) Urine Glucose Normal mg/dL (Normal) Troponin I High Sensitivity 67 ng/L (</=34) Test 09/05/24 14:59 Lactic Acid Level 1.6 mmol/L (0.4-2.0) B-Type Natriuretic Peptide 481.64 pg/mL (0-100) Lipase 67 U/L (12-53) Other Laboratory Tests 09/07/24 07:54 Brief Hx & Hospital Course: 63-year-old female with past medical history of chronic hypoxic respiratory failure from CHF on home oxygen, chronic diastolic heart failure, hypertensive heart disease, uncontrolled hypertension AFib, HLD presents for evaluation of abdominal pain. Patient reports a three day history of worsening abdominal pain with associated nausea and vomiting(6-8times). Acute pancreatitis and c diff was ruled out. Denies fever or chills. Patient reports a history of gastritis. Patient's pain was managed with IV fluid, Protonix, pain management was done. CARLEE panel was ordered. CRP and ESR was monitored. Pelvic CT and MRI without contrast revealed bilateral femoral osteonecrosis. 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 Patient's symptoms were controlled was stable, afebrile and was tolerating oral food during discharge. Discharge plan was discussed with the patient and patient agreed. Patient was advised to follow-up with the PCP in a week for blood work and was given pain medicines. Past Medical History CHF, hypertension, gout, AFib, depression Past Surgical History Cholecystectomy, hernia repair, tubal ligation, renal transplant, Family History Noncontributory Smoke: No ALCOHOL: none Drugs: None Lives: with Family Operations or Procedures Pelvis MRI: 1. 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 2. Small to moderate right hip joint effusion. 3. Sclerotic lesion in the posterior aspect of the right acetabulum, most likely bone island. 4. Inflammatory stranding and small amount of fluid in the right inguinal region and extending adjacent to the right pectineus muscle, with no intramuscular edema or fluid deep to the pectineus muscle to suggest myositis. Findings may be inflammatory in nature or due to sequelae of soft tissue injury/strain or prior intervention. Correlate with clinical findings. Abdomen pelvis CT: Right lower quadrant transplant kidney. No hydronephrosis. 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 There is also avascular necrosis of the left femoral head. Right medial acetabular sclerotic lesion measuring 11 mm. Differential considerations include bone island, bone infarct, osteoblastic metastases. Correlate with clinical history and risk factors. 3 mm right middle lobe pulmonary nodule. Recommend follow-up per Fleischner society criteria. Sequela of chronic pancreatitis. 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 Chronic hypoxic respiratory failure likely from CHF on home oxygen Chronic diastolic heart failure Hypertensive heart disease Uncontrolled hypertension AFib Hyperlipidemia Discharge Disposition: Home Discharge Instruct/Medications Diet: Renal Activity: No Restrictions, As Tolerated Follow Up/Referral: fu with pcp in 1-2 weeks Medications: continue meds as prescribed Scheduled Amlodipine Besylate (Norvasc Tablet), 5 MG PO DAILY Aspirin (Aspirin Low Dose), 1 TAB PO DAILY, (Reported) Azathioprine (Imuran), 3 TAB PO BEDTIME, (Reported) Cholecalciferol (Vitamin D3), 2,000 UNIT PO DAILY, (Reported) Docusate Sodium (Docusate Sodium), 250 MG PO QHS, (Reported) Ferrous Sulfate (Ferrous Sulfate), 325 MG PO TUTHSA Fish Oil (Fish Oil), 500 MG PO BID, (Reported) Lansoprazole (Lansoprazole), 1 CAP PO DAILY, (Reported) Loratadine (Claritin), 1 TAB PO DAILY, (Reported) Magnesium Oxide (Magnesium Oxide), 1 TAB PO BID, (Reported) Metoprolol Tartrate (Metoprolol Tartrate), 1 TAB PO BID, (Reported) Prednisone (Prednisone), 5 MG PO DAILY, (Reported) Pregabalin (Lyrica), 50 MG PO DAILY, (Reported) Raloxifene Hydrochloride (Evista Tablet), 1 TAB PO DAILY, (Reported) Sertraline Hcl (Sertraline Hcl), 3 TAB PO QPM, (Reported) Simvastatin (Simvastatin), 1 TAB PO QPM, (Reported) Sucralfate (Carafate), 1 GM PO QID Tacrolimus (Astagraf Xl), 3 MG PO Q12HR, (Reported) Tizanidine Hydrochloride (Zanaflex), 0.5 TAB PO HS, (Reported) Trazodone Hcl (Trazodone Hcl), 50 MG PO HS, (Reported) Scheduled PRN Cyclobenzaprine Hcl (Cyclobenzaprine Hcl), 2 TAB PO QPM PRN for prn, (Reported) Hydrocodone-Acetaminophen ([place] 5/325MG), 1 TAB PO Q6HP PRN for pain, (Reported) Miscellaneous Medications Cyanocobalamin (B-12), 1,000 MCG PO, (Reported) Discontinued Medications Amoxicillin & Pot Clavulanate (Augmentin Tablet), 875 MG PO BID Omeprazole (Gnp Omeprazole), 1 CAP PO BID, (Reported) Omeprazole Magnesium (Omeprazole), 20 MG PO BID Tizanidine Hydrochloride (Tizanidine Hcl), 2.5 MG PO, (Reported) Discharge Statement: "Patient was advised to return to the ER or call 911 if any headaches, dizziness, shortness of breath, chest pain, abdominal pain, bleeding, fevers, or worsening of medical condition. Patient was counseled about treatment plan, medications, possible side effects, patientverbalized understanding. All questions were answered to the best of my ability. This discharge took greater then 30 minutes in planning, reviewing documentation, counseling the patient, and discussing with other team members." ASSESSMENT ASSESSMENT Assessment chronic pelvic pain Date of Service: Sep 07, 2024 Billing Provider: JENIFFER DUFF MD Common Visit Codes: 39631-AJO/OBS DISCH DAY >30min HERMILO HENSON Sep 07, 2024 10:38 JENIFFER DUFF MD Sep 07, 2024 22:33
[2024-09-07 10:49] VITALS: BP 111/66; PULSE 62; TEMP 36.2
[2024-09-07 11:07] LABS: Anti-Centromere B Antibody <0.2 AI (0.0-0.9); Anti-Jo-1 Antibody <0.2 AI (0.0-0.9); Anti-dsDNA Antibody <1 IU/mL (0-9); Antichromatin Antibody <0.2 AI (0.0-0.9); Antiscleroderma-70 Antibody <0.2 AI (0.0-0.9); Sjogren's Anti-SS-A Antibody <0.2 AI (0.0-0.9); Sjogren's Anti-SS-B Antibody 0.2 AI (0.0-0.9)
== END 2024-09-07 11:35 | disposition home or self-care (01) | DRG 372 ==
LOC: ER 14:12 → EDUNIT# 14:12 → EDBD 14:12 → OVERFLOW 16:48 → EAST 23:38
PROVIDERS: ADMIT Internal Medicine; ATTEND Internal Medicine
DX: A04.9 Bacterial intestinal infection, unspecified (principal); I13.0 Hypertensive heart and chronic kidney disease with heart failure and stage 1 through stage 4 chronic kidney disease, or unspecified chronic kidney disease; I50.32 Chronic diastolic (congestive) heart failure; Z94.0 Kidney transplant status; J96.11 Chronic respiratory failure with hypoxia; N18.9 Chronic kidney disease, unspecified; G89.4 Chronic pain syndrome; I48.91 Unspecified atrial fibrillation; K44.9 Diaphragmatic hernia without obstruction or gangrene; E78.5 Hyperlipidemia, unspecified; F32.A Depression, unspecified; M10.9 Gout, unspecified; Z90.49 Acquired absence of other specified parts of digestive tract; Z98.891 History of uterine scar from previous surgery; Z98.51 Tubal ligation status; Z88.0 Allergy status to penicillin; Z88.8 Allergy status to other drugs, medicaments and biological substances; Z79.899 Other long term (current) drug therapy
CPT/HCPCS: 36415; 72195; 74176; 80048; 80053; 81001; 83516; 83605; 83690; 83880; 84484; 85025; 85652; 86141; 86225; 86235; 87081; 96361; 96374; G0378; J2405; J2470; J7507